=== PATIENT | female | born 1945 | race Caucasian/White ===

== ENCOUNTER 2022-03-12 15:56 | Observation (INO) | payer MEDICARE, SELFPAY ==
[2022-03-12] VITALS (7 sets, daily range): BP systolic 128–142; BP diastolic 68–86; PULSE 73–92; RESP 14–16; TEMP 36.7–37.8; O2SAT 92–95; BMI 35.0; BMI 35.7
--- NOTE | 2022-03-12 16:47 | ED.GENADULT ---
HPI - General Adult General Time Seen by Provider: 16:47 Date Seen: 03/12/22 Chief complaint: Weakness Stated complaint: Weakness, Headache, Sore Throat Time Seen by Provider: 03/12/22 16:02 Source: patient, family ( daughter present), RN notes reviewed and old records reviewed Mode of arrival: ambulatory Limitations: language barrier ( hourly sign language interpreter used, daughter does do some interpretation as well) History of Present Illness HPI narrative: This 77-year-old female who is accompanied by her daughter into the ER for weakness. She really started not feeling well last night. When she attempted to get up today she states her whole body felt achy and she just felt weak with walking. She denies any focal motor deficit but just felt globally weak. She has had a mild headache, mild sore throat, some coughing, increased burping but no abdominal pain. She is reported to have some IBS baseline and did eat CABG and sausage couple of days ago and thus did take an Imodium yesterday. She denies any abdominal pain. No nausea or vomiting. No current diarrhea but again endorses IBS symptoms baseline. No urinary symptoms. She was [facility] of this past week with today being Monday. She is subsequently learned that some of the people have calmed down with illness that were at the [facility]. She resides independently and is from [place]. She has had the initial COVID vaccines. Appetite has been diminished with this. She is on Coumadin for underlying atrial fibrillation. complaint: Weakness Onset (ago): day(s) Related Data Home Medications Medication Instructions Recorded Confirmed amlodipine 5 mg tablet mg 03/12/22 atorvastatin 40 mg tablet mg 03/12/22 fluoxetine 20 mg capsule mg 03/12/22 furosemide 20 mg tablet mg 03/12/22 gabapentin 100 mg capsule mg 03/12/22 gabapentin 300 mg capsule mg 03/12/22 levothyroxine 100 mcg tablet mcg 03/12/22 losartan 100 mg tablet mg 03/12/22 metoprolol succinate 25 mg mg PO 03/12/22 tablet,extended release 24 hr Allergies Allergy/AdvReac Type Severity Reaction Status Date / Time No Known Drug Allergies Allergy Verified 03/12/22 16:34 Review of Systems Status of ROS: Reports: 10 or more systems reviewed and unremarkable except as noted in History and below [facility] Medical History (Updated 03/12/22 @ 19:03 by Dori Pierre MD) Atrial fibrillation, chronic Chronic kidney disease Hearing loss Hypertension Social History Smoking Status: Never smoker How often do you have a drink containing alcohol: monthly or less AUDIT-C Alcohol total score: 1 Non-prescribed substance use: denies use Exam Const: Vital Signs, click to edit/add: Vital Signs - 24 hr 03/12/22 16:13 03/12/22 17:30 Temperature 100 F H Pulse Rate [Pulse Oximeter] 92 84 Respiratory Rate 14 14 Blood Pressure [Ri ght Upper Arm] 141/68 H 128/86 Pulse Oximetry 94 94 Documenting provider has reviewed patient's vital signs: yes Common normals: no apparent distress, oriented x3, healthy appearing, alert and well nourished General appearance: cooperative, comfortable and well kempt Nutritional appearance: overweight Orientation/consciousness: Yes awake, Yes oriented to person, Yes oriented to place and Yes oriented to time HENMT: Common normals: normocephalic, head/scalp atraumatic, external ears normal, EAC's normal and external nose normal Head and scalp: normal to inspection, normocephalic and atraumatic Face and sinus: normal facial exam and face symmetric Nose: external nose normal and nares normal General ear: hearing grossly impaired (uses ASL) External ear: external ears normal External auditory canal: EAC's normal Mouth: oral and palatal mucosa normal, lip normal and tongue normal Eye: Common normals: PERRL, EOMs intact bilaterally, conjunctivae normal and no scleral icterus Conjunctiva: conjunctiva(e) normal Pupil: PERRL Neck & C-Spine: Common normals: full ROM, no lymphadenopathy, supple, no meningeal signs, no JVD and thyroid normal Thyroid: thyroid normal Chest: Other: some residual scarring left lower thoracic area on back from Shingles, no active lesions/rash Resp: Common normals: normal respiratory effort, no retractions, no use of accessory muscles and clear to auscultation bilaterally Auscultation: clear to auscultation bilaterally Other: did cough occasionally while in room Cardio: Common normals: no JVD and no murmurs Rhythm: other (Irregularly irregular) GI: Common normals: Normal to inspection, nondistended, normoactive bowel sounds present, soft to palpation, non-tender, no hepatosplenomegaly and no masses Palpation: soft and no hepatosplenomegaly Extremity: Common normals: normal to inspection, full ROM and no calf tenderness Neuro: Common normals: oriented x3, CN's II-XII intact bilaterally, moves all extremities, no focal motor deficits and no sensory deficits noted Sensorium/orientation: awake, alert, oriented to person, oriented to place and oriented to time Meningeal signs: no meningeal signs Psych: Appearance: well kempt Course Course Hospital Course: Nursing staff is already appropriately collected COVID swab. We will place an IV, obtain blood work and a portable chest x-ray. This obviously is something infectious. We need to decipher whether this is bacterial versus viral. With her cough seen, headache, sore throat, would point towards a respiratory focus. Again figuring out whether viral or bacterial is our plan here. Will have her monitored on pulse oximetry while here. Reevaluation(s) Reevaluation #1: Patient and her daughter were notified that she is COVID positive. It did take extra time for the COVID result to come back. The initial cartridge errored and they had to redo the test. She is too weak to be at home by herself. Her daughter had called the patient's pharmacy in they do not have any Paxlovid. I did discuss that we could use IV remdesivir for early treatment with the 3 doses IV. They would like to do this. She is having some body aches and does have a low-grade temperature and we discussed some Tylenol, I will order a dose for her. Have subsequently talked to the hospitalist and she will be coming down to receive report from me. Time: 19:00 Vital Signs Vital signs: Initial Vital Signs Temperature 100 F H 03/12/22 16:13 Temperature Source Temporal Artery Scan 03/12/22 16:13 Pulse Rate 92 03/12/22 16:13 Respiratory Rate 14 03/12/22 16:13 Blood Pressure 141/68 H 03/12/22 16:13 Blood Pressure Mean 92 03/12/22 16:13 Blood Pressure Position Supine 03/12/22 16:13 Pulse Oximetry 94 03/12/22 16:13 Oxygen Delivery Method 03/12/22 16:13 Vital Signs Temperature 100 F H 03/12/22 16:13 Pulse Rate 92 03/12/22 16:13 Respiratory Rate 14 03/12/22 16:13 Blood Pressure 141/68 H 03/12/22 16:13 Pulse Oximetry 94 03/12/22 16:13 Temperature 100 F H 03/12/22 16:13 Pulse Rate 84 03/12/22 17:30 Respiratory Rate 14 03/12/22 17:30 Blood Pressure 128/86 03/12/22 17:30 Pulse Oximetry 94 03/12/22 17:30 Medical Decision Making Lab Data Lab results reviewed: Yes I reviewed the patient's lab results Lab results narrative: Note Cr is 1.8 and 2.2 in old labs from 2017, thus, stable. Labs: Lab Results 03/12/22 03/12/22 03/12/22 Range/Units 16:43 17:30 17:30 WBC 6.12 (4.50-11.00) K/uL RBC 3.54 L (4.00-5.20) m/uL Hgb 11.0 L (12.0-16.0) gm/dL Hct 33.7 (33.0-51.0) % MCV 95 (80-100) fL MCH 31 (26-34) pg MCHC 33 (32-36) gm/dL RDW Coeff of Halle 17.0 H (11.5-15.5) % Plt Count 250 (140-440) K/uL Neut % (Auto) 76.0 H (42.0-72.0) % Lymph % (Auto) 10.5 L (20-44) % Franklin % (Auto) 11.8 H (0.0-11.0) % Eos % (Auto) 0.7 (0.0-7.0) % Baso % (Auto) 0.5 (0.0-3.0) % Neut # (Auto) 4.70 (1.7-7.0) K/uL Lymph # (Auto) 0.60 L (0.90-2.90) K/uL Franklin # (Auto) 0.70 (0.00-0.90) K/UL Eos # (Auto) 0.04 (0.00-0.50) K/uL Baso # (Auto) 0.03 (0.00-0.30) K/uL Abs Immat Gran (auto) 0.03 (0.00-0.30) K/uL Diff Slide Review Acceptable Review (Acceptable) INR (0.91-1.10) Sodium 137 (135-149) mmol/L Potassium 4.4 (3.6-5.1) mmol/L Chloride 107 (96-114) mmol/L Carbon Dioxide 21 (20-32) mmol/L BUN 51 H (7-30) mg/dL Creatinine 2.0 H (0.5-1.5) mg/dL Estimated Creat Clear 18.06 Estimated GFR 25 ml/min Glucose 103 (60-115) mg/dL Calcium 8.8 (8.4-10.6) mg/dL Total Bilirubin 0.6 (0.1-1.5) mg/dL AST 34 (12-35) U/L ALT 26 (4-35) U/L Alkaline Phosphatase 54 (40-150) U/L C-Reactive Protein 2.7 H (0.5-1.0) mg/dL Total Protein 6.8 (6.0-8.3) g/dL Albumin 4.0 (3.3-5.0) g/dL Urine Color (Yellow) Urine Appearance (Clear) Urine pH (5.0-8.5) Ur Specific [place] (1.000-1.030) Urine Protein (Negative) Urine Glucose (UA) (Negative) Urine Ketones (Negative) Urine Blood (Negative) Urine Nitrite (Negative) Urine Bilirubin (Negative) Urine Urobilinogen (0.2-1.0) Ur Leukocyte Esterase (Negative) Urine RBC (0-2) Urine WBC (0-5) Ur Squamous Epith Cells (None-Few) Amorphous Sediment (None) Urine Bacteria (None) Urine Mucus (None) SARS-CoV-2 (PCR) POSITIVE SARS-CoV-2 A (Negative) Influenza Type A (PCR) Negative PCR FLU A (Negative) Influenza Type B (PCR) Negative PCR FLU B (Negative) 03/12/22 03/12/22 Range/Units 18:30 19:05 WBC (4.50-11.00) K/uL RBC (4.00-5.20) m/uL Hgb (12.0-16.0) gm/dL Hct (33.0-51.0) % MCV (80-100) fL MCH (26-34) pg MCHC (32-36) gm/dL RDW Coeff of Halle (11.5-15.5) % Plt Count (140-440) K/uL Neut % (Auto) (42.0-72.0) % Lymph % (Auto) (20-44) % Franklin % (Auto) (0.0-11.0) % Eos % (Auto) (0.0-7.0) % Baso % (Auto) (0.0-3.0) % Neut # (Auto) (1.7-7.0) K/uL Lymph # (Auto) (0.90-2.90) K/uL Franklin # (Auto) (0.00-0.90) K/UL Eos # (Auto) (0.00-0.50) K/uL Baso # (Auto) (0.00-0.30) K/uL Abs Immat Gran (auto) (0.00-0.30) K/uL Diff Slide Review (Acceptable) INR 1.81 H (0.91-1.10) Sodium (135-149) mmol/L Potassium (3.6-5.1) mmol/L Chloride (96-114) mmol/L Carbon Dioxide (20-32) mmol/L BUN (7-30) mg/dL Creatinine (0.5-1.5) mg/dL Estimated Creat Clear Estimated GFR ml/min Glucose (60-115) mg/dL Calcium (8.4-10.6) mg/dL Total Bilirubin (0.1-1.5) mg/dL AST (12-35) U/L ALT (4-35) U/L Alkaline Phosphatase (40-150) U/L C-Reactive Protein (0.5-1.0) mg/dL Total Protein (6.0-8.3) g/dL Albumin (3.3-5.0) g/dL Urine Color Yellow (Yellow) Urine Appearance Clear (Clear) Urine pH 5.0 (5.0-8.5) Ur Specific [place] 1.015 (1.000-1.030) Urine Protein Negative (Negative) Urine Glucose (UA) Negative (Negative) Urine Ketones Negative (Negative) Urine Blood Trace-lysed A (Negative) Urine Nitrite Negative (Negative) Urine Bilirubin Negative (Negative) Urine Urobilinogen 0.2 (0.2-1.0) Ur Leukocyte Esterase Trace A (Negative) Urine RBC 0-2 (0-2) Urine WBC 0-2 (0-5) Ur Squamous Epith Cells Few (None-Few) Amorphous Sediment (None) Urine Bacteria Few A (None) Urine Mucus (None) SARS-CoV-2 (PCR) (Negative) Influenza Type A (PCR) (Negative) Influenza Type B (PCR) (Negative) Imaging Data Chest x-ray: Attestation: I have reviewed the pertinent imaging results. My impression: My preliminary read of her portable chest x-ray shows cardiomegaly but I do not appreciate infiltrate. Will await radiologist's over-read. Radiologist's impression: Patient: ANTOINE TIPTON Facility:?[facility] Patient ID:?[id number] Site Patient ID:?[id number]. Site :?[id number] Study:?XRay Chest PORTABLE-03/12/2022 5:19:57 PM Ordering Physician:?Gabby Meadows Final Report: Indication: Cough Technique: Portable chest Comparison: Chest x-ray 05/18/2017 Findings: Enlarged cardiac silhouette. Low lung volumes. No acute airspace or interstitial process right hemidiaphragm elevated. No effusion or pneumothorax. Dictated by Kourtney Griffin MD @ 03/12/2022 5:35:23 PM (Electronic Signature) Critical Care Time Critical Care Time Critical Care Time: No Discharge Plan Discharge Clinical Impression: COVID-19, Weakness Patient Disposition: Admitted As Inpatient Condition: Unchanged
--- NOTE | 2022-03-12 17:03 | CRLHL7_ITS ---
For Patients: As a result of the Century Cures Act, medical imaging exams and procedure reports are released immediately into your electronic medical record. You may view this report before your referring provider. If you have questions, please contact your health care provider. Indication: Cough Technique: Portable chest Comparison: Chest x-ray 05/18/2017 Findings: Enlarged cardiac silhouette. Low lung volumes. No acute airspace or interstitial process right hemidiaphragm elevated. No effusion or pneumothorax. Dictated by Kourtney Griffin MD @ 03/12/2022 5:35:23 PM (Electronically Signed)
[2022-03-12 17:54] LABS: Chloride* 107 mmol/L (96-114)
[2022-03-12 17:55] LABS: Potassium* 4.4 mmol/L (3.6-5.1); Sodium* 137 mmol/L (135-149)
[2022-03-12 17:57] LABS: Bilirubin Total* 0.6 mg/dL (0.1-1.5); Est. Creatinine Clearance* 18.06; Estimated Glomerular Filt Rate 25 ml/min
[2022-03-12 17:58] LABS: Alanine Aminotransferase* 26 U/L (4-35); Alkaline Phosphatase* 54 U/L (40-150); Aspartate Amino Transferase* 34 U/L (12-35); Blood Urea Nitrogen* 51 mg/dL (7-30); Calcium* 8.8 mg/dL (8.4-10.6); Carbon Dioxide* 21 mmol/L (20-32); Glucose* 103 mg/dL (60-115); Total Protein* 6.8 g/dL (6.0-8.3)
[2022-03-12 18:00] LABS: Basophils Absolute Auto 0.03 K/uL (0.00-0.30); Basophils Percent Auto 0.5 % (0.0-3.0); Eosinophils Absolute Auto 0.04 K/uL (0.00-0.50); Eosinophils Percent Auto 0.7 % (0.0-7.0); Hematocrit 33.7 % (33.0-51.0); Immature Granulocytes Abs Auto 0.03 K/uL (0.00-0.30); Lymphocytes Percent Auto 10.5 % (20-44); Mean Corpuscular HGB Conc 33 gm/dL (32-36); Mean Corpuscular Hemoglobin 31 pg (26-34); Mean Corpuscular Volume 95 fL (80-100); Monocytes Percent Auto 11.8 % (0.0-11.0); Red Blood Count 3.54 m/uL (4.00-5.20); White Blood Count* 6.12 K/uL (4.50-11.00)
[2022-03-12 18:01] LABS: C Reactive Protein* 2.7 mg/dL (0.5-1.0)
[2022-03-12 18:06] LABS: Slide Review Reflex Yes
[2022-03-12 18:42] LABS: Platelet Count* 250 K/uL (140-440); Slide Review Acceptable Review (Acceptable)
[2022-03-12 18:49] LABS: PCR FLU A Negative PCR FLU A (Negative); PCR FLU B Negative PCR FLU B (Negative)
[2022-03-12 18:54] LABS: INR 1.81 (0.91-1.10); Prothrombin Time 21.4 Seconds
[2022-03-12 19:15] LABS: SARS PCR* POSITIVE SARS-CoV-2 (Negative)
[2022-03-12 19:18] LABS: Appearance Urine Clear (Clear); Bilirubin Urine Negative (Negative); Blood Urine Trace-lysed (Negative); Color Urine Yellow (Yellow); Glucose Urine Negative (Negative); Ketones Urine Negative (Negative); Leukocyte Esterase Urine Trace (Negative); Nitrite Urine Negative (Negative); Protein Urine Negative (Negative); Specific Gravity Urine 1.015 (1.000-1.030); Urobilinogen Urine 0.2 (0.2-1.0)
--- NOTE | 2022-03-12 19:19 | P.IMHP_ITS ---
Hospitalist- H&P: HPI History of Present Illness Time Seen by Provider: 19:29 Date Seen: 03/12/22 Chief complaint: Weakness, Headache, Sore Throat Narrative: Sylvia Doan is a 77 year old female who presents emergency room with her daughter for weakness and body aches. aerial photograph interpreter present throughout interview. Sylvia notes that she started having fatigue and achiness last night. Also has mild cough, but no dyspnea or chest pain. ER course and findings: - Positive COVID, remdesivir loading dose was ordered - creatinine of 2.0 (baseline) - mild normocytic anemia with a hemoglobin of 11.0 (was 12.5 in December) Sylvia has been vaccinated for COVID x2 (has not had any boosters), is thinks she was exposed to COVID earlier this week at a [employer] event. She had a fairly severe case of shingles involving her left chest wall and back in December, still on gabapentin for post herpetic neuralgia. History of atrial fibrillation, rate controlled on Metoprolol, anticoagulated on Coumadin. Per last cardiology note, patient has a history of mild diastolic heart failure. Also has CKD, baseline creatinine around 2. Other medical history includes hyperlipidemia, essential hypertension, carotid stenosis, mild depression, and hypothyroidism. PCP is Dr. Tala Thomason at [facility] in [place]. Has had a tubal ligation and eye surgery. Retired, , lives in [place] (basement apartment of her daughter's home). Rare ETOH, nonsmoker. Daughter Maya would be medical decision maker if needed. Review of Systems Status of ROS: Reports: 10 or more systems reviewed and unremarkable except as noted in History and below PFSH PFS Medical History (Updated 03/12/22 @ 20:35 by Kat Gonsales MD) Atrial fibrillation, chronic Chronic kidney disease Hearing loss Hypertension Surgical History (Updated 03/12/22 @ 20:35 by Kat Gonsales MD) History of tubal ligation Social History Smoking Status: Never smoker How often do you have a drink containing alcohol: monthly or less AUDIT-C Alcohol total score: 1 Non-prescribed substance use: denies use Meds Home Medications and Allergies Home Medications Medication Instructions Recorded Confirmed Type amlodipine 5 mg tablet 5 mg PO DAILY 03/12/22 03/12/22 History atorvastatin 40 mg tablet 40 mg PO DAILY 03/12/22 03/12/22 History fluoxetine 20 mg capsule 20 mg PO DAILY 03/12/22 03/12/22 History furosemide 20 mg tablet 20 mg PO DAILY 03/12/22 03/12/22 History gabapentin 100 mg capsule 100 mg PO Q8H PRN 03/12/22 03/12/22 History levothyroxine 100 mcg tablet 100 mcg PO DAILY 03/12/22 03/12/22 History losartan 100 mg tablet 100 mg PO DAILY 03/12/22 03/12/22 History metoprolol succinate 25 mg 25 mg PO DAILY 03/12/22 03/12/22 History tablet,extended release 24 hr warfarin 1 mg tablet 1 mg PO DAILY 03/12/22 03/12/22 History Home Medication Comments: Unsure of current warfarin dose Allergies Allergy/AdvReac Type Severity Reaction Status Date / Time No Known Drug Allergies Allergy Verified 03/12/22 16:34 Exam Const: Vital Signs, click to edit/add: Vital Signs - 24 hr 03/12/22 16:13 03/12/22 17:30 Temperature 100 F H Pulse Rate [Pulse Oximeter] 92 84 Respiratory Rate 14 14 Blood Pressure [Ri ght Upper Arm] 141/68 H 128/86 Pulse Oximetry 94 94 Hospitalist - H&P: Result Labs Labs: Short CBC 03/12/22 Range/Units 17:30 WBC 6.12 (4.50-11.00) K/uL Hgb 11.0 L (12.0-16.0) gm/dL Hct 33.7 (33.0-51.0) % Plt Count 250 (140-440) K/uL BMP 03/12/22 17:30 Sodium 137 Potassium 4.4 Chloride 107 Carbon Dioxide 21 BUN 51 H Creatinine 2.0 H Glucose 103 Calcium 8.8 Liver Function 03/12/22 Range/Units 17:30 Total Bilirubin 0.6 (0.1-1.5) mg/dL AST 34 (12-35) U/L ALT 26 (4-35) U/L Alkaline Phosphatase 54 (40-150) U/L Albumin 4.0 (3.3-5.0) g/dL Assessment and Plan Assessment and plan (1) COVID-19: Status: Acute (2) Weakness: Status: Acute (3) Hypertension: Status: Acute (4) Hearing loss: Status: Acute (5) Atrial fibrillation, chronic: Status: Acute (6) Chronic kidney disease: Status: Acute Plan 77-year-old female with weakness in the setting of known COVID-19 infection. 1. COVID: Remdesivir loading dose given in the ER, will follow renal function while we continue this course. Currently not hypoxic, will ask PT and OT to see her given weakness. 2. AFib: Continue home dose of metoprolol, will have pharmacy dose warfarin given mildly subtherapeutic INR. 3. Other comorbidities as noted above: Continue home medications. 4. Prophylaxis with warfarin. 5. Patient requests full code status, although states she would not want to be on a ventilator for a lengthy period of time.
[2022-03-12 19:24] LABS: Bacteria Urine Few; RBC Urine 0-2 (0-2); Squamous Epithelial Cell Urine Few (None-Few); WBC Urine 0-2 (0-5)
[2022-03-12] MEDS: ACETAMINOPHEN 325 MG TABLET 650 MG PO (20:02)
--- NOTE | 2022-03-12 20:07 | ED.NURSE ---
Report given to Tomer Gonzalez/Mare AGUILAR. Pt will go to Rm [id number].
--- NOTE | 2022-03-12 23:36 | PC.NURSE ---
Shift [id number]- Patient arrives to floor with daughter at approximately 2030. IPAD translator/interpreter used in addition to daughter for ASL. She denies shortness of breath or chest pain. She is up with walker and assist of 1 and is steady, but appears weak. She is eating and drinking and voiding. Remains on room air with saturations >90%.
[2022-03-13 03:00] VITALS: BP 150/68; PULSE 75; RESP 20; TEMP 39.2; O2SAT 92
[2022-03-13 04:58] VITALS: TEMP 39.2
[2022-03-13] MEDS: ACETAMINOPHEN 325 MG TABLET 975 MG PO ×2 (04:58→16:01)
[2022-03-13 06:18] VITALS: TEMP 37.9
[2022-03-13] MEDS: LEVOTHYROXINE 100 MCG TABLET PO (06:19)
[2022-03-13 07:06] LABS: Basophils Percent Auto 0.5 % (0.0-3.0); Eosinophils Percent Auto 0.2 % (0.0-7.0); Hematocrit 32.9 % (33.0-51.0); Hemoglobin* 10.6 gm/dL (12.0-16.0); Lymphocytes Percent Auto 20.3 % (20-44); Mean Corpuscular HGB Conc 32 gm/dL (32-36); Mean Corpuscular Hemoglobin 31 pg (26-34); Mean Corpuscular Volume 97 fL (80-100); Monocytes Percent Auto 21.4 % (0.0-11.0); Neutrophils Percent Auto 57.6 % (42.0-72.0); Platelet Count* 226 K/uL (140-440); Red Blood Count 3.41 m/uL (4.00-5.20); White Blood Count* 4.29 K/uL (4.50-11.00)
--- NOTE | 2022-03-13 07:12 | PC.NURSE ---
[id number]: Patient pleasant and cooperative. Patient has extensive hearing loss using electrical assembler and white board for communication. Also uses nonverbal communication effectively. Denies pain/N/V/discomfort. Fever of 102.5 during noc. PRN Tylenol administered. Temp decreased to 100.2. O2 sats dip to mid-80's during noc momentarily but pop back up to low 90's quickly. On RA.
[2022-03-13 07:19] LABS: INR 1.66 (0.91-1.10)
[2022-03-13 07:26] LABS: Slide Review Reflex No
[2022-03-13 07:27] LABS: Chloride* 108 mmol/L (96-114); Sodium* 136 mmol/L (135-149)
[2022-03-13 07:28] LABS: Potassium* 4.1 mmol/L (3.6-5.1)
[2022-03-13 07:30] LABS: Creatinine* 2.1 mg/dL (0.5-1.5); Estimated Glomerular Filt Rate 24 ml/min
[2022-03-13 07:31] LABS: Blood Urea Nitrogen* 48 mg/dL (7-30); Calcium* 8.4 mg/dL (8.4-10.6); Carbon Dioxide* 19 mmol/L (20-32); Glucose* 96 mg/dL (60-115)
[2022-03-13 09:00] VITALS: BP 120/66; PULSE 66; PULSE 75; RESP 20; TEMP 36.8; O2SAT 95
[2022-03-13] MEDS: AMLODIPINE 5 MG TABLET PO (09:45)
[2022-03-13] MEDS: METOPROLOL SUCCINATE (XL) 25 MG TAB PO (09:45)
[2022-03-13] MEDS: FLUOXETINE HCL 20 MG CAPSULE PO (09:45)
[2022-03-13] MEDS: LOSARTAN POTASSIUM 50 MG TABLET 100 MG PO (09:45)
[2022-03-13] MEDS: FUROSEMIDE 20 MG TABLET PO (09:45)
[2022-03-13] MEDS: ATORVASTATIN CALCIUM 40 MG TABLET PO (09:45)
--- NOTE | 2022-03-13 12:57 | P.DS_ITS ---
DS: Providers Provider Time Seen by Provider: 12:00 Date Seen: 03/13/22 Date of admission: 03/12/22 19:51 Primary care physician: Not a Local Provider Admitting Clinician: Kat Gonsales MD Consults: 03/12/22 20:44 Consult to Physical Therapy [CONS] Routine Comment: Reason(s) for PT Consult:: Evaluate and Treat Any Restrictions?:: Wt Bearing as Tolerated Consult to Respiratory Therapy [CONS] Routine Comment: Reason(s) for RT Consult:: Consult 03/12/22 20:47 Consult to Occupational Therapy [CONS] Routine Comment: Reason(s) for OT Consult:: Evaluate and Treat ADLs Prior to Discharge Any Restrictions?:: Wt Bearing as Tolerated Attending Physician on discharge: Kat Gonsales MD Date of Discharge: 03/13/22 DS: Diagnosis Discharge Diagnosis (1) COVID-19: Status: Acute Problem details: Date of symptom onset: 03/11/22 Date of positive covid test: 03/12/22 (2) Weakness: Status: Acute Problem details: due to covid (3) Hypertension: Status: Chronic (4) Chronic kidney disease: Status: Chronic (5) Atrial fibrillation, chronic: Status: Chronic Problem details: anticoagulation with warfarin (6) Deaf: Status: Chronic Problem details: deaf, able to speak (7) Subtherapeutic anticoagulation: Status: Acute DS: Summary Hospital Course Hospital Course: This is a 77-year-old female had recently been on a pot luck event and started having weakness and body aches. She also had a mild cough but no dyspnea or chest pain. She was weak enough that it was difficult for her to care for herself at home where she lives independently in the basement of her daughter's house. Her daughter is debilitated from chronic illness and is unable to take care of Sylvia. Sylvia was admitted overnight and started on Remdesivir. This morning she is feeling much better and able to take care of herself at home. Her 1 concern is getting down the 1 flight of stairs to get to her basement, about 10 steps. Her other daughter who is here with her today notes that she has a who can help Sylvia get down the steps. Once Sylvia is there, she has everything she needs and does not need to go back up and down until she is well enough to do so. Status at Discharge Functional status at discharge: independent ambulation Overall status at discharge: patient is progressing back to baseline Time Spent with Patient Time attestation: Total time spent providing and/or coordinating discharge services: Time spent: Greater than 30 minutes Specific discharge activities: Discussion with patient and daughter. Discussion with PT about stairs. Exam Narrative: Exam Narrative: General: No acute distress. Awake, alert, oriented. No pallor. No jaundice. Oropharynx: Clear. Mucous membranes moist. Cardiovascular: Regular rate and rhythm. No murmurs, gallops, or rubs. Respiratory: Clear to auscultation bilaterally. No wheezes or crackles. Abdomen: Bowel sounds present. Soft, nondistended, nontender. Extremities: No pedal edema. Const: Vital Signs, click to edit/add: Vital Signs - 24 hr 03/12/22 16:13 03/12/22 17:30 03/12/22 20:00 Temperature 100 F H Pulse Rate [Pulse Oximeter] 92 84 78 Respiratory Rate 14 14 14 Blood Pressure [Le ft Arm] Blood Pressure [Ri ght Upper Arm] 141/68 H 128/86 128/86 Pulse Oximetry 94 94 95 03/12/22 20:02 03/12/22 20:44 03/12/22 20:45 Temperature 100.0 F H 98.1 F Pulse Rate [Pulse Oximeter] 86 Respiratory Rate 16 16 Blood Pressure [Le ft Arm] 132/79 Blood Pressure [Ri ght Upper Arm] Pulse Oximetry 94 94 03/12/22 23:00 03/13/22 03:00 03/13/22 04:58 Temperature 99.2 F 102.5 F H 102.5 F H Pulse Rate [Pulse Oximeter] 73 75 Respiratory Rate 16 20 Blood Pressure [Le ft Arm] 142/73 H 150/68 H Blood Pressure [Ri ght Upper Arm] Pulse Oximetry 92 92 03/13/22 06:18 03/13/22 09:00 Temperature 100.2 F H 98.2 F Pulse Rate [Pulse Oximeter] 66 Respiratory Rate 20 Blood Pressure [Le ft Arm] 120/66 Blood Pressure [Ri ght Upper Arm] Pulse Oximetry 95 DS: Data Data Completed and Pending Labs on day of discharge: Labs from last 24 hours 03/13/22 03/13/22 03/13/22 06:43 06:43 06:43 WBC 4.29 L RBC 3.41 L Hgb 10.6 L Hct 32.9 L MCV 97 MCH 31 MCHC 32 RDW Coeff of [place] 17.0 H Plt Count 226 Neut % (Auto) 57.6 Lymph % (Auto) 20.3 [place] % (Auto) 21.4 H Eos % (Auto) 0.2 Baso % (Auto) 0.5 Neut # (Auto) 2.50 Lymph # (Auto) 0.90 [place] # (Auto) 0.90 Eos # (Auto) 0.00 Baso # (Auto) 0.00 Abs Immat Gran (auto) 0.00 Diff Slide Review INR 1.66 H Sodium 136 Potassium 4.1 Chloride 108 Carbon Dioxide 19 L BUN 48 H Creatinine 2.1 H Estimated Creat Clear 17.20 Estimated GFR 24 Glucose 96 Calcium 8.4 Total Bilirubin AST ALT Alkaline Phosphatase C-Reactive Protein Total Protein Albumin Urine Color Urine Appearance Urine pH Ur Specific Joseph Urine Protein Urine Glucose (UA) Urine Ketones Urine Blood Urine Nitrite Urine Bilirubin Urine Urobilinogen Ur Leukocyte Esterase Urine RBC Urine WBC Ur Squamous Epith Cells Amorphous Sediment Urine Bacteria Urine Mucus SARS-CoV-2 (PCR) Influenza Type A (PCR) Influenza Type B (PCR) 03/12/22 03/12/22 03/12/22 19:05 18:30 17:30 WBC RBC Hgb Hct MCV MCH MCHC RDW Coeff of [place] Plt Count Neut % (Auto) Lymph % (Auto) [place] % (Auto) Eos % (Auto) Baso % (Auto) Neut # (Auto) Lymph # (Auto) [place] # (Auto) Eos # (Auto) Baso # (Auto) Abs Immat Gran (auto) Diff Slide Review INR 1.81 H Sodium 137 Potassium 4.4 Chloride 107 Carbon Dioxide 21 BUN 51 H Creatinine 2.0 H Estimated Creat Clear 18.06 Estimated GFR 25 Glucose 103 Calcium 8.8 Total Bilirubin 0.6 AST 34 ALT 26 Alkaline Phosphatase 54 C-Reactive Protein 2.7 H Total Protein 6.8 Albumin 4.0 Urine Color Yellow Urine Appearance Clear Urine pH 5.0 Ur Specific Joseph 1.015 Urine Protein Negative Urine Glucose (UA) Negative Urine Ketones Negative Urine Blood Trace-lysed A Urine Nitrite Negative Urine Bilirubin Negative Urine Urobilinogen 0.2 Ur Leukocyte Esterase Trace A Urine RBC 0-2 Urine WBC 0-2 Ur Squamous Epith Cells Few Amorphous Sediment Urine Bacteria Few A Urine Mucus SARS-CoV-2 (PCR) Influenza Type A (PCR) Influenza Type B (PCR) 03/12/22 03/12/22 17:30 16:43 WBC 6.12 RBC 3.54 L Hgb 11.0 L Hct 33.7 MCV 95 MCH 31 MCHC 33 RDW Coeff of [place] 17.0 H Plt Count 250 Neut % (Auto) 76.0 H Lymph % (Auto) 10.5 L [place] % (Auto) 11.8 H Eos % (Auto) 0.7 Baso % (Auto) 0.5 Neut # (Auto) 4.70 Lymph # (Auto) 0.60 L [place] # (Auto) 0.70 Eos # (Auto) 0.04 Baso # (Auto) 0.03 Abs Immat Gran (auto) 0.03 Diff Slide Review Acceptable Review INR Sodium Potassium Chloride Carbon Dioxide BUN Creatinine Estimated Creat Clear Estimated GFR Glucose Calcium Total Bilirubin AST ALT Alkaline Phosphatase C-Reactive Protein Total Protein Albumin Urine Color Urine Appearance Urine pH Ur Specific Joseph Urine Protein Urine Glucose (UA) Urine Ketones Urine Blood Urine Nitrite Urine Bilirubin Urine Urobilinogen Ur Leukocyte Esterase Urine RBC Urine WBC Ur Squamous Epith Cells Amorphous Sediment Urine Bacteria Urine Mucus SARS-CoV-2 (PCR) POSITIVE SARS-CoV-2 A Influenza Type A (PCR) Negative PCR FLU A Influenza Type B (PCR) Negative PCR FLU B Imaging Chest x-ray: Attestation: I have reviewed the pertinent imaging results. Radiologist's impression: Ordering Physician: Dori Pierre M.D. Date of Service: 03/12/22 Procedure(s): XR chest 1V portable Accession Number(s): [id number] cc: Provider,Not a Local ; Dori Pierre M.D.~ For Patients: As a result of the Century Cures Act, medical imaging exams and procedure reports are released immediately into your electronic medical record. You may view this report before your referring provider. If you have questions, please contact your health care provider. Indication: Cough Technique: Portable chest Comparison: Chest x-ray 05/18/2017 Findings: Enlarged cardiac silhouette. Low lung volumes. No acute airspace or interstitial process right hemidiaphragm elevated. No effusion or pneumothorax. Dictated by Kourtney Griffin MD @ 03/12/2022 5:35:23 PM (Electronically Signed) Discharge Plan Discharge Disposition: Home, Self-Care Date of Admission: 03/12/22 19:51 Attending Provider on Discharge: Bessie Tenorio Primary Care Provider: Provider,Not a Local Condition: Improved Anticipated Discharge Date/Time: 03/13/22 15:00 Discharge Medications: Continued atorvastatin 40 mg tablet 40 mg PO DAILY 0RF amlodipine 5 mg tablet 5 mg PO DAILY 0RF levothyroxine 100 mcg tablet 100 mcg PO DAILY 0RF Label Comments: TAKE 1 TABLET BY MOUTH 6 TIMES A WEEK AND NO MED ONCE WEEKLY furosemide 20 mg tablet 20 mg PO DAILY 0RF Label Comments: TAKE 1 TABLET BY MOUTH DAILY gabapentin 100 mg capsule 100 mg PO Q8H PRN (Reason: pain) 0RF Label Comments: TAKE 1 TO 2 CAPSULES BY MOUTH THREE TIMES DAILY NEEDED metoprolol succinate 25 mg tablet extended release 24 hr 25 mg PO DAILY 0RF losartan 100 mg tablet 100 mg PO DAILY 0RF Label Comments: TAKE 1 TABLET BY MOUTH DAILY fluoxetine 20 mg capsule 20 mg PO DAILY 0RF Label Comments: TAKE 1 CAPSULE BY MOUTH DAILY warfarin 1 mg tablet 0.5 - 1 mg PO DAILY 0RF Rx Instructions: 1 MG MONDAY AND MONDAY, 0.5 MG ALL OTHER DAYS Discharge Orders: Discharge Order (Routine); Ordered 03/13/22 Ordered By: Bessie Tenorio Activity Level: Use Walker Activity Detail: Front wheeled walker Discharge Diet: Regular Follow Up Appointments: Provider,Not a Local [Primary Care Provider] - Forms: MyHealth Info Instructions Discharge Comment: INR on 03/16/22 at [facility]
[2022-03-13 13:00] VITALS: BP 115/67; PULSE 71; RESP 18; TEMP 36.6; O2SAT 97
[2022-03-13 15:15] VITALS: BP 118/72; PULSE 76; RESP 18; TEMP 37.6; O2SAT 95
--- NOTE | 2022-03-13 16:56 | PC.NURSE ---
Discharge 1620- Patient denies pain. Temperature elevated- tylenol administered- see charting. IV removed with catheter intact. 2 daughters are also present for discharge teaching, declines IPAD store leader for instructions. All questions answered. She leaves with all belongings and walker via wheelchair with daughters at approximately 1620.
== END 2022-03-13 16:20 | disposition home or self-care (01) ==
LOC: ED 19:03 → MEDSURG 19:52
PROVIDERS: Admitting Provider Family Medicine; Emergency Provider Family Medicine; Visit Provider Family Medicine
DX: U07.1 COVID-19 (principal); I12.9 Hypertensive chronic kidney disease with stage 1 through stage 4 chronic kidney disease, or unspecified chronic kidney disease; I48.20 Chronic atrial fibrillation, unspecified; Z79.01 Long term (current) use of anticoagulants; D64.9 Anemia, unspecified; H91.90 Unspecified hearing loss, unspecified ear; Z51.81 Encounter for therapeutic drug level monitoring; Z86.79 Personal history of other diseases of the circulatory system
CPT/HCPCS: 36415; 71045; 80048; 80053; 81001; 85025; 85610; 86140; 87040; 87086; 87186; 87502; 87635; 96374; 97110; 97116; 97161; 97165; 99284; 99285; A9270; G0378; G0379; J7050

== ENCOUNTER 2024-02-24 12:50 | Emergency (ER) | payer MEDICARE, SELFPAY ==
[2024-02-24 12:55] VITALS: BP 168/79; PULSE 60; RESP 20; TEMP 36.5; O2SAT 99; BMI 35.0
--- OUTSIDE RECORDS SUMMARY | 2024-02-24 13:27 | XMS_ITS | Clinical Summary ---
[facility] Address [address] [place] [address] Care Team Providers Care Pan Greaser Name Role Phone Tala Thomason MD Primary Care Provider [phone] Source Comments You are receiving this document as you are listed as the primary care provider,follow-up provider, or the patient has been referred to you for consultation.This is in compliance with the Medicare andMedicaid EHR Incentive Program,which states Providers who transition their patient to another setting of careor provider of care or refers their patient to another provider of care shouldprovide summary care record for each transition of care or referral. [facility] Allergies Active Allergy Reactions Criticality Noted Date Comments Codeine Nausea And Vomiting 09/21/2004 PN: felt sick Lisinopril Cough 06/02/2009 Morphine And Codeine Unknown 03/28/2003 Tyl #3 Naproxen Rash 03/28/2003 Medications Medication Sig Dispensed Refills Start Date End Date Status atorvastatin (LIPITOR) 40 MG tablet Take 1 Tablet (40 mg) by mouth daily. Active ketoconazole (NIZORAL) 2 % creamIndications:C utaneous Candidiasis,belly button, groin Apply topically daily. Apply 1-2 times daily until clear plus one week Indications: Skin Infection due to Naheed Yeast, belly button, groin 30 g 2 12/10/19 23 Active calcium carbonate 600 MG tablet Take 1 Tablet (600 mg) by mouth two times a day. Active sodium bicarbonate 650 MG tablet Take 1 Tablet (650 mg) by mouth two times a day. 180 Tablet 3 02/02/20 23 Active Vitamin D, Ergocalciferol, 1.25 MG (05127 UT) CAPS TAKE 1 CAPSULE BY MOUTH 1 TIME EVERY WEEK 13 Capsule 3 04/13/20 23 Active allopurinol (ZYLOPRIM) 100 MG tabletIndications: Gout, unspecified cause, unspecified chronicity, unspecified site,CKD (chronic kidney disease) stage 4, GFR 15-29 ml/min (HRC) Take 2 Tablets (200 mg) by mouth daily. 180 Tablet 3 07/18/20 23 Active alendronate (FOSAMAX) 70 MG tabletIndications: Osteopenia, unspecified location Take 1 Tablet (70 mg) by mouth once every week. TAKE 30 MINUTES BEFORE FIRST VAJO-LLWEH-OSPMVMTV ON. AVOID LYING DOWN FOR 30 MINUTES 12 Tablet 1 08/22/19 24 Active warfarin 3 MG tabletIndications: Chronic atrial fibrillation (HRC),longterm (current) use of anticoagulants Take by mouth 3 mg every Sa; 1.5 mg all other days or as directed. Your dose may change. Call [facility] [phone] with questions. 12/19/19 24 Active losartan (COZAAR) 100 MG tabletIndications: Essential hypertension (HRC) TAKE 1 TABLET BY MOUTH DAILY 90 Tablet 12/25/19 24 025 Active mupirocin (BACTROBAN) 2 % ointment Apply to affected area three times a day for 7 days. 22 g 12/23/19 24 Active triamcinolone acetonide (KENALOG) 0.1 % cream Apply to affected area twice daily x7 days 15 g 12/23/19 24 Active amLODIPine (NORVASC) 5 MG tablet TAKE 1 TABLET(5 MG) BY MOUTH DAILY 90 Tablet 12/29/19 24 Active metoprolol succinate (TOPROL XL) 25 MG 24 hour release tablet TAKE 1 TABLET(25 MG) BY MOUTH DAILY 90 Tablet 12/29/19 24 Active furosemide (LASIX) 20 MG tabletIndications: Essential hypertension (HRC) TAKE 1 TABLET BY MOUTH DAILY 60 Tablet 01/05/20 24 Active FLUoxetine (PROZAC) 20 MG capsuleIndications :Moderate episode of recurrent major depressive disorder (HRC) take 1 capsule by mouth daily 60 Capsule 01/09/20 24 Active levothyroxine (SYNTHROID) 100 MCG tabletIndications: Hypothyroidism, unspecified type (HRC) TAKE 1 TABLET(100 MCG) BY MOUTH DAILY 90 Tablet 02/21/20 24 Active levothyroxine (SYNTHROID) 100 MCG tabletIndications: Hypothyroidism, unspecified type (HRC) TAKE 1 TABLET(100 MCG) BY MOUTH DAILY 90 Tablet 2 05/28/20 23 024 Discontinued Active Problems Problem Noted Date Diagnosed Date Monitoring for long-term anticoagulant use 12/18 Osteopenia 06/30/2022 Overview: With high risk of fracture, FRAX for hip 9% based on bone density test done 06/2022. Consider pharmacotherapy. Letter sent. Hyperlipidemia 06/29/2021 History of basal cell carcinoma 04/21/2020 Overview: BCC right upper back, s/p punch excision 04/01/2020 Screening for cervical cancer 08/25/2017 Overview: Normal pap in 2005 and 2009. Elevated LFTs 05/25/2017 Overview: Noted on 05/25/2017. Recheck in 3 months. Check addition LFTs and US RUQ if pain sooner. 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 Anxiety state 12/08/2010 Overview: Anxiety NOS CKD (chronic kidney disease) stage 4, GFR 15-29 ml/min 10/09/2009 Overview: Chronic Kidney Disease Stage 4 Gout 05/25/2009 Overview: Gout NOS Bilateral deafness 06/22/2006 Overview: LW Modifier: reads lips well ; Deafness Hypothyroidism 06/22/2006 Overview: Hypothyroidism Primary Essential hypertension 06/22/2006 Overview: Hypertension Resolved Problems Problem Noted Date Diagnosed Date Resolved Date longterm (current) use of anticoagulants 05/23/2017 12/19/2023 Overview: Update from Spring 2017 IMO load. Depressive disorder 12/08/2010 12/17/19 15 Overview: Depression NOS Malignant neoplasm of skin of upper limb 04/19/2010 12/16/2014 Overview: Basal Cell Ca Shoulder Routine general medical exam ination at a health care facility 01/25/2006 06/29/2021 Overview: LW Onset: ; Health Maintenance Encounters Date Type Department Care Team Description 02/19/2024 Refill [facility] [address] [place] [address] Tala Thomason MD Refill (levothyroxine (SYNTHROID) 100 MCG tablet [Pharmacy Med Name: LEVOTHYROXINE 0.100MG (100MCG) TAB]) 02/08/2024 11:50 AM CDT Lab Visit [facility] [address] [place] [id number] long term acute care registered nurse (current) use of anticoagulants; CKD (chronic kidney disease) stage 4, GFR 15-29 ml/min (HRC) 02/08/2024 Anticoagulation PN [facility], [address] [place] [address] Chronic atrial fibrillation (HRC) (Primary Dx); Monitoring for long-term anticoagulant use 01/26/2024 Refill [facility] [address] [place], [place] [id number] Shannon Gunter APRN, OPINION POLLS SURVEY WORKER Refill (sodium bicarbonate 650 MG tablet [Pharmacy Med Name: SODIUM BICARBONATE 10GR(650MG) TABS]) 01/06/2024 [facility]ill [facility] [address] [place], [place] [address] [address] Tala Thomason MD Refill (FLUoxetine (PROZAC) 20 MG capsule [Pharmacy Med Name: FLUOXETINE 20MG CAPSULES]) 01/02/2024 1:10 PM CDT Lab Visit [facility] [address] [place] [address], [place] [address] CKD (chronic kidney disease) stage 4, GFR 15-29 ml/min (HRC); long term acute care registered nurse (current) use of anticoagulants 01/02/2024 Anticoagulation [facility] [address] [place] [address], [address] [place] [address] Chronic atrial fibrillation (HRC) (Primary Dx); Monitoring for long-term anticoagulant use 01/02/2024 [address] [place] [address] Tala Thomason MD Refill (furosemide (LASIX) 20 MG tablet [Pharmacy Med Name: FUROSEMIDE 20MG TABLETS]) 12/29/2023 [address]ill [address] [place] [address] Tala Thomason MD Refill (metoprolol succinate (TOPROL XL) 25 MG 24 hour release tablet [Pharmacy Med Name: METOPROLOL ER SUCCINATE 25MG TABS]; amLODIPine (NORVASC) 5 MG tablet [Pharmacy Med Name: AMLODIPINE BESYLATE 5MG TABLETS]) 12/23/2023 11:00 AM CDT [facility] [address] [place] [phone] Arabella Saleh PA-C Impetigo; Dermatitis 12/22/2023 [address] [place] [address] Tala Thomason MD Refill (losartan (COZAAR) 100 MG tablet [Pharmacy Med Name: LOSARTAN 100MG TABLETS]) 12/19/2023 [address] [place] [address] Tala Thomason MD Medicare Annual Wellness 12/18/2023 1:00 PM CDT Lab Visit [facility] [address] [place] [address] longterm (current) use of anticoagulants 12/18/2023 Anticoagulation PN [facility] [address] [place] [address] Chronic atrial fibrillation (HRC) (Primary Dx); longterm (current) use of anticoagulants; Monitoring for long-term anticoagulant use 12/04/2023 3:10 PM CDT Lab Visit [facility] [address] [place] [address] long term acute care registered nurse (current) use of anticoagulants 12/04/2023 Anticoagulation PN [facility] [address] [place] [address] Chronic atrial fibrillation (HRC) (Primary Dx); long term acute care registered nurse (current) use of anticoagulants 11/29/2023 Telephone [facility] [address] [place] [address] Tala Thomason MD Appt. Needed from Last 3 Months Immunizations Name Administration Dates Next Due Flu Vac (3+ yrs) 04/27/2012 Flu Vac Preserv Free (3+yrs) 04/27/2012, 05/12/2011,04/28/2010,2008 HepB Adult (Engerix-B, 20+ y rs, 3 dose series) 06/29/2021,05/13/2019 Influenza IIV3 (Trivalent) F luzone Highdose, 65+ Yrs (28075) 05/13/2019,07/10/2018,05/23/2017,2013 Influenza IIV4 (Quadrivalent ) 0.5mL (76631) 10/14/2013 Influenza IIV4 (Quadrivalent ) Fluad, 65+ Yrs 06/29/2021 Influenza, Unspecified Formulation 07/23/2003 Moderna Monovalent 12+ 04/30/2021,04/02/2021 PCV13 (Prevnar) 11/27/2017 PPSV23 (Pneumovax) 01/08/2019 TDAP (ADACEL) 04/28/2010 Tdap 06/29/2021 Family History Medical History Relation Name Comments Hypertension Father Kidney/Bladder Disease Sister 1 Kidney/Bladder Disease Sister 2 Cancer, Breast Negative Family History Relation Name Status Comments Father Mother Maternal Grandfather Maternal Grandmother Paternal Grandfather Paternal Grandmother Sister 1 Alive Sister 2 Social History Tobacco Use Types Packs/Day Years Used Date Smoking Tobacco: Never Smokeless Tobacco: Never Alcohol Use Standard Drinks/Week Comments Yes 0 (1 standard drink = 0.6 oz pur e alcohol) rare- beer PHQ-2 Answer Date Recorded PHQ-2 Score 0 11/10/2023 Sex and Gender Information Value Date Recorded Sex Assigned at Not on file Gender Identity Not on file Sexual Orientation Not on file Last Filed Vital Signs Vital Sign Reading Time Taken Comments Blood Pressure 150/74 12/23/2023 10:39 AM CDT Pulse 70 12/23/2023 10:35 AM CDT Temperature 36.5 ??C (97.7 ??F) 12/23/2023 1 0:35 AM CDT Respiratory Rate 18 12/23/2023 10:3 5 AM CDT Oxygen Saturation 100% 12/23/2023 10: 35 AM CDT Inhaled Oxygen Concentration - - Weight 84.8 kg (186 lb 14.4 oz) 02/01/2023 1:26 PM CDT Height 154.9 cm (5' 1) 05/13/2019 10:0 5 AM CDT Body Mass Index 35.31 05/13/2019 10:05 AM CDT Plan of Treatment Upcoming Encounters Date Type Department Care Team (Late st Contact Info) Description 03/05/2024 2:00 PM CDT Appointment [facility] [address] [place] [address] Tala Thomason MD [facility] [place] [address] Health Maintenance Due Date Last Done Comments Zoster/Shingles (1 of 2) 1996 HepB (3) 08/24/2021 06/29/2021, 05/13/2019 Medicare Annual Wellness Visit 03/24/2023 03/24/2022, 02/18/2021, 07/11/2019 COVID-19 Vaccine (3 - season) 2023 04/30/2021, 04/02/2021 Influenza (#1) 2024 06/29/2021, 04/22, 07/10/2018, Additional history exists Dexa 06/17/2024 06/17/2022, 05/22, 01/28/2015, Additional history exists DTaP/Tdap/Td (3 - Tdap) 06/29/2031 06/29/2021, 04/28 Pneumococcal 65+ Yrs Completed 01/08/2019, 11/28/19 18 Hep C Screening (Preventive Services) Completed 09/05/2019 FIT Colon Cancer Screening Discontinued 03/01, 02/19/2021, 05/24/2017 Cholesterol Discontinued 03/14/2023, 05/0 04/2022, 09/05/2019, Additional history exists HepA Aged Out No longer eligi ble based on patient's age to complete this topic Hib Aged Out No longer eligi ble based on patient's age to complete this topic IPV (Polio) Aged Out No longer eligi ble based on patient's age to complete this topic MCV4 Aged Out No longer eligi ble based on patient's age to complete this topic Procedures Procedure Name Priority Date/Time Associated Diagnosis Comments TP/CREA RATIO, URINE Routine 02/09/2024 1:22 PM CDT CKD (chronic kidney disease) stage 4, GFR 15-29 ml/min (HRC) INR/PROTIME Routine 02/08/2024 11:37 AM CDT long term acute care registered nurse (current) use of anticoagulants INR/PROTIME Routine 01/02/2024 3:12 PM CDT long term acute care registered nurse (current) use of anticoagulants HEMOGLOBIN, BLOOD Routine 01/02/2024 3:1 2 PM CDT CKD (chronic kidney disease) stage 4, GFR 15-29 ml/min (HRC) VITAMIN D 25-HYDROXY, TOTAL Routine 01/02/2024 3:12 PM CDT CKD (chronic kidney disease) stage 4, GFR 15-29 ml/min (HRC) INTACT PTH Routine 01/02/2024 3:12 PM CDT CKD (chronic kidney disease) stage 4, GFR 15-29 ml/min (HRC) RENAL FUNCTION PANEL Routine 01/02/2024 3:12 PM CDT CKD (chronic kidney disease) stage 4, GFR 15-29 ml/min (HRC) INR/PROTIME Routine 12/18/2023 12:37 PM CDT long term acute care registered nurse (current) use of anticoagulants INR/PROTIME Routine 12/04/2023 2:48 PM CDT long term acute care registered nurse (current) use of anticoagulants LIPID PANEL & DIRECT LDL (IF NEEDED) Routine 03/14/2023 10:54 AM CDT Hyperlipidemia, unspecified hyperlipidemia type (HRC) DXA BONE DENSITY SPINE/HIP INC VERT FX ASSESS Routine 06/17/2022 9:58 AM CDT Post-menopausal FIT COLON RECTAL CANCER SCREENING Routine 03/01/2022 8:00 AM CDT Screening for colon cancer HEPATITIS C ANTIBODY, WITH REFLEX Routine 09/05/2019 10:01 AM ARTIST MANAGER Need for hepatitis C screening test from Last 3 Months or Most Recently Relevant to Health Maintenance Results * TP/Crea Ratio, Urine (02/09/2024 1:22 PM CDT) TP/Creat Ratio, Urine Random 0.06 0.00 - 0.20 02/09/2024 8:05 PM CDT [facility] Total Protein, Urine, Random 2 0 - 14 mg/dL 02/09/2024 8:05 PM CDT [facility] Creatinine, Urine, Random 32 >20 mg/dL mg/dL 02/09/2024 8:05 PM CDT [facility] Urine Non-blood Collection / Unknown 02/09/2024 1:22 PM CDT 02/09/2024 1:22 PM CDT [facility] - 02/09/2024 8:05 PM CDT Low urine creatinine values coupled with low urine protein values can artifactually increase the urine protein/creatinine results. Correlate results of ratio with creatinine results. Shannon Gunter APRN, CNP LAB_1 Performing Organization Address [facility]/ZIP Co de Phone Number [facility] [address] * (ABNORMAL) INR/Protime (02/08/2024 11:37 AM CDT) Only the most recent of4 resultswithin the time period is included. Protime 28.6(H) 11.8 - 14.6 Seconds 02/08/2024 2:17 PM CDT [facility] INR 2.6(H) 0.9 - 1.1 02/08/2024 2:17 PM CDT [facility] Blood Venipuncture / Unknown 02/08/2024 11:37 AM CDT 02/08/2024 11:37 AM CDT [facility] - 02/08/2024 2:17 PM CDT If you take an anticoagulant medicine called warfarin, your doctor or clinician may establish a normal range for you that is different from the baseline range shown. Tala Thomason MD LAB_1 Performing Organization Address [facility]/ZIP Co de Phone Number [facility] [address] [place] [address] * Vitamin D 25-Hydroxy, Total (Expected: 1 year) (01/02/2024 3:12 PM CDT) Vitamin D, 25-OH, Total 53 30 - 80 ng/mL 01/02/2024 8:43 PM CDT [facility] Blood Venipuncture / Unknown 01/02/2024 3:12 PM CDT 01/02/2024 3:12 PM CDT Shannon Gunter APRN, CNP LAB_1 [facility] [address] [place], [place] [address] * (ABNORMAL) Renal Function Panel (Expected: 1 year) (01/02/2024 3:12 PM CDT) Sodium 139 136 - 145 mmol/L 01/02/2024 7:10 PM [facility] Potassium 3.9 3.5 - 5.1 mmol/L 01/02/2024 7:10 PM [facility] Chloride 103 98 - 109 mmol/L 01/02/2024 7:10 PM [facility] CO2 24 20 - 29 mmol/L 01/02/2024 7:10 PM [facility] Anion Gap 12 6 - 16 mmol/L 01/02/2024 7:10 PM [facility] Calcium 9.9 8.4 - 10.4 mg/dL 01/02/2024 7:10 PM [facility] BUN 45(H) 7 - 26 mg/dL 01/02/2024 7:10 PM [facility] Creatinine 1.98(H) 0.55 - 1.02 mg/dL 01/02/2024 7:10 PM [facility] Albumin 3.4(L) 3.5 - 5.0 g/dL 01/02/2024 7:10 PM [facility] Phosphorus 4.1 2.3 - 4.7 mg/dL 01/02/2024 7:10 PM [facility] Glucose 123(H) 70 - 100 mg/dL 01/02/2024 7:10 PM [facility] Comment:The given reference range is for the fasting state. Non-fasting reference range for glucose is 70 - 180 mg/dL. GFR, Estimated 26(L) >60 mL/min/1.7 3m2 01/02/2024 7:10 PM [facility] Hours Fasting 0.1 8 - 12 Hours 01/02/2024 7:10 PM [facility] Blood Venipuncture / Unknown 01/02/2024 3:12 PM CDT 01/02/2024 3:12 PM T Shannon Gunter APRN, OPINION POLLS SURVEY WORKER LAB_1 [facility] [address] [place] [address], [facility] * Intact PTH (Expected: 1 year) (01/02/2024 3:12 PM CDT) Intact PTH 75 10 - 100 pg/mL 01/02/2024 8:03 PM CDT [facility] Blood Venipuncture / Unknown 01/02/2024 3:12 PM CDT 01/02/2024 3:12 PM CDT Shannon Gunter APRN, CNP LAB_1 Performing Organization Address [facility]/ZIP Co de Phone Number [facility] [address] [place], [place] [address] * (ABNORMAL) Hemoglobin, Blood (Expected: 1 year) (01/02/2024 3:12 PM CDT) Hemoglobin 11.7(L) 12.0 - 15.5 g/dL 01/02/2024 3:15 PM CDT [facility] (PN) Blood Venipuncture / Unknown 01/02/2024 3:12 PM CDT 01/02/2024 3:12 PM CDT Shannon Gunter APRN, CNP LAB_1 Performing Organization Address [facility]/ZIP Co de Phone Number [facility] (PN) [address] [place] [address], [facility] * (ABNORMAL) Lipid Panel and Direct LDL(If Needed) (03/14/2023 10:54 AM CDT) Cholesterol 136 0 - 199 mg/dL 03/14/2023 4:18 PM CDT [facility] Triglyceride 146 <=149 mg/dL 03/14/2023 4:18 PM CDT [facility] HDL Cholesterol 36(L) >=40 mg/dL 03/14/2023 4:18 PM CDT [facility] LDL, Calculated 71 <130 mg/dL 03/14/2023 4:18 PM CDT [facility] Non HDL Chol, Calculated 100 <=159 mg/dL 03/14/2023 4:18 PM CDT [facility] Cholesterol/HDL Ratio 3.8 03/14/2023 4:18 PM CDT [facility] Hours Fasting Unknown 03/14/2023 4:18 PM CDT [facility] (PN) Blood Venipuncture / Unknown 03/14/2023 10:54 AM CDT 03/14/2023 10:54 AM CDT Tala Thomason MD LAB_1 [facility] [address] [place] [address], [facility] [phone] [facility] (PN) [address] [place] [address], [facility] [phone] * DXA Bone Density Spine/Hip Inc Vert FX Assess (06/17/2022 9:58 AM CDT) Anatomical Region Laterality Modality Spine, Hip Radiographic Moriah ging Narrative 06/23/2022 9:09 AM CDT CLINIC DXA REPORT Patient Name: ??Sylvia Franki Densitometer:[employer] W (S/N [id number]) [place] BONE OSTEOPOROSIS RISK FACTORS FROM PATIENT QUESTIONNAIRE: ?? The patient is a 77 y.o.female: Calcium intake is not adequate. There is no self-reported history of hip, spine, pelvis, humerus, or wrist fracture; no family history of spine fracture; and a positive family history of hip fracture. ?? BONE MINERAL DENSITY: Lumbar Spine Vertebrae Included: L1;L2;L3;L4 Bone Mineral Density (gm/cm2): 0.999 T-Score: -0.4 Z-Score: 2 Total Hip Bone Mineral Density (gm/cm2): 0.764 (L) T-Score: -1.5 Z-Score: 0.4 Femoral Neck Bone Mineral Density (gm/cm2): 0.68 T-Score: -1.5 Z-Score: 0.6 FRAX 10 year probability major osteoporotic fracture: 18.7% 10 year probability hip fracture: 9.3% COMPARISON TO PRIOR STUDY: Date of prior study: 01/21/2015 Lumbar spine change: -4.9% Total hip change: -15.1% VERTEBRAL FRACTURE ASSESSMENT: No vertebral fractures from T4 through L4 ASSESSMENT: 1. Low bone mass, based on T-score(s) at all skeletal sites 2. Patient is at high risk of fracture, based on age, fracture history, bone mineral density at all skeletal sites, and presence or absence of other risk factors. RECOMMENDATIONS: ?? In the setting of high FRAX, as in this case, one can consider pharmacotherapy for low bone mass to reduce fracture risk. ??Clinical correlation needed. ??Consider repeat bone density in 2 years or as clinically indicated. TBS for this patient is 1.244 FRAX fracture risk estimates are adjusted for Trabecular Bone Score (TBS) Trabecular Bone Score (TBS) is a measure of the microarchitectural integrity of trabecular bone, and is derived from the [id number] changes of bone density embedded in the AP spine BMD image. TBS is only modestly correlated with BMD, and is modestly associated with incident major osteoporotic and hip fractures independent of BMD and other risk factors. TBS values of >1.350 indicate intact trabecular microarchitecture TBS values of 1.200 to 1.350 indicate partially degraded trabecular microarchitecture TBS values of <1.200 indicate degraded trabecular microarchitecture FRAX Explanation: The 10 year risks of hip and major osteoporotic fractures (clinical spine, forearm, hip or shoulder fracture) are calculated by the FRAX algorithm based on femoral neck bone density, age, gender, race/ethnicity, weight, height, previous fracture, parental hip fracture, smoking status, glucocorticoid intake, history of RA, secondary osteoporosis, and high alcohol consumption. FRAX Fracture Risk Categories in terms of major osteoporotic fractures: < 10% = low fracture risk ? 10% and <15% = mildly increased fracture risk ? 15% and <20% = moderately increased fracture risk ? 20% and <30% = high fracture risk ? 30% = very high fracture risk National Osteoporosis Foundation Treatment Guideline A clinician may consider FDA-approved medical therapies in postmenopausal women and men aged 50 years and older, if one or more of the following is present (clinical correlation required and therapy may not always be indicated): 1. The patient has a hip or vertebral fracture. 2. T-score ? -2.5 at the femoral neck, hip, or spine after appropriate evaluation to exclude secondary causes. 3. Low bone mass (T-score between -1.0 and -2.5 at the femoral neck, hip or spine) and a 10-year probability of a hip fracture ? 3% or a 10-year probability of a major osteoporosis-related fracture ? 20% based on the FRAX scores. Tala Thomason MD RAD DEXA * FIT Colon Rectal Cancer Screening (03/01/2022 8:00 AM CDT) Pathologist [facility] FIT Specimen 1 Negative Negative 03/03/2022 10:[address] [facility] Stool 03/01/2022 8:00 AM CDT 03/02/2022 6:29 PM CDT Tala Thomason MD LAB_[address] [facility] [address] [phone] * Hepatitis C Virus Liliana with Reflex (09/05/2019 10:01 AM ARTIST MANAGER) Pathologist [facility] Hepatitis C Antibody Negative (Non Reactive) Negative (Non Reactive) 09/05/2019 1:08 PM ARTIST MANAGER [facility] Comment:Antibodies to HCV no t detected. Does not exclude the possiblity of exposure to HCV. Blood Venipuncture Butterfly / Unknown 09/05/2019 10:01 AM ARTIST MANAGER 09/05/2019 10:01 AM ARTIST MANAGER Tala Thomason MD LAB_1 [facility] [address] [place], [place] [address] from Last 3 Months or Most Recently Relevant to Health Maintenance Advance Directives Documents on File Type Date Recorded Patient [employer] Expl anation HEALTHCARE DIRECTIVE 08/09/2023 Maya Crane GELLAR 1 10/10/2022 Healthcare Agents on File Name Relationship Healthcare Agent Relationshi p Communication Maya MACER Daughter Health Care Agent Care Teams Pan Greaser Relationship Specialty Start Date End Date Tala Thomason MD [address] [place] [address] PCP - General Family Practice 05/22/17
--- OUTSIDE RECORDS SUMMARY | 2024-02-24 13:27 | XMS_ITS | Encounter Summary ---
Author Organization [employer] Address [address] [place] [address] Care Team Providers Care Chemistry Account Manager Name Role Phone Tala Thomason MD Primary Care Provider [phone] Reason for Visit * Reason Comments Refill sodium bicarbonate 6 50 MG tablet [Pharmacy Med Name: SODIUM BICARBONATE 10GR(650MG) TABS] Encounter Details Date Type Department Care Team (Late st Contact Info) Description 01/26/2024 Refill [facility] [address] [place], [place] [id number] Mali Gunter, PEDRO, BOAT WASHER [address] [facility] [address] [place], [place] [id number] Refill (sodium bicarbonate 650 MG tablet [Pharmacy Med Name: SODIUM BICARBONATE 10GR(650MG) TABS]) Social History Tobacco Use Types Packs/Day Years [...] on file Sexual Orientation Not on file documented as of this encounter Nursing Notes * Lilliam Keith Xrwcomm - 01/26/2024 12:35 PM CDT sodium bicarbonate 650 MG tablet [Pharmacy Med Name: SODIUM BICARBONATE 10GR(650MG) TABS] Miscellaneous - 12 Month Visit 1 -> A qualifying visit was not found within the last 2 years. Last qualifying visit: None Next scheduled visit: None Last ordered by MALI GUNTER: 02/01/2023 (359 days ago) QTY: 180, Refills: 3, Sig: take 1 tablet (650 mg) by mouth two times a day. (changed but equivalent) [employer] Emb[employer] Refills, Reference: [id number], 01/26/2024 12:35:13 PM CDT, Pool: [facility]PH NURSING-PN ([id number]) documented in this encounter Plan of Treatment Upcoming Encounters Date Type Department Care Team (Late st Contact Info) Description 03/05/2024 2:00 PM CDT Appointment [facility] [address] [facility] [place] [id number] Tala Thomason MD [address] [place] [address] documented as of this encounter Visit Diagnoses Not on filedocumented in this encounter Care Teams Chemistry Account Manager Relationship Specialty Start Date End Date Tala Thomason MD [facility] [place] [address] [address] PCP - General Family Practice 05/22/17 documented as of this encounter
--- OUTSIDE RECORDS SUMMARY | 2024-02-24 13:27 | XMS_ITS | Encounter Summary ---
Author Organization [employer] Address [address] [place] [address] Care Team Providers Care Nursing Education Consultant Name Role Phone Tala Reyes MD Primary Care Provider [phone] Reason for Visit * Reason Comments Refill FLUoxetine (PROZAC) 20 MG capsule [Pharmacy Med Name: FLUOXETINE 20MG CAPSULES] Encounter Details Date Type Department Care Team (Late st Contact Info) Description 01/06/2024 Refill [facility] [address] [place] [id number] Tala Reyes MD [address] [place] [id number] Refill (FLUoxetine (PROZAC) 20 MG capsule [Pharmacy Med Name: FLUOXETINE 20MG CAPSULES]) Social History Tobacco Use Types Packs/Day Years [...] Nursing Notes * Lilliam Keith Xrwcomm - 01/06/2024 10:30 AM CDT FLUoxetine (PROZAC) 20 MG capsule [Pharmacy Med Name: FLUOXETINE 20MG CAPSULES] Medication started: 07/10/2018 Last ordered by TALA REYES: 04/07/2023 (274 days ago) QTY: 90, Refills: 2, Sig: take 1 capsule by mouth daily (unchanged) -> An office visit is overdue (performed over 13 months ago, required every 12 months). Last qualifying visit: 12/09/2022 (with TALA REYES) Next scheduled visit: 03/05/2024 (with TALA REYES) Age: 78 [employer] Emb[employer]ded Refills, Reference: [id number], 01/06/2024 10:30:24 AM CDT, Pool: JESSIE Refill [facility] - Primary Care [[id number]] ([id number]) documented in this encounter Plan of Treatment Upcoming Encounters Date Type Department Care Team (Late st Contact Info) Description 03/05/2024 2:00 PM CDT Appointment [facility] [address] [place] [address] Tala Reyes MD [facility] [address] [place] [address] documented as of this encounter Visit Diagnoses Diagnosis 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
--- OUTSIDE RECORDS SUMMARY | 2024-02-24 13:27 | XMS_ITS | Encounter Summary ---
Author Organization [facility] Address [address] [place] [address] Care Team Providers Care Head Setter Name Role Phone Tala Thomason MD Primary Care Provider [phone] Reason for Visit * Reason Comments Anticoagulation: Warfarin Encounter Details Date Type Department Care Team (Latest Contact Info) Description 02/08/2024 Anticoagulation [facility] [address] [facility] [place] [address] [place] [address] Chronic atrial fibrillation (HRC) (Primary Dx); Monitoring for long-term anticoagulant use Social History Tobacco Use Types Packs/Day Years [...] on file documented as of this encounter Plan of Treatment Upcoming Encounters Date Type Department Care Team (Late st Contact Info) Description 03/05/2024 2:00 PM CDT Appointment [facility] Counts include [address] beds at the [facility] [place] [address] Tala Thomason MD [address] [place] [address] Scheduled Orders Name Type Priority Associated Diagnoses Orde r Schedule AST Lab Routine Chronic atrial fibrillation (HRC) Monitoring for long-term anticoagulant use Expected: 02/09/2024 (Approximate), Expires: 05/11/2024 documented as of this encounter Visit Diagnoses Diagnosis Chronic atrial fibrillation (HRC)- Primary Atrial fibrillation Monitoring for long-term anticoagulant use Encounter for long-term (current) use of anticoagulants documented in this encounter Care Teams Head Setter Relationship Specialty Start Date End Date Tala Thomason MD [address] [place] [address] PCP - General Family Practice 05/22/17 documented as of this encounter
--- OUTSIDE RECORDS SUMMARY | 2024-02-24 13:27 | XMS_ITS | Referral Summary ---
Author Organization [place] Address [address] [facility] [place] [address] Care Team Providers Care Manager Physical Name Role Phone Paddy COLLINS MD, Tala Lang Primary Care Provider Santo Crump MD Unavailable [phone] Santo Crump MD Unavailable [phone] Allergies Active Allergy Reactions Criticality Noted Date Comments Acetaminophen 04/07/2003 Percocet Morphine And Codeine 03/28/2003 Tyl #3 Naproxen Rash 03/28/2003 Medications Medication Sig Dispensed Refills Start Date End Date Status FLUoxetine (PROZAC) 20 MG capsule Take 20 mg by mouth daily Active furosemide (LASIX) 20 MG tablet Take 20-40 mg by mouth daily Active levothyroxine (SYNTHROID/LEVOTHROID) 100 MCG tablet Take 100 mcg by mouth daily Active losartan (COZAAR) 100 MG tablet Take 100 mg by mouth daily Active allopurinol (ZYLOPRIM) 100 MG tablet Take 100 mg by mouth daily Active ergocalciferol (ERGOCALCIFEROL) 1.25 MG (83938 UT) capsule Take 50,000 Units by mouth Active cetirizine (ZYRTEC) 10 MG tablet Take 10 mg by mouth daily Active metoprolol succinate ER (TOPROL-XL) 25 MG 24 hr tabletIndications:Esse ntial hypertension, benign Take 1 tablet (25 mg) by mouth daily 90 tablet 3 09/27/2021 Active amLODIPine (NORVASC) 5 MG tabletIndications:Esse ntial hypertension, benign Take 1 tablet (5 mg) by mouth daily 90 tablet 3 09/27/2021 Active warfarin ANTICOAGULANT (COUMADIN) 3 MG tablet TAKE 1/2 TO 2 TABLETS BY MOUTH DAILY 09/24/2022 Active calcium carbonate (OS-JOVANY) 600 MG tablet Take 600 mg by mouth Active alendronate (FOSAMAX) 70 MG tablet TAKE 1 TABLET BY MOUTH ONCE WEEKLY. TAKE 30 MINUTES BEFORE FIRST [id number]-PUNMH-[id number] ATION. AVOID LYING DOWN FOR 30 MINUTES Active sodium bicarbonate 650 MG tablet Take 650 mg by mouth 02/01/2023 Active atorvastatin (LIPITOR) 40 MG tabletIndications:Alonzo tid artery calcification, left Take 1 tablet (40 mg) by mouth daily 90 tablet 3 07/10/2023 Active Active Problems Problem Noted Date Diagnosed Date Arrhythmia 03/14/2019 Chronic atrial fibrillation 03/14/2019 Chronic kidney disease 03/14/2019 Acute on chronic diastolic heart failure 019 Degeneration of lumbar or lumbosacral interverte bral disc 05/26/2003 Essential hypertension, benign 03/06/2003 Hypothyroidism 03/06/2003 Overview: Problem list name updated by automated process. Provider to review Gout 03/06/2003 Overview: Problem list name updated by automated process. Provider to review Immunizations Name Administration Dates Next Due Influenza (IIV3) PF 05/21/2002 Social History Tobacco Use Types Packs/Day Years Used Date Smoking Tobacco: Never Smokeless Tobacco: Never Alcohol Use Standard Drinks/Week Comments Not Currently 0 (1 standard drink = 0.6 oz pur e alcohol) beer occ PHQ-2 Answer Date Recorded PHQ-2 Score 1 05/01/2023 Adolescent Education Answer Date Record ed Getting School Help Needed Not on file 06/04 Sex and Gender Information Value Date Recorded Sex Assigned at Not on file Gender Identity Not on file Sexual Orientation Not on file Last Filed Vital Signs Vital Sign Reading Time Taken Comments Blood Pressure 136/64 05/01/2023 2:06 PM CDT Pulse 65 05/01/2023 2:06 PM CDT Temperature - - Respiratory Rate 22 05/26/2003 9:45 AM CDT Oxygen Saturation 98% 05/01/2023 2:06 PM CDT Inhaled Oxygen Concentration - - Weight 84.4 kg (186 lb) 05/01/2023 2:06 PM CDT Height 154.9 cm (5' 1) 05/01/2023 2:06 PM CDT Body Mass Index 35.14 05/01/2023 2:06 PM CDT Plan of Treatment Not on file Procedures Procedure Name Priority Date/Time Associated Diagnosis Comments DX VERTEBRAL FRACTURE ANALYSIS Routine 06/17/2022 9:58 AM CDT LIPID PROFILE Routine 04/27/2021 1:23 PM CDT Carotid artery calcification, left MA SCREENING BILATERAL Routine 02/19/2021 1:44 PM CDT BASIC METABOLIC PANEL Routine 03/18/2019 1:40 PM CDT Essential hypertension, benign Chronic atrial fibrillation (H) Acute on chronic diastolic heart failure (H) ROUTINE UA WITH MICROSCOPIC STAT 01/04/2009 4:40 PM CDT CBC WITH PLATELETS & DIFFERENTIAL STAT 01/04/2009 3:41 PM CDT from Last 3 Months or Most Recently Relevant to Health Maintenance Results * Lipid Profile (04/27/2021 1:23 PM CDT) Cholesterol 138 <200 mg/dL 04/27/2021 1:56 PM CDT [facility] Comment: Age 0-19 years Desirable: <170 mg/dL Borderline high: ??170-199 mg/dl High: ?>199 mg/dl Age 20 years and older Desirable: <200 mg/dL Triglycerides 88 <150 mg/dL 04/27/2021 1:56 PM CDT [facility] Comment: 0-9 years: Normal: ?Less than 75 mg/dL Borderline high: ??75-99 mg/dL High: ? Greater than or equal to 100 mg/dL 0-19 years: Normal: ?Less than 90 mg/dL Borderline high: ??90-129 mg/dL High: ? Greater than or equal to 130 mg/dL 20 years and older: Normal: ?Less than 150 mg/dL Borderline high: ??150-199 mg/dL High: ? 200-499 mg/dL Very high: ?? Greater than or equal to 500 mg/dL Direct Measure HDL 55 >=50 mg/dL 2020 1:56 PM CDT [facility] Comment: 0-19 years: ? Greater than or equal to 45 mg/dL Low: Less than 40 mg/dL Borderline low: 40-44 mg/dL 20 years and older: Female: Greater than or equal to 50 mg/dL Male: ?? Greater than or equal to 40 mg/dL LDL Cholesterol Calculated 65 <=100 mg/dL 04/27/2021 1:56 PM CDT [facility] Comment: Age 0-19 years: Desirable: 0-110 mg/dL Borderline high: 110-129 mg/dL High: >= 130 mg/dL Age 20 years and older: Desirable: <100mg/dL Above desirable: 100-129 mg/dL Borderline high: 130-159 mg/dL High: 160-189 mg/dL Very high: >= 190 mg/dL Non HDL Cholesterol 83 <130 mg/dL 04/27/2021 1:56 PM CDT [facility] Comment: 0-19 years: Desirable: ? Less than 120 mg/dL Borderline high: ?? 120-144 mg/dL High: ? Greater than or equal to 145 mg/dL 20 years and older: Desirable: ? 130 mg/dL Above Desirable: 130-159 mg/dL Borderline high: ?? 160-189 mg/dL High: ? 190-219 mg/dL Very high: ?? Greater than or equal to 220 mg/dL Blood STRUCTURE OF LEFT UPPER LIMB / Unknown Venipuncture / Unknown 04/27/2021 1:23 PM CDT 04/27/2021 1:23 PM CDT Santo Crump MD LAB - BLOOD ED [facility] Organization Address City/State/ZIP Co de Phone Number LABORATORY [facility] [address] [facility] (1st floor, no room number) [place] [address], [facility] [phone] * (ABNORMAL) Basic metabolic panel (03/18/2019 1:40 PM CDT) Sodium 138 133 - 144 mmol/L 03/18/2019 2:41 PM CDT [facility] Potassium 4.6 3.4 - 5.3 mmol/L 03/18/2019 2:41 PM T [facility] Chloride 108 94 - 109 mmol/L 03/18/2019 2:41 PM T [facility] Carbon Dioxide 27 20 - 32 mmol/L 03/18/2019 2:47 PM T [facility] Anion Gap 3 3 - 14 mmol/L 03/18/2019 2:47 PM T [facility] Glucose 94 70 - 99 mg/dL 03/18/2019 2:47 PM [facility] Urea Nitrogen 39(H) 7 - 30 mg/dL 03/18/2019 2:47 PM [facility] Creatinine 1.57(H) 0.52 - 1.04 mg/dL 03/18/2019 2:47 PM [facility] GFR Estimate 32(L) >60 mL/min/{1 .73_m2} 03/18/2019 2:47 PM [facility] Comment: Non GFR Calc Starting 08/07/2018, serum creatinine based estimated GFR (eGFR) will be calculated using the Chronic Kidney Disease Epidemiology Collaboration (CKD-EPI) equation. GFR Estimate If Black 38(L) >60 mL/min/{1 .73_m2} 03/18/2019 2:47 PM [facility] Comment: GFR Calc Starting 08/07/2018, serum creatinine based estimated GFR (eGFR) will be calculated using the Chronic Kidney Disease Epidemiology Collaboration (CKD-EPI) equation. Calcium 9.0 8.5 - 10.1 mg/dL 03/18/2019 2:47 PM [facility] Blood specimen (specimen) 03/18/2019 1:40 PM CDT 03/18/2019 1:43 PM CDT Megan Reynoso DO LAB - BLOOD ORDERABLES [facility] [address] [place] [address], [facility] [phone] [facility] [address] [place] [address], [facility] [phone] * (ABNORMAL) Routine UA with microscopic (01/04/2009 4:40 PM CDT) Source Midstream Urine [facility] Color Urine Light Yellow [facility] Appearance Urine Clear [facility] Glucose Urine Negative NEG mg/dL [facility] Bilirubin Urine Negative NEG [facility] Ketones Urine Negative NEG mg/dL [facility] Specific [place] Urine 1.009 1.003 - 1.035 [facility] Blood Urine Negative NEG [facility] pH Urine 5.0 5.0 - 7.0 pH [facility] Protein Albumin Urine Negative NEG mg/dL [facility] Urobilinogen mg/dL Normal 0.0 - 2.0 mg/dL [facility] Nitrite Urine Negative NEG [facility] Leukocyte Esterase Urine Negative NEG [facility] WBC Urine 1 0 - 2 /HPF [facility] RBC Urine <1 0 - 2 /HPF [facility] Hyaline Casts 1 0 - 2 /LPF [facility] Squamous Epithelial /HPF Urine <1 0 - 1 /HPF [facility] Bacteria Urine Few(A) NEG /HPF [facility] Mucous Urine Present(A) NEG /LPF [facility] 01/04/2009 4:40 PM CDT 01/04/2009 3:06 PM CDT Armando Christianson MD LAB - URINE ORDER [facility] * (ABNORMAL) CBC with platelets differential (01/04/2009 3:41 PM CDT) MCV 85 78 - 100 fl [facility] MCH 29.5 26.5 - 33.0 pg [facility] MCHC 34.7 31.5 - 36.5 g/dL [facility] RDW 13.0 10.0 - 15.0 % [facility] WBC 4.4 4.0 - 11.0 10e9/L [facility] RBC Count 4.51 3.8 - 5.2 10e12/L [facility] Hemoglobin 13.3 11.7 - 15.7 g/dL [facility] Hematocrit 38.3 35.0 - 47.0 % MIS[facility] % Neutrophils 40 40 - 75 % MIS[facility] % Lymphocytes 50(H) 20 - 48 % MIS[facility] % Monocytes 6 0 - 12 % MIS[facility] % Eosinophils 3 0 - 6 % MIS[facility] % Basophils 1 0 - 2 % [facility] Platelet Count 227 150 - 450 10e9/L [facility] Absolute Neutrophil 1.7 1.6 - 8.3 10e9/L [facility] Absolute Lymphocytes 2.2 0.8 - 5.3 10e9/L [facility] Absolute Monocytes 0.3 0.0 - 1.3 10e9/L [facility] Absolute Eosinophils 0.1 0.0 - 0.7 10e9/L [facility] Absolute Basophils 0.1 0.0 - 0.2 10e9/L [facility] Diff Method Automated Method [facility] 01/04/2009 3:41 PM CDT 01/04/2009 3:06 PM CDT Armando Christianson MD LAB - BLOOD ORDER [facility] from Last 3 Months or Most Recently Relevant to Health Maintenance Care Teams Manager Physical Relationship Specialty Start Date End Date Tala Thomason MD, MD [address] [place] [address] PCP - General Family Medicine 10/22/21 Santo Crump MD [address] [place] [address] Cardiovascular Disease 10/24/22 Santo Crump MD [address] [place] [address] Assigned Heart and Vascular Provider 05/06/23
--- OUTSIDE RECORDS SUMMARY | 2024-02-24 13:27 | XMS_ITS | Clinical Summary ---
Author Organization [employer] Address [place], [place] [address] Care Team Providers Care Crane Helper Name Role Phone Pcp, No Primary Care Provider Unavailabl e Allergies Active Allergy Reactions Criticality Noted Date Comments Codeine Nausea And Vomiting 05/20/2017 Lisinopril Cough 05/20/2017 Medications Medication Sig Dispensed Refills Start Date End Date Status FLUoxetine (PROZAC) 20 mg capsule Take 20 mg by mouth every morning. 0 05/04/2017 Active valsartan (DIOVAN) 320 mg tablet Take 320 mg by mouth once daily. 04/20/2017 Active levothyroxine (SYNTHROID) 112 mcg tablet Take 112 mcg by mouth before breakfast. Active nystatin powder (MYCOSTATIN) powderIndications:Randolph h Apply topically to affected area(s) of skin folds 2 times daily. 15 g 05/22/2017 Active cloNIDine HCl (CATAPRES) 0.1 mg tabletIndications:HTN (hypertension) Take 1 tablet by mouth 2 times daily. 60 tablet 05/22/2017 Active carvedilol (COREG) 25 mg tabletIndications:HTN (hypertension) Take 1 tablet by mouth 2 times daily with meals. 60 tablet 05/22/2017 Active amLODIPine (NORVASC) 10 mg tabletIndications:HTN (hypertension) Take 1 tablet by mouth once daily. 30 tablet 05/22/2017 Active probenecid (BENEMID) 500 mg tabletIndications:Gou t, unspecified cause, unspecified chronicity, unspecified site Take 1 tablet by mouth 2 times daily. 0 05/22/2017 Active warfarin (COUMADIN) 4 mg tabletIndications:Atr ial fibrillation with slow ventricular response (HC) Take 1 tablet by mouth once daily. 30 tablet 3 05/22/2017 Active Active Problems Problem Noted Date Diagnosed Date Atrial fibrillation with slow ventricular respon se 05/20/2017 HTN (hypertension) 05/20/2017 Hypothyroidism 05/20/2017 Bilateral deafness 05/20/2017 Stage 4 chronic kidney disease 05/20/2017 Chronic diastolic CHF (congestive heart failure) 05/20/2017 Encounters Date Type Department Care Team Description 01/08/2024 Orders Only [facility] Scanner 1 scan: (1-Ord) RCM from Last 3 Months Family History Medical History Relation Name Comments Hypertension Father Hypertension Mother Hypertension Sister 1 Hypertension Sister 2 Relation Name Status Comments Father Mother Sister 1 Sister 2 Social History Tobacco Use Types Packs/Day Years Used Date Smoking Tobacco: Never Smokeless Tobacco: Never Alcohol Use Standard Drinks/Week Comments Yes 1 (1 standard drink = 0.6 oz pur e alcohol) Infrequent use Sex and Gender Information Value Date Recorded Sex Assigned at Not on file Gender Identity Not on file Sexual Orientation Not on file Obstetrics History Last Filed Vital Signs Vital Sign Reading Time Taken Comments Blood Pressure 140/62 05/22/2017 8:53 AM CDT Pulse 81 05/22/2017 8:53 AM CDT Temperature 36.9 ??C (98.4 ??F) 05/22/2017 8:53 AM CD T Respiratory Rate 16 05/22/2017 8:53 AM CDT Oxygen Saturation 99% 05/22/2017 8:53 AM CDT Inhaled Oxygen Concentration - - Weight 85.1 kg (187 lb 9.8 oz) 05/22/2017 5:43 A M CDT Height 154.9 cm (5' 1) 05/20/2017 6:42 PM CDT Body Mass Index 35.45 05/20/2017 6:42 PM CDT Plan of Treatment Health Maintenance Due Date Last Done Comments Tdap 1957 Depression screening for age 12+ 1958 BMI (ht and wt on same day) for age 18+ 1964 Hepatitis C screening for age 18-79 1964 Tetanus booster 1966 Zoster (shingles) series for age 50+ (1 of 2) 1996 DEXA/DXA scan for age 65+ 2011 Pneumococcal series for age 65+ (1 of 1 - PCV) 2011 COVID-19 vaccine series (3 season) 2023 04/30/2021, 04/02/2021 Influenza for age 65+ 04/21/2024 Procedures Procedure Name Priority Date/Time Associated Diagnosis Comments SCAN-EYE EXAM 01/08/2024 12:00 AM CDT from Last 3 Months Results * SCAN-EYE EXAM (01/08/2024 12:00 AM CDT) Scanner OTHER from Last 3 Months Advance Directives * Full Code (Latest Code Status on File) Date Activated Date Inactivated Comments 05/20/2017 5:38 PM 05/22/2017 9:15 PM Care Teams Crane Helper Relationship Specialty Start Date End Date Pcp, No . PCP - General 05/20/17
--- OUTSIDE RECORDS SUMMARY | 2024-02-24 13:27 | XMS_ITS | Clinical Summary ---
Author Organization [place] Address [address] [facility] [place] [address] Care Team Providers Care Pharm Spec Name Role Phone Paddy COLLINS MD, Taal Lang Primary Care Provider Santo Crump MD Unavailable [phone] Santo Crump MD Unavailable [phone] [...] mouth daily Active ergocalciferol (ERGOCALCIFEROL) 1.25 MG (24899 UT) capsule Take 50,000 Units by mouth [...] ONCE WEEKLY. TAKE 30 MINUTES BEFORE FIRST OVQC-[id number]-UVOYU ATION. AVOID LYING DOWN FOR 30 MINUTES [...] Dates Next Due Influenza (IIV3) PF 05/21/2002 Family History Medical History Relation Comments Hearing Loss Father Hypertension Father Kidney Disease Father Hearing Loss Sister 1 Hypertension Sister 1 Kidney Disease Sister 1 Hearing Loss Sister 2 Hypertension Sister 2 Kidney Disease Sister 2 Relation Status Comments Father Sister 1 Sister 2 Social History Tobacco [...] 05/01/2023 2:06 PM CDT Plan of Treatment Health Maintenance Due Date Last Done Comments ADVANCE CARE PLANNING 1945 ALT 1945 ANNUAL REVIEW OF HM ORDERS 1946 HF ACTION PLAN 1945 MICROALBUMIN 1946 TSH W/FREE T4 REFLEX 1946 HEPATITIS C SCREENING 1964 ZOSTER IMMUNIZATION (1 of 2) 1996 RSV VACCINE ( & 60+) (1 - 1-dose 60+ series) 2006 CBC 01/04/2010 01/04/2009 FALL RISK ASSESSMENT 2011 BMP 09/18/2019 03/18/2019, 01/04/2009 MEDICARE ANNUAL WELLNESS VISIT 02/18/2022 02/18/2021, 07/11/2019 GLUCOSE 03/18/2022 03/18/2019, 12/19, 03/17/2003 LIPID 04/27/2022 04/27/2021 COVID-19 Vaccine (3 - 2022- season) 2023 04/30/2021, 04/02/2021 PHQ-2 (once per calendar year) 2023 05/01/2023 INFLUENZA VACCINE (#1) 2024 , 05/13/2019, 07/10/2018, Additional history exists DTAP/TDAP/TD IMMUNIZATION (3 - Td or Tdap) 06/29/2031 06/29/2021, 04/28/2010 DEXA 06/17/2037 06/17/2022 URINALYSIS Completed 01/04/2009 Pneumococcal Vaccine: 65+ Years Completed 01/08/2019, 11/27/2017 COLORECTAL CANCER SCREENING Discontinued FIT Discontinued 02/19/2021 MAMMO SCREENING Discontinued 02/19/2021, 07/0 09/2020, 01/21/2015, Additional history exists COLONOSCOPY Discontinued CT COLONOGRAPHY Discontinued FLEX SIG Discontinued HPV IMMUNIZATION Aged Out No longer e ligible based on patient's age to complete this topic IPV IMMUNIZATION Aged Out No longer e ligible based on patient's age to complete this topic MENINGITIS IMMUNIZATION Aged Out No l onger eligible based on patient's age to complete this topic RSV MONOCLONAL ANTIBODY Aged Out No l onger eligible based on patient's age to complete this topic sDNA (Cologuard) Discontinued Procedures Procedure Name Priority Date/Time Associated Diagnosis [...] Crump MD LAB - BLOOD ED GARCIA [facility] Acute Care Lab [address] (1st floor, no room number) [place] [address], [facility] [phone] * (ABNORMAL) Basic metabolic panel (03/18/2019 1:40 PM CDT) Sodium 138 133 - 144 mmol/L 03/18/2019 2:41 PM CDT [facility] Potassium 4.6 3.4 - 5.3 mmol/L 03/18/2019 2:41 PM T [facility] Chloride 108 94 - 109 mmol/L 03/18/2019 2:41 PM T [facility] Carbon Dioxide 27 20 - 32 mmol/L 03/18/2019 2:47 PM T [facility] Anion Gap 3 3 - 14 mmol/L 03/18/2019 2:47 PM [facility] Glucose 94 70 - 99 mg/dL 03/18/2019 2:47 PM [facility] Urea Nitrogen 39(H) 7 - 30 mg/dL 03/18/2019 2:47 PM [facility] Creatinine 1.57(H) 0.52 - 1.04 mg/dL 03/18/2019 2:47 PM [facility] GFR Estimate 32(L) >60 mL/min/{1 .73_m2} 03/18/2019 2:47 PM [facility] Comment: Non GFR Calc Starting 08/07/2018, serum creatinine based estimated GFR (eGFR) will be calculated using the Chronic Kidney Disease Epidemiology Collaboration (CKD-EPI) equation. GFR Estimate If Black 38(L) >60 mL/min/{1 .73_m2} 03/18/2019 2:47 PM [facility] Comment: GFR Calc Starting 08/07/2018, serum creatinine based estimated GFR (eGFR) will be calculated using the Chronic Kidney Disease Epidemiology Collaboration (CKD-EPI) equation. Calcium 9.0 8.5 - 10.1 mg/dL 03/18/2019 2:47 PM CDT [facility] Blood specimen (specimen) 03/18/2019 1:40 PM CDT 03/18/2019 1:43 PM CDT Megan Reynoso DO LAB - BLOOD ORDERABLES Performing Organization Address [facility]/ZIP Co de Phone Number [facility] [address] [place] [address], [facility] [phone] [facility] [address] [place] [address], [facility] [phone] * (ABNORMAL) Routine UA with microscopic (01/04/2009 4:40 PM CDT) Source Midstream Urine [facility] Color Urine Light Yellow [facility] Appearance Urine Clear [facility] Glucose Urine Negative NEG mg/dL [facility] Bilirubin Urine Negative NEG [facility] Ketones Urine Negative NEG mg/dL [facility] Specific [place] Urine 1.009 1.003 - 1.035 [facility] Blood [...] Christianson MD LAB - URINE ORDER FAITH Performing Organization Address City/[facility]/ZIP Co de Phone Number [facility] * (ABNORMAL) CBC with platelets differential [...] Recently Relevant to Health Maintenance Care Teams Pharm Spec Relationship Specialty Start Date End Date Tala Thomason MD, MD [address] [id number] PCP - General Family Medicine 10/22/21 Santo Crump MD [address] [place] [id number] Cardiovascular Disease 10/24/22 Santo Crump MD [address] [place] [address] Assigned Heart and Vascular Provider 05/06/23
--- OUTSIDE RECORDS SUMMARY | 2024-02-24 13:27 | XMS_ITS | Encounter Summary ---
Author Organization [place] Address [address] [facility] [place] [address] Care Team Providers Care Electro Mechanical Technician Name Role Phone Enedelia Wilkins MD Primary Care Provid er Linh Fontanez APRN RAYON TESTER Unavailable [phone] Paddy COLLINS MD, Tala Lang Primary Care Provider Santo Crump MD Unavailable [phone] Santo Crump MD Unavailable [phone] Reason for Visit * Reason Onset Date Comments Refill Request 10/14/2021 atorvastatin (LI PITOR) 40 MG tablet Encounter Details Date Type Department Care Team (Late st Contact Info) Description 10/14/2021 Telephone [facility] Heart [place] [id number] [facility] [address] [place] [address] Santo Crump MD [address] [facility] [address] [place], [place] [address] Refill Request ( atorvastatin (LIPITOR) 40 MG tablet ) Social History Tobacco Use Types Packs/Day Years Used Date Smoking Tobacco: Never Smokeless Tobacco: Never Alcohol Use Standard Drinks/Week Comments Yes 0 (1 standard drink = 0.6 oz pur e alcohol) beer occ Sex and Gender Information Value Date Recorded Sex Assigned at Not on file Gender Identity Not on file Sexual Orientation Not on file COVID-19 Exposure Response Date Recorded In the last month, have you been in contact with someone who was confirmed or suspected to have Coronavirus / COVID-19? No / Unsure 10/15/2021 9:10 AM DIRECTOR OF EMAIL MARKETING documented as of this encounter Miscellaneous Notes * Telephone Encounter - Leigh Duggan - 10/14/2021 11:33 AM CST [facility] Phone Message May a detailed message be left on voicemail: yes Reason for Call: Medication Refill Request Has the patient contacted the pharmacy for the refill? Yes Name of medication being requested: atorvastatin (LIPITOR) 40 MG tablet Provider who prescribed the medication: Dr. Santo Crump Pharmacy: [id number] [place] [address] [address] [facility] & Date medication is needed: BERTHA - pt took her last pill 10.13.21 Pt stated her pharmacy has been contacting the DrClarke With no response. Action Taken: Message routed to: [facility] ira Daugherty Screening: Not Applicable CTOR OF EMAIL MARKETING documented in this encounter Plan of Treatment Not on file documented as of this encounter Visit Diagnoses Not on filedocumented in this encounter Care Teams Electro Mechanical Technician Relationship Specialty Start Date End Date Enedelia Wilkins MD [address] [place] [address] PCP - General 10/23/02 10/21/21 Tala Thomason MD, MD [address] [place] [address] PCP - General Family Medicine 10/22/21 Linh Fontanez APRN RAYON TESTER [address] [place] [address] Assigned Heart and Vascular Provider 10/03/21 04/28/23 Santo Crump MD [address] [place] [address] Cardiovascular Disease 10/24/22 Santo Crump MD [address] [place] [address] Assigned Heart and Vascular Provider 05/06/23 documented as of this encounter
--- OUTSIDE RECORDS SUMMARY | 2024-02-24 13:27 | XMS_ITS | Encounter Summary ---
Author Organization [place] Address [address] [facility] [place] [address] Care Team Providers Care Senior Qualitative Researcher Name Role Phone Enedelia Wilkins MD Primary Care Provid er Santo Crump MD Unavailable [phone] Linh Fontanez APRN SAND MILL OPERATOR FACING SAND Unavailable [phone] Paddy COLLINS MD, Tala Lang Primary Care Provider Santo Crump MD Unavailable [phone] Santo Crump MD Unavailable [phone] Encounter Details Date Type Department Care Team (Late st Contact Info) Description 05/14/2021 [place] Medical Advice [facility] Heart [facility] [id number] [place] [address] [address] [place] [address] Santo Crump MD [address] [facility] [address] [place], [place] [address] Social History Tobacco Use Types Packs/Day Years [...] have Coronavirus / COVID-19? No / Unsure 05/12/2021 12:46 PM CDT documented as of this encounter Plan of Treatment Not on file documented as of this encounter Visit Diagnoses Not on filedocumented in this encounter Care Teams Senior Qualitative Researcher Relationship Specialty Start Date End Date Enedelia Wilkins MD [address] [address] PCP - General 10/23/02 10/21/21 Tala Thomason MD, [address] [place] [address] PCP - General Family Medicine 10/22/21 Santo Crump MD [address] [place] [address] Assigned Heart and Vascular Provider 06/12/20 10/02/21 Linh Fontanez, END FRAZER SAND MILL OPERATOR FACING SAND [address] [place] [address] Assigned Heart and Vascular Provider 10/03/21 04/28/23 Santo Crump MD [address] [address] [place] [address] Cardiovascular Disease 10/24/22 Santo Crump MD [address] [address] [place] [address] Assigned Heart and Vascular Provider 05/06/23 documented as of this encounter
--- OUTSIDE RECORDS SUMMARY | 2024-02-24 13:27 | XMS_ITS | Encounter Summary ---
Author Organization [place] Address [address] [place] [address] Care Team Providers Care Electronic News Gathering Editor Name Role Phone Tala Thomason MD Primary Care Provider [phone] Reason for Visit * Reason Comments Anticoagulation: Warfarin Encounter Details Date Type Department Care Team (Latest Contact Info) Description 01/02/2024 Anticoagulation PN Anticoagulation Centralized Services [address] [facility] [address] [place], [place] [address] Chronic atrial fibrillation (HRC) (Primary Dx); Monitoring [...] on file documented as of this encounter Progress Notes * Rosalia Do RN - 01/02/2024 5:38 PM CDT Tala Thomason MD ANTICOAGULATION MANAGEMENT - Routing anticoagulation dosing plan to managing clinician for review. Patient is out of scope for RN to manage: Patient is OVERDUE for a qualifying visit with the anticoagulation managing clinician, future appt more than 60 days away Lab Results Component Value Date INR 2.8 (H) 01/02/2024 INR Goal: 2.0-3.0 Plan/recommendation: Continue current dose of warfarin Suggested recheck date: 4 weeks Rationale: Per standing order Please review and select an option below: Agree with Anticoagulation Clinc RN recommendations above OTHER (specify) Please select option above, document and route to ANTICOAGULATION PN pool. Anticoagulation RN: Please call patient with plan after it is confirmed by the clinician. Rosalia Do RN [facility] 01/03/2024 7:46 AM * Tala Thomason MD - 01/02/2024 5:38 PM CDT Agree with anticoagulation RN. Polly. * Mae Perez RN - 01/02/2024 5:38 PM CDT Noted. Chart updated and encounter closed. Mae Perez RN [facility]....01/03/2024 1:11 PM documented in this encounter Plan of Treatment Upcoming Encounters Date Type Department Care Team (Late st Contact Info) Description 03/05/2024 2:00 PM CDT Appointment [facility] [address] [place], [place] [address] [address] Tala Thomason MD Counts include 234 beds at the [facility] [place] [address] documented as of this encounter Visit Diagnoses Diagnosis Chronic atrial fibrillation (HRC)- Primary Atrial fibrillation Monitoring for long-term anticoagulant use Encounter for long-term (current) use of anticoagulants documented in this encounter Care Teams Electronic News Gathering Editor Relationship Specialty Start Date End Date Tala Thomason MD [facility] [address] [address] PCP - General Family Practice 05/22/17 documented as of this encounter
--- OUTSIDE RECORDS SUMMARY | 2024-02-24 13:27 | XMS_ITS | Encounter Summary ---
Author Organization [place] Address [address] [facility] [place] [address] Care Team Providers Care Marble Mechanic Helper Name Role Phone Enedelia Wilkins MD Primary Care Provid er Santo Crump MD Unavailable [phone] Linh Fontanez APRN, CNP Unavailable [phone] Paddy COLLINS MD, Tala Lang Primary Care Provider Santo Crump MD Unavailable [phone] Santo Crump MD Unavailable [phone] Encounter Details Date Type Department Care Team (Late st Contact Info) Description 03/31/[address] [place] [address] Enedelia Wilkins MD [address] [place] [address] ER (Primary Dx) Social History Tobacco Use Types Packs/Day Years [...] as of this encounter Progress Notes * 03/31/2003 11:59 PM CDTAddended by: ARMOND DELEON on: 04/07/2003,4:13 PM Modules accepted: Progress Notes 00 :00 Emergency Department Encounter-JOSÉ MIGUEL CLEMENTS) [Entered: 00:00 Transcrip tion ([facility])] : 47 CHIEF COMPLAINT: Hip pain. HISTORY OF PRESENT ILLNESS: This is a 58-y ear-old female, who comes in with pain to the left hip that's been present for the last 1 month. She was seen by her doctor several days ago and was just given some pain medication, which she actually w as given some Celebrex for the pain. She says she's been taking that; however, that hasn't been help ful and that's what prompted her to come in. Pain is actually located to the left buttocks region. It's moderate to severe in intensity. It's made worse with certain types of movement. Alleviated wh en she sits there and doesn't move at all. She states that she has radiation to the posterior thigh of the leg with some paresthesias to those areas. REVIEW OF SYSTEMS: The patient denies any foot dr op; no weakness to the lower extremity; no extensor muscle atrophy or changes to her skin. Denies an y urinary or fecal incontinence, no abdominal pain, no trauma or falls. Also, no shortness of breath , no chest pain, no dyspnea on exertion, no swelling to the legs, no history for DVT, no dysuria, ollie quency, urgency. PAST MEDICAL HISTORY: Surgeries - none; illnesses - hypertension. ALLERGIES: Nap rosyn. She says codeine; however, the codeine only upsets her stomach. MEDICATIONS: Probenecid, At enolol, , Levoxyl, indomethacin, Loprox, Vioxx. SOCIAL HISTORY: The patient does not s moke cigarettes or drink alcohol. FAMILY HISTORY: Noncontributory. PHYSICAL EXAMINATION: Temperat ure 97.5, blood pressure 131/80, pulse 70, respirations 18. HEENT - head atraumatic, normocephalic. NECK supple, midline trachea. LUNGS - normal breath sounds without rales, rhonchi, wheezes. CARDIO VASCULAR - regular rate and rhythm without rubs, gallops, murmurs. ABDOMEN - bowel sounds positive, no tenderness, rebound or guarding. EXTREMITIES - +2/4 pedal pulses, no edema. BACK - no CVA tendern ess to percussion. Normal curvature of the spine, no lordosis, kyphosis, scoliosis. Buttocks has te nderness to the posterior left buttocks region near the area of the sciatic nerve with exquisite pain on palpation. The patient has good straight leg raise. MUSCULOSKELETAL strength is 5/5 in upper and lower extremities. General - the patient is in no acute distress, sitting comfortably. PSYCHIATRIC - the patient is alert and oriented times 3; speech congruent with affect. LYMPHATICS - the patient had no adenopathy to the inguinal or cervical chain at nodes. ED COURSE: The patient did drive here . I was going to give her a shot of some medication, but she was absolutely horrified of needles, plu s she said she drove here, so she didn't want anything which would cause her to be sedated. 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 ASSESSMENT: 1. Left hip pain, left sciatica and muscle spasms. PLAN: The patient will follow-up with Dr. Wilkins in 24-72 hours. Percocet 1-2 tabs q4-6h. Motrin over the counter as prescribed, Robaxin 1000 mg q8h for muscl e spasms. Return if severe pain, unable to walk or worsening symptoms. [id number] JOSÉ MIGUEL DICK MD [place]: Document: [id number] [place], [place] Name: ANTOINE TIPTON EMERGENCY ROOM ENCOUNTER Page 2 of 2 LCN: BASILIO DSC: 03/31/2003 [place], [place] Name: MR#: : Admit Date: DON TIPTON 2045-09-08-24 1945 03/31/2003 Doctor: JOSÉ MIGUEL DICK MD EMERGENCY ROOM ENCOUNTER Page 1 of 2 Electronically filed by Armond Deleon 04/07/2003 4:12 PM documented in this encounter Plan of Treatment Not on file documented as of this encounter Visit Diagnoses Diagnosis ER- Primary documented in this encounter Care Teams Marble Mechanic Helper Relationship Specialty Start Date End Date Enedelia Wilkins MD [address] [place], [place] [address] PCP - General 10/23/02 10/21/21 Tala Thomason MD, [address] [place], [place] [id number] PCP - General Family Medicine 10/22/21 Santo Crump MD [address] [place] [address] [place] [address] Assigned Heart and Vascular Provider 06/12/20 10/02/21 Linh Fontanez APRN SIGNALS COLLECTOR/ANALYST [address] [place] [address] Assigned Heart and Vascular Provider 10/03/21 04/28/23 Santo Crump MD [address] [address] [place] [address] Cardiovascular Disease 10/24/22 Santo Crump MD [address] [address] [place] [address] Assigned Heart and Vascular Provider 05/06/23 documented as of this encounter
--- OUTSIDE RECORDS SUMMARY | 2024-02-24 13:27 | XMS_ITS | Encounter Summary ---
Author Organization [place] Address [address] [place] [address] Care Team Providers Care Repair Manager Name Role Phone Enedelia Wilkins MD Primary Care Provid er Santo Crump MD Unavailable [phone] Linh Fontanez APRN, CNP Unavailable [phone] Paddy COLLINS MD, Tala Lang Primary Care Provider Santo Crump MD Unavailable [phone] Santo Crump MD Unavailable [phone] Encounter Details Date Type Department Care Team (Late st Contact Info) Description 06/22/2021 [place] Medical Advice [facility] Heart [facility] [id number] [place] [address] [address] [place] [address] Santo Crump MD [address] [facility] [address] [place], [place] [address] Social History Tobacco Use Types Packs/Day Years Used Date Smoking Tobacco: Never Smokeless Tobacco: Never Alcohol Use Standard Drinks/Week Comments Yes 0 (1 standard drink = 0.6 oz pur e alcohol) beer occ Sex and Gender Information Value Date Recorded Sex Assigned at Not on file Gender Identity Not on file Sexual Orientation Not on file documented as of this encounter Miscellaneous Notes * Telephone Encounter - Reji Salguero RN - 06/22/2021 10:46 AM CDT mychart message received. RN will send to Dr. Crump for further review. Dr Crump. ??I would like to know if I can change my medication from Spironolactone ?The side effect is dizziness and frequent diarrhea ?My daughter wants me to check with you. ??Thanks. Sylvia Doan 05/12/[address] Crump ?? 1. Dyspnea on exertion in a patient with significant carotid artery disease ?? Plan ischemic evaluation with stress echocardiogram. We will also assess for chronotropic blunting that could be contributing. Despite her having atrial fibrillation which may make wall motion a little more difficult to interpret, I would like her to have a treadmill stress echocardiogram ratherthan a nuclear stress test as I would like to assess for chronotropic blunting. ? 2. Hypertension ?? We will reduce her amlodipine from 10 mg down to 5 mg due to her lower extremity edema. ?? Add spironolactone 25 mg daily and watch for gynecomastia or breast tenderness. If urination becomes problematic, may need to decrease or discontinue this medication. ?? We will be holding her carvedilol due to potentially blunted heart rates in the interim. ?? Follow-up with [facility] 1 month to review stress echocardiogram, discussed whether ischemia or chronotropic blunting may be contributing to her symptoms, assess how she feels with discontinuation of carvedilol and if her edema has improved with reduced amlodipine and assess how her blood pressure is with the addition of spironolactone. ? 30 minutes was spent with the patient, precharting and reviewing tests as well as post visit charting all done today.. ?? This note was transcribed using electronic voice recognition software and there may be typographical errors present. documented in this encounter Plan of Treatment Not on file documented as of this encounter Visit Diagnoses Not on filedocumented in this encounter Care Teams Repair Manager Relationship Specialty Start Date End Date Enedelia Wilkins MD [address] [place] [address] PCP - General 10/23/02 10/21/21 Tala Thomason MD, [address] [place], [place] [id number] PCP - General Family Medicine 10/22/21 Santo Crump MD [address] [place] [address] [place] [address] Assigned Heart and Vascular Provider 06/12/20 10/02/21 Linh Fontanez APRN ACCOUNT MANAGER EMPLOYEE BENEFITS [address] [place] [id number] Assigned Heart and Vascular Provider 10/03/21 04/28/23 Santo Crump MD [address] [place] [address] [place] [id number] Cardiovascular Disease 10/24/22 Santo Crump MD [address] [place] [address] [place] [address] Assigned Heart and Vascular Provider 05/06/23 documented as of this encounter
--- OUTSIDE RECORDS SUMMARY | 2024-02-24 13:27 | XMS_ITS | Encounter Summary ---
Author Organization [employer] Address [address] [place] [address] Care Team Providers Care Family Resource Specialist Name Role Phone Tala Thomason MD Primary Care Provider [phone] Encounter Details Date Type Department Care Team (Late st Contact Info) Description 02/08/2024 11:50 AM CDT Lab Visit [facility] [place] [phone] terminal supervisor (current) use of anticoagulants; CKD (chronic kidney disease) stage 4, GFR 15-29 ml/min (HRC) Social History Tobacco Use Types Packs/Day Years [...] 2:00 PM CDT Appointment [facility] [address] [place] [id number] Tala Thomason MD [address] [place] [address] [place] [phone] documented as of this encounter Procedures Procedure Name Priority Date/Time Associated Diagnosis Comments TP/CREA RATIO, URINE Routine 02/09/2024 1:22 PM CDT CKD (chronic kidney disease) stage 4, GFR 15-29 ml/min (HRC) INR/PROTIME Routine 02/08/2024 11:37 AM CDT FDC (current) use of anticoagulants documented in this encounter Results * TP/Crea Ratio, Urine (02/09/2024 1:22 PM CDT) TP/Creat Ratio, Urine Random 0.06 0.00 - 0.20 02/09/2024 8:05 PM CDT [facility] Total Protein, Urine, Random 2 0 - 14 mg/dL 02/09/2024 8:05 PM CDT [facility] Creatinine, Urine, Random 32 >20 mg/dL mg/dL 02/09/2024 8:05 PM CDT [facility] Urine Non-blood Collection / Unknown 02/09/2024 1:22 PM CDT 02/09/2024 1:22 PM CDT Narrative [facility] - 02/09/2024 8:05 PM CDT Low urine creatinine values coupled with low urine protein values can artifactually increase the urine protein/creatinine results. Correlate results of ratio with creatinine results. Shannon Gunter APRN, CNP LAB_1 [facility] [address] * (ABNORMAL) INR/Protime (02/08/2024 11:37 AM CDT) Protime 28.6(H) 11.8 - 14.6 Seconds 02/08/2024 2:17 PM CDT [facility] INR 2.6(H) 0.9 - 1.1 02/08/2024 2:17 PM CDT [facility] Blood Venipuncture / Unknown 02/08/2024 11:37 AM CDT 02/08/2024 11:37 AM CDT Narrative [facility] - 02/08/2024 2:17 PM CDT If you take an anticoagulant medicine called warfarin, your doctor or clinician may establish a normal range for you that is different from the baseline range shown. Tala Thomason MD LAB_1 [facility] [address] [place] [address], [facility] documented in this encounter Visit Diagnoses Diagnosis FDC (current) use of anticoagulants Long-term (current) use of anticoagulants CKD (chronic kidney disease) stage 4, GFR 15-29 ml/min (HRC) Chronic kidney disease, Stage IV (severe) documented in this encounter Care Teams Family Resource Specialist Relationship Specialty Start Date End Date Tala Thomason MD [address] [place] [address] PCP - General Family Practice 05/22/17 documented as of this encounter
--- OUTSIDE RECORDS SUMMARY | 2024-02-24 13:27 | XMS_ITS | Encounter Summary ---
Author Organization [employer] Address [address] [place] [address] Care Team Providers Care Mandolin Repair Person Name Role Phone Tala Reyes MD Primary Care Provider [phone] Reason for Visit * Reason Comments Refill levothyroxine (SYNTH ROID) 100 MCG tablet [Pharmacy Med Name: LEVOTHYROXINE 0.100MG (100MCG) TAB] Encounter Details Date Type Department Care Team (Late st Contact Info) Description 02/19/2024 Refill [facility] [address] [id number] Tala Reyes MD [address] [place] [phone] Refill (levothyroxine (SYNTHROID) 100 MCG tablet [Pharmacy Med Name: LEVOTHYROXINE 0.100MG (100MCG) TAB]) Social History Tobacco Use Types Packs/Day Years [...] as of this encounter Nursing Notes * Mavis Freitas RN - 02/20/2024 6:02 PM CDT Further Assistance Needed on Refill from Clinician RN reviewed. Pt is >15 months due for qualifying visit and/or lab. Pt has appt scheduled. An office visit is overdue (performed 15 months ago, required every 12 months). Last qualifying visit: 12/09/2022 (with TALA REYES) Next scheduled visit: 03/05/2024 (with TALA REYES) Review pended order for accuracy and sign if appropriate and Close encounter Requested Prescriptions Pending Prescriptions Disp Refills levothyroxine (SYNTHROID) 100 MCG tablet [Pharmacy Med Name: LEVOTHYROXINE 0.100MG (100MCG) TAB] 90Tablet 0 Sig: TAKE 1 TABLET(100 MCG) BY MOUTH DAILY * Lilliam Keith Xrwcomm - 02/19/2024 8:45 AM CDT levothyroxine (SYNTHROID) 100 MCG tablet [Pharmacy Med Name: LEVOTHYROXINE 0.100MG (100MCG) TAB] Medication started: 03/15/2018 Last ordered by TALA REYES: 05/28/2023 (267 days ago) QTY: 90, Refills: 2, Sig: take 1 tablet(100 mcg) by mouth daily (unchanged) -> An office visit is overdue (performed 15 months ago, required every 12 months). Last qualifying visit: 12/09/2022 (with TALA REYES) Next scheduled visit: 03/05/2024 (with TALA REYES) TSH: 1.86 mIU/L on 03/14/2023 [facility] Embedded Refills, Reference: [id number], 02/19/2024 8:45:19 AM CDT, Pool: JESSIE Refill [facility] Services - Primary Care [[id number]] ([id number]) * Lilliam Keith - 02/19/2024 8:45 AM CDT The following lab order(s) may be associated with the following Patient Result Comment (Entered by Edie Hamilton MD at 03/15/2023 12:32 PM): TSH, SENSITIVE Dr. Reyes is out of town this week, I want to be sure somebody got back to about your results. Yourlabs are looking quite good. Kidney function essentially the same as a month ago and cholesterol the same as a year ago. Dr. Reyes wanted to see you back late summer, please schedule with her as soonas you are able as her schedule is quite busy. Mare Hamilton MD documented in this encounter Plan of Treatment Upcoming Encounters Date Type Department Care Team (Late Contact Info) Description 03/05/2024 2:00 PM CDT Appointment [facility] [address] [place] [address] Tala Reyes MD [address] [place] [address] documented as of this encounter Visit Diagnoses Diagnosis Hypothyroidism, unspecified type (HRC) documented in this encounter Care Teams Mandolin Repair Person Relationship Specialty Start Date End Date Tala Reyes MD [address] [place] [address] PCP - General Family Practice 05/22/17 documented as of this encounter
--- OUTSIDE RECORDS SUMMARY | 2024-02-24 13:28 | XMS_ITS | Encounter Summary ---
Author Organization [employer] Address [address] [place] [address] Care Team Providers Care Product Marketing Specialist Name Role Phone Tala Reyes MD Primary Care Provider [phone] Reason for Visit * Reason Comments Refill furosemide (LASIX) 2 0 MG tablet [Pharmacy Med Name: FUROSEMIDE 20MG TABLETS] Encounter Details Date Type Department Care Team (Late st Contact Info) Description 01/02/2024 Refill [facility] [address] [place] [phone] Tala Reyes MD [address] [facility] [place] [phone] Refill (furosemide (LASIX) 20 MG tablet [Pharmacy Med Name: FUROSEMIDE 20MG TABLETS]) Social History Tobacco Use Types Packs/Day Years [...] Nursing Notes * Lilliam Keith Xrwcomm - 01/02/2024 9:25 AM CDT furosemide (LASIX) 20 MG tablet [Pharmacy Med Name: FUROSEMIDE 20MG TABLETS] Medication started: 05/13/2019 Last ordered by TALA REYES: 04/11/2023 (266 days ago) QTY: 90, Refills: 2, Sig: take 1 tablet by mouth daily (unchanged) -> An office visit is overdue (performed 13 months ago, required every 12 months). -> Cr is abnormal (1.8 mg/dL lies outside 0.55 mg/dL - 1.02 mg/dL) -> Refill x 1 month (courtesy refill. overdue for an office visit) Last qualifying visit: 12/09/2022 (with TALA REYES) Next scheduled visit: 03/05/2024 (with TALA REYES) Cr: 1.8 mg/dL on 03/14/2023 Na: 142 mEq/L on 03/14/2023 K: 3.9 mEq/L on 03/14/2023 [facility] Embedded Refills, Reference: [id number], 01/02/2024 9:25:09 AM Sarah ANDRADE Reflinda Centralized Services - Primary Care [[id number]] ([id number]) * Sagar Lilliam Xrwcomm - 01/02/2024 9:25 AM CDT The following lab order(s) may be associated with the following Patient Result Comment (Entered by Edie Hamilton MD at 03/15/2023 12:32 PM): RENAL FUNCTION PANEL Dr. Reyes is out of town this [...] Info) Description 03/05/2024 2:00 PM CDT Appointment [facility] [address] [place] [address] [place] [address] Tala Reyes MD [facility] [place] [address] documented as of this encounter Visit Diagnoses Diagnosis Essential hypertension (HRC) Unspecified essential hypertension documented in this encounter Care Teams Product Marketing Specialist Relationship Specialty Start Date End Date Tala Reyes MD [facility] [place] [address] [place] [address] PCP - General Family Practice 05/22/17 documented as of this encounter
--- OUTSIDE RECORDS SUMMARY | 2024-02-24 13:28 | XMS_ITS | Encounter Summary ---
Author Organization [employer] Address [address] [place] [address] Care Team Providers Care Auto Club Travel Counselor Name Role Phone Tala Thomason MD Primary Care Provider [phone] Encounter Details Date Type Department Care Team (Late st Contact Info) Description 12/04/2023 3:10 PM CDT Lab Visit [facility] [address] [place] [phone] intermediate designer (current) use of anticoagulants Social History Tobacco Use Types Packs/Day Years [...] PM CDT Appointment [facility] [address] [phone] Tala Thomason MD [address] [id number] documented as of this encounter Procedures Procedure Name Priority Date/Time Associated Diagnosis Comments INR/PROTIME Routine 12/04/2023 2:48 PM CDT long-term (current) use of anticoagulants documented in this encounter Results * (ABNORMAL) INR/Protime (12/04/2023 2:48 PM CDT) Protime 34.4(H) 11.8 - 14.6 Seconds 12/04/2023 5:27 PM CDT [facility] INR 3.3(H) 0.9 - 1.1 12/04/2023 5:27 PM CDT [facility] Blood Venipuncture / Unknown 12/04/2023 2:48 PM CDT 12/04/2023 2:48 PM CDT Narrative [facility] - 12/04/2023 5:27 PM CDT Therapeutic range determined by protocol established by anticoagulation provider. Tala Thomason MD LAB_1 [facility] [address] [place] [address] documented in this encounter Visit Diagnoses Diagnosis intermediate designer (current) use of anticoagulants Long-term (current) use of anticoagulants documented in this encounter Care Teams Auto Club Travel Counselor Relationship Specialty Start Date End Date Tala Thomason MD [address] [place] [address] PCP - General Family Practice 05/22/17 documented as of this encounter
--- OUTSIDE RECORDS SUMMARY | 2024-02-24 13:28 | XMS_ITS | Encounter Summary ---
Author Organization [employer] Address [address] [place] [address] Care Team Providers Care Local Announcer Name Role Phone Tala Thomason MD Primary Care Provider [phone] Reason for Visit * Reason Comments Anticoagulation: Warfarin Encounter Details Date Type Department Care Team (Latest Contact Info) Description 12/18/2023 Anticoagulation [facility] [address] [facility], [address] [place] [address] Chronic atrial fibrillation (HRC) (Primary Dx); residential (current) use of anticoagulants; Monitoring for long-term anticoagulant use Social History [...] 2:00 PM CDT Appointment [facility] [address] [place] [phone] Tala Thomason MD [facility] [address] [place] [address] documented as of this encounter Visit Diagnoses Diagnosis Chronic atrial fibrillation (HRC)- Primary Atrial fibrillation adjunct faculty for medical terminology (current) use of anticoagulants Long-term (current) use of anticoagulants Monitoring for long-term anticoagulant use Encounter for long-term (current) use of anticoagulants documented in this encounter Care Teams Local Announcer Relationship Specialty Start Date End Date Tala Thomason MD [address] [place] [address] PCP - General Family Practice 05/22/17 documented as of this encounter
--- OUTSIDE RECORDS SUMMARY | 2024-02-24 13:28 | XMS_ITS | Encounter Summary ---
Author Organization [employer] Address [address] [place] [address] Care Team Providers Care Merchandising Specialist Name Role Phone Tala Thomason MD Primary Care Provider [phone] Reason for Visit * Reason Comments Anticoagulation: Warfarin Encounter Details Date Type Department Care Team (Latest Contact Info) Description 12/04/2023 Anticoagulation [facility] [address] [facility], [address] [place] [address] Chronic atrial fibrillation (HRC) (Primary Dx); residential (current) use of anticoagulants Social History Tobacco [...] 2:00 PM CDT Appointment [facility] [place] [address] Tala Thomason MD [address] [place] [address] documented as of this encounter Visit Diagnoses Diagnosis Chronic atrial fibrillation (HRC)- Primary Atrial fibrillation crankshaft balancer (current) use of anticoagulants Long-term (current) use of anticoagulants documented in this encounter Care Teams Merchandising Specialist Relationship Specialty Start Date End Date Tala Thomason MD [address] [place] [address] [address] PCP - General Family Practice 05/22/17 documented as of this encounter
--- OUTSIDE RECORDS SUMMARY | 2024-02-24 13:28 | XMS_ITS | Encounter Summary ---
Author Organization [employer] Address [address] [place] [address] Care Team Providers Care Fiber Optic Assembler Name Role Phone Tala Thomason MD Primary Care Provider [phone] Reason for Visit * Reason Comments Appt. Needed Encounter Details Date Type Department Care Team (Late st Contact Info) Description 11/29/2023 Telephone [facility] [address] [facility], [address] [place] [address] Tala Thomason MD [address] [place] [address] Appt. Needed Social History Tobacco Use Types Packs/Day Years [...] as of this encounter Nursing Notes * Vani Boyd - 11/29/2023 1:31 PM CDT Left phone message to schedule annual visit with Dr. Thomason. [employer] message also sent. * Mari Doyle RN - 11/29/2023 11:59 AM CDT Assistance needed from Frontline Staff: Office Visit Needed Patient is due for an annual Office Visit/Telemedicine Visit with Tala Thomason MD within 60 days. Reason for Visit: Annual Physical/Anticoagulation/Med Management. Please call patient to schedule. Attempt x2. If unable to reach patient after 2 attempts, please document and mail letter Et Anticoagulation Annual Visit Due to address on file. After documenting outcome of attempts to contact patient (patient is scheduled or letter was mailed), please close encounter. documented in this encounter Plan of Treatment Upcoming Encounters Date Type Department Care Team (Late st Contact Info) Description 03/05/2024 2:00 PM CDT Appointment [facility] [address] [place] [address] [place] [address] Tala Thomason MD [address] [place] [address] documented as of this encounter Visit Diagnoses Not on filedocumented in this encounter Care Teams Fiber Optic Assembler Relationship Specialty Start Date End Date Tala Thomason MD [address] [place] [address] PCP - General Family Practice 05/22/17 documented as of this encounter
--- OUTSIDE RECORDS SUMMARY | 2024-02-24 13:28 | XMS_ITS | Encounter Summary ---
Author Organization [employer] Address [address] [place] [address] Care Team Providers Care Corporate Secretary Name Role Phone Tala Thomason MD Primary Care Provider [phone] Encounter Details Date Type Department Care Team (Late st Contact Info) Description 01/02/2024 1:10 PM CDT Lab Visit [facility] [address] [place], [place] [address] [place], [place] [phone] CKD (chronic kidney disease) stage 4, GFR 15-29 ml/min (HRC); long-term (current) use of anticoagulants Social History Tobacco [...] 2:00 PM CDT Appointment [facility] [place] [phone] Tala Thomason MD [address] [place] [address] [place] [phone] documented as of this encounter Procedures Procedure Name Priority Date/Time Associated Diagnosis Comments VITAMIN D 25-HYDROXY, TOTAL Routine 01/02/2024 3:12 PM CDT CKD (chronic kidney disease) stage 4, GFR 15-29 ml/min (HRC) RENAL FUNCTION PANEL Routine 01/02/2024 3:12 PM CDT CKD (chronic kidney disease) stage 4, GFR 15-29 ml/min (HRC) INTACT PTH Routine 01/02/2024 3:12 PM CDT CKD (chronic kidney disease) stage 4, GFR 15-29 ml/min (HRC) HEMOGLOBIN, BLOOD Routine 01/02/2024 3:1 2 PM CDT CKD (chronic kidney disease) stage 4, GFR 15-29 ml/min (HRC) INR/PROTIME Routine 01/02/2024 3:12 PM CDT long-term (current) use of anticoagulants documented in this encounter Results * (ABNORMAL) INR/Protime (01/02/2024 3:12 PM CDT) Protime 30.5(H) 11.8 - 14.6 Seconds 01/02/2024 5:38 PM CDT [facility] INR 2.8(H) 0.9 - 1.1 01/02/2024 5:38 PM CDT [facility] Blood Venipuncture / Unknown 01/02/2024 3:12 PM CDT 01/02/2024 3:12 PM CDT Narrative [facility] - 01/02/2024 5:38 PM CDT If you take an anticoagulant medicine called warfarin, your doctor or clinician may establish a normal range for you that is different from the baseline range shown. Tala Thomason MD LAB_1 [facility] [address] [place] [address], [facility] * (ABNORMAL) Hemoglobin, Blood (Expected: 1 year) (01/02/2024 3:12 PM CDT) Hemoglobin 11.7(L) 12.0 - 15.5 g/dL 01/02/2024 3:15 PM CDT [facility] (PN) Blood Venipuncture / Unknown 01/02/2024 3:12 PM CDT 01/02/2024 3:12 PM CDT Shannon Gunter APRN, CNP LAB_1 [facility] (PN) [address] [place] [address] * Vitamin D 25-Hydroxy, Total (Expected: 1 year) (01/02/2024 3:12 PM CDT) Pathologist [facility] Vitamin D, 25-OH, Total 53 30 - 80 ng/mL 01/02/2024 8:43 PM CDT [facility] Blood Venipuncture / Unknown 01/02/2024 3:12 PM CDT 01/02/2024 3:12 PM CDT Shannon Gunter APRN, CNP LAB_1 Performing Organization Address [facility] Co de Phone Number [facility] [address] [place] [address] * Intact PTH (Expected: 1 year) (01/02/2024 3:12 PM CDT) Pathologist [facility] Intact PTH 75 10 - 100 pg/mL 01/02/2024 8:03 PM CDT [facility] Blood Venipuncture / Unknown 01/02/2024 3:12 PM CDT 01/02/2024 3:12 PM CDT Shannon Gunter APRN, CNP LAB_1 Performing Organization Address City/[facility] Co de Phone Number [facility] [address] * (ABNORMAL) Renal Function Panel (Expected: 1 year) (01/02/2024 3:12 PM CDT) Sodium 139 136 - 145 mmol/L 01/02/2024 7:10 PM [facility] Potassium 3.9 3.5 - 5.1 mmol/L 01/02/2024 7:10 PM [facility] Chloride 103 98 - 109 mmol/L 01/02/2024 7:10 PM [facility] CO2 24 20 - 29 mmol/L 01/02/2024 7:10 PM [facility] Anion Gap 12 6 - 16 mmol/L 01/02/2024 7:10 PM [facility] Calcium 9.9 8.4 - 10.4 mg/dL 01/02/2024 7:10 PM [facility] BUN 45(H) 7 - 26 mg/dL 01/02/2024 7:10 PM [facility] Creatinine 1.98(H) 0.55 - 1.02 mg/dL 01/02/2024 7:10 PM [facility] Albumin 3.4(L) 3.5 - 5.0 g/dL 01/02/2024 7:10 PM [facility] Phosphorus 4.1 2.3 - 4.7 mg/dL 01/02/2024 7:10 PM [facility] Glucose 123(H) 70 - 100 mg/dL 01/02/2024 7:10 PM [facility] Comment:The given reference range is for the fasting state. Non-fasting reference range for glucose is 70 - 180 mg/dL. GFR, Estimated 26(L) >60 mL/min/1.7 3m2 01/02/2024 7:10 PM [facility] Hours Fasting 0.1 8 - 12 Hours 01/02/2024 7:10 PM [facility] Blood Venipuncture / Unknown 01/02/2024 3:12 PM CDT 01/02/2024 3:12 PM [facility] Shannon Gunter APRN, CNP LAB[facility]1 [facility] [address] [place] [address], [facility] documented in this encounter Visit Diagnoses Diagnosis CKD (chronic kidney disease) stage 4, GFR 15-29 ml/min (HRC) Chronic kidney disease, Stage IV (severe) long-term (current) use of anticoagulants Long-term (current) use of anticoagulants documented in this encounter Care Teams Corporate Secretary Relationship Specialty Start Date End Date Tala Thomason MD [address] [place], [place] [address] PCP - General Family Practice 05/22/17 documented as of this encounter
--- OUTSIDE RECORDS SUMMARY | 2024-02-24 13:28 | XMS_ITS | Encounter Summary ---
Author Organization [employer] Address [address] [place] [address] Care Team Providers Care Milking Machine Operator Name Role Phone Tala Reyes MD Primary Care Provider [phone] Reason for Visit * Reason Comments Refill losartan (COZAAR) 10 0 MG tablet [Pharmacy Med Name: LOSARTAN 100MG TABLETS] Encounter Details Date Type Department Care Team (Late st Contact Info) Description 12/22/2023 Refill [facility] [address] [facility] [place] [id number] Tala Reyes MD [address] [facility] [place] [id number] Refill (losartan (COZAAR) 100 MG tablet [Pharmacy Med Name: LOSARTAN 100MG TABLETS]) Social History Tobacco Use Types Packs/Day [...] as of this encounter Nursing Notes * Santos Campo - 12/25/2023 8:50 AM CDT Medication Refill - Due for Visit Medication still pending, patient is due to be seen in the next 30 days. Called patient, was: Successful in reaching patient. We recently received a refill request for one of your medications. To continue managing your medication refills, your clinician would like to see you for a(n): Patient is due for a: Video/Office Visit Patient scheduled appointment on: 03/05/24 Do you have enough medication to last until you appointment? Unknown I will send a request to see if a temporary refill can be provided until your next appointment. Please check with your pharmacy on the status of your refill. We will notify you if it has not been approved. Frontline Action: Route to the appropriate pool or clinician, as specified in the nursing documentation below. Clinician Action: Patient scheduled, requests refill. Recommend using ???Rx Final??? quick action to address request. * Mavis Freitas RN - 12/22/2023 2:51 PM CDT Further Assistance Needed on Refill from Load Mixer Patient is due for Qualifying Visit Medication is still pending. Patient is due for an Office/Video Visit in the next 30 days. Call Patient and document using .JOSEMANUEL. After attempting to schedule patient: If appointment is scheduled within 60 days: Please route to: Refill pool If unable to schedule appointment or scheduled greater than 60 days: Please route to: Tala Reyes MD or covering provider. Requested Prescriptions Pending Prescriptions Disp Refills losartan (COZAAR) 100 MG tablet [Pharmacy Med Name: LOSARTAN 100MG TABLETS] 90 Tablet 0 Sig: TAKE 1 TABLET BY MOUTH DAILY * Lilliam Keith Xrwcomm - 12/22/2023 12:48 PM CDT losartan (COZAAR) 100 MG tablet [Pharmacy Med Name: LOSARTAN 100MG TABLETS] Medication started: 04/05/2018 Last ordered by TALA REYES R: 04/01/2023 (265 days ago) QTY: 90, Refills: 2, Sig: take 1 tablet by mouth daily (unchanged) -> An office visit is overdue (performed 13 months ago, required every 12 months). -> Cr is abnormal (1.8 mg/dL lies outside 0.55 mg/dL - 1.02 mg/dL) -> Refill x 1 month (courtesy refill. overdue for an office visit) Last qualifying visit: 12/09/2022 (with TALA REYES) Next scheduled visit: None Cr: 1.8 mg/dL on 03/14/2023 K: 3.9 mEq/L on 03/14/2023 [facility] Embedded Refills, Reference: [id number], 12/22/2023 12:48:49 PM CDT, Bryson: JESSIE Refill Centralized Services - Primary Care [[id number]] ([id number]) * Lilliam Keith Xrharley - 12/22/2023 12:48 PM CDT The following lab order(s) may be [...] PM CDT Appointment [facility] [address] [id number] Tala Reyes MD [address] [address] documented as of this encounter Visit Diagnoses Diagnosis Essential hypertension (HRC) Unspecified essential hypertension documented in this encounter Care Teams Milking Machine Operator Relationship Specialty Start Date End Date Tala Reyes MD [address] [place] [address] PCP - General Family Practice 05/22/17 documented as of this encounter
--- OUTSIDE RECORDS SUMMARY | 2024-02-24 13:28 | XMS_ITS | Encounter Summary ---
Author Organization [employer] Address [address] [place] [address] Care Team Providers Care Field Services Manager Name Role Phone Tala Thomason MD Primary Care Provider [phone] Reason for Visit * Reason Comments Rash Encounter Details Date Type Department Care Team (Late st Contact Info) Description 12/23/2023 11:00 AM CDT Office Visit [facility] [address] [place] [address] Arabella Saleh, PA-C [address] [place] [address] Impetigo; Dermatitis Social History Tobacco Use Types Packs/Day Years [...] on file documented as of this encounter Last Filed Vital Signs Vital Sign Reading Time Taken Comments Blood Pressure 150/74 12/23/2023 10:39 AM CDT Pulse 70 12/23/2023 10:35 AM CDT Temperature 36.5 ??C (97.7 ??F) 12/23/2023 10:35 AM C DT Respiratory Rate 18 12/23/2023 10:35 AM CDT Oxygen Saturation 100% 12/23/2023 10:35 AM CDT Inhaled Oxygen Concentration - - Weight - - Height - - Body Mass Index - - documented in this encounter Patient Instructions * Attachments The following attachments cannot be sent through Care Everywhere. * Impetigo (Albanian) documented in this encounter Progress Notes * Arabella Saleh PA-C - 12/23/2023 11:00 AM CDT [facility] Patient: Sylvia Doan Date of : 1945 (78 y.o.) Subjective Chief Complaint: Chief Complaint Patient presents with Rash Visit assisted with video mount loader. History of Present Illness: Sylvia Doan is a 78 y.o. female who presents for evaluation of a rash. Patient has had just over 2 weeks of a rash on the left index finger. It was intermittently itchyand painful. Has had some oozing. Has gradually increased in size. No new contacts or exposures. Has never had a similar presentation in the past. No other areas of rash. Denies fevers, numbness or tingling, any other symptoms or concerns. 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) Chronic atrial fibrillation (HRC) Chronic diastolic CHF (congestive heart failure) (HRC) Elevated LFTs Screening for cervical cancer History of basal cell carcinoma Hyperlipidemia (HRC) Osteopenia Monitoring for long-term anticoagulant use Allergies: Codeine, Lisinopril, Morphine and related, and Naproxen Medications: FLUoxetine, Vitamin D (Ergocalciferol), alendronate, allopurinol, amLODIPine, atorvastatin, calcium carbonate, furosemide, ketoconazole, levothyroxine, losartan, metoprolol succinate, mupirocin, sodium bicarbonate, triamcinolone acetonide, and warfarin Family History: Family History Problem Relation Age of Onset Hypertension Father Kidney/Bladder Disease Sister Kidney/Bladder Disease Sister Cancer, Breast Negative Family History Social History: Social History Tobacco Use Smoking status: Never Smokeless tobacco: Never Vaping Use Vaping status: Never Used Substance Use Topics Alcohol use: Yes Comment: rare- beer Drug use: No Review of Systems: All review of systems reviewed and negative other than as noted in the HPI. Objective Physical Exam: Vital Signs: BP (!) 150/74 (BP Location: Left Arm, BP Cuff Size: Regular - Long) Pulse 70 Temp 36.5 ??C (97.7 ??F) (Oral) Resp 18 SpO2 100% General: Resting comfortably Head: The scalp, head and face appear normal. Neck: Supple, no rigidity noted. Normal ROM. Resp: Non-labored breathing. No tachypnea. MS: Normal muscular tone. Neuro: Awake and alert. Speech is clear. Skin: Dorsum of the left index finger there is an approximate 1.5 cm in diameter area erythematous lesions with overlying honey colored crusts. No active vesicles at this time. No streaking or circumferential erythema, fluctuance, focal swelling, induration, tenderness. No purulent drainage. No petechia or purpura. Psych: Normal affect. Appropriate interactions. Assessment Sylvia Doan is a 78 y.o. female who presents with rash on her finger. This appears consistent with impetigo with a secondary dermatitis or could be a primary contact dermatitis. But no known new contacts or exposures. No signs of secondary infection. Not consistent with shingles. Will start topical steroids and antibiotics. PCP follow-up in 5-7 days for recheck. I discussed the results, plan and any additional questions with the patient. They verbalized understanding and agreement with the plan. Impression: 1. Impetigo 2. Dermatitis Patient Discharge Medications & Instructions: Medications Prescribed this Visit Disp Refills Start End mupirocin (BACTROBAN) 2 % ointment 22 g 0 12/23/2023 -- Apply to affected area three times a day for 7 days. triamcinolone acetonide (KENALOG) 0.1 % cream 15 g 0 12/23/2023 -- Apply to affected area twice daily x7 days Renewals Renewal requests to authorizing provider (Arabella Saleh PA-C) <b>prohibited</b> Discharge Instructions None Discharge References/Attachments Impetigo (Albanian) Arabella Saleh PA-C documented in this encounter Nursing Notes * Radha Walker RN - 12/23/2023 11:00 AM CDT Pt developed a rash 2 weeks ago on her L forefinger. It started out itchy, and progressed to painful and oozy. It continues to be painful. Her primary was not available for a significant period of time so they suggested she be seen in urgent care. Patient requests an excuse letter for work/school: No documented in this encounter Plan of Treatment Upcoming Encounters Date Type Department Care Team (Late st Contact Info) Description 03/05/2024 2:00 PM CDT Appointment [facility] [address] [id number] Tala Thomason MD [address] [place] [address] documented as of this encounter Visit Diagnoses Diagnosis Impetigo Dermatitis Contact dermatitis and other eczema, due to unspecified cause documented in this encounter Care Teams Field Services Manager Relationship Specialty Start Date End Date Tala Thomason MD [address] [place] [address] [address] PCP - General Family Practice 05/22/17 documented as of this encounter
--- OUTSIDE RECORDS SUMMARY | 2024-02-24 13:28 | XMS_ITS | Encounter Summary ---
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) use of anticoagulants Social History Tobacco [...] PM CDT Appointment [facility] [address] [id number] Tala Thomason MD [address] [id number] documented as of this encounter Procedures Procedure Name Priority Date/Time Associated Diagnosis Comments INR/PROTIME Routine 12/18/2023 12:37 PM CDT 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 Tala Thomason MD LAB_1 Performing Organization Address City/State/[facility] Co de Phone Number [place] [address] [place] [address] documented in this encounter Visit Diagnoses Diagnosis longterm (current) use of anticoagulants Long-term (current) use of anticoagulants documented in this encounter Care Teams Tombstone Carver Relationship Specialty Start Date End Date Tala Thomason MD [address] [place] [address] PCP - General Family Practice 05/22/17 documented as of this encounter
--- OUTSIDE RECORDS SUMMARY | 2024-02-24 13:28 | XMS_ITS | Encounter Summary ---
Author Organization [employer] Address [address] [place] [address] Care Team Providers Care Fence Installer Helper Name Role Phone Tala Reyes MD Primary Care Provider [phone] Reason for Visit * Reason Comments Refill metoprolol succinate (TOPROL XL) 25 MG 24 hour release tablet [Pharmacy Med Name: METOPROLOL ER SUCCINATE 25MG TABS]; amLODIPine (NORVASC) 5 MG tablet [Pharmacy Med Name: AMLODIPINE BESYLATE 5MG TABLETS] Encounter Details Date Type Department Care Team (Late st Contact Info) Description 12/29/2023 Refill [facility] [address] [phone] Tala Reyes MD [address] [place] [address] [place] [phone] Refill (metoprolol succinate (TOPROL XL) 25 MG 24 hour release tablet [Pharmacy Med Name: METOPROLOL ER SUCCINATE 25MG TABS]; amLODIPine (NORVASC) 5 MG tablet [Pharmacy Med Name: AMLODIPINE BESYLATE 5MG TABLETS]) Social History Tobacco Use Types Packs/Day [...] as of this encounter Nursing Notes * Chasidy Renner, RN - 12/29/2023 11:41 AM CDT Renewed medication per medication refill protocol. Requested Prescriptions Pending Prescriptions Disp Refills amLODIPine (NORVASC) 5 MG tablet [Pharmacy Med Name: AMLODIPINE BESYLATE 5MG TABLETS] 90 Tablet 0 Sig: TAKE 1 TABLET(5 MG) BY MOUTH DAILY metoprolol succinate (TOPROL XL) 25 MG 24 hour release tablet [Pharmacy Med Name: METOPROLOL ER SUCCINATE 25MG TABS] 90 Tablet 0 Sig: TAKE 1 TABLET(25 MG) BY MOUTH DAILY * Lilliam Keith Xrwcomm - 12/29/2023 9:24 AM CDT amLODIPine (NORVASC) 5 MG tablet [Pharmacy Med Name: AMLODIPINE BESYLATE 5MG TABLETS] Medication started: 07/03/2018 Last ordered by TALA REYES R: 03/28/2023 (276 days ago) QTY: 90, Refills: 2, Sig: take 1 tablet(5 mg) by mouth daily (unchanged) -> An office visit is overdue (performed 13 months ago, required every 12 months). -> Refill x 1 month (courtesy refill. overdue for an office visit) Last qualifying visit: 12/09/2022 (with TALA REYES) Next scheduled visit: 03/05/2024 (with TALA REYES) [facility] Embedded Refills, Reference: [id number], 12/29/2023 9:24:29 AM CDT, Pool: PN Refill Centralized Services - Primary Care [[id number]] ([id number]) metoprolol succinate (TOPROL XL) 25 MG 24 hour release tablet [Pharmacy Med Name: METOPROLOL ER SUCCINATE 25MG TABS] Medication started: 09/27/2021 Last ordered by TALA REYES R: 03/28/2023 (276 days ago) QTY: 90, Refills: 2, Sig: take 1 tablet(25 mg) by mouth daily (unchanged) -> An office visit is overdue (performed 13 months ago, required every 12 months). -> Refill x 1 month (courtesy refill. overdue for an office visit) Last qualifying visit: 12/09/2022 (with TALA REYES) Next scheduled visit: 03/05/2024 (with TALA REYES) [facility] Embedded Refills, Reference: [id number], 12/29/2023 9:24:29 AM Bryson ANDRADE: JESSIE Refill Centralized Services - Primary Care [[id number]] ([id number]) documented in this encounter Plan of Treatment Upcoming Encounters Date Type Department Care Team (Late st Contact Info) Description 03/05/2024 2:00 PM CDT App[facility]ment [facility] [phone] Tala Reyes MD [address] [phone] documented as of this encounter Visit Diagnoses Not on filedocumented in this encounter Care Teams Fence Installer Helper Relationship Specialty Start Date End Date Tala Reyes MD [address] [id number] PCP - General Family Practice 05/22/17 documented as of this encounter
--- OUTSIDE RECORDS SUMMARY | 2024-02-24 13:28 | XMS_ITS | Encounter Summary ---
Author Organization [employer] Address [address] [place] [address] Care Team Providers Care Customer Solutions Representative Name Role Phone Tala Thomason MD Primary Care Provider [phone] Reason for Visit * Reason Comments Refill Encounter Details Date Type Department Care Team (Late st Contact Info) Description 04/13/2016 Refill Nephrology at [facility] [place] [address] [address] [place], [place] [phone] Isabel Paulino MD [address] [facility] [address] [place], [place] [address] Refill Social History Tobacco Use Types Packs/Day Years Used Date Smoking Tobacco: Never Smokeless Tobacco: Never Alcohol Use Standard Drinks/Week Comments No 0 (1 standard drink = 0.6 oz pur e alcohol) Sex and Gender Information Value Date Recorded Sex Assigned at Not on file Gender Identity Not on file Sexual Orientation Not on file documented as of this encounter Nursing Notes * Mary Alice Gunter RN - 04/13/2016 3:42 PM CDT Medication refilled per refill protocol. Patient needs appt. before further refills. RBOARD BOX MAKER * Carissa Dupree - 04/13/2016 3:39 PM CDT Last visit: 03/06/15 Future visit: None Last fill: 01/14/16 RBOARD BOX MAKER documented in this encounter Plan of Treatment Upcoming Encounters Date Type Department Care Team (Late st Contact Info) Description 03/05/2024 2:00 PM CDT Appointment [facility] [address] [phone] Tala Thomason MD [address] [place] [address] [address] documented as of this encounter Visit Diagnoses Not on filedocumented in this encounter Care Teams Customer Solutions Representative Relationship Specialty Start Date End Date Tala Thomason MD [address] [phone] PCP - General Family Practice 05/22/17 documented as of this encounter
--- OUTSIDE RECORDS SUMMARY | 2024-02-24 13:28 | XMS_ITS | Encounter Summary ---
Author Organization [employer] Address [address] [place] [address] Care Team Providers Care Studio Engineer Name Role Phone Tala Thomason MD Primary Care Provider [phone] Reason for Visit * Reason Comments Medicare Annual Wellness Encounter Details Date Type Department Care Team (Late st Contact Info) Description 12/19/2023 Telephone [facility] [address] [address] [place] [phone] Tala Thomason MD [address] [place] [address] [address] [place] [phone] Medicare Annual Wellness Social History Tobacco Use Types Packs/Day Years [...] encounter Nursing Notes * Vani Boyd - 12/19/2023 1:05 PM CDT MyChart message sent reminding Sylvia that she is due for her MAW visit. documented in this encounter Plan of Treatment Upcoming Encounters Date Type Department Care Team (Late st Contact Info) Description 03/05/2024 2:00 PM CDT Appointment [facility] [address] [phone] Tala Thomason MD [address] [phone] documented as of this encounter Visit Diagnoses Not on filedocumented in this encounter Care Teams Studio Engineer Relationship Specialty Start Date End Date Tala Thomason MD [address] [phone] PCP - General Family Practice 05/22/17 documented as of this encounter
--- NOTE | 2024-02-24 13:31 | ED.GENADULT ---
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 She sneeze several times this morning and then developed blood on her right eye. Her vision is generally at baseline, she does have history of some problems and sees the retinal specialist. She has had a bloodshot eye before but nothing this dramatic. No other trauma. She has felt a little woozy since this happened. Related Data Home Medications ?Medication ?Instructions ?Recorded ?Confirmed amlodipine 5 mg tablet 5 mg PO DAILY 03/12/22 03/12/22 atorvastatin 40 mg tablet 40 mg PO DAILY 03/12/22 03/12/22 fluoxetine 20 mg capsule 20 mg PO DAILY 03/12/22 03/12/22 furosemide 20 mg tablet 20 mg PO DAILY 03/12/22 03/12/22 gabapentin 100 mg capsule 100 mg PO Q8H PRN pain 03/12/22 03/12/22 levothyroxine 100 mcg tablet 100 mcg PO DAILY 03/12/22 03/12/22 losartan 100 mg tablet 100 mg PO DAILY 03/12/22 03/12/22 metoprolol succinate 25 mg 25 mg PO DAILY 03/12/22 03/12/22 tablet,extended release 24 hr warfarin 1 mg tablet 0.5 - 1 mg PO DAILY 03/12/22 03/13/22 Allergies Allergy/AdvReac Type Severity Reaction Status Date / Time No Known Drug Allergies Allergy Verified 03/12/22 16:34 [facility] Medical History (Updated 02/24/24 @ 14:17 by Rosalia Garcia MD) Deaf ?H91.90 - Unspecified hearing loss, unspecified ear (ICD-10) COVID-19 ?U07.1 - COVID-19 (ICD-10) Hypertension ?I10 - Essential (primary) hypertension (ICD-10) Chronic kidney disease ?N18.9 - Chronic kidney disease, unspecified (ICD-10) Atrial fibrillation, chronic ?I48.20 - Chronic atrial fibrillation, unspecified (ICD-10) Surgical History (Updated 03/12/22 @ 20:35 by Kat Gonsales MD) History of tubal ligation ?Z98.51 - Tubal ligation status (ICD-10) Social History Smoking Status: Never smoker How often do you have a drink containing alcohol: monthly or less AUDIT-C Alcohol total score: 1 Non-prescribed substance use: denies use Exam Narrative: Exam Narrative: Vital signs reviewed. In general, alert, well-appearing woman. She is hearing impaired, her friend is helping to interpret. Eyes: She has significant subconjunctival hemorrhage over the entire conjunctiva on the right. Pupil is reactive. No photophobia. Const: Vital Signs, click to edit/add: Vital Signs - 24 hr 02/24/24 12:55 Temperature 97.7 F Pulse Rate [Pulse Oximeter] 60 Respiratory Rate 20 Blood Pressure [Le ft Upper Arm] 168/79 H Pulse Oximetry 99 Oxygen Delivery Me thod Room Air Documenting provider has reviewed patient's vital signs: yes Course Course ED Course: Reviewed with her that while somewhat dramatic looking, these typically are not dangerous and do not require specific treatment. Will check an INR today to make sure she is not significantly supratherapeutic. Visual acuity was 20 50 in both eyes, corrected. Her INR was 3.1, she isn't certain what her therapeutic ranges. I think there is probably room to have her her just hold 1 dose today, resume her regular schedule tomorrow. She actually has an appointment with her eye doctor on Monday. If at any point she develops significant pain or visual changes, photophobia or other worsening return to the ER. Otherwise I encouraged her to take it easy over the next couple of days, avoid strenuous activity. Vital Signs Vital signs: Initial Vital Signs Temperature 97.7 F 02/24/24 12:55 Temperature Source Temporal Artery Scan 02/24/24 12:55 Pulse Rate 60 02/24/24 12:55 Pulse Rhythm Regular 02/24/24 12:55 Respiratory Rate 20 02/24/24 12:55 Blood Pressure 168/79 H 02/24/24 12:55 Blood Pressure Mean 108 H 02/24/24 12:55 Blood Pressure Position Sitting 02/24/24 12:55 Pulse Oximetry 99 02/24/24 12:55 Oxygen Delivery Method Room Air 07/06/24 12:55 Vital Signs Temperature 97.7 F 02/24/24 12:55 Pulse Rate 60 02/24/24 12:55 Respiratory Rate 20 02/24/24 12:55 Blood Pressure 168/79 H 02/24/24 12:55 Pulse Oximetry 99 02/24/24 12:55 Oxygen Delivery Method Room Air 02/24/24 12:55 Temperature 97.7 F 02/24/24 12:55 Pulse Rate 60 02/24/24 12:55 Respiratory Rate 20 02/24/24 12:55 Blood Pressure 168/79 H 02/24/24 12:55 Pulse Oximetry 99 02/24/24 12:55 Oxygen Delivery Method Room Air 02/24/24 12:55 Medical Decision Making Lab Data Labs: Lab Results 02/24/24 Range/Units 13:18 INR 3.10 H (0.91-1.10) Discharge Plan Discharge Clinical Impression: Subconjunctival hemorrhage Patient Disposition: Home, Self-Care Condition: Stable Additional Instructions: Follow-up as planned on Monday with your eye doctor. No strenuous activity over the next few days to avoid further bleeding. Skip tonight's dose of Coumadin, resume your usual dosing schedule tomorrow. Return to the ER if you developed significant pain, light sensitivity, vision changes or other worsening. Prescriptions: No Action atorvastatin 40 mg tablet 40 mg PO DAILY amlodipine 5 mg tablet 5 mg PO DAILY levothyroxine 100 mcg tablet 100 mcg PO DAILY Patient Comments: TAKE 1 TABLET BY MOUTH 6 TIMES A WEEK AND NO MED ONCE WEEKLY furosemide 20 mg tablet 20 mg PO DAILY Patient Comments: TAKE 1 TABLET BY MOUTH DAILY gabapentin 100 mg capsule 100 mg PO Q8H PRN (Reason: pain) Patient Comments: TAKE 1 TO 2 CAPSULES BY MOUTH THREE TIMES DAILY NEEDED metoprolol succinate 25 mg tablet extended release 24 hr 25 mg PO DAILY losartan 100 mg tablet 100 mg PO DAILY Patient Comments: TAKE 1 TABLET BY MOUTH DAILY fluoxetine 20 mg capsule 20 mg PO DAILY Patient Comments: TAKE 1 CAPSULE BY MOUTH DAILY warfarin 1 mg tablet 0.5 - 1 mg PO DAILY Rx Instructions: 1 MG MONDAY AND MONDAY, 0.5 MG ALL OTHER DAYS Follow Up/Referrals: Provider,Not a Local [Primary Care Provider] - Stand Alone Forms: [employer] Info Instructions
[2024-02-24 13:49] LABS: Prothrombin Time 34.3 Seconds
[2024-02-24 14:55] VITALS: BP 168/79; PULSE 60; RESP 20; TEMP 36.5
== END 2024-02-24 14:57 | disposition home or self-care (01) ==
PROVIDERS: Emergency Provider Emergency Medicine
DX: H11.31 Conjunctival hemorrhage, right eye (principal)
CPT/HCPCS: 36415; 85610; 99283

== ENCOUNTER 2024-04-15 08:49 | Emergency (ER) | payer MEDICARE, SELFPAY ==
--- OUTSIDE RECORDS SUMMARY | 2024-04-15 08:53 | XMS_ITS | Clinical Summary ---
Author Organization [facility] Address [address] [place] [address] Care Team Providers Care On Air Personality Name Role Phone Tala Thomason MD Primary Care Provider [phone] Source Comments You are receiving this document as you are listed as the primary care provider,follow-up provider, or the patient has been referred to you for consultation.This is in compliance with the Medicare and[facility] EHR Incentive Program,which states Providers who transition their patient to another setting of careor provider of care or refers their patient to another provider of care shouldprovide summary care record for each transition of care or referral. [facility] Allergies Active Allergy Reactions Criticality Noted Date [...] groin 30 g 2 12/10/19 23 Active sodium bicarbonate 650 MG tablet Take 1 Tablet (650 mg) by mouth two times a day. 180 Tablet 3 02/02/20 23 Active Additional Information Patient not taking.Reported on 03/15/2024 Vitamin D, Ergocalciferol, 1.25 MG (41038 UT) CAPS TAKE 1 CAPSULE BY MOUTH 1 TIME EVERY WEEK 13 Capsule 3 04/13/20 23 Active alendronate (FOSAMAX) 70 MG tabletIndications: Osteopenia, unspecified location Take 1 Tablet (70 mg) by mouth once every week. TAKE 30 MINUTES BEFORE FIRST GNBE-FLPGZ-YELPCGVD ON. AVOID LYING DOWN FOR 30 MINUTES 12 Tablet 1 08/22/19 24 Active mupirocin (BACTROBAN) 2 % ointment Apply to affected area three times a day for 7 days. 22 g 12/23/19 24 Active triamcinolone acetonide (KENALOG) 0.1 % cream Apply to affected area twice daily x7 days 15 g 12/23/19 24 Active allopurinol (ZYLOPRIM) 100 MG tabletIndications: Gout, unspecified cause, unspecified chronicity, unspecified site,CKD (chronic kidney disease) stage 4, GFR 15-29 ml/min (HRC) Take 2 Tablets (200 mg) by mouth daily. 180 Tablet 3 03/15/20 24 Active amLODIPine (NORVASC) 5 MG tablet Take 1 Tablet (5 mg) by mouth daily. 90 Tablet 3 03/15/20 24 Active FLUoxetine (PROZAC) 20 MG capsuleIndications :Moderate episode of recurrent major depressive disorder (HRC) Take 1 Capsule (20 mg) by mouth daily. 90 Capsule 3 03/15/20 24 Active furosemide (LASIX) 20 MG tabletIndications: Essential hypertension (HRC) Take 1 Tablet (20 mg) by mouth daily. 90 Tablet 3 03/15/20 24 Active levothyroxine (SYNTHROID) 100 MCG tabletIndications: Hypothyroidism, unspecified type (HRC) Take 1 Tablet (100 mcg) by mouth daily. 90 Tablet 3 03/15/20 24 Active losartan (COZAAR) 100 MG tabletIndications: Essential hypertension (HRC) Take 1 Tablet (100 mg) by mouth daily. 90 Tablet 3 03/15/20 24 025 Active metoprolol succinate (TOPROL XL) 25 MG 24 hour release tabletIndications: Essential hypertension (HRC) Take 1 Tablet (25 mg) by mouth daily. 90 Tablet 3 03/15/20 24 Active warfarin 3 MG tabletIndications: Chronic atrial fibrillation (HRC),Monitoring for long-term anticoagulant use Take by mouth 3 mg (3 mg x 1) every Sa; 1.5 mg (3 mg x 0.5) all other days or as directed. Your dose may change. Call [facility] [place] [phone] with questions. 52 Tablet 04/03/20 24 Active warfarin 3 MG tabletIndications: Chronic atrial fibrillation (HRC),custodial (current) use of anticoagulants Take by mouth 3 mg every Sa; 1.5 mg all other days or as directed. Your dose may change. Call [facility] [phone] with questions. 12/19/19 24 024 Discontinued Active Problems Problem Noted Date Diagnosed Date Monitoring for long-term anticoagulant use 12/18 Osteopenia 06/30/2022 Overview (06/30/2022): With high risk of fracture, FRAX for hip 9% based on bone density test done 06/2022. Consider pharmacotherapy. Letter sent. Hyperlipidemia 06/29/2021 History of basal cell carcinoma 04/21/2020 Overview (04/21/2020): BCC right upper back, s/p punch excision 04/01/2020 Screening for cervical cancer 08/25/2017 Overview (08/25/2017): Normal pap in 2005 and 2009. Elevated LFTs 05/25/2017 Overview (05/25/2017): Noted on 05/25/2017. Recheck in 3 months. Check addition LFTs and US RUQ if pain sooner. 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/19/2010 12/16/2014 Overview (04/12/2017): Basal Cell Ca Shoulder Routine general medical exam ination at a health care facility 01/25/2006 06/29/2021 Overview (04/12/2017): LW Onset: [id number] ; Health Maintenance Encounters Date Type Department Care Team Description 04/09/2024 Notes/Orders [facility] [address] [facility] [place] [address] Tala Thomason MD Monitoring for long-term anticoagulant use 03/31/2024 Refill [facility] [address] [place] [id number] Tala Thomason MD Refill (Warfarin) 03/26/20[address] [place] [address] Tala Thomason MD Refill (metoprolol succinate (TOPROL XL) 25 MG 24 hour release tablet [Pharmacy Med Name: METOPROLOL ER SUCCINATE 25MG TABS]) 03/22/2024 Telephone [facility] [address] [place] [address] Tala Thomason MD APPOINTMENT REQUEST 03/21/2024 11:40 AM CDT Lab Visit [facility] [address] [place] [address] custodial (current) use of anticoagulants 03/21/2024 Anticoagulation [facility] [address] [place] [address] Chronic atrial fibrillation (HRC) (Primary Dx); Monitoring for long-term anticoagulant use 03/15/2024 3:20 PM CDT Lab Visit [facility] [address] [place] [address] Chronic atrial fibrillation (HRC); Monitoring for long-term anticoagulant use; Medicare annual wellness visit, subsequent 03/15/2024 2:30 PM CDT Office Visit [address] [place] [address] Kayleigh Ambrose PA-C Medicare annual wellness visit, subsequent (Primary Dx); Gout, unspecified cause, unspecified chronicity, unspecified site; CKD (chronic kidney disease) stage 4, GFR 15-29 ml/min (HRC); Moderate episode of recurrent major depressive disorder (HRC); Essential hypertension (HRC); Hypothyroidism, unspecified type (HRC); Hyperlipidemia, unspecified hyperlipidemia type (HRC); Chronic diastolic CHF (congestive heart failure) (HRC); Alport syndrome; Chronic atrial fibrillation (HRC); Anxiety state (HRC); Diabetes mellitus screening; Bowel and bladder incontinence 03/03/[address] [address] Tala Thomason MD Refill (furosemide (LASIX) 20 MG tablet [Pharmacy Med Name: FUROSEMIDE 20MG TABLETS]) 02/19/2024 Refill [facility] [address] [place] [address] Tala Thomason MD Refill (levothyroxine (SYNTHROID) 100 MCG tablet [Pharmacy Med Name: LEVOTHYROXINE 0.100MG (100MCG) TAB]) 02/08/2024 11:50 AM CDT Lab Visit [facility] [address] [place] [phone] intermediate frame tender (current) use of anticoagulants; CKD (chronic kidney disease) stage 4, GFR 15-29 ml/min (HRC) 02/08/2024 Anticoagulation [facility] [address] [place] [address], [address] [place], [place] [id number] Chronic atrial fibrillation (HRC) (Primary Dx); Monitoring for long-term anticoagulant use 01/26/2024 Refill [facility] [address] [place], [place] [address] Shannon Gunter APRN, MODULAR SET CREW MEMBER Refill (sodium bicarbonate 650 MG tablet [Pharmacy Med Name: SODIUM BICARBONATE 10GR(650MG) TABS]) from Last 3 Months Immunizations Name Administration Dates Next Due Flu Vac (3+ yrs) 04/27/2012 Flu Vac Preserv Free (3+yrs) 04/27/2012, 05/12/2011,04/28/2010,2008 HepB Adult (Engerix-B, 20+ y rs, 3 dose series) 06/29/2021,05/13/2019 Influenza IIV3 (Trivalent) F luzone Highdose, 65+ Yrs (69717) 05/13/2019,07/10/2018,05/23/2017,2013 Influenza IIV4 (Quadrivalent ) 0.5mL (80861) 10/14/2013 Influenza IIV4 (Quadrivalent ) Fluad, 65+ Yrs 06/29/2021 Influenza, Unspecified Formulation 07/23/2003 Moderna Monovalent 12+ 04/30/2021,04/02/2021 PCV13 (Prevnar) 11/27/2017 PPSV23 (Pneumovax) 01/08/2019 TDAP (ADACEL) 04/28/2010 Tdap 06/29/2021 Family History Medical History Relation Name Comments Diabetes Father Sisters Heart Disease Father Sisters Hypertension Father Sisters Depression Sister 1 Sisters Kidney/Bladder Disease Sister 1 Sisters Kidney/Bladder Disease Sister 2 Johnathon Stroke Sister 3 Sister Cancer, Breast Negative Family History Relation Name Status Comments Father Sisters Mother Maternal Grandfather Maternal Grandmother Paternal Grandfather Paternal Grandmother Sister 1 Sisters Alive Sister 2 Johnathon Sister 3 Sister Social History Tobacco Use Types Packs/Day Years Used Date Smoking Tobacco: Never Smokeless Tobacco: Never Tobacco Cessation:Counseling Given: Not Answered Alcohol Use Standard Drinks/Week Comments Not Currently 0 (1 standard drink = 0.6 oz pur e alcohol) rare- beer PHQ-2 Answer Date Recorded PHQ-2 Score 0 03/15/2024 Sex and Gender Information Value Date Recorded Sex Assigned at Not on file Gender Identity Not on file Sexual Orientation Not on file Last Filed Vital Signs Vital Sign Reading Time Taken Comments Blood Pressure 136/59 03/15/2024 2:18 PM CDT Pulse 51 03/15/2024 2:18 PM CDT Temperature 36.5 ??C (97.7 ??F) 12/23/2023 10:35 AM C DT Respiratory Rate 18 12/23/2023 10:35 AM CDT Oxygen Saturation 100% 12/23/2023 10:35 AM CDT Inhaled Oxygen Concentration - - Weight 76 kg (167 lb 9.6 oz) 03/15/2024 2:18 PM CDT Height 154.9 cm (5' 1) 05/13/2019 10:05 AM CDT Body Mass Index 31.67 05/13/2019 10:05 AM CDT Plan of Treatment Upcoming Encounters Date Type Department Care Team (Late st Contact Info) Description 05/03/2024 11:40 AM CDT Appointment [facility] [address] [facility] [place] [address] 06/11/2024 5:30 PM CDT Telemedicine [facility] [address] [facility] [place] [address] Tala Thomason MD [address] [place] [address] Health Maintenance Due Date Last Done Comments Zoster/Shingles (1 of 2) 1996 HepB (3) 08/24/2021 06/29/2021, 05/13/2019 COVID-19 Vaccine (3 - season) 2023 04/30/2021, 04/02/2021 Influenza (#1) 2024 06/29/2021, 04/22, 07/10/2018, Additional history exists Dexa 06/17/2024 06/17/2022, 05/22, 01/28/2015, Additional history exists Medicare Annual Wellness Visit 03/15/2025 03/15/2024, 03/24/2022, 02/18/2021, Additional history exists DTaP/Tdap/Td (3 - Tdap) 06/29/2031 06/29/2021, 04/28 Pneumococcal 65+ Yrs Completed 01/08/2019, 11/28/19 18 Hep C Screening (Preventive Services) Completed 09/05/2019 FIT Colon Cancer Screening Discontinued 03/01, 02/19/2021, 05/24/2017 Cholesterol Discontinued 03/14/2023, 05/04/2022, 09/05/2019, Additional history exists HepA Aged Out [...] Priority Date/Time Associated Diagnosis Comments INR/PROTIME Routine 03/21/2024 11:24 AM CDT custodial (current) use of anticoagulants HGB A1C Routine 03/15/2024 2:46 PM CDT Medicare annual wellness visit, subsequent URIC ACID Routine 03/15/2024 2:46 PM CDT Medicare annual wellness visit, subsequent TSH, SENSITIVE Routine 03/15/2024 2:46 PM CDT Medicare annual wellness visit, subsequent AST Routine 03/15/2024 2:46 PM CDT Chronic atrial fibrillation (HRC) Monitoring for long-term anticoagulant use TP/CREA RATIO, URINE Routine 02/09/2024 1:22 PM CDT CKD (chronic kidney disease) stage 4, GFR 15-29 ml/min ([facility]) INR/PROTIME Routine 02/08/2024 11:37 AM CDT custodial (current) use of anticoagulants LIPID PANEL & DIRECT LDL (IF NEEDED) Routine 03/14/2023 10:54 AM CDT Hyperlipidemia, unspecified hyperlipidemia type (HRC) DXA BONE DENSITY SPINE/HIP INC VERT FX ASSESS Routine 06/17/2022 9:58 AM CDT Post-menopausal FIT,OCCULT BLOOD, STOOL Routine 03/01/2022 8:00 AM CDT Screening for colon cancer HEPATITIS C ANTIBODY, WITH REFLEX Routine 09/05/2019 10:01 AM CATERING OPERATIONS MANAGER Need for hepatitis C screening test from Last 3 Months or Most Recently Relevant to Health Maintenance Results * (ABNORMAL) INR/Protime (03/21/2024 11:24 AM CDT) Only the most recent of2 resultswithin the time period is included. Protime 31.2(H) 11.8 - 14.6 Seconds 03/21/2024 3:41 PM T [facility] INR 2.9(H) 0.9 - 1.1 03/21/2024 3:41 PM T [facility] Blood Venipuncture / Unknown 03/21/2024 11:24 AM CDT 03/21/2024 11:24 AM CDT [facility] - 03/21/2024 3:41 PM CDT If you take an anticoagulant medicine called warfarin, your doctor or clinician may establish a normal range for you that is different from the baseline range shown. Tala Thomason MD LAB_1 [facility] [address] [place] [address] * TSH (03/15/2024 2:46 PM CDT) Pathologist [facility] TSH, Sensitive 0.37 0.30 - 4.50 uIU/mL 03/15/2024 8:22 PM CDT [facility] Blood Venipuncture / Unknown 03/15/2024 2:46 PM CDT 03/15/2024 2:53 PM CDT Kayleigh Ambrose PA-C LAB_1 Performing Organization Address [facility] Co de Phone Number [facility] [address] * Hgb A1C (03/15/2024 2:46 PM CDT) Pathologist [facility] Hemoglobin A1C 5.5 <=5.6 % 03/16/2024 4:55 PM CDT [facility] Estimated Average Glucose (Calc) 111 < 117 mg/dL 03/16/2024 4:55 PM CDT [facility] Comment:Estimated average gl ucose (eAG) converts A1c into glucose units (mg/dL) and estimates average glucose over the past approximately 3 months. The eAG reference interval (<117 mg/dL) corresponds to an A1c of <5.7%. Blood Venipuncture / Unknown 03/15/2024 2:46 PM CDT 03/15/2024 2:53 PM CDT Kayleigh Ambrose PA-C LAB_1 Performing Organization Address City/[facility]/ZIP Co de Phone Number [facility] [address] [address] * Uric Acid (03/15/2024 2:46 PM CDT) Pathologist [facility] Uric Acid 5.2 2.6 - 6.0 mg/dL 03/15/2024 7:39 PM CDT [facility] Blood Venipuncture / Unknown 03/15/2024 2:46 PM CDT 03/15/2024 2:53 PM CDT Kayleigh Ambrose PA-C LAB_1 Performing Organization Address [facility] Co de Phone Number [facility] [address] [place] [address] * AST (03/15/2024 2:46 PM CDT) [facility] AST (SGOT) 24 10 - 40 U/L 03/15/2024 7:39 PM CDT [facility] Blood Venipuncture / Unknown 03/15/2024 2:46 PM CDT 03/15/2024 2:53 PM CDT Tala Thomason MD LAB_1 Performing Organization Address [facility] de Phone Number [address] * TP/Crea Ratio, Urine (02/09/2024 1:22 PM CDT) [facility] TP/Creat Ratio, Urine Random 0.06 0.00 - 0.20 02/09/2024 8:05 PM CDT [facility] Total Protein, Urine, Random 2 0 - 14 mg/dL 02/09/2024 8:05 PM CDT [facility] Creatinine, Urine, Random 32 >20 mg/dL mg/dL 02/09/2024 8:05 PM CDT [facility] Urine Non-blood Collection / Unknown 02/09/2024 1:22 PM CDT 02/09/2024 1:22 PM CDT Narrative [facility] - 02/09/2024 8:05 PM CDT Low urine creatinine values coupled with low urine protein values can artifactually increase the urine protein/creatinine results. Correlate results of ratio with creatinine results. Shannon Gunter APRN, CNP LAB_1 Performing Organization Address City/[facility]/ZIP Co de Phone Number [facility] [address] [place], [place] [address] * (ABNORMAL) Lipid Panel and Direct LDL(If Needed) (03/14/2023 10:54 AM CDT) [facility] Signature Cholesterol 136 0 - 199 mg/dL 03/14/2023 4:18 PM CDT [facility] Triglyceride 146 <=149 mg/dL 03/14/2023 4:18 PM T [facility] HDL Cholesterol 36(L) >=40 mg/dL 03/14/2023 4:18 PM T [facility] LDL, Calculated 71 <130 mg/dL 03/14/2023 4:18 PM T [facility] Non HDL Chol, Calculated 100 <=159 mg/dL 03/14/2023 4:18 PM T [facility] Cholesterol/HDL Ratio 3.8 03/14/2023 4:18 PM T [facility] Hours Fasting Unknown 03/14/2023 4:18 PM CDT [facility] (PN) Blood Venipuncture / Unknown 03/14/2023 10:54 AM CDT 03/14/2023 10:54 AM CDT Tala Thomason MD LAB_1 Performing Organization Address [facility] Co de Phone Number [facility] [address] [place] [address], [facility] [phone] [facility] (PN) [address] [place] [address] [phone] * DXA Bone Density Spine/Hip Inc Vert FX Assess (06/17/2022 9:58 AM CDT) Anatomical Region Laterality Modality Spine, Hip Radiographic Moriah ging Narrative 06/23/2022 9:09 AM CDT CLINIC DXA REPORT Patient Name: ??Sylvia Doan Densitometer:[employer] W (S/N [id number]) ROBLEDO BONE OSTEOPOROSIS RISK FACTORS FROM PATIENT [...] trabecular bone, and is derived from the bacxr-to-dojxk changes of bone density embedded in the [...] Rectal Cancer Screening (03/01/2022 8:00 AM CDT) [facility] FIT Specimen 1 Negative Negative 03/03/2022 10:14 AM CDT [facility] Stool 03/01/2022 8:00 AM CDT 03/02/2022 6:29 PM CDT Tala Thomason MD LAB_1 Performing Organization Address City/State/[facility] Co de Phone Number [facility] [address] [phone] * Hepatitis C Virus Liliana with Reflex (09/05/2019 10:01 AM CATERING OPERATIONS MANAGER) [facility] Hepatitis C Antibody Negative (Non Reactive) Negative (Non Reactive) 09/05/2019 1:08 PM CATERING OPERATIONS MANAGER [facility] Comment:Antibodies to HCV no t detected. Does not exclude the possiblity of exposure to HCV. Blood Venipuncture Butterfly / Unknown 09/05/2019 10:01 AM CATERING OPERATIONS MANAGER 09/05/2019 10:01 AM CATERING OPERATIONS MANAGER Tala Thomason MD LAB_1 [facility] [address] [place] [address], [facility] from Last 3 Months or Most Recently Relevant to Health Maintenance Advance Directives Documents on File Type Date Recorded Patient Camera Maker Expl anation HEALTHCARE DIRECTIVE 08/09/2023 Maya ADAMSLAR 1 10/10/2022 Healthcare Agents on File Name Relationship Healthcare Agent Relationshi p Communication Maya ADAMSLAR Daughter Health Care Agent Care Teams On Air Personality Relationship Specialty Start Date End Date Tala Thomason MD [address] [place] [address] PCP - General Family Practice 05/22/17
--- OUTSIDE RECORDS SUMMARY | 2024-04-15 08:53 | XMS_ITS | Encounter Summary ---
Author Organization [employer] Address [address] [place] [address] Care Team Providers Care Svp Of Digital Name Role Phone Tala Thomason MD Primary Care Provider [phone] Reason for Referral * Consult/Transfer Care (Routine) - Incomplete Specialty Diagnoses / Procedures Referred By Contbennie t Referred To Contact Diagnoses Monitoring for long-term anticoagulant use Tala Thomason MD [address] [place] [address] [address] Referral ID Status Reason Start Date Expiration Date V isits Requested Visits Authorized [id number] Incomplete 04/09/2024 07/09/2025 1 1 Scheduling Instructions If scheduling assistance is needed, please inquire with the medical office staff upon exiting your appointment or contact the ordering clinic for recommended locations. This recommended service/s may not be covered by your insurance coverage. To find out your specific benefit coverage, please call the number on your insurance card. Encounter Details Date Type Department Care Team (Late st Contact Info) Description 04/09/2024 Notes/Orders [facility] [address] [facility] [place] [address] Tala Thomason MD [address] [place] [address] [address] Monitoring for long-term anticoagulant use Social History [...] 11:40 AM CDT Appointment [facility] [address] [place] [address] 06/11/2024 5:30 PM CDT Telemedicine [facility] [place] [address] Tala Thomason MD [address] [place] [address] [address] Scheduled Orders Name Type Priority Associated Diagnoses Orde r Schedule INR/Protime Lab Routine Monitoring for long-term anticoagulant use PRN for 99 Occurrences starting 04/09/2024 until 04/09/2025 documented as of this encounter Visit Diagnoses Diagnosis Monitoring for long-term anticoagulant use Encounter for long-term (current) use of anticoagulants documented in this encounter Care Teams Svp Of Digital Relationship Specialty Start Date End Date Tala Thomason MD [address] [place] [address] PCP - General Family Practice 05/22/17 documented as of this encounter
--- OUTSIDE RECORDS SUMMARY | 2024-04-15 08:53 | XMS_ITS | Clinical Summary ---
Author Organization [employer] [facility] Address [place], [place] [address] Care Team Providers Care Artificial Snow Making Machine Operator Name Role Phone Pcp, No Primary Care [...] Chronic diastolic CHF (congestive heart failure) 05/20/2017 Family History Medical History Relation Name Comments [...] 1 - PCV) 2011 COVID-19 vaccine series (2022-24 season) 2023 04/30/2021, 04/02/2021 Influenza for age 65+ 04/21/2024 Advance Directives * Full Code (Latest Code Status on File) Date Activated Date Inactivated Comments 05/20/2017 5:38 PM 05/22/2017 9:15 PM Care Teams Artificial Snow Making Machine Operator Relationship Specialty Start Date End Date Pcp, No . PCP - General 05/20/17
--- OUTSIDE RECORDS SUMMARY | 2024-04-15 08:53 | XMS_ITS | Encounter Summary ---
Author Organization [place] Address [address] [facility] [place] [address] Care Team Providers Care Tea Bag Packer Name Role Phone Enedelia Wilikns MD Primary Care Provid er Linh Fontanez APRN REFRIGERATOR MOVER Unavailable [phone] Paddy COLLINS MD, Tala Lang Primary Care Provider Santo Crump MD Unavailable [phone] Santo Crump MD Unavailable [phone] Reason for Visit * Reason Onset Date Comments Refill Request 10/14/2021 atorvastatin (LI PITOR) 40 MG tablet Encounter Details Date Type Department Care Team (Late st Contact Info) Description 10/14/2021 Telephone [facility] [place] [address] [facility] [address] [place] [address] Santo Crump MD [address] [facility] [address] [place], [place] [address] Refill Request ( atorvastatin (LIPITOR) 40 MG [...] COVID-19? No / Unsure 10/15/2021 9:10 AM MID LEVEL NET DEVELOPER documented as of this encounter Miscellaneous Notes [...] prescribed the medication: Dr. Santo Crump Pharmacy: [id number] [place] [address] [facility] OF & Date medication is needed: BERTHA - pt took her last pill 10.13.21 Pt stated her pharmacy has been contacting the DrClarke With no response. Action Taken: Message routed to: [facility] ira Daugherty Screening: Not Applicable LEVEL NET DEVELOPER documented in this encounter Plan of Treatment Not on file documented as of this encounter Visit Diagnoses Not on filedocumented in this encounter Care Teams Tea Bag Packer Relationship Specialty Start Date End Date Enedelia Wilkins MD [address] [place] [address] PCP - General 10/23/02 10/21/21 Tala Thomason MD, MD [address] [place] [id number] PCP - General Family Medicine 10/22/21 Linh Fontanez APRN REFRIGERATOR MOVER [address] [place] [address] Assigned Heart and Vascular Provider 10/03/21 04/28/23 Santo Crump MD [address] [place] [address] [place] [address] Cardiovascular Disease 10/24/22 Santo Crump MD [address] [place] [address] Assigned Heart and Vascular Provider 05/06/23 documented as of this encounter
--- OUTSIDE RECORDS SUMMARY | 2024-04-15 08:53 | XMS_ITS | Clinical Summary ---
Author Organization [place] Address [address] [facility] [place] [address] Care Team Providers Care Educational Speech Language Clinician Name Role Phone Paddy COLLINS MD, Tala Lang Primary Care Provider Santo Crump MD Unavailable [phone] Santo Crump MD Unavailable [phone] Allergies Active Allergy Reactions Criticality Noted [...] mouth daily Active ergocalciferol (ERGOCALCIFEROL) 1.25 MG (20370 UT) capsule Take 50,000 Units by mouth [...] ONCE WEEKLY. TAKE 30 MINUTES BEFORE FIRST [id number] ATION. AVOID LYING DOWN FOR 30 MINUTES [...] Procedure Name Priority Date/Time Associated Diagnosis Comments LIPID PROFILE Routine 04/27/2021 1:23 PM CDT Carotid artery calcification, left BASIC METABOLIC PANEL Routine 03/18/2019 1:40 PM CDT Essential hypertension, benign Chronic atrial fibrillation (H) Acute on chronic diastolic heart failure (H) ROUTINE UA WITH MICROSCOPIC STAT 01/04/2009 4:40 PM CDT CBC WITH PLATELETS & DIFFERENTIAL STAT 01/04/2009 3:41 PM CDT ABSTRACT MAMMO-NO CHARGE Routine 03/03/1993 from Last 3 Months or Most Recently [...] CDT Santo Crump MD LAB - BLOOD DE [facility] Organization Address City/State/ZIP Co de Phone Number LABORATORY [facility] [address] [facility] (1st floor, no room number) [place] [address], [facility] [phone] * (ABNORMAL) Basic metabolic panel (03/18/2019 1:40 PM CDT) Sodium 138 133 - 144 mmol/L 03/18/2019 2:41 PM CDT [facility] Potassium 4.6 3.4 - 5.3 mmol/L 03/18/2019 2:41 PM T [facility] Chloride 108 94 - 109 mmol/L 03/18/2019 2:41 PM T [facility] Carbon Dioxide 27 20 - 32 mmol/L 03/18/2019 2:47 PM T [facility] Anion Gap 3 3 - 14 mmol/L 03/18/2019 2:47 PM [facility] Glucose 94 70 - 99 mg/dL 03/18/2019 2:47 PM [facility] Urea Nitrogen 39(H) 7 - 30 mg/dL 03/18/2019 2:47 PM [facility] Creatinine 1.57(H) 0.52 - 1.04 mg/dL 03/18/2019 2:47 PM [facility] GFR Estimate 32(L) >60 mL/min/{1 .73_m2} 03/18/2019 2:47 PM [facility] Comment: Non GFR Calc Starting 08/07/2018, serum creatinine based estimated GFR (eGFR) will be calculated using the Chronic Kidney Disease Epidemiology Collaboration (CKD-EPI) equation. GFR Estimate If Black 38(L) >60 mL/min/{1 .73_m2} 03/18/2019 2:47 PM [facility] Comment: GFR Calc Starting 08/07/2018, serum creatinine based estimated GFR (eGFR) will be calculated using the Chronic Kidney Disease Epidemiology Collaboration (CKD-EPI) equation. Calcium 9.0 8.5 - 10.1 mg/dL 03/18/2019 2:47 PM [facility] Blood specimen (specimen) 03/18/2019 1:40 PM CDT 03/18/2019 1:43 PM CDT Megan Reynoso DO LAB - BLOOD ORDERABLES [facility] [address] [place] [address], [facility] [phone] [facility] [address] [place] [address], [facility] [phone] * (ABNORMAL) Routine UA with microscopic (01/04/2009 4:40 PM CDT) Source Midstream Urine MISYS Color Urine Light Yellow MISYS Appearance Urine Clear MISYS Glucose Urine Negative NEG mg/dL MISYS Bilirubin Urine Negative NEG MISYS Ketones Urine Negative NEG mg/dL MISYS Specific [place] Urine 1.009 1.003 - 1.035 MISYS Blood [...] MD LAB - BLOOD ORDER FAITH MISYS * ABSTRACT MAMMO-NO CHARGE (03/03/1993) Anatomical Region Laterality Modality Other Lisy Trujillo [facility] from Last 3 Months or Most Recently Relevant to Health Maintenance Care Teams Educational Speech Language Clinician Relationship Specialty Start Date End Date Tala Thomason MD, MD [address] [id number] PCP - General Family Medicine 3/4/22 Santo Crump MD [address] [place] [address] [place] [address] Cardiovascular Disease 10/24/22 Santo Crump MD [address] [place] [address] Assigned Heart and Vascular Provider 05/06/23
--- OUTSIDE RECORDS SUMMARY | 2024-04-15 08:53 | XMS_ITS | Referral Summary ---
Author Organization [place] Address [address] [facility] [place] [address] Care Team Providers Care Rn Embedded Name Role Phone Paddy COLLINS MD, Tala Lang Primary Care Provider Santo Crump MD Unavailable [phone] Santo Crump MD Unavailable [phone] Allergies Active Allergy Reactions Criticality Noted [...] mouth daily Active ergocalciferol (ERGOCALCIFEROL) 1.25 MG (62638 UT) capsule Take 50,000 Units by mouth [...] ONCE WEEKLY. TAKE 30 MINUTES BEFORE FIRST [id number]-[id number]-VBIUT ATION. AVOID LYING DOWN FOR 30 MINUTES [...] CDT Santo Crump MD LAB - BLOOD MAXA BLES LABORATORY [facility] Acute Care Lab [address] [facility] Lab (1st floor, no room number) [place] [address], [facility] [phone] * (ABNORMAL) Basic metabolic panel (03/18/2019 1:40 PM CDT) Sodium 138 133 - 144 mmol/L 03/18/2019 2:41 PM CDT [facility] Potassium 4.6 3.4 - 5.3 mmol/L 03/18/2019 2:41 PM CDT [facility] Chloride 108 94 - 109 mmol/L 03/18/2019 2:41 PM CDT [facility] Carbon Dioxide 27 20 - 32 mmol/L 03/18/2019 2:47 PM CDT [facility] Anion Gap 3 3 - 14 mmol/L 03/18/2019 2:47 PM CDT [facility] Glucose 94 70 - 99 mg/dL 03/18/2019 2:47 PM CDT [facility] Urea Nitrogen 39(H) 7 - 30 mg/dL 03/18/2019 2:47 PM CDT [facility] Creatinine 1.57(H) 0.52 - 1.04 mg/dL 03/18/2019 2:47 PM T [facility] GFR Estimate 32(L) >60 mL/min/{1 .73_m2} 03/18/2019 2:47 PM T [facility] Comment: Non GFR Calc Starting 08/07/2018, serum creatinine based estimated GFR (eGFR) will be calculated using the Chronic Kidney Disease Epidemiology Collaboration (CKD-EPI) equation. GFR Estimate If Black 38(L) >60 mL/min/{1 .73_m2} 03/18/2019 2:47 PM T [facility] Comment: GFR Calc Starting 08/07/2018, serum creatinine based estimated GFR (eGFR) will be calculated using the Chronic Kidney Disease Epidemiology Collaboration (CKD-EPI) equation. Calcium 9.0 8.5 - 10.1 mg/dL 03/18/2019 2:47 PM CDT [facility] Blood specimen (specimen) 03/18/2019 1:40 PM CDT 03/18/2019 1:43 PM CDT Megan Reynoso DO LAB - BLOOD ORDERABLES [facility] [address] [place] [address], [facility] [phone] [facility] [address] [place] [address], [facility] [phone] * (ABNORMAL) Routine UA with microscopic (01/04/2009 4:40 PM CDT) Source Midstream Urine MISYS Color Urine Light Yellow MISYS Appearance Urine Clear MISYS Glucose Urine Negative NEG mg/dL MISYS Bilirubin Urine Negative NEG MISYS Ketones Urine Negative NEG mg/dL MISYS Specific [place] Urine 1.009 1.003 - 1.035 MISYS Blood [...] Recently Relevant to Health Maintenance Care Teams Rn Embedded Relationship Specialty Start Date End Date Tala Thomason MD, [address] [id number] PCP - General Family Medicine 10/22/21 Santo Crump MD [address] [facility] [address] [place] [address] Cardiovascular Disease 10/24/22 Santo Crump MD [address] [facility] [address] [place] [address] Assigned Heart and Vascular Provider 05/06/23
--- OUTSIDE RECORDS SUMMARY | 2024-04-15 08:53 | XMS_ITS | Encounter Summary ---
Author Organization [place] Address [address] [facility] [place] [address] Care Team Providers Care Frozen Yogurt Maker Name Role Phone Enedelia Wilkins MD Primary Care Provid er Santo Crump MD Unavailable [phone] Linh Fontanez APRN EXECUTIVE WELLNESS PROGRAMS DIRECTOR Unavailable [phone] Paddy COLLINS MD, Tala Lang Primary Care Provider Santo Crump MD Unavailable [phone] Santo Crump MD Unavailable [phone] Encounter Details Date Type Department Care Team (Late st Contact Info) Description 05/14/2021 [place] Medical Advice [facility] Heart [facility] [id number] [place] [address] [address] [place] [address] Santo Crump MD [address] [facility] [address] [place], [place] [address] Social History Tobacco Use Types Packs/Day Years [...] on filedocumented in this encounter Care Teams Frozen Yogurt Maker Relationship Specialty Start Date End Date Enedelia Wilkins MD [address] [address] PCP - General 10/23/02 10/21/21 Tala Thomason MD, [address] [place] [address] PCP - General Family Medicine 10/22/21 Santo Crump MD [address] [place] [address] [place] [address] Assigned Heart and Vascular Provider 06/12/20 10/02/21 Linh Fontanez, ACCOUNTANT PROPERTY EXECUTIVE WELLNESS PROGRAMS DIRECTOR [address] [place] [address] Assigned Heart and Vascular Provider 10/03/21 04/28/23 Santo Crump MD [address] [place] [address] [place] [address] Cardiovascular Disease 10/24/22 Santo Crump MD [address] [place] [address] [place] [address] Assigned Heart and Vascular Provider 05/06/23 documented as of this encounter
--- OUTSIDE RECORDS SUMMARY | 2024-04-15 08:53 | XMS_ITS | Encounter Summary ---
Author Organization [place] Address [address] [facility] [place] [address] Care Team Providers Care Inspector Salvage Name Role Phone Enedelia Wilkins MD Primary Care Provid er Santo Crump MD Unavailable [phone] Linh Fontanez APRN, CNP Unavailable [phone] Paddy COLLINS MD, Tala Lang Primary Care Provider Santo Crump MD Unavailable [phone] Santo Crump MD Unavailable [phone] Encounter Details Date Type Department Care Team (Late st Contact Info) Description 06/22/2021 [place] Medical Advice [facility] Heart [facility] [address] [place] [address] [address] [place] [address] Santo Crump MD [address] [facility] [address] [place], [place] [address] Social History Tobacco Use Types Packs/Day Years [...] on filedocumented in this encounter Care Teams Inspector Salvage Relationship Specialty Start Date End Date Enedelia Wilkins MD [address] [place] [address] PCP - General 10/23/02 10/21/21 Tala Thomason MD, [address] [place], [place] [phone] PCP - General Family Medicine 10/22/21 Santo Crump MD [address] [place] [address] [place] [address] Assigned Heart and Vascular Provider 06/12/20 10/02/21 Linh Fontanez APRN CIRCUIT BOARD ASSEMBLER [address] [place] [address] Assigned Heart and Vascular Provider 10/03/21 04/28/23 Santo Crump MD [address] [place] [address] [place] [address] Cardiovascular Disease 10/24/22 Santo Crump MD [address] [place] [address] [place] [address] Assigned Heart and Vascular Provider 05/06/23 documented as of this encounter
--- OUTSIDE RECORDS SUMMARY | 2024-04-15 08:53 | XMS_ITS | Encounter Summary ---
Author Organization [place] Address [address] [facility] [address] Care Team Providers Care Medical Recruiter Name Role Phone Enedelia Wilkins MD Primary Care Provid er Santo Crump MD Unavailable [phone] Linh Fontanez APRN, CNP Unavailable [phone] Paddy COLLINS MD, Tala Lang Primary Care Provider Santo Crump MD Unavailable [phone] Santo Crump MD Unavailable [phone] Encounter Details Date Type Department Care Team (Late st Contact Info) Description 03/31/[address] [place] [address] Enedelia Wilkins MD [address] [place] [address] ER (Primary Dx) Social History [...] Encounter-JOSÉ MIGUEL CLEMENTS) [Entered: 00:00 Transcrip tion ([facility])] : 47 CHIEF COMPLAINT: Hip pain. 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 ASSESSMENT: 1. Left hip pain, left sciatica and muscle spasms. PLAN: The patient will follow-up with Dr. Wilkins in 24-72 hours. Percocet 1-2 tabs q4-6h. Motrin over the counter as prescribed, Robaxin 1000 mg q8h for muscl e spasms. Return if severe pain, unable to walk or worsening symptoms. [id number] JOSÉ MIGUEL DICK MD [place]: Document: [id number] [place], [place] Name: ANTOINE TIPTON EMERGENCY ROOM ENCOUNTER Page 2 of 2 LCN: BASILIO DSC: 03/31/2003 [place], [place] Name: MR#: : Admit Date: DON TIPTON 2044-09-08-24 1945 03/31/2003 Doctor: JOSÉ MIGUEL DICK MD EMERGENCY ROOM ENCOUNTER Page 1 of 2 Electronically filed by Armond Deleon 04/07/2003 4:12 PM documented in this encounter Plan of Treatment Not on file documented as of this encounter Visit Diagnoses Diagnosis ER- Primary documented in this encounter Care Teams Medical Recruiter Relationship Specialty Start Date End Date Enedelia Wilkins MD [address] [place] [address] PCP - General 10/23/02 10/21/21 Tala Thomason MD, [address] [place], [place] [id number] PCP - General Family Medicine 10/22/21 Santo Crump MD [address] [place] [address] [place] [address] Assigned Heart and Vascular Provider 06/12/20 10/02/21 Linh Fontanez APRN CUSTOMS COMPLIANCE ANALYST [address] [place] [address] Assigned Heart and Vascular Provider 10/03/21 04/28/23 Santo Crump MD [address] [place] [address] [place] [address] Cardiovascular Disease 10/24/22 Santo Crump MD [address] [place] [address] [place] [address] Assigned Heart and Vascular Provider 05/06/23 documented as of this encounter
--- OUTSIDE RECORDS SUMMARY | 2024-04-15 08:53 | XMS_ITS | Encounter Summary ---
Author Organization [employer] Address [address] [place] [address] Care Team Providers Care Retail Planner Name Role Phone Tala Reyes MD Primary Care Provider [phone] Reason for Visit * Reason Comments Refill Warfarin Encounter Details Date Type Department Care Team (Late st Contact Info) Description 03/31/2024 Refill [facility] [address] [place] [id number] Tala Reyes MD [address] [place] [id number] Refill (Warfarin) Social History Tobacco Use Types Packs/Day Years [...] as of this encounter Nursing Notes * Jayne Winn RN - 04/02/2024 8:36 AM CDT PCP: Patient is overdue for visit with PCP and [facility] is unable to provide further refills until patient sees PCP. Patient is scheduled with PCP in May. Please review pended rx and send to pharmacy if appropriate. Thank you. Future Appointments Date Time Provider Department Center 06/11/2024 5:30 PM Tala Reyes MD [facility] [place] * Jayne Winn RN - 04/02/2024 8:36 AM CDT Requirements to be in-scope for management by Anticoagulation Clinic: Ensure patient is compliant with anticoagulation plan of care Not overdue for INR monitoring Qualifying visit with managing provider within the last 12 months or scheduled within the next 60 days Last visit with PCP: 12/09/2022 Future Appointments Date Time Provider Department Center 06/11/2024 5:30 PM Tala Reyes MD [facility] Lab/Notes: INR as noted in chart (maximum suggested testing interval is 12 weeks) INR Date Value Ref Range Status 03/21/2024 2.9 (H) 0.9 - 1.1 Final Anticoagulation Summary As of 03/21/2024 INR goal: 2.0-3.0 TTR: 67.0% (1 y) INR used for dosin.9 (03/21/2024) Warfarin maintenance plan: 3 mg (3 mg x 1) every Sa; 1.5 mg (3 mg x 0.5) all other days Full warfarin instructions: 3 mg every Sa; 1.5 mg all other days Weekly warfarin total: 12 mg Plan last modified: Belen Reed RN (12/19/2023) Next INR check: 05/03/2024 Target end date: Indefinite Indications Chronic atrial fibrillation (HRC) (Primary) [I48.20] Monitoring for long-term anticoagulant use [Z51.81 Z79.01] Warfarin is a high risk medication - double check current dose in eRx matches the last dose listed in the Anticoagulation Summary. If lab is overdue: Review Adherence Report If patient has estimated >30 days of warfarin left, refill will be deferred If patient has estimated <30 days of warfarin left, may supply courtesy refill up to 14-day supply If no lab-appointment is already scheduled, route to Frontline to contact patient to schedule lab-only visit for INR recheck Follow the outlined guidelines for refills based on the following table since last qualifying visit: 12 Month Follow-Up Requirement Intervals (QV) Follow-Up Interval Action Less than 9 months Provide 90-day supply with 0 refills Between 9 to 13 months and 0 days Provide 90-day supply and 0 refills Initiate outreach to patient to schedule Between 13 months and 1 day to 15 months May provide up to 60-day supply and 0 refills Initiate outreach to patient to schedule Greater than 15 months Initiate outreach to patient to schedule Route request to managing clinician The RN can convert any refill supply option to 90-day or 100-day according to patient???s maximum insurance coverage option. * Lilliam Keith [facility] - 03/31/2024 12:26 PM CDT warfarin 3 MG tablet [Pharmacy Med Name: WARFARIN SOD 3MG TABLETS ([place])] Medication started: 04/21/2018 Last ordered by TALA REYES R: 12/19/2023 (103 days ago as No Print/No Fill on 12/19/2023 by BELEN REED), Sig: take by mouth 3 mg every sa; 1.5 mg all other days or as directed. your dose may change. call [facility] anticoagulation center [phone] with questions. (changed) -> The requested medication was previously set to No Print/No Fill. -> Ensure patient is compliant with anticoagulation plan of care -> Unable to determine if sig has changed, review required. -> An office visit is overdue (performed 16 months ago, required every 12 months). Last qualifying visit: 12/09/2022 (with TALA REYES) (A more recent visit (in Family Practice with PATRICIA MORSE) was found) Next scheduled visit: None [employer] Embedded Refills, Reference: [id number], 03/31/2024 12:26:11 PM CDT, Sarah Leavitt [facility] - Primary Care [[id number]] ([id number]) documented in this encounter Plan of Treatment Upcoming Encounters Date Type Department Care Team (Late st Contact Info) Description 05/03/2024 11:40 AM CDT Appointment [facility] [address] [place], [place] [address]za [facility] [place] [phone] 06/11/2024 5:30 PM CDT Telemedicine [address] [place] [phone] Tala Reyes MD [address] [id number] documented as of this encounter Visit Diagnoses Diagnosis Chronic atrial fibrillation (HRC)- Primary Atrial fibrillation terminal supervisor (current) use of anticoagulants Long-term (current) use of anticoagulants Monitoring for long-term anticoagulant use Encounter for long-term (current) use of anticoagulants documented in this encounter Care Teams Retail Planner Relationship Specialty Start Date End Date Tala Reyes MD [address] [id number] PCP - General Family Practice 05/22/17 documented as of this encounter
--- OUTSIDE RECORDS SUMMARY | 2024-04-15 08:53 | XMS_ITS | Encounter Summary ---
Author Organization [place] Address [address] [place] [address] Care Team Providers Care Quality Assurance Lead Name Role Phone Tala Thomason MD Primary Care Provider [phone] Reason for Visit * Reason Comments Refill metoprolol succinate (TOPROL XL) 25 MG 24 hour release tablet [Pharmacy Med Name: METOPROLOL ER SUCCINATE 25MG TABS] Encounter Details Date Type Department Care Team (Late st Contact Info) Description 03/26/2024 Refill [facility] [place] [phone] Tala Thomason MD [address] [place] [address] [place] [id number] Refill (metoprolol succinate (TOPROL XL) 25 MG 24 hour release tablet [Pharmacy Med Name: METOPROLOL ER SUCCINATE 25MG TABS]) Social History Tobacco Use Types Packs/Day [...] as of this encounter Nursing Notes * Webservice, [facility] - 03/26/2024 3:45 AM CDT metoprolol succinate (TOPROL XL) 25 MG 24 hour release tablet [Pharmacy Med Name: METOPROLOL ER SUCCINATE 25MG TABS] Medication started: 09/27/2021 Last ordered by PATRICIA MORSE N: 03/15/2024 (11 days ago) QTY: 90, Refills: 3, Sig: take 1 tablet (25 mg) by mouth daily. (changed but equivalent) -> The patient is requesting refills too soon, the current prescription is due to run out on 03/10/2025. -> Refill x 12 months, qty: 90, refills: 3 (until due for an office visit) Last qualifying visit: 03/15/2024 (with PATRICIA MORSE) Next scheduled visit: None [employer] Embedded Refills, Reference: [id number], 03/26/2024 3:45:17 AM CDT, Sarah Leavitt [facility] - Primary Care [[id number]] ([id number]) documented in this encounter Plan of Treatment Upcoming Encounters Date Type Department Care Team (Late st Contact Info) Description 05/03/2024 11:40 AM CDT Appointment [facility] [address] [place] [address] 06/11/2024 5:30 PM CDT Telemedicine [facility] [address] [place] [address] Tala Thomason MD [address] [phone] documented as of this encounter Visit Diagnoses Diagnosis Essential hypertension (HRC) Unspecified essential hypertension documented in this encounter Care Teams Quality Assurance Lead Relationship Specialty Start Date End Date Tala Thomason MD [address] [place] [address] [place] [address] PCP - General Family Practice 05/22/17 documented as of this encounter
--- OUTSIDE RECORDS SUMMARY | 2024-04-15 08:54 | XMS_ITS | Encounter Summary ---
Author Organization [employer] Address [address] [place] [address] Care Team Providers Care Shrub Grower Name Role Phone Tala Thomason MD Primary Care Provider [phone] Reason for Visit * Reason Comments Refill Encounter Details Date Type Department Care Team (Late st Contact Info) Description 04/13/2016 Refill Nephrology at [facility] [place] [address] [place] [id number] [place] [address] [place], [place] [address] [place], [place] [address] Refill Social History Tobacco Use Types Packs/Day [...] protocol. Patient needs appt. before further refills. M GIGGER * Carissa Dupree - 04/13/2016 3:39 PM CDT Last visit: 03/06/15 Future visit: None Last fill: 01/14/16 M GIGGER documented in this encounter Plan of Treatment Upcoming Encounters Date Type Department Care Team (Late st Contact Info) Description 05/03/2024 11:40 AM CDT Appointment [facility] [address] [facility] [place] [address] 06/11/2024 5:30 PM CDT [facility] [address] [id number] Tala Thomason MD [address] [place] [address] documented as of this encounter Visit Diagnoses Not on filedocumented in this encounter Care Teams Shrub Grower Relationship Specialty Start Date End Date Tala Thomason MD [address] [id number] PCP - General Family Practice 05/22/17 documented as of this encounter
--- OUTSIDE RECORDS SUMMARY | 2024-04-15 08:54 | XMS_ITS | Encounter Summary ---
Author Organization [employer] Address [address] [place] [address] Care Team Providers Care Er Manager Name Role Phone Tala Thomason MD Primary Care Provider [phone] Reason for Referral * Consult/Transfer Care (Routine) - New Request Specialty Diagnoses / Procedures Referred By Macie israel Referred To Contact Diagnoses Bowel and bladder incontinence Kayleigh Ambrose PA-C [address] [place] [address] Referral ID Status Reason Start Date Expiration Date V isits Requested Visits Authorized [id number] New Request 03/15/2024 06/14/2025 1 1 Scheduling Instructions Your clinician has recommended an appointment with [facility]. You can quickly make your appointment online at [employer]/schedule. You can also call [phone] for help scheduling your appointment. We suggest you call your health insurance company about your coverage and benefits for this appointment. Question Answer Appointment Urgency? Non-Urgent Reason for visit? ongotimothy baltazar incontinance Reason for Visit * Reason Comments Medicare Annual Wellness MEDICATION CHECK Encounter Details Date Type Department Care Team (Latest Contact Info) Description 03/15/2024 2:30 PM CDT Office Visit [facility] [address] [place] [address] Kayleigh Ambrose PA-C [address] [place] [address] [place] [address] Medicare annual wellness visit, subsequent (Primary Dx); [...] Diabetes mellitus screening; Bowel and bladder incontinence Social History Tobacco Use Types Packs/Day Years [...] Pulse 51 03/15/2024 2:18 PM CDT Temperature - - Respiratory Rate - - Oxygen Saturation - - Inhaled Oxygen Concentration - - Weight 76 kg (167 lb 9.6 oz) 03/15/2024 2:18 PM CDT Height - - Body Mass Index 31.67 05/13/2019 10:05 AM CDT documented in this encounter Progress Notes * Kayleigh Ambrose PA-C - 03/15/2024 2:30 PM CDT Medicare Annual Wellness Visit Subjective/Historical: Sylvia Doan is a 79 y.o. old female Chief Complaint Patient presents with Medicare Annual Wellness MEDICATION CHECK Mini-Cog Assessment Word Recall: 3 Clock Draw: 2 Total: 5 Current Concerns: Patient's only concern is some increased tiredness and fatigue. She states that this has been increasing over the last month. It was unable to voice any significant aggravating or alleviating factors. States that fatigue/tiredness it was both a physical and mental fatigue. She feels as though she was getting adequate amount of sleep. She denies any significant chest pain or shortness a breath. She does some decreased exercise tolerance as she admittedly does not get regular cardiovascular activity Above history was obtained in Sign Language by professional project manager interior design. Review of Systems: Of note, patient has ecchymosis over right lid. She states that this was from sneezing. Additionally on review of systems patient endorses bowel and bladder incontinence. She states that this has been stable and occurring for years now. Beyond this, pertinent ROS as listed in HPI. Advance Directives: On File Observed Vitals: BP 136/59 (BP Location: Right Arm, BP Cuff Size: Regular - Long) Pulse (!) 51 Wt 167 lb9.6 oz (76 kg) BMI 31.67 kg/m?? Physical Exam: General Appearance: alert, well appearing, and in no apparent distress HEENT: Healing Ecchymosis present over right lower lid-otherwise normal, sclera clear, and conjunctiva normal and oropharynx clear, ear canals clear, and TMs normal Neck: no lymphadenopathy and no thyromegaly or nodules Heart: regular rate and rhythm and no murmurs, gallops or rubs Lungs: clear to auscultation and no wheezes, rales or rhonchi Abdomen: soft, nondistended, nontender, no palpable masses, and no organomegaly Skin: no rashes or worrisome lesions Neurologic: normal speech, no facial droop, and normal gait Psychiatric: affect/mood normal, cooperative, normal judgement/insight, and memory intact ADELAIDE-7 1. Feeling nervous, anxious or on edge 0 - Not at all 2. Not being able to stop or control worrying 0 - Not at all 3. Worrying too much about different things 0 - Not at all 4. Trouble relaxing 0 - Not at all 5. Being so restless that it is hard to sit still 0 - Not at all 6. Becoming easily annoyed or irritable 0 - Not at all 7. Feeling afraid as if something awful might happen 0 - Not at all 8. If you checked off any problems, how difficult have these made it for you to do your work, take care of things at home, or get along with other people? Not difficult Total 0 PHQ-9 1. Little interest or pleasure in doing things 2 2. Feeling down, depressed, or hopeless 2 3. Trouble falling or staying asleep, or sleeping too much 2 4. Feeling tired or having little energy 3 5. Poor appetite or overeating 1 6. Feeling bad about yourself -- or that you are a failure or have let yourself or your family down0 7. Trouble concentrating on things, such as reading the newspaper or watching television 0 8. Moving or speaking so slowly that other people could have noticed? Or the opposite -- being so fidgety or restless that you have been moving around a lot more than usual 0 9. Thoughts that you would be better off or of hurting yourself in some way 0 10. If you have checked off any problems, how difficult have these problems made it for you to do your work, take care of things at home, or get along with other people? Not difficult at all Total 5 Assessment/Plan Medicare annual wellness visit, subsequent Gout, unspecified cause, unspecified chronicity, unspecified site Medication refilled as below; - allopurinol (ZYLOPRIM) 100 MG tablet; Take 2 Tablets (200 mg) by mouth daily. Dispense: 180 Tablet; Refill: 3 Medication monitoring will be performed as below; - Uric Acid; Future Alport syndrome CKD (chronic kidney disease) stage 4, GFR 15-29 ml/min (HRC) Labs and medications for these above diagnoses are managed by Shannon Gunter of nephrology. Anxiety state (HRC) Moderate episode of recurrent major depressive disorder (HRC) Medication refilled as below; - FLUoxetine (PROZAC) 20 MG capsule; Take 1 Capsule (20 mg) by mouth daily. Dispense: 90 Capsule; Refill: 3 Patient's mental health symptoms remained stable. Please see questionnaires as above Hyperlipidemia, unspecified hyperlipidemia type (HRC) Chronic diastolic CHF (congestive heart failure) (HRC) Chronic atrial fibrillation (HRC) Essential hypertension (HRC) Medication refilled as below; - furosemide (LASIX) 20 MG tablet; Take 1 Tablet (20 mg) by mouth daily. Dispense: 90 Tablet; Refill: 3 - losartan (COZAAR) 100 MG tablet; Take 1 Tablet (100 mg) by mouth daily. Dispense: 90 Tablet; Refill: 3 - metoprolol succinate (TOPROL XL) 25 MG 24 hour release tablet; Take 1 Tablet (25 mg) by mouth daily. Dispense: 90 Tablet; Refill: 3 Patient managed by [facility] team. Additionally, her warfarin medication is managed by anticoagulation team. Hypothyroidism, unspecified type (HRC) Medication refilled as below; - levothyroxine (SYNTHROID) 100 MCG tablet; Take 1 Tablet (100 mcg) by mouth daily. Dispense: 90 Tablet; Refill: 3 Medication monitoring will be performed as below; - TSH; Future Diabetes mellitus screening - Hgb A1C; Future Bowel and bladder incontinence - Gastroenterology Consult-Adults Patient with ongoing bowel incontinence/bladder incontinence on review of systems. Has been recommended that she establish care with Gastroenterology. Of note, patient has never had a colonoscopy performed. She explains that she can not tolerate drinking thick liquids thus it was not able to perform the prep. Fatigue Patient with h fatigue symptoms over the last month. Will ensure that this has not the result of hypothyroidism with above lab check. Additionally, I have a high suspicion this could be a result of over treating blood pressure as patient does have a significantly low pulse and diastolic rate today.Pending her lab results I think it could be beneficial to reach out to Cardiology to discuss possibly lowering dose of antihypertensive/beta-leonard. Kayleigh Ambrose PA-C 03/15/2024, 3:23 PM documented in this encounter Plan of Treatment Upcoming Encounters Date Type Department Care Team (Late st Contact Info) Description 05/03/2024 11:40 AM CDT Appointment [facility] [address] [place] [address] 06/11/2024 5:30 PM CDT Telemedicine [facility] [address] [address] Tala Thomason MD [address] [place] [address] Scheduled Referrals Name Type Priority Associated Diagnoses Orde r Schedule Gastroenterology Consult-Adults Referral Routine Bowel and bladder incontinence Ordered: 03/15/2024 documented as of this encounter Results * Hgb A1C (03/15/2024 2:46 PM CDT) [facility] Hemoglobin A1C 5.5 <=5.6 % 03/16/2024 4:55 PM CDT [facility] Estimated Average Glucose (Calc) 111 < 117 mg/dL 03/16/2024 4:55 PM CDT [facility] Comment:Estimated average gl ucose (eAG) converts A1c into glucose units (mg/dL) and estimates average glucose over the past approximately 3 months. The eAG reference interval (<117 mg/dL) corresponds to an A1c of <5.7%. Blood Venipuncture / Unknown 03/15/2024 2:46 PM CDT 03/15/2024 2:53 PM CDT Kayleigh Ambrose PA-C LAB_1 Performing Organization Address City/[facility]/ZIP Co de Phone Number [facility] [address] * Uric Acid (03/15/2024 2:46 PM CDT) [facility] Uric Acid 5.2 2.6 - 6.0 mg/dL 03/15/2024 7:39 PM CDT [facility] Blood Venipuncture / Unknown 03/15/2024 2:46 PM CDT 03/15/2024 2:53 PM CDT Kayleigh Ambrose PA-C LAB_1 [facility] [address] [place] [address] * TSH (03/15/2024 2:46 PM CDT) [facility] TSH, Sensitive 0.37 0.30 - 4.50 uIU/mL 03/15/2024 8:22 PM CDT [facility] Blood Venipuncture / Unknown 03/15/2024 2:46 PM CDT 03/15/2024 2:53 PM CDT Kayleigh Ambrose PA-C LAB_1 [facility] [address] [place] [address], 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) Essential hypertension (HRC) Unspecified essential hypertension Hypothyroidism, unspecified type (HRC) Hyperlipidemia, unspecified hyperlipidemia type (HRC) Chronic diastolic CHF (congestive heart failure) (HRC) Alport syndrome Other specified congenital anomalies Chronic atrial fibrillation (HRC) Atrial fibrillation Anxiety state (HRC) Anxiety state, unspecified Diabetes mellitus screening Screening for diabetes mellitus Bowel and bladder incontinence documented in this encounter Care Teams Er Manager Relationship Specialty Start Date End Date Tala Thomason MD [address] [place] [address] PCP - General Family Practice 05/22/17 documented as of this encounter
--- OUTSIDE RECORDS SUMMARY | 2024-04-15 08:54 | XMS_ITS | Encounter Summary ---
Author Organization [facility] Address [address] [place] [address] Care Team Providers Care Assistant Auto Center Manager Name Role Phone Tala Thomason MD Primary Care Provider [phone] Reason for Visit * Reason Comments Anticoagulation: Warfarin Encounter Details Date Type Department Care Team (Latest Contact Info) Description 02/08/2024 Anticoagulation PN Antico[facility] Centralized Services [address] [place] [address], [address] [place], [place] [address] Chronic atrial fibrillation (HRC) (Primary Dx); Monitoring [...] Info) Description 05/03/2024 11:40 AM CDT Appointment [facility] [address] [place] [id number] 06/11/2024 5:30 PM CDT [facility] [address] [place] [address] Tala Thomason MD [address] [place] [address] documented as of this encounter Results * AST (03/15/2024 2:46 PM CDT) AST (SGOT) 24 10 - 40 U/L 03/15/2024 7:39 PM CDT [facility] Blood Venipuncture / Unknown 03/15/2024 2:46 PM CDT 03/15/2024 2:53 PM CDT Tala Thomason MD LAB_1 [facility] [address] [place] [address] documented in this encounter Visit Diagnoses Diagnosis Chronic atrial fibrillation (HRC)- Primary Atrial fibrillation Monitoring for long-term anticoagulant use Encounter for long-term (current) use of anticoagulants documented in this encounter Care Teams Assistant Auto Center Manager Relationship Specialty Start Date End Date Tala Thomason MD [address] [place] [address] [address] PCP - General Family Practice 05/22/17 documented as of this encounter
--- OUTSIDE RECORDS SUMMARY | 2024-04-15 08:54 | XMS_ITS | Encounter Summary ---
Author Organization [employer] Address [address] [place] [address] Care Team Providers Care Ginning Operator Name Role Phone Tala Reyes MD Primary Care Provider [phone] Reason for Visit * Reason Comments Refill FLUoxetine (PROZAC) 20 MG capsule [Pharmacy Med Name: FLUOXETINE 20MG CAPSULES] Encounter Details Date Type Department Care Team (Late st Contact Info) Description 01/06/2024 Refill [facility] [address] [place] [address] Tala Reyes MD [address] [facility] [place] [address] Refill (FLUoxetine (PROZAC) 20 MG capsule [Pharmacy [...] of this encounter Nursing Notes * Lilliam Keithwcomm - 01/06/2024 10:30 AM CDT FLUoxetine (PROZAC) [...] Age: 78 [employer] Embedded Refills, Reference: [id number], 01/06/2024 10:30:24 AM CDT, Sarah ROMAN Refill Centralized Services - Primary Care [[id number]] ([id number]) documented in this encounter Plan of Treatment Upcoming Encounters Date Type Department Care Team (Late st Contact Info) Description 05/03/2024 11:40 AM CDT Appointment [facility] [address] [place], [place] [address] [place] [place] [id number] 06/11/2024 5:30 PM CDT [facility] [address] [place] [address] Tala Reyes MD [address] [address] documented as of this encounter Visit Diagnoses Diagnosis Moderate episode of recurrent major depressive disorder (HRC) documented in this encounter Care Teams Ginning Operator Relationship Specialty Start Date End Date Tala Reyes MD [address] [place] [address] [address] PCP - General Family Practice 05/22/17 documented as of this encounter
--- OUTSIDE RECORDS SUMMARY | 2024-04-15 08:54 | XMS_ITS | Encounter Summary ---
Author Organization [employer] Address [address] [place] [address] Care Team Providers Care Carpenter Supervisor Name Role Phone Tala Reyes MD Primary Care Provider [phone] Reason for Visit * Reason Comments Refill furosemide (LASIX) 2 0 MG tablet [Pharmacy Med Name: FUROSEMIDE 20MG TABLETS] Encounter Details Date Type Department Care Team (Late st Contact Info) Description 03/03/2024 Refill [facility] [address] [place] [address] Tala Reyes MD [address] [place] [address] Refill (furosemide (LASIX) 20 MG tablet [Pharmacy Med Name: FUROSEMIDE 20MG TABLETS]) Social History Tobacco Use Types Packs/Day Years Used Date Smoking Tobacco: Never Smokeless Tobacco: Never Alcohol Use Standard Drinks/Week Comments Yes 0 (1 standard drink = 0.6 oz pur e alcohol) rare- beer PHQ-2 Answer Date Recorded PHQ-2 Score 0 03/05/2024 Sex and Gender Information Value Date Recorded Sex Assigned at Not on file Gender Identity Not on file Sexual Orientation Not on file documented as of this encounter Nursing Notes * Dori Cunningham RN - 03/07/2024 3:23 PM CDT Further Assistance Needed on Refill from Clinician RN reviewed. Refill team cannot approve due to last qualifying visit >15 months ago. Pt canceledPCP appt for 03/05/24 and rescheduled with Brain Ambrose 03/15/24 Last qualifying visit: 12/09/2022 (with TALA REYES) Review pended order for accuracy and sign if appropriate Requested Prescriptions Pending Prescriptions Disp Refills furosemide (LASIX) 20 MG tablet [Pharmacy Med Name: FUROSEMIDE 20MG TABLETS] 90 Tablet 0 Sig: take 1 tablet by mouth daily * Lilliam Keith Xrwcomm - 03/03/2024 3:44 AM CDT furosemide (LASIX) 20 MG tablet [Pharmacy Med Name: FUROSEMIDE 20MG TABLETS] Medication started: 05/13/2019 Last ordered by TALA REYES R: 01/05/2024 (58 days ago) QTY: 60, Refills: 0, Sig: take 1 tablet by mouth daily (unchanged) -> Patient has a visit scheduled within the next 3 days. -> An office visit is overdue (performed 15 months ago, required every 12 months). -> Cr is abnormal (1.98 mg/dL lies outside 0.55 mg/dL - 1.02 mg/dL) Last qualifying visit: 12/09/2022 (with TALA REYES) Next scheduled visit: 03/05/2024 (with TALA REYES) Cr: 1.98 mg/dL on 01/02/2024 Na: 139 mEq/L on 01/02/2024 K: 3.9 mEq/L on 01/02/2024 [facility] Embedded Refills, Reference: [id number], 03/03/2024 3:44:47 AM CDT, Pool: PN Refill Centralized Services - Primary Care [[id number]] ([id number]) * Lilliam Keith - 03/03/2024 3:44 AM CDT The following lab order(s) may be associated with the following Patient Result Comment (Entered by Shannon Gunter APRN, CNP at 01/09/2024 2:58 PM): RENAL FUNCTION PANEL [place] Ward, your labs are all looking stable from last year. You are due for annual follow up. Please schedule when you are able. documented in this encounter Plan of Treatment Upcoming Encounters Date Type Department Care Team (Late st Contact Info) Description 05/03/2024 11:40 AM CDT Appointment [facility] [address] [place] [id number] 06/11/2024 5:30 PM CDT [facility] [address] [place] [phone] Tala Reyes MD [address] [place] [phone] documented as of this encounter Visit Diagnoses Diagnosis Essential hypertension (HRC) Unspecified essential hypertension documented in this encounter Care Teams Carpenter Supervisor Relationship Specialty Start Date End Date Tala Reyes MD [address] [place] [address] PCP - General Family Practice 05/22/17 documented as of this encounter
--- OUTSIDE RECORDS SUMMARY | 2024-04-15 08:54 | XMS_ITS | Encounter Summary ---
Author Organization [facility] Address [address] [place] [address] Care Team Providers Care Flower Pot Press Operator Name Role Phone Tala Thomason MD Primary Care Provider [phone] Reason for Visit * Reason Comments APPOINTMENT REQUEST Encounter Details Date Type Department Care Team (Late st Contact Info) Description 03/22/2024 Telephone PN Anticoagulation Centralized Services [address] [facility], [address] [place] [address] Tala Thomason MD [address] [place] [address] APPOINTMENT REQUEST Social History Tobacco Use Types Packs/Day Years [...] encounter Nursing Notes * Santos Campo - 04/01/2024 8:49 AM CDT 2nd attempt - sent online message 04/01 sg * Emmie Mixon - 03/22/2024 8:23 AM CDT Assistance needed from Frontline Staff: Patient is due for an annual Office [...] or letter was mailed), please close encounter. Emmie Mixon [facility] 03/22/2024 8:25 AM documented in this encounter Plan of Treatment Upcoming Encounters Date Type Department Care Team (Late st Contact Info) Description 05/03/2024 11:40 AM CDT Appointment [facility] [address] [place] [address] 06/11/2024 5:30 PM CDT [facility] [address] [place], [place] [address] [address] Tala Thomason MD [address] [id number] documented as of this encounter Visit Diagnoses Not on filedocumented in this encounter Care Teams Flower Pot Press Operator Relationship Specialty Start Date End Date Tala Thomason MD [facility] [place] [address] [address] PCP - General Family Practice 05/22/17 documented as of this encounter
--- OUTSIDE RECORDS SUMMARY | 2024-04-15 08:54 | XMS_ITS | Encounter Summary ---
Author Organization [facility] Address [address] [place] [address] Care Team Providers Care Distribution Lead Name Role Phone Tala Reyes MD Primary Care Provider [phone] Reason for Visit * Reason Comments Refill levothyroxine (SYNTH ROID) 100 MCG tablet [Pharmacy Med Name: LEVOTHYROXINE 0.100MG (100MCG) TAB] Encounter Details Date Type Department Care Team (Late st Contact Info) Description 02/19/2024 Refill [facility] [place] [address] Tala Reyes MD [address] [place] [address] [place] [id number] Refill (levothyroxine (SYNTHROID) 100 MCG tablet [Pharmacy [...] TALA REYES) TSH: 1.86 mIU/L on 03/14/2023 [facility] Embedded Refills, Reference: [id number], 02/19/2024 8:45:19 AM CDT, Sarah ROMAN Refill [facility] Services - Primary Care [[id number]] ([id number]) * Lilliam Keith - 02/19/2024 8:45 AM [...] 11:40 AM CDT Appointment [facility] [address] [place] [address] 06/11/2024 5:30 PM CDT Telemedicine [facility] [address] [place] [address] Tala Reyes MD [address] [id number] documented as of this encounter Visit Diagnoses Diagnosis Hypothyroidism, unspecified type (HRC) documented in this encounter Care Teams Distribution Lead Relationship Specialty Start Date End Date Tala Reyes MD [address] [id number] PCP - General Family Practice 05/22/17 documented as of this encounter
--- OUTSIDE RECORDS SUMMARY | 2024-04-15 08:54 | XMS_ITS | Encounter Summary ---
Author Organization [employer] Address [address] [place] [address] Care Team Providers Care Residence Manager Name Role Phone Tala Thomason MD Primary Care Provider [phone] Encounter Details Date Type Department Care Team (Late st Contact Info) Description 03/15/2024 3:20 PM CDT Lab Visit [facility] [address] [place] [address] [place] [address] Chronic atrial fibrillation (HRC); Monitoring for long-term anticoagulant use; Medicare annual wellness visit, subsequent Social History Tobacco Use Types Packs/Day Years [...] 05/03/2024 11:40 AM CDT Appointment [facility] [address] [place] [address] [place] [phone] 06/11/2024 5:30 PM CDT Telemedicine [facility] [address] [place] [address] [place] [address] Tala Thomason MD [address] [place] [address] documented as of this encounter Procedures Procedure Name Priority Date/Time Associated Diagnosis Comments TSH, SENSITIVE Routine 03/15/2024 2:46 PM CDT Medicare annual wellness visit, subsequent HGB A1C Routine 03/15/2024 2:46 PM CDT Medicare annual wellness visit, subsequent URIC ACID Routine 03/15/2024 2:46 PM CDT Medicare annual wellness visit, subsequent AST Routine 03/15/2024 2:46 PM CDT Chronic atrial fibrillation (HRC) Monitoring for long-term anticoagulant use documented in this encounter Results * Hgb A1C (03/15/2024 2:46 PM CDT) Hemoglobin A1C 5.5 <=5.6 % 03/16/2024 4:[address] [facility] Estimated Average Glucose (Calc) 111 < 117 mg/dL 03/16/2024 4:[address] [facility] Comment:Estimated average gl ucose (eAG) converts A1c into glucose units (mg/dL) and estimates average glucose over the past approximately 3 months. The eAG reference interval (<117 mg/dL) corresponds to an A1c of <5.7%. Blood Venipuncture / Unknown 03/15/2024 2:46 PM CDT 03/15/2024 2:53 PM CDT Kayleigh Ambrose PA-C LAB_1 [facility] [address] [address], [place] * Uric Acid (03/15/2024 2:46 PM CDT) Uric Acid 5.2 2.6 - 6.0 mg/dL 03/15/2024 7:39 PM CDT [facility] Blood Venipuncture / Unknown 03/15/2024 2:46 PM CDT 03/15/2024 2:53 PM CDT Kayleigh Ambrose PA-C LAB_1 Performing Organization Address [facility] de Phone Number [facility] [address] [place] [address] * TSH (03/15/2024 2:46 PM CDT) TSH, Sensitive 0.37 0.30 - 4.50 uIU/mL 03/15/2024 8:22 PM CDT [facility] Blood Venipuncture / Unknown 03/15/2024 2:46 PM CDT 03/15/2024 2:53 PM CDT Kayleigh Ambrose PA-C LAB_1 Performing Organization Address [facility] Phone Number [facility] [address] * AST (03/15/2024 2:46 PM CDT) AST (SGOT) 24 10 - 40 U/L 03/15/2024 7:39 PM CDT [facility] Blood Venipuncture / Unknown 03/15/2024 2:46 PM CDT 03/15/2024 2:53 PM CDT Tala Thomason MD LAB_1 Performing Organization Address [facility] de Phone Number [facility] [address] [place] [address] documented in this encounter Visit Diagnoses Diagnosis Chronic atrial fibrillation (HRC) Atrial fibrillation Monitoring for long-term anticoagulant use Encounter for long-term (current) use of anticoagulants Medicare annual wellness visit, subsequent Routine general medical examination at a health care facility documented in this encounter Care Teams Residence Manager Relationship Specialty Start Date End Date Tala Thomason MD [address] [place] [address] PCP - General Family Practice 05/22/17 documented as of this encounter
--- OUTSIDE RECORDS SUMMARY | 2024-04-15 08:54 | XMS_ITS | Encounter Summary ---
Author Organization [employer] Address [address] [place] [address] Care Team Providers Care Job Hand Name Role Phone Tala Reyes MD Primary Care Provider [phone] Reason for Visit * Reason Comments Refill furosemide (LASIX) 2 0 MG tablet [Pharmacy Med Name: FUROSEMIDE 20MG TABLETS] Encounter Details Date Type Department Care Team (Late st Contact Info) Description 01/02/2024 Refill [facility] [address] [facility] [place] [address] Tala Reyes MD [address] [place] [address] Refill (furosemide (LASIX) 20 MG tablet [...] on 03/14/2023 K: 3.9 mEq/L on 03/14/2023 [facility] Embedded Refills, Reference: [id number], 01/02/2024 9:25:09 AM PAKOTBryson: JESSIE Refill [facility]ized Services - Primary Care [[id number]] ([id number]) * Lilliam Keith - 01/02/2024 9:25 AM CDT The following [...] Info) Description 05/03/2024 11:40 AM CDT Appointment [facility] [address] [place] [address] 06/11/2024 5:30 PM CDT Telemedicine [facility] [address] [place] [address] Tala Reyes MD [address] [place] [place] [address] documented as of this encounter Visit Diagnoses Diagnosis Essential hypertension (HRC) Unspecified essential hypertension documented in this encounter Care Teams Job Hand Relationship Specialty Start Date End Date Tala Reyes MD [address] [place] [address] PCP - General Family Practice 05/22/17 documented as of this encounter
--- OUTSIDE RECORDS SUMMARY | 2024-04-15 08:54 | XMS_ITS | Encounter Summary ---
Author Organization [facility] Address [address] [place] [address] Care Team Providers Care Manufacturing Helper Name Role Phone Tala Thomason MD Primary Care Provider [phone] Reason for Visit * Reason Comments Refill sodium bicarbonate 6 50 MG tablet [Pharmacy Med Name: SODIUM BICARBONATE 10GR(650MG) TABS] Encounter Details Date Type Department Care Team (Late st Contact Info) Description 01/26/2024 Refill [facility] [address] [place], [place] [address] Mali Gunter, SEED ANALYSIS LABORATORY ASSISTANT, PERFORMANCE ANALYST [address] [facility] [address] [place], [place] [id number] Refill (sodium bicarbonate 650 MG tablet [Pharmacy [...] as of this encounter Nursing Notes * [employer], Ron[employer] - 01/26/2024 12:35 PM CDT sodium [...] but equivalent) [employer] Embedded Refills, Reference: [id number], 01/26/2024 12:35:13 PM CDT, Pool: NEPH NURSING-PN ([id number]) documented in this encounter Plan of Treatment Upcoming Encounters Date Type Department Care Team (Late st Contact Info) Description 05/03/2024 11:40 AM CDT Appointment [facility] [address] [facility] [place] [id number] 06/11/2024 5:30 PM CDT Telemedicine [facility] [address] [place] [address] Tala Thomason MD [facility] [place] [id number] documented as of this encounter Visit Diagnoses Not on filedocumented in this encounter Care Teams Manufacturing Helper Relationship Specialty Start Date End Date Tala Thomason MD [address] [place], [place] [address] PCP - General Family Practice 05/22/17 documented as of this encounter
--- OUTSIDE RECORDS SUMMARY | 2024-04-15 08:54 | XMS_ITS | Encounter Summary ---
Author Organization [employer] Address [address] [place] [address] Care Team Providers Care Movement Assembler Name Role Phone Tala Thomason MD Primary Care Provider [phone] Encounter Details Date Type Department Care Team (Late st Contact Info) Description 02/08/2024 11:50 AM CDT Lab Visit [facility] [address] [place] [address] [place] [id number] terminal carman (current) use of anticoagulants; CKD (chronic kidney [...] Info) Description 05/03/2024 11:40 AM CDT Appointment [facility] [address] [place] [address] [place] [id number] 06/11/2024 5:30 PM CDT Telemedicine [facility] [address] [place] [address] [place] [address] Tala Thomason MD [address] [place] [address] documented as of this encounter Procedures Procedure Name Priority Date/Time Associated Diagnosis Comments TP/CREA RATIO, URINE Routine 02/09/2024 1:22 PM CDT CKD (chronic kidney disease) stage 4, GFR 15-29 ml/min (HRC) INR/PROTIME Routine 02/08/2024 11:37 AM CDT terminal carman (current) use of anticoagulants documented in this encounter Results * TP/Crea Ratio, Urine (02/09/2024 1:22 PM CDT) TP/Creat Ratio, Urine Random 0.06 0.00 - 0.20 02/09/2024 8:05 PM CDT [facility] Total Protein, Urine, Random 2 0 - 14 mg/dL 02/09/2024 8:05 PM CDT [facility] Creatinine, Urine, Random 32 >20 mg/dL mg/dL 02/09/2024 8:05 PM CDT [facility] Urine Non-blood Collection / Unknown 02/09/2024 1:22 PM CDT 02/09/2024 1:22 PM CDT Narrative [facility] - 02/09/2024 8:05 PM CDT Low urine creatinine values coupled with low urine protein values can artifactually increase the urine protein/creatinine results. Correlate results of ratio with creatinine results. Shannon Gunter APRN, CNP LAB_1 [facility] [address] [place] [address], [facility] * (ABNORMAL) INR/Protime (02/08/2024 11:37 AM CDT) Protime 28.6(H) 11.8 - 14.6 Seconds 02/08/2024 2:17 PM CDT [facility] INR 2.6(H) 0.9 - 1.1 02/08/2024 2:17 PM CDT [facility] Blood Venipuncture / Unknown 02/08/2024 11:37 AM CDT 02/08/2024 11:37 AM CDT Narrative [facility] - 02/08/2024 2:17 PM CDT If you take an anticoagulant medicine called warfarin, your doctor or clinician may establish a normal range for you that is different from the baseline range shown. Tala Thomason MD LAB_1 [facility] [address] [place] [address], [facility] documented in this encounter Visit Diagnoses Diagnosis terminal carman (current) use of anticoagulants Long-term (current) use of anticoagulants CKD (chronic kidney disease) stage 4, GFR 15-29 ml/min (HRC) Chronic kidney disease, Stage IV (severe) documented in this encounter Care Teams Movement Assembler Relationship Specialty Start Date End Date Tala Thomason MD [address] [place] [address] PCP - General Family Practice 05/22/17 documented as of this encounter
--- OUTSIDE RECORDS SUMMARY | 2024-04-15 08:54 | XMS_ITS | Encounter Summary ---
Author Organization [employer] Address [address] [place] [address] Care Team Providers Care Wound/Ostomy Nurse Name Role Phone Tala Thomason MD Primary Care Provider [phone] Encounter Details Date Type Department Care Team (Late st Contact Info) Description 03/21/2024 11:40 AM CDT Lab Visit [facility] [address] [place], [place] [address] [phone] technician terminal and repeater (current) use of anticoagulants Social History Tobacco [...] 05/03/2024 11:40 AM CDT Appointment [facility] [address] [place], [place] [address] [phone] 06/11/2024 5:30 PM CDT Telemedicine [facility] [address] [place], [place] [address] [address] Tala Thomason MD [facility] [place] [address] [address] documented as of this encounter Procedures Procedure Name Priority Date/Time Associated Diagnosis Comments INR/PROTIME Routine 03/21/2024 11:24 AM CDT custodial (current) use of anticoagulants documented in this encounter Results * (ABNORMAL) INR/Protime (03/21/2024 11:24 AM CDT) [facility] Protime 31.2(H) 11.8 - 14.6 Seconds 03/21/2024 3:41 PM CDT [facility] INR 2.9(H) 0.9 - 1.1 03/21/2024 3:41 PM CDT [facility] Blood Venipuncture / Unknown 03/21/2024 11:24 AM CDT 03/21/2024 11:24 AM CDT Narrative [facility] - 03/21/2024 3:41 PM CDT If you take an anticoagulant medicine called warfarin, your doctor or clinician may establish a normal range for you that is different from the baseline range shown. Tala Thomason MD LAB_1 [facility] [address] [place] [address] documented in this encounter Visit Diagnoses Diagnosis technician terminal and repeater (current) use of anticoagulants Long-term (current) use of anticoagulants documented in this encounter Care Teams Wound/Ostomy Nurse Relationship Specialty Start Date End Date Tala Thomason MD [address] [place] [address] [address] PCP - General Family Practice 05/22/17 documented as of this encounter
--- OUTSIDE RECORDS SUMMARY | 2024-04-15 08:54 | XMS_ITS | Encounter Summary ---
Author Organization [employer] Address [address] [place] [address] Care Team Providers Care Record Press Tender Name Role Phone Tala Thomason MD Primary Care Provider [phone] Reason for Visit * Reason Comments Anticoagulation: Warfarin Encounter Details Date Type Department Care Team (Latest Contact Info) Description 03/21/2024 Anticoagulation PN An[facility] [address] [place] [address], [address] [place] [address] Chronic atrial fibrillation (HRC) (Primary [...] as of this encounter Progress Notes * Emmie Mixon F - 03/21/2024 3:41 PM CDT Tala Thomason MD Patient is out of scope for RN to manage: Patient is OVERDUE for a qualifying visit with the anticoagulation managing clinician ANTICOAGULATION MANAGEMENT - Routing anticoagulation dosing plan to managing clinician for review Lab Results Component Value Date INR 2.9 (H) 03/21/2024 INR Goal: 2.0-3.0 Plan/recommendation: Continue maintenance dose Suggested recheck date: 6 weeks Rationale: per Standing Order Please review and select an option below: Agree with Anticoagulation Clinc RN recommendations above OTHER (specify) Please select option above, document and route to ANTICOAGULATION PN pool. Anticoagulation RN: Please call patient only if changes are made by the clinician to the plan. Emmie Lombardi [facility] 03/22/2024 8:20 AM documented in this encounter Plan of Treatment Upcoming Encounters Date Type Department Care Team (Late st Contact Info) Description 05/03/2024 11:40 AM CDT Appointment [facility] [address] [place] [address] [place] [address] 06/11/2024 5:30 PM CDT Telemedicine [facility] [address] [place] [address] [place] [address] Tala Thomason MD [address] [place] [address] [place] [address] documented as of this encounter Visit Diagnoses Diagnosis Chronic atrial fibrillation (HRC)- Primary Atrial fibrillation Monitoring for long-term anticoagulant use Encounter for long-term (current) use of anticoagulants documented in this encounter Care Teams Record Press Tender Relationship Specialty Start Date End Date Tala Thomason MD [facility] [address] [id number] PCP - General Family Practice 05/22/17 documented as of this encounter
[2024-04-15 09:10] VITALS: BP 141/62; PULSE 70; RESP 20; TEMP 36.2; O2SAT 99; BMI 33.8
--- NOTE | 2024-04-15 10:38 | ED.NAVMDI ---
HPI - Nausea/Vomiting/Diarrhea General Time Seen by Provider: 10:38 Date Seen: 04/15/24 Chief complaint: Nausea/Vomiting Stated complaint: vomiting, stomach pain Time Seen by Provider: 04/15/24 10:38 Source: patient, RN notes reviewed and marketing outreach coordinator Mode of arrival: ambulatory Limitations: no limitations History of Present Illness HPI Narrative: Sylvia is a very pleasant 79-year-old female with history of anticoagulation secondary to atrial fibrillation, hearing impairment who comes to the emergency room for evaluation of vomiting and nausea as well as abdominal pain and diarrhea. Patient noted that last night she seemed to have a ?acid stomach? but did not really have any other symptoms until this morning. When she awoke she had abdominal pain and she shows this to be the epigastrium in the left upper quadrant associated with vomiting. She then notes that she had loose stools nonbloody and now she has had resolution of her abdominal pain. She has some mild nausea that is persisting. She denies a fever but does report some chills. She has not had a cough cold congestion. She denies any recent antibiotics, recent travel, any seafood intake. She does not know any others who are ill at this time. Patient did take a dose of Imodium at home. She states that she does get loose stools frequently and this works for her when she has to leave the house. Associated nausea: Yes Related Data Home Medications ?Medication ?Instructions ?Recorded ?Confirmed amlodipine 5 mg tablet 5 mg PO DAILY 03/12/22 04/15/24 atorvastatin 40 mg tablet 40 mg PO DAILY 03/12/22 04/15/24 fluoxetine 20 mg capsule 20 mg PO DAILY 03/12/22 04/15/24 furosemide 20 mg tablet 20 mg PO DAILY 03/12/22 04/15/24 gabapentin 100 mg capsule 100 mg PO Q8H PRN pain 03/12/22 04/15/24 levothyroxine 100 mcg tablet 100 mcg PO DAILY 03/12/22 04/15/24 losartan 100 mg tablet 100 mg PO DAILY 03/12/22 04/15/24 metoprolol succinate 25 mg 25 mg PO DAILY 03/12/22 04/15/24 tablet,extended release 24 hr warfarin 1 mg tablet 0.5 - 1 mg PO DAILY 03/12/22 04/15/24 Allergies Allergy/AdvReac Type Severity Reaction Status Date / Time No Known Drug Allergies Allergy Verified 03/12/22 16:34 Review of Systems Status of ROS: Reports: 10 or more systems reviewed and unremarkable except as noted in History and below Const: Reports: chills; Denies: fever ENMT: Denies: throat pain, neck pain, throat swelling or nasal congestion Cardio: Denies: chest pain or shortness of breath with exertion Resp: Denies: shortness of breath or cough GI: Reports: abdominal pain, nausea, vomiting and diarrhea; Denies: blood in stool : Denies: painful urination or urinary frequency Musculo: Denies: neck pain Integ/Breast: Denies: rash Neuro: Denies: headache Allergy/Immuno: Denies: throat swelling PFSH PFSH Medical History Deaf ?H91.90 - Unspecified hearing loss, unspecified ear (ICD-10) COVID-19 ?U07.1 - COVID-19 (ICD-10) Hypertension ?I10 - Essential (primary) hypertension (ICD-10) Chronic kidney disease ?N18.9 - Chronic kidney disease, unspecified (ICD-10) Atrial fibrillation, chronic ?I48.20 - Chronic atrial fibrillation, unspecified (ICD-10) Surgical History History of tubal ligation ?Z98.51 - Tubal ligation status (ICD-10) Social History Smoking Status: Never smoker How often do you have a drink containing alcohol: monthly or less AUDIT-C Alcohol total score: 1 Non-prescribed substance use: denies use Exam Narrative: Exam Narrative: Alert and oriented. Initially we begin the evaluation with the sign marketing outreach coordinator. However patient is extremely adept at reading lips. 3/[address] through our interview the screen freezes and Sylvia states that we should just keep going and she is happy to read lips. She tells me that I talk well and that the marketing outreach coordinator was not very good. She assures me that this is fine continuing without an marketing outreach coordinator. EOM is full oral cavity with moist mucous membranes. Neck is supple without lymphadenopathy. Heart with an irregularly irregular rhythm but normal rate. Lungs are clear bilaterally. Abdomen is soft nontender. Bowel sounds are present. Lower extremities without edema. Nontoxic in appearance peer Const: Vital Signs, click to edit/add: Vital Signs - 24 hr 04/15/24 09:10 Temperature 97.2 F L Pulse Rate [Right Pulse Oximeter] 70 Respiratory Rate 20 Blood Pressure [Ri ght Upper Arm] 141/62 H Pulse Oximetry 99 Oxygen Delivery Me thod Room Air Documenting provider has reviewed patient's vital signs: yes Course Course ED Course: At this time differential diagnosis includes but is not limited to gastritis, colitis, cholecystitis/biliary colic, food-borne illness, viral gastroenteritis. Patient is looking quite well and has had resolution of her abdominal pain after experiencing some diarrhea. Her vital signs are reassuring and she is nontoxic in appearance. At this time I would like to try 1 Zofran tablet and check her for COVID. Given how well she looks, that her symptoms have resolved almost entirely I would advise against drawing blood, IV placement, fluids unless she has reoccurrence of her symptoms. She is in agreement with this. In regards to the COVID swab, I would want to ensure she does not have COVID initial symptoms. It does appear that she had COVID in February. Patient is in agreement with our plan. Reevaluation(s) Reevaluation #1: Post Zofran administration patient is able to eat and drink without difficulty. Re-examination of her abdomen shows no acute findings. Vital Signs Vital signs: Initial Vital Signs Temperature 97.2 F L 04/15/24 09:10 Temperature Source Temporal Artery Scan 04/15/24 09:10 Pulse Rate 70 04/15/24 09:10 Pulse Rhythm Regular 04/15/24 09:10 Respiratory Rate 20 04/15/24 09:10 Blood Pressure 141/62 H 04/15/24 09:10 Blood Pressure Mean 88 04/15/24 09:10 Blood Pressure Position Sitting 04/15/24 09:10 Pulse Oximetry 99 04/15/24 09:10 Oxygen Delivery Method Room Air 04/15/24 09:10 Vital Signs Temperature 97.2 F L 04/15/24 09:10 Pulse Rate 70 04/15/24 09:10 Respiratory Rate 20 04/15/24 09:10 Blood Pressure 141/62 H 04/15/24 09:10 Pulse Oximetry 99 04/15/24 09:10 Oxygen Delivery Method Room Air 04/15/24 09:10 Temperature 97.2 F L 04/15/24 09:10 Pulse Rate 70 04/15/24 09:10 Respiratory Rate 20 04/15/24 09:10 Blood Pressure 141/62 H 04/15/24 09:10 Pulse Oximetry 99 04/15/24 09:10 Oxygen Delivery Method Room Air 04/15/24 09:10 Medications Administered Medications: Discontinued Medications Generic Name Dose Route Start Last Admin Trade Name Louie PRN Reason Stop Dose Admin Ondansetron HCl 4 mg 04/15/24 10:54 04/15/24 11:07 Ondansetron Odt 4 Mg Tab PO 04/15/24 10:55 4 mg ONCE ONE Administration MDM - Nausea/Vomiting/Diarrhea MDM Narrative Medical decision making narrative: 1. Nausea vomiting and diarrhea-patient had no episodes of vomiting or diarrhea here in the emergency room. I suspect that she is experiencing a viral gastroenteritis or possibly food-borne illness although symptoms do not appear to be that severe. I have asked her to discontinue the use of Imodium which she did use at home . Zofran 4 mg ODT Q 8 hours p.r.n. 10. Via [employer] machine. Push fluids and eat mild foods. Return to the emergency room for fever, abdominal pain, blood in stool, dehydration and as needed. 2. Disposition-home at this time. Return as needed. Patient did test negative for COVID at this time. Medical Records Attestation: I reviewed the patient's medical records. Lab Data Labs: Lab Results 04/15/24 Range/Units 11:03 SARS-CoV-2 (PCR) Negative SARS-CoV-2 (Negative) Discharge Plan Discharge Clinical Impression: Abdominal pain, vomiting, and diarrhea Patient Disposition: Home, Self-Care Condition: Improved Additional Instructions: I a.m. glad that you are feeling better. I think that you may have a virus causing a a stomach flu. However, if you start developing a high fever, worsening abdominal pain, blood in your stool or become dehydrated from vomiting then I think we should do further workup and look for other causes. You tested negative for COVID today. Zofran is an anti nausea medication that I have prescribed for you today. We have a vending machine out front that you can get your medicine. If you would rather I sent to the pharmacy I can do that as well. Stop Imodium at this time. Try to get as many fluids in as possible. Return to the emergency room if your symptoms worsen. Prescriptions: No Action atorvastatin 40 mg tablet 40 mg PO DAILY amlodipine 5 mg tablet 5 mg PO DAILY levothyroxine 100 mcg tablet 100 mcg PO DAILY Patient Comments: TAKE 1 TABLET BY MOUTH 6 TIMES A WEEK AND NO MED ONCE WEEKLY furosemide 20 mg tablet 20 mg PO DAILY Patient Comments: TAKE 1 TABLET BY MOUTH DAILY gabapentin 100 mg capsule 100 mg PO Q8H PRN (Reason: pain) Patient Comments: TAKE 1 TO 2 CAPSULES BY MOUTH THREE TIMES DAILY NEEDED metoprolol succinate 25 mg tablet extended release 24 hr 25 mg PO DAILY losartan 100 mg tablet 100 mg PO DAILY Patient Comments: TAKE 1 TABLET BY MOUTH DAILY fluoxetine 20 mg capsule 20 mg PO DAILY Patient Comments: TAKE 1 CAPSULE BY MOUTH DAILY warfarin 1 mg tablet 0.5 - 1 mg PO DAILY Rx Instructions: 1 MG MONDAY AND MONDAY, 0.5 MG ALL OTHER DAYS Follow Up/Referrals: Provider,Not a Local [Primary Care Provider] - Stand Alone Forms: [employer] Info Instructions
[2024-04-15] MEDS: ONDANSETRON ODT 4 MG TAB PO (11:07)
--- OUTSIDE RECORDS SUMMARY | 2024-04-15 11:19 | XMS_ITS | Encounter Summary ---
Author Organization [place] Address [address] [facility] [place] [address] Care Team Providers Care Landscape Laborer Name Role Phone Enedelia Wilkins MD Primary Care Provid er Linh Fontanez APRN LEAD SCIENTIST Unavailable [phone] Paddy COLLINS MD, Tala Lang Primary Care Provider Santo Crump MD Unavailable [phone] Santo Crump MD Unavailable [phone] Reason for Visit * Reason Onset Date Comments Refill Request 10/14/2021 atorvastatin (LI PITOR) 40 MG tablet Encounter Details Date Type Department Care Team (Late st Contact Info) Description 10/14/2021 Telephone [facility] Heart [place] [id number] [facility] [address] [place] [address] Santo Crump MD [address] [facility] [address] [place], [place] [address] Refill Request ( atorvastatin (LIPITOR) 40 MG [...] COVID-19? No / Unsure 10/15/2021 9:10 AM INVOICE CHECKER documented as of this encounter Miscellaneous Notes [...] prescribed the medication: Dr. Santo Crump Pharmacy: [id number] [place] [address] [address] [facility] [place] & Date medication is needed: BERTHA - pt took her last pill 10.13.21 Pt stated her pharmacy has been contacting the DrClarke With no response. Action Taken: Message routed to: [facility] ira Daugherty Screening: Not Applicable ICE CHECKER documented in this encounter Plan of Treatment Not on file documented as of this encounter Visit Diagnoses Not on filedocumented in this encounter Care Teams Landscape Laborer Relationship Specialty Start Date End Date Enedelia Wilkins MD [address] [place] [address] PCP - General 10/23/02 10/21/21 Tala Thomason MD, MD [address] [place] [address] PCP - General Family Medicine 10/22/21 Linh Fontanez APRN LEAD SCIENTIST [address] [place] [address] Assigned Heart and Vascular Provider 10/03/21 04/28/23 Santo Crump MD [address] [place] [address] [place] [address] Cardiovascular Disease 10/24/22 Santo Crump MD [address] [place] [address] Assigned Heart and Vascular Provider 05/06/23 documented as of this encounter
--- OUTSIDE RECORDS SUMMARY | 2024-04-15 11:19 | XMS_ITS | Encounter Summary ---
Author Organization [place] Address [address] [facility] [place] [address] Care Team Providers Care Facility Maintenance Manager Name Role Phone Enedelia Wilkins MD Primary Care Provid er Santo Crump MD Unavailable [phone] Linh Fontanez APRN, CNP Unavailable [phone] Paddy COLLINS MD, Tala Lang Primary Care Provider Santo Crump MD Unavailable [phone] Santo Crump MD Unavailable [phone] Encounter Details Date Type Department Care Team (Late st Contact Info) Description 03/31/[address] [place] [address] Enedelia Wilkins MD [address] [place] [address] ER (Primary Dx) Social History [...] Encounter-JOSÉ MIGUEL CLEMENTS) [Entered: 00:00 Transcrip tion ([facility])] : 47 CHIEF COMPLAINT: Hip [...] t he patient's history through a sign carbon capture power plant manager 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 ASSESSMENT: 1. Left hip pain, left sciatica and muscle spasms. PLAN: The patient will follow-up with Dr. Wilkins in 24-72 hours. Percocet 1-2 tabs q4-6h. Motrin over the counter as prescribed, Robaxin 1000 mg q8h for muscl e spasms. Return if severe pain, unable to walk or worsening symptoms. [id number] JOSÉ MIGUEL DICK MD [place]: Document: [id number] [place], [place] Name: ANTOINE TIPTON EMERGENCY ROOM ENCOUNTER Page 2 of 2 LCN: BASILIO DSC: 03/31/2003 [place], [place] Name: MR#: : Admit Date: DON TIPTON 20[birth year]-09-08-24 1945 03/31/2003 Doctor: JOSÉ MIGUEL DICK MD EMERGENCY ROOM ENCOUNTER Page 1 of 2 Electronically filed by Armond Deleon 04/07/2003 4:12 PM documented in this encounter Plan of Treatment Not on file documented as of this encounter Visit Diagnoses Diagnosis ER- Primary documented in this encounter Care Teams Facility Maintenance Manager Relationship Specialty Start Date End Date Enedelia Wilkins MD [address] [place] [address] PCP - General 10/23/02 10/21/21 Tala Thomason MD, [address] [place], [place] [id number] PCP - General Family Medicine 10/22/21 Santo Crump MD [address] [place] [address] [place] [id number] Assigned Heart and Vascular Provider 06/12/20 10/02/21 Linh Fontanez APRN DRAPERY CUTTER [address] [place] [address] Assigned Heart and Vascular Provider 10/03/21 04/28/23 Santo Crump MD [address] [place] [address] [place] [address] Cardiovascular Disease 10/24/22 Santo Crump MD [address] [place] [address] [place] [address] Assigned Heart and Vascular Provider 05/06/23 documented as of this encounter
--- OUTSIDE RECORDS SUMMARY | 2024-04-15 11:19 | XMS_ITS | Encounter Summary ---
Author Organization [place] Address [address] [facility] [place] [address] Care Team Providers Care Satellite Dish Repairer Name Role Phone Enedelia Wilkins MD Primary Care Provid er Santo Crump MD Unavailable [phone] Linh Fontanez APRN, CNP Unavailable [phone] Paddy COLLINS MD, Tala Lang Primary Care Provider Snato Crump MD Unavailable [phone] Santo Crump MD Unavailable [phone] Encounter Details Date Type Department Care Team (Late st Contact Info) Description 06/22/2021 [place] [facility] Heart [facility] [id number] [place] [address] [address] [place] [address] Santo Crump MD [address] [facility] [address] [place], [place] [address] Social History Tobacco Use Types Packs/Day Years [...] on filedocumented in this encounter Care Teams Satellite Dish Repairer Relationship Specialty Start Date End Date Enedelia Wilkins MD [address] [place] [address] PCP - General 10/23/02 10/21/21 Tala Thomason MD, [address] [place], [place] [phone] PCP - General Family Medicine 10/22/21 Santo Crump MD [address] [place] [address] [place] [address] Assigned Heart and Vascular Provider 06/12/20 10/02/21 Linh Fontanez APRN TURF MANAGER [address] [place] [address] Assigned Heart and Vascular Provider 10/03/21 04/28/23 Santo Crump MD [address] [place] [address] [place] [address] Cardiovascular Disease 10/24/22 Santo Crump MD [address] [place] [address] [place] [address] Assigned Heart and Vascular Provider 05/06/23 documented as of this encounter
--- OUTSIDE RECORDS SUMMARY | 2024-04-15 11:19 | XMS_ITS | Clinical Summary ---
Author Organization [employer] [facility] [facility] Address [place], [place] [address] Care Team Providers Care Psychological Anthropologist Name Role Phone Pcp, No Primary Care [...] 5:38 PM 05/22/2017 9:15 PM Care Teams Psychological Anthropologist Relationship Specialty Start Date End Date Pcp, No . PCP - General 05/20/17
--- OUTSIDE RECORDS SUMMARY | 2024-04-15 11:19 | XMS_ITS | Encounter Summary ---
Author Organization [place] Address [address] [place] [address] Care Team Providers Care Gas Line Servicer Name Role Phone Enedelia Wilkins MD Primary Care Provid er Santo Crump MD Unavailable [phone] Linh Fontanez APRN S[employer] HELPER Unavailable [phone] Paddy COLLINS MD, Tala Lang Primary Care Provider Santo Crump MD Unavailable [phone] Santo Crump MD Unavailable [phone] Encounter Details Date Type Department Care Team (Late st Contact Info) Description 05/14/2021 [facility] Medical Advice [facility] Heart [facility] [address] [place] [address] [address] [place] [address] Santo Crump MD [address] [facility] [address] [place], [place] [address] Social History Tobacco Use Types Packs/Day Years [...] on filedocumented in this encounter Care Teams Gas Line Servicer Relationship Specialty Start Date End Date Enedelia Wilkins MD [address] [place] [address] PCP - General 10/23/02 10/21/21 Tala Thomason MD, [address] [place] [address] PCP - General Family Medicine 10/22/21 Santo Crump MD [address] [place] [address] [place] [address] Assigned Heart and Vascular Provider 06/12/20 10/02/21 Linh Fontanez, SENIOR DEVELOPER [employer] HELPER [address] [place] [address] Assigned Heart and Vascular Provider 10/03/21 04/28/23 Santo Crump MD [address] [place] [address] [place] [address] Cardiovascular Disease 10/24/22 Santo Crump MD [address] [place] [address] [place] [address] Assigned Heart and Vascular Provider 05/06/23 documented as of this encounter
--- OUTSIDE RECORDS SUMMARY | 2024-04-15 11:19 | XMS_ITS | Referral Summary ---
Author Organization [place] Address [address] [place] [address] Care Team Providers Care Paving Rammer Name Role Phone Paddy COLLINS MD, Tala Lang Primary Care Provider Santo Crump MD Unavailable [phone] Santo Crump MD Unavailable [phone] Allergies Active Allergy Reactions Criticality Noted [...] mouth daily Active ergocalciferol (ERGOCALCIFEROL) 1.25 MG (74618 UT) capsule Take 50,000 Units by mouth [...] ONCE WEEKLY. TAKE 30 MINUTES BEFORE FIRST [id number] ATION. AVOID LYING DOWN FOR 30 MINUTES [...] MD LAB - BLOOD [facility] [address] [facility] (1st floor, no room number) [place] [address], [facility] [phone] * (ABNORMAL) Basic metabolic panel (03/18/2019 1:40 PM CDT) Sodium 138 133 - 144 mmol/L 03/18/2019 2:41 PM CDT [facility] Potassium 4.6 3.4 - 5.3 mmol/L 03/18/2019 2:41 PM CDT [facility] Chloride 108 94 - 109 mmol/L 03/18/2019 2:41 PM CDT [facility] Carbon Dioxide 27 20 - 32 mmol/L 03/18/2019 2:47 PM CDT [facility] Anion Gap 3 3 - 14 mmol/L 03/18/2019 2:47 PM CDT [facility] Glucose 94 70 - 99 mg/dL 03/18/2019 2:47 PM CDT [facility] Urea Nitrogen 39(H) 7 - 30 mg/dL 03/18/2019 2:47 PM CDT [facility] Creatinine 1.57(H) 0.52 - 1.04 mg/dL 03/18/2019 2:47 PM T [facility] GFR Estimate 32(L) >60 mL/min/{1 .73_m2} 03/18/2019 2:47 PM T [facility] Comment: Non GFR Calc Starting 08/07/2018, serum creatinine based estimated GFR (eGFR) will be calculated using the Chronic Kidney Disease Epidemiology Collaboration (CKD-EPI) equation. GFR Estimate If Black 38(L) >60 mL/min/{1 .73_m2} 03/18/2019 2:47 PM T [facility] Comment: GFR Calc Starting 08/07/2018, serum creatinine based estimated GFR (eGFR) will be calculated using the Chronic Kidney Disease Epidemiology Collaboration (CKD-EPI) equation. Calcium 9.0 8.5 - 10.1 mg/dL 03/18/2019 2:47 PM CDT [facility] Blood specimen (specimen) 03/18/2019 1:40 PM CDT 03/18/2019 1:43 PM CDT Megan Reynoso DO LAB - BLOOD ORDERABLES [facility] [address] [place] [address], [facility] [phone] [facility] [address] [place] [address], [facility] [phone] * (ABNORMAL) Routine UA with microscopic (01/04/2009 4:40 PM CDT) Source Midstream Urine MISYS Color Urine Light Yellow MISYS Appearance Urine Clear MISYS Glucose Urine Negative NEG mg/dL M[facility] Bilirubin Urine Negative NEG MISYS Ketones Urine Negative NEG mg/dL MIS[facility] Specific [place] Urine 1.009 1.003 - 1.035 MISYS Blood [...] Recently Relevant to Health Maintenance Care Teams Paving Rammer Relationship Specialty Start Date End Date Tala Thomason MD, [address] [id number] PCP - General Family Medicine 10/22/21 Santo Crump MD [address] [facility] [address] [place] [address] Cardiovascular Disease 10/24/22 Santo Crump MD [address] [facility] [address] [place] [id number] Assigned Heart and Vascular Provider 05/06/23
--- OUTSIDE RECORDS SUMMARY | 2024-04-15 11:19 | XMS_ITS | Clinical Summary ---
Author Organization [facility] Address [address] [place] [address] Care Team Providers Care Machine Fur Cleaner Name Role Phone Tala Thomason MD Primary Care Provider [phone] Source Comments You are receiving this document as you are listed as the primary care provider,follow-up provider, or the patient has been referred to you for consultation.This is in compliance with the Medicare andSelect Medical [facility] Hospitalcaid EHR Incentive Program,which states Providers who transition their patient to another setting of careor provider of care or refers their patient to another provider of care shouldprovide summary care record for each transition of care or referral. about.meRehob[facility] ServicesHaload Allergies Active Allergy Reactions Criticality Noted Date [...] on 03/15/2024 Vitamin D, Ergocalciferol, 1.25 MG (72038 UT) CAPS TAKE 1 CAPSULE BY MOUTH 1 TIME EVERY WEEK 13 Capsule 3 04/13/20 23 Active alendronate (FOSAMAX) 70 MG tabletIndications: Osteopenia, unspecified location Take 1 Tablet (70 mg) by mouth once every week. TAKE 30 MINUTES BEFORE FIRST [id number] ON. AVOID LYING DOWN FOR 30 MINUTES [...] as directed. Your dose may change. Call [facility] [place] [phone] with questions. 52 Tablet 04/03/20 24 Active warfarin 3 MG tabletIndications: Chronic atrial fibrillation (HRC),half-way (current) use of anticoagulants Take by mouth 3 mg every Sa; 1.5 mg all other days or as directed. Your dose may change. Call [facility] [phone] with questions. 12/19/19 24 024 Discontinued Active [...] sooner. Chronic atrial fibrillation 05/23/2017 Overview (12/09/2022): grants officer is at [facility]. Chronic diastolic CHF (congestive heart failure) 05/20/2017 Overview (12/09/2022): grants officer is at [facility]. 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/19/2010 12/16/2014 Overview (04/12/2017): Basal Cell Ca Shoulder Routine general medical exam ination at a health care facility 01/25/2006 06/29/2021 Overview (04/12/2017): LW Onset: [id number] ; Health Maintenance Encounters Date Type Department Care Team Description 04/09/2024 Notes/Orders PN Antico[facility] [address] [place] [address] Tala Thomason MD Monitoring for long-term anticoagulant use 03/31/2024 Refill [facility] [address] [place] [id number] Tala Thomason MD Refill (Warfarin) 03/26/2024 Refill [address] [place] [address] Tala Thomason MD Refill (metoprolol succinate (TOPROL XL) 25 MG 24 hour release tablet [Pharmacy Med Name: METOPROLOL ER SUCCINATE 25MG TABS]) 03/22/2024 Telephone PN Anticoagulation Centralized Services [address] [place] [address] Tala Thomason MD APPOINTMENT REQUEST 03/21/2024 11:40 AM CDT Lab Visit [facility] [address] [place] [address] half-way (current) use of anticoagulants 03/21/2024 Anticoagulation PN An[facility] Central[facility] [address] [place] [address] Chronic atrial fibrillation (HRC) (Primary Dx); Monitoring for long-term anticoagulant use 03/15/2024 3:20 PM CDT Lab Visit [facility] [address] [place] [address] Chronic atrial fibrillation (HRC); Monitoring for long-term anticoagulant use; Medicare annual wellness visit, subsequent 03/15/2024 2:30 PM CDT Office Visit [address] [place] [address] Kayleigh Ambrose PA-C Medicare annual wellness visit, [...] screening; Bowel and bladder incontinence 03/03/[address] [address] Tala Thomason MD Refill (furosemide (LASIX) 20 MG tablet [Pharmacy Med Name: FUROSEMIDE 20MG TABLETS]) 02/19/2024 Refill [facility] [address] [place] [address] Tala Thomason MD Refill (levothyroxine (SYNTHROID) 100 MCG tablet [Pharmacy Med Name: LEVOTHYROXINE 0.100MG (100MCG) TAB]) 02/08/2024 11:50 AM CDT Lab Visit [facility] [address] [place] [phone] 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; CKD (chronic kidney disease) stage 4, GFR 15-29 ml/min (HRC) 02/08/2024 Anticoagulation PN Anticoagulation Central[facility] Services [address] [place] [address], [address] [place], [place] [phone] Chronic atrial fibrillation (HRC) (Primary Dx); Monitoring for long-term anticoagulant use 01/26/2024 Refill [facility] [address] [place], [place] [address] Shannon Gunter APRN, COOLING PAN TENDER Refill (sodium bicarbonate 650 MG tablet [Pharmacy Med Name: SODIUM BICARBONATE 10GR(650MG) TABS]) from Last 3 Months Immunizations Name Administration Dates Next Due Flu Vac (3+ yrs) 04/27/2012 Flu Vac Preserv Free (3+yrs) 04/27/2012, 05/12/2011,04/28/2010,2008 HepB Adult (Engerix-B, 20+ y rs, 3 dose series) 06/29/2021,05/13/2019 Influenza IIV3 (Trivalent) F luzone Highdose, 65+ Yrs (50421) 05/13/2019,07/10/2018,05/23/2017,2013 Influenza IIV4 (Quadrivalent ) 0.5mL (12346) 10/14/2013 Influenza IIV4 (Quadrivalent ) Fluad, 65+ [...] 11:40 AM CDT Appointment [facility] [address] [facility] [place] [address] 06/11/2024 5:30 PM CDT Telemedicine [facility] [address] [facility] [place] [address] Tala Thomason MD [address] [place] [address] Health Maintenance Due Date Last Done Comments [...] Comments INR/PROTIME Routine 03/21/2024 11:24 AM CDT half-way (current) use of anticoagulants HGB A1C Routine [...] kidney disease) stage 4, GFR 15-29 ml/min ([facility]) INR/PROTIME Routine 02/08/2024 11:37 AM CDT half-way (current) use of anticoagulants LIPID PANEL & DIRECT LDL (IF NEEDED) Routine 03/14/2023 10:54 AM CDT Hyperlipidemia, unspecified hyperlipidemia type (HRC) DXA BONE DENSITY SPINE/HIP INC VERT FX ASSESS Routine 06/17/2022 9:58 AM CDT Post-menopausal FIT,OCCULT BLOOD, STOOL Routine 03/01/2022 8:00 AM CDT Screening for colon cancer HEPATITIS C ANTIBODY, WITH REFLEX Routine 09/05/2019 10:01 AM [employer] Need for hepatitis C screening test from Last 3 Months or Most Recently Relevant to Health Maintenance Results * (ABNORMAL) INR/Protime (03/21/2024 11:24 AM CDT) Only the most recent of2 resultswithin the time period is included. Protime 31.2(H) 11.8 - 14.6 Seconds 03/21/2024 3:41 PM T [facility] INR 2.9(H) 0.9 - 1.1 03/21/2024 3:41 PM T [facility] Blood Venipuncture / Unknown 03/21/2024 11:24 AM CDT 03/21/2024 11:24 AM CDT [facility] - 03/21/2024 3:41 PM CDT If you take an anticoagulant medicine called warfarin, your doctor or clinician may establish a normal range for you that is different from the baseline range shown. Tala Thomason MD LAB_1 [facility] [address] [place] [address] * TSH (03/15/2024 2:46 PM CDT) Pathologist [facility] TSH, Sensitive 0.37 0.30 - 4.50 uIU/mL 03/15/2024 8:22 PM CDT [facility] Blood Venipuncture / Unknown 03/15/2024 2:46 PM CDT 03/15/2024 2:53 PM CDT Kayleigh Ambrose PA-C LAB_1 Performing Organization Address [facility] Co de Phone Number [facility] [address] * Hgb A1C (03/15/2024 2:46 PM CDT) Pathologist [facility] Hemoglobin A1C 5.5 <=5.6 % 03/16/2024 4:55 PM CDT [facility] Estimated Average Glucose (Calc) 111 < 117 mg/dL 03/16/2024 4:55 PM CDT [facility] Comment:Estimated average gl ucose (eAG) converts A1c into glucose units (mg/dL) and estimates average glucose over the past approximately 3 months. The eAG reference interval (<117 mg/dL) corresponds to an A1c of <5.7%. Blood Venipuncture / Unknown 03/15/2024 2:46 PM CDT 03/15/2024 2:53 PM CDT Kayleigh Ambrose PA-C LAB_1 Performing Organization Address City/[facility]/ZIP Co de Phone Number [facility] [address] [address] * Uric Acid (03/15/2024 2:46 PM CDT) Pathologist [facility] Uric Acid 5.2 2.6 - 6.0 mg/dL 03/15/2024 7:39 PM CDT [facility] Blood Venipuncture / Unknown 03/15/2024 2:46 PM CDT 03/15/2024 2:53 PM CDT Kayleigh Ambrose PA-C LAB_1 Performing Organization Address [facility] Co de Phone Number [facility] [address] [place] [address] * AST (03/15/2024 2:46 PM CDT) [facility] AST (SGOT) 24 10 - 40 U/L 03/15/2024 7:39 PM CDT [facility] Blood Venipuncture / Unknown 03/15/2024 2:46 PM CDT 03/15/2024 2:53 PM CDT Tala Thomason MD LAB_1 Performing Organization Address [facility] de Phone Number [address] * TP/Crea Ratio, Urine (02/09/2024 1:22 PM CDT) [facility] TP/Creat Ratio, Urine Random 0.06 0.00 - 0.20 02/09/2024 8:05 PM CDT [facility] Total Protein, Urine, Random 2 0 - 14 mg/dL 02/09/2024 8:05 PM CDT [facility] Creatinine, Urine, Random 32 >20 mg/dL mg/dL 02/09/2024 8:05 PM CDT [facility] Urine Non-blood Collection / Unknown 02/09/2024 1:22 PM CDT 02/09/2024 1:22 PM CDT Narrative [facility] - 02/09/2024 8:05 PM CDT Low urine creatinine values coupled with low urine protein values can artifactually increase the urine protein/creatinine results. Correlate results of ratio with creatinine results. Shannon Gunter APRN, CNP LAB_1 Performing Organization Address City/[facility]/ZIP Co de Phone Number [facility] [address] [place], [place] [address] * (ABNORMAL) Lipid Panel and Direct LDL(If Needed) (03/14/2023 10:54 AM CDT) [facility] Signature Cholesterol 136 0 - 199 mg/dL 03/14/2023 4:18 PM CDT [facility] Triglyceride 146 <=149 mg/dL 03/14/2023 4:18 PM T [facility] HDL Cholesterol 36(L) >=40 mg/dL 03/14/2023 4:18 PM T [facility] LDL, Calculated 71 <130 mg/dL 03/14/2023 4:18 PM T [facility] Non HDL Chol, Calculated 100 <=159 mg/dL 03/14/2023 4:18 PM T [facility] Cholesterol/HDL Ratio 3.8 03/14/2023 4:18 PM T [facility] Hours Fasting Unknown 03/14/2023 4:18 PM CDT [facility] (PN) Blood Venipuncture / Unknown 03/14/2023 10:54 AM CDT 03/14/2023 10:54 AM CDT Tala Thomason MD LAB_1 Performing Organization Address [facility] Co de Phone Number [facility] [address] [place] [address], [facility] [phone] [facility] (PN) [address] [place] [address] [phone] * DXA Bone Density Spine/Hip Inc Vert FX Assess (06/17/2022 9:58 AM CDT) Anatomical Region Laterality Modality Spine, Hip Radiographic Moriah ging Narrative 06/23/2022 9:09 AM CDT CLINIC DXA REPORT Patient Name: ??Sylvia Doan Densitometer:HoloAvison Young W (S/N [id number]) ROBLEDO BONE OSTEOPOROSIS RISK FACTORS FROM PATIENT [...] trabecular bone, and is derived from the gtowv-es-knkxo changes of bone density embedded in the [...] Rectal Cancer Screening (03/01/2022 8:00 AM CDT) [facility] FIT Specimen 1 Negative Negative 03/03/2022 10:14 AM CDT [facility] Stool 03/01/2022 8:00 AM CDT 03/02/2022 6:29 PM CDT Tala Thomason MD LAB_1 Performing Organization Address City/State/[facility] Co de Phone Number [facility] [address] [phone] * Hepatitis C Virus Liliana with Reflex (09/05/2019 10:01 AM [employer]) [facility] Hepatitis C Antibody Negative (Non Reactive) Negative (Non Reactive) 09/05/2019 1:08 PM [employer] [facility] Comment:Antibodies to HCV no t detected. Does not exclude the possiblity of exposure to HCV. Blood Venipuncture Butterfly / Unknown 09/05/2019 10:01 AM [employer] 09/05/2019 10:01 AM [employer] Tala Thomason MD LAB_1 [facility] [address] [place] [address], [facility] from Last 3 Months or Most Recently Relevant to Health Maintenance Advance Directives Documents on File Type Date Recorded Patient Marbleizer Expl anation HEALTHCARE DIRECTIVE 08/09/2023 Maya ADAMSLAR 1 10/10/2022 Healthcare Agents on File Name Relationship Healthcare Agent Relationshi p Communication Maya ADAMSLAR Daughter Health Care Agent Care Teams Machine Fur Cleaner Relationship Specialty Start Date End Date Tala Thomason MD [address] [place] [address] PCP - General Family Practice 05/22/17
--- OUTSIDE RECORDS SUMMARY | 2024-04-15 11:19 | XMS_ITS | Clinical Summary ---
Author Organization [facility] Address [address] [facility] [place] [address] Care Team Providers Care Optometric Technologist Name Role Phone Paddy COLLINS MD, Tala Lang Primary Care Provider Santo Crump MD Unavailable [phone] Santo Crump MD Unavailable [phone] Allergies Active Allergy Reactions Criticality Noted [...] mouth daily Active ergocalciferol (ERGOCALCIFEROL) 1.25 MG (81330 UT) capsule Take 50,000 Units by mouth [...] ONCE WEEKLY. TAKE 30 MINUTES BEFORE FIRST ADBW-OCHBU-[id number] ATION. AVOID LYING DOWN FOR 30 MINUTES [...] Crump MD LAB - BLOOD ED [facility] Organization Address City/State/ZIP Co de Phone Number LABORATORY [facility] [address] [facility] [facility] (1st floor, no room number) [place] [address], [facility] [phone] * (ABNORMAL) Basic metabolic panel (03/18/2019 1:40 PM CDT) Sodium 138 133 - 144 mmol/L 03/18/2019 2:41 PM CDT [facility] Potassium 4.6 3.4 - 5.3 mmol/L 03/18/2019 2:41 PM T [facility] Chloride 108 94 - 109 mmol/L 03/18/2019 2:41 PM T [facility] Carbon Dioxide 27 20 - 32 mmol/L 03/18/2019 2:47 PM T [facility] Anion Gap 3 3 - 14 mmol/L 03/18/2019 2:47 PM [facility] Glucose 94 70 - 99 mg/dL 03/18/2019 2:47 PM [facility] Urea Nitrogen 39(H) 7 - 30 mg/dL 03/18/2019 2:47 PM [facility] Creatinine 1.57(H) 0.52 - 1.04 mg/dL 03/18/2019 2:47 PM [facility] GFR Estimate 32(L) >60 mL/min/{1 .73_m2} 03/18/2019 2:47 PM [facility] Comment: Non GFR Calc Starting 08/07/2018, serum creatinine based estimated GFR (eGFR) will be calculated using the Chronic Kidney Disease Epidemiology Collaboration (CKD-EPI) equation. GFR Estimate If Black 38(L) >60 mL/min/{1 .73_m2} 03/18/2019 2:47 PM [facility] Comment: GFR Calc Starting 08/07/2018, serum creatinine based estimated GFR (eGFR) will be calculated using the Chronic Kidney Disease Epidemiology Collaboration (CKD-EPI) equation. Calcium 9.0 8.5 - 10.1 mg/dL 03/18/2019 2:47 PM [facility] Blood specimen (specimen) 03/18/2019 1:40 PM CDT 03/18/2019 1:43 PM CDT Megan Reynoso DO LAB - BLOOD ORDERABLES [facility] [address] [place] [address], [facility] [phone] [facility] [address] [place] [address], [facility] [phone] * (ABNORMAL) Routine UA with microscopic (01/04/2009 4:40 PM CDT) Source Midstream Urine MISYS Color Urine Light Yellow MISYS Appearance Urine Clear [facility] Glucose Urine Negative NEG mg/dL [facility] Bilirubin Urine Negative NEG MISYS Ketones Urine Negative NEG mg/dL [facility] Specific [place] Urine 1.009 1.003 - 1.035 MISYS Blood [...] Recently Relevant to Health Maintenance Care Teams Optometric Technologist Relationship Specialty Start Date End Date Tala Thomason MD, MD [address] [id number] PCP - General Family Medicine 3/4/22 Santo Crump MD [address] [place] [address] Cardiovascular Disease 10/24/22 Santo Crump MD [address] [place] [address] Assigned Heart and Vascular Provider 05/06/23
--- OUTSIDE RECORDS SUMMARY | 2024-04-15 11:20 | XMS_ITS | Encounter Summary ---
Author Organization [employer] Address [address] [place] [address] Care Team Providers Care Marble Supervisor Name Role Phone Tala Thomason MD Primary Care Provider [phone] Reason for Visit * Reason Comments Anticoagulation: Warfarin Encounter Details Date Type Department Care Team (Latest Contact Info) Description 03/21/2024 Anticoagulation [facility] [address] [place] [address], [address] [place] [address] Chronic atrial fibrillation (HRC) (Primary [...] the clinician to the plan. Emmie Lombardi [facility] 03/22/2024 8:20 AM documented in this encounter Plan of Treatment Upcoming Encounters Date Type Department Care Team (Late st Contact Info) Description 05/03/2024 11:40 AM CDT Appointment [facility] [address] [place] [address] [place] [address] 06/11/2024 5:30 PM CDT [facility]med[facility] [address] [place] [address] [place] [address] Tala Thomason MD [address] [place] [address] [place] [address] documented as of this encounter Visit Diagnoses Diagnosis Chronic atrial fibrillation (HRC)- Primary Atrial fibrillation Monitoring for long-term anticoagulant use Encounter for long-term (current) use of anticoagulants documented in this encounter Care Teams Marble Supervisor Relationship Specialty Start Date End Date Tala Thomason MD [facility] [address] [id number] PCP - General Family Practice 05/22/17 documented as of this encounter
--- OUTSIDE RECORDS SUMMARY | 2024-04-15 11:20 | XMS_ITS | Encounter Summary ---
Author Organization [employer] Address [address] [place] [address] Care Team Providers Care Taxi Driver Name Role Phone Tala Reyes MD Primary Care Provider [phone] Reason for Visit * Reason Comments Refill Warfarin Encounter Details Date Type Department Care Team (Late st Contact Info) Description 03/31/2024 Refill [facility] [address] [place] [id number] Tala Reyes MD [address] [place] [phone] Refill (Warfarin) Social History Tobacco Use Types [...] 5:30 PM Tala Reyes MD [facility] * Jayne Winn RN - 04/02/2024 8:36 [...] as No Print/No Fill on 12/19/2023 by EBLEN REED), Sig: take by mouth 3 mg every sa; 1.5 mg all other days or as directed. your dose may change. call [facility] [phone] with questions. (changed) -> The requested medication [...] MORSE) was found) Next scheduled visit: None [facility] Refills, Reference: [id number], 03/31/2024 12:26:11 PM CDT, Sarah Leavitt [facility] - Primary Care [[id number]] ([id number]) documented in this encounter Plan of Treatment Upcoming Encounters Date Type Department Care Team (Late st Contact Info) Description 05/03/2024 11:40 AM CDT Appointment [facility] [address] [place], [place] [address]za [facility] [place] [id number] 06/11/2024 5:30 PM CDT Telemedicine [address] [place] [id number] Tala Reyes MD [address] [id number] documented as of this encounter Visit Diagnoses Diagnosis Chronic atrial fibrillation (HRC)- Primary 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
--- OUTSIDE RECORDS SUMMARY | 2024-04-15 11:20 | XMS_ITS | Encounter Summary ---
Author Organization [employer] Address [address] [place] [address] Care Team Providers Care Geospatial Extractor Analysis Name Role Phone Tala Thomason MD Primary Care Provider [phone] Reason for Visit * Reason Comments APPOINTMENT REQUEST Encounter Details Date Type Department Care Team (Late st Contact Info) Description 03/22/2024 Telephone [facility] Anticoagulation Centralized Services [address] [facility], [address] [place] [address] Tala Thomason MD [address] [place] [address] APPOINTMENT REQUEST Social History Tobacco Use [...] was mailed), please close encounter. Emmie Mixon [facility] 03/22/2024 8:25 AM documented in this encounter Plan of Treatment Upcoming Encounters Date Type Department Care Team (Late st Contact Info) Description 05/03/2024 11:40 AM CDT Appointment [facility] [address] [address] 06/11/2024 5:30 PM CDT [facility] [address] [place], [place] [address] [address] Tala Thomason MD [address] [phone] documented as of this encounter Visit Diagnoses Not on filedocumented in this encounter Care Teams Geospatial Extractor Analysis Relationship Specialty Start Date End Date Tala Thomason MD [facility] [address] PCP - General Family Practice 05/22/17 documented as of this encounter
--- OUTSIDE RECORDS SUMMARY | 2024-04-15 11:20 | XMS_ITS | Encounter Summary ---
Author Organization [employer] Address [address] [place] [address] Care Team Providers Care Alemite Operator Name Role Phone Tala Reyes MD Primary Care Provider [phone] Reason for Visit * Reason Comments Refill furosemide (LASIX) 2 0 MG tablet [Pharmacy Med Name: FUROSEMIDE 20MG TABLETS] Encounter Details Date Type Department Care Team (Late st Contact Info) Description 03/03/2024 Refill [facility] [address] [place] [address] Tala Reyes MD [address] [place] [address] Refill (furosemide (LASIX) 20 MG tablet [...] on 01/02/2024 K: 3.9 mEq/L on 01/02/2024 [facility] Embedded Refills, Reference: [id number], 03/03/2024 3:44:47 AM CDT, Pool: PN Refill Centralized Services - Primary Care [[id number]] ([id number]) * Lilliam Keith - 03/03/2024 3:44 AM [...] 11:40 AM CDT Appointment [facility] [address] [employer] [place] [phone] 06/11/2024 5:30 PM CDT Telemed[facility] [address] [facility] [place] [id number] Tala Reyes MD [address] [place] [phone] documented as of this encounter Visit Diagnoses Diagnosis Essential hypertension (HRC) Unspecified essential hypertension documented in this encounter Care Teams Alemite Operator Relationship Specialty Start Date End Date Tala Reyes MD [address] [place] [address] PCP - General Family Practice 05/22/17 documented as of this encounter
--- OUTSIDE RECORDS SUMMARY | 2024-04-15 11:20 | XMS_ITS | Encounter Summary ---
Author Organization [employer] Address [address] [place] [address] Care Team Providers Care Associate Professor Of Biblical Studies Name Role Phone Tala Reyes MD Primary Care Provider [phone] Reason for Visit * Reason Comments Refill furosemide (LASIX) 2 0 MG tablet [Pharmacy Med Name: FUROSEMIDE 20MG TABLETS] Encounter Details Date Type Department Care Team (Late st Contact Info) Description 01/02/2024 Refill [facility] [address] [place] [address] Tala Reyes MD 1884 [facility] [place] [address] Refill (furosemide (LASIX) 20 MG tablet [...] TALA REYES) Next scheduled visit: 03/05/2024 (with TLAA REYES) Cr: 1.8 mg/dL on 03/14/2023 Na: 142 mEq/L on 03/14/2023 K: 3.9 mEq/L on 03/14/2023 [facility] Embedded Refills, Reference: [id number], 01/02/2024 9:25:09 AM PAKOTBryson: JESSIE Refill Centralized Services - Primary Care [[id number]] ([id number]) * Lilliam Keith - 01/02/2024 9:25 AM [...] Info) Description 05/03/2024 11:40 AM CDT Appointment [facility] [address] [place] [address] 06/11/2024 5:30 PM CDT Telemedicine [facility] [address] [place] [address] Tala Reyes MD [address] [place] [address] documented as of this encounter Visit Diagnoses Diagnosis Essential hypertension (HRC) Unspecified essential hypertension documented in this encounter Care Teams Associate Professor Of Biblical Studies Relationship Specialty Start Date End Date Tala Reyes MD [address] [place] [address] PCP - General Family Practice 05/22/17 documented as of this encounter
--- OUTSIDE RECORDS SUMMARY | 2024-04-15 11:20 | XMS_ITS | Encounter Summary ---
Author Organization [facility] Address [address] [place] [address] Care Team Providers Care Forest Manager Name Role Phone Tala Thomason MD Primary Care Provider [phone] Reason for Visit * Reason Comments Refill sodium bicarbonate 6 50 MG tablet [Pharmacy Med Name: SODIUM BICARBONATE 10GR(650MG) TABS] Encounter Details Date Type Department Care Team (Late st Contact Info) Description 01/26/2024 Refill [facility] [address] [place], [place] [address] Mali Gunter, EYEDOTTER, CHIROPRACTIC PHYSICIAN [address] [facility] [address] [place], [place] [id number] Refill (sodium bicarbonate 650 MG tablet [Pharmacy [...] but equivalent) [employer] Embedded Refills, Reference: [id number], 01/26/2024 12:35:13 PM CDT, Pool: NEPH NURSING-PN ([id number]) documented in this encounter Plan of Treatment Upcoming Encounters Date Type Department Care Team (Late st Contact Info) Description 05/03/2024 11:40 AM CDT Appointment [facility] [address] [employer] [facility] [place] [id number] 06/11/2024 5:30 PM CDT [facility] [address] [employer] [place] [address] Tala Thomason MD formerly [facility] [place] [phone] documented as of this encounter Visit Diagnoses Not on filedocumented in this encounter Care Teams Forest Manager Relationship Specialty Start Date End Date Tala Thomason MD [address] [place], [place] [address] PCP - General Family Practice 05/22/17 documented as of this encounter
--- OUTSIDE RECORDS SUMMARY | 2024-04-15 11:20 | XMS_ITS | Encounter Summary ---
Author Organization [employer] Address [address] [place] [address] Care Team Providers Care Wood Tile Installation Helper Name Role Phone Tala Thomason MD Primary Care Provider [phone] Reason for Referral * Consult/Transfer Care (Routine) - New Request Specialty Diagnoses / Procedures Referred By Macie israel Referred To Contact Diagnoses Bowel and bladder incontinence Kayleigh Ambrose PA-C [address] [place] [address] Referral ID Status Reason Start Date Expiration Date V isits Requested Visits Authorized [id number] New Request 03/15/2024 06/14/2025 1 1 Scheduling Instructions Your clinician has recommended an appointment with [facility]. You can quickly make your appointment online at [email or web address]. You can also call [phone] for help scheduling your appointment. We suggest [...] CDT Office Visit [facility] [address] [place] [address] Kayleigh Ambrose PA-C [address] [place] [address] [place] [address] Medicare annual wellness visit, subsequent (Primary Dx); [...] was obtained in Sign Language by professional clothes designer. Review of Systems: Of note, patient has [...] 90 Tablet; Refill: 3 Patient managed by [facility] team. Additionally, her warfarin medication is [...] Cardiology to discuss possibly lowering dose of antihypertensive/beta-elonard. Kayleigh Ambrose PA-C 03/15/2024, 3:23 PM documented in this encounter Plan of Treatment Upcoming Encounters Date Type Department Care Team (Late st Contact Info) Description 05/03/2024 11:40 AM CDT Appointment [facility] [address] [place] [address] 06/11/2024 5:30 PM CDT [facility]medicine [facility] [address] [address] Tala Thomason MD [address] [place] [address] Scheduled Referrals Name Type Priority Associated Diagnoses Orde r Schedule Gastroenterology Consult-Adults Referral Routine Bowel and bladder incontinence Ordered: 03/15/2024 documented as of this encounter Results * Hgb A1C (03/15/2024 2:46 PM CDT) [facility] Hemoglobin A1C 5.5 <=5.6 % 03/16/2024 4:55 PM CDT [facility] Estimated Average Glucose (Calc) 111 < 117 mg/dL 03/16/2024 4:55 PM CDT [facility] Comment:Estimated average gl ucose (eAG) converts A1c into glucose units (mg/dL) and estimates average glucose over the past approximately 3 months. The eAG reference interval (<117 mg/dL) corresponds to an A1c of <5.7%. Blood Venipuncture / Unknown 03/15/2024 2:46 PM CDT 03/15/2024 2:53 PM CDT Kayleigh Ambrose PA-C LAB_1 Performing Organization Address City/[facility]/ZIP Co de Phone Number [facility] [address] * Uric Acid (03/15/2024 2:46 PM CDT) [facility] Uric Acid 5.2 2.6 - 6.0 mg/dL 03/15/2024 7:39 PM CDT [facility] Blood Venipuncture / Unknown 03/15/2024 2:46 PM CDT 03/15/2024 2:53 PM CDT Kayleigh Ambrose PA-C LAB_1 [facility] [address] [place] [address] * TSH (03/15/2024 2:46 PM CDT) [facility] TSH, Sensitive 0.37 0.30 - 4.50 uIU/mL 03/15/2024 8:22 PM CDT [facility] Blood Venipuncture / Unknown 03/15/2024 2:46 PM CDT 03/15/2024 2:53 PM CDT Kayleigh Ambrose PA-C LAB_1 [facility] [address] [place] [address], [facility] documented in this encounter Visit Diagnoses [...] incontinence documented in this encounter Care Teams Wood Tile Installation Helper Relationship Specialty Start Date End Date Tala Thomason MD [address] [place] [address] PCP - General Family Practice 05/22/17 documented as of this encounter
--- OUTSIDE RECORDS SUMMARY | 2024-04-15 11:20 | XMS_ITS | Encounter Summary ---
Author Organization [employer] Address [address] [place] [address] Care Team Providers Care Legal Transcriptionist Name Role Phone Tala Thomason MD Primary Care Provider [phone] Encounter Details Date Type Department Care Team (Late st Contact Info) Description 02/08/2024 11:50 AM CDT Lab Visit [facility] [address] [place] [address] [place] [phone] supervisor speech (current) use of anticoagulants; CKD (chronic kidney [...] Info) Description 05/03/2024 11:40 AM CDT Appointment [facility] [address] [place] [address] [place] [phone] 06/11/2024 5:30 PM CDT [facility] [address] [place] [address] [place] [address] Tala Thomason MD [address] [place] [address] documented as of this encounter Procedures Procedure Name Priority Date/Time Associated Diagnosis Comments TP/CREA RATIO, URINE Routine 02/09/2024 1:22 PM CDT CKD (chronic kidney disease) stage 4, GFR 15-29 ml/min (HRC) INR/PROTIME Routine 02/08/2024 11:37 AM CDT supervisor speech (current) use of anticoagulants documented in this encounter Results * TP/Crea Ratio, Urine (02/09/2024 1:22 PM CDT) TP/Creat Ratio, Urine Random 0.06 0.00 - 0.20 02/09/2024 8:05 PM CDT [facility] Total Protein, Urine, Random 2 0 - 14 mg/dL 02/09/2024 8:05 PM CDT [facility] Creatinine, Urine, Random 32 >20 mg/dL mg/dL 02/09/2024 8:05 PM CDT [facility] Urine Non-blood Collection / Unknown 02/09/2024 1:22 PM CDT 02/09/2024 1:22 PM CDT Narrative [facility] - 02/09/2024 8:05 PM CDT Low urine creatinine values coupled with low urine protein values can artifactually increase the urine protein/creatinine results. Correlate results of ratio with creatinine results. Shannon Gunter APRN, CNP LAB_1 [facility] [address] [place] [address], [facility] * (ABNORMAL) INR/Protime (02/08/2024 11:37 AM CDT) Protime 28.6(H) 11.8 - 14.6 Seconds 02/08/2024 2:17 PM CDT [facility] INR 2.6(H) 0.9 - 1.1 02/08/2024 2:17 PM CDT [facility] Blood Venipuncture / Unknown 02/08/2024 11:37 AM CDT 02/08/2024 11:37 AM CDT Narrative [facility] - 02/08/2024 2:17 PM CDT If you take an anticoagulant medicine called warfarin, your doctor or clinician may establish a normal range for you that is different from the baseline range shown. Tala Thomason MD LAB_1 [facility] [address] [place] [address], [facility] documented in this encounter Visit Diagnoses Diagnosis supervisor speech (current) use of anticoagulants Long-term (current) use of anticoagulants CKD (chronic kidney disease) stage 4, GFR 15-29 ml/min (HRC) Chronic kidney disease, Stage IV (severe) documented in this encounter Care Teams Legal Transcriptionist Relationship Specialty Start Date End Date Tala Thomason MD [address] [place] [address] PCP - General Family Practice 05/22/17 documented as of this encounter
--- OUTSIDE RECORDS SUMMARY | 2024-04-15 11:20 | XMS_ITS | Encounter Summary ---
Author Organization [employer] Address [address] [place] [address] Care Team Providers Care Brick Setter Operator Name Role Phone Tala Thomason MD Primary Care Provider [phone] Encounter Details Date Type Department Care Team (Late st Contact Info) Description 03/21/2024 11:40 AM CDT Lab Visit [facility] [address] [place], [place] [address] [phone] terminal computer operator (current) use of anticoagulants Social History Tobacco [...] 05/03/2024 11:40 AM CDT Appointment [facility] [address] [place], [place] [address] [phone] 06/11/2024 5:30 PM CDT [facility] [address] [place], [place] [address] [address] Tala Thomason MD [facility] [place] [address] [address] documented as of this encounter Procedures Procedure Name Priority Date/Time Associated Diagnosis Comments INR/PROTIME Routine 03/21/2024 11:24 AM CDT [facility] (current) use of anticoagulants documented in this encounter Results * (ABNORMAL) INR/Protime (03/21/2024 11:24 AM CDT) [facility] Protime 31.2(H) 11.8 - 14.6 Seconds 03/21/2024 3:41 PM CDT [facility] INR 2.9(H) 0.9 - 1.1 03/21/2024 3:41 PM CDT [facility] Blood Venipuncture / Unknown 03/21/2024 11:24 AM CDT 03/21/2024 11:24 AM CDT Narrative [facility] - 03/21/2024 3:41 PM CDT If you take an anticoagulant medicine called warfarin, your doctor or clinician may establish a normal range for you that is different from the baseline range shown. 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
--- OUTSIDE RECORDS SUMMARY | 2024-04-15 11:20 | XMS_ITS | Encounter Summary ---
Author Organization [facility] Address [address] [place] [address] Care Team Providers Care Branch Credit Counselor Name Role Phone Tala Thomason MD Primary Care Provider [phone] Reason for Visit * Reason Comments Anticoagulation: Warfarin Encounter Details Date Type Department Care Team (Latest Contact Info) Description 02/08/2024 Anticoagulation PN Anticoagulation Centralized Services [address] [place] [address], [address] [place], [place] [address] Chronic atrial fibrillation (HRC) (Primary Dx); Monitoring [...] Info) Description 05/03/2024 11:40 AM CDT Appointment [facility] [address] [place] [phone] 06/11/2024 5:30 PM CDT Tele[facility] [address] [place] [address] Tala Thomason MD [address] [place] [address] documented as of this encounter Results * AST (03/15/2024 2:46 PM CDT) AST (SGOT) 24 10 - 40 U/L 03/15/2024 7:39 PM CDT [facility] Blood Venipuncture / Unknown 03/15/2024 2:46 PM CDT 03/15/2024 2:53 PM CDT Tala Thomason MD LAB_1 [facility] [address] [place] [address] documented in this encounter Visit Diagnoses Diagnosis Chronic atrial fibrillation (HRC)- Primary Atrial fibrillation Monitoring for long-term anticoagulant use Encounter for long-term (current) use of anticoagulants documented in this encounter Care Teams Branch Credit Counselor Relationship Specialty Start Date End Date Tala Thomason MD [address] [place] [address] [address] PCP - General Family Practice 05/22/17 documented as of this encounter
--- OUTSIDE RECORDS SUMMARY | 2024-04-15 11:20 | XMS_ITS | Encounter Summary ---
Author Organization [employer] Address [address] [place] [address] Care Team Providers Care Soda Worker Name Role Phone Tala Thomason MD Primary Care Provider [phone] Reason for Visit * Reason Comments Refill Encounter Details Date Type Department Care Team (Late st Contact Info) Description 04/13/2016 Refill Nephrology at [facility] [place] [address] [place] [id number] [place] [address] [place], [place] [address] [place], [place] [address] Refill Social History Tobacco Use Types Packs/Day [...] protocol. Patient needs appt. before further refills. N CONTROLLER * Carissa Dupree - 04/13/2016 3:39 PM CDT Last visit: 03/06/15 Future visit: None Last fill: 01/14/16 N CONTROLLER documented in this encounter Plan of Treatment Upcoming Encounters Date Type Department Care Team (Late st Contact Info) Description 05/03/2024 11:40 AM CDT Appointment [facility] [address] [facility] [place] [address] 06/11/2024 5:30 PM CDT [facility] [address] [phone] Tala Thomason MD [address] [place] [address] documented as of this encounter Visit Diagnoses Not on filedocumented in this encounter Care Teams Soda Worker Relationship Specialty Start Date End Date Tala Thomason MD [address] [phone] PCP - General Family Practice 05/22/17 documented as of this encounter
--- OUTSIDE RECORDS SUMMARY | 2024-04-15 11:20 | XMS_ITS | Encounter Summary ---
Author Organization [facility] Address [address] [place] [address] Care Team Providers Care Monotype Caster Name Role Phone Tala Reyes MD Primary Care Provider [phone] Reason for Visit * Reason Comments Refill levothyroxine (SYNTH ROID) 100 MCG tablet [Pharmacy Med Name: LEVOTHYROXINE 0.100MG (100MCG) TAB] Encounter Details Date Type Department Care Team (Late st Contact Info) Description 02/19/2024 Refill [facility] [place] [address] Tala Reyes MD [address] [place] [address] [place] [phone] Refill (levothyroxine (SYNTHROID) 100 MCG tablet [Pharmacy [...] TALA REYES) TSH: 1.86 mIU/L on 03/14/2023 [facility] Embedded Refills, Reference: [id number], 02/19/2024 8:45:19 AM CDT, Sarah ROMAN Refill [facility] - Primary Care [[id number]] ([id number]) * Lilliam Keith - 02/19/2024 8:45 AM [...] 11:40 AM CDT Appointment [facility] [address] [place] [address] 06/11/2024 5:30 PM CDT Telemedicine [facility] [address] [place] [address] Tala Reyes MD [address] [phone] documented as of this encounter Visit Diagnoses Diagnosis Hypothyroidism, unspecified type (HRC) documented in this encounter Care Teams Monotype Caster Relationship Specialty Start Date End Date Tala Reyes MD [address] [phone] PCP - General Family Practice 05/22/17 documented as of this encounter
--- OUTSIDE RECORDS SUMMARY | 2024-04-15 11:20 | XMS_ITS | Encounter Summary ---
Author Organization [employer] Address [address] [place] [address] Care Team Providers Care Supply Technician Name Role Phone Tala Thomason MD Primary Care Provider [phone] Encounter Details Date Type Department Care Team (Late st Contact Info) Description 03/15/2024 3:20 PM CDT Lab Visit [facility] [address] [place] [address] [place] [address] Chronic atrial fibrillation (HRC); Monitoring for long-term [...] 05/03/2024 11:40 AM CDT Appointment [facility] [address] [place] [address] [place] [phone] 06/11/2024 5:30 PM CDT Telemedicine [facility] [address] [place] [address] [place] [address] Tala Thomason MD [address] [place] [address] documented as of this encounter Procedures Procedure [...] 5.5 <=5.6 % 03/16/2024 4:55 PM CDT [facility] Estimated Average Glucose (Calc) 111 < 117 mg/dL 03/16/2024 4:55 PM CDT [facility] Comment:Estimated average gl ucose (eAG) converts A1c into glucose units (mg/dL) and estimates average glucose over the past approximately 3 months. The eAG reference interval (<117 mg/dL) corresponds to an A1c of <5.7%. Blood Venipuncture / Unknown 03/15/2024 2:46 PM CDT 03/15/2024 2:53 PM CDT Kayleigh Ambrose PA-C LAB_1 [facility] [address] [address], [facility] * Uric Acid (03/15/2024 2:46 PM CDT) Uric Acid 5.2 2.6 - 6.0 mg/dL 03/15/2024 7:39 PM CDT [facility] Blood Venipuncture / Unknown 03/15/2024 2:46 PM CDT 03/15/2024 2:53 PM CDT Kayleigh Ambrose PA-C LAB_1 Performing Organization Address [facility] de Phone Number [facility] [address] [place] [address] * TSH (03/15/2024 2:46 PM CDT) TSH, Sensitive 0.37 0.30 - 4.50 uIU/mL 03/15/2024 8:22 PM CDT [facility] Blood Venipuncture / Unknown 03/15/2024 2:46 PM CDT 03/15/2024 2:53 PM CDT Kayleigh Ambrose PA-C LAB_1 Performing Organization Address [facility] Phone Number [facility] [address] * AST (03/15/2024 2:46 PM CDT) AST (SGOT) 24 10 - 40 U/L 03/15/2024 7:39 PM CDT [facility] Blood Venipuncture / Unknown 03/15/2024 2:46 PM CDT 03/15/2024 2:53 PM CDT Tala Thomason MD LAB_1 Performing Organization Address [facility] de Phone Number [facility] [address] [place] [address] documented in this encounter Visit Diagnoses Diagnosis Chronic atrial fibrillation (HRC) Atrial fibrillation Monitoring for long-term anticoagulant use Encounter for long-term (current) use of anticoagulants Medicare annual wellness visit, subsequent Routine general medical examination at a health care facility documented in this encounter Care Teams Supply Technician Relationship Specialty Start Date End Date Tala Thomason MD [address] [place] [address] PCP - General Family Practice 05/22/17 documented as of this encounter
--- OUTSIDE RECORDS SUMMARY | 2024-04-15 11:20 | XMS_ITS | Encounter Summary ---
Author Organization [employer] Address [address] [place] [address] Care Team Providers Care Conveyor Feeder Name Role Phone Tala Reyes MD Primary Care Provider [phone] Reason for Visit * Reason Comments Refill FLUoxetine (PROZAC) 20 MG capsule [Pharmacy Med Name: FLUOXETINE 20MG CAPSULES] Encounter Details Date Type Department Care Team (Late st Contact Info) Description 01/06/2024 Refill [facility] [address] [place] [address] Tala Reyes MD [address] [place] [address] Refill (FLUoxetine (PROZAC) 20 MG capsule [...] Age: 78 [facility] [employer] Embedded Refills, Reference: [id number], 01/06/2024 10:30:24 AM CDT, Sarah ROMAN Refill [facility]ized Services - Primary Care [[id number]] ([id number]) documented in this encounter Plan of Treatment Upcoming Encounters Date Type Department Care Team (Late st Contact Info) Description 05/03/2024 11:40 AM CDT Appointment [facility] [address] [place], [place] [address]za [facility] [place] [place] [phone] 06/11/2024 5:30 PM CDT [facility] [address] [place] [address] Tala Reyes MD [address] [place] [place] [place] [address] documented as of this encounter Visit Diagnoses Diagnosis 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
--- OUTSIDE RECORDS SUMMARY | 2024-04-15 11:20 | XMS_ITS | Encounter Summary ---
Author Organization [employer] Address [address] [place] [address] Care Team Providers Care Portfolio Analyst Name Role Phone Tala Thomason MD Primary Care Provider [phone] Reason for Referral * Consult/Transfer Care (Routine) - Incomplete Specialty Diagnoses / Procedures Referred By Contbennie t Referred To Contact Diagnoses Monitoring for long-term anticoagulant use Tala Thomason MD [address] [place] [address] Referral ID Status Reason Start Date Expiration Date V isits Requested Visits Authorized [id number] Incomplete 04/09/2024 07/09/2025 1 1 Scheduling Instructions [...] 04/09/2024 Notes/Orders PN Anticoagulation Centralized Services [address] [facility] [address] [place] [address] Tala Thomason MD [address] [place] [address] Monitoring for long-term anticoagulant use Social History [...] 11:40 AM CDT Appointment [facility] [address] [place] [address] 06/11/2024 5:30 PM CDT [facility]medicine [facility] [place] [address] Tala Thomason MD [address] [place] [place] [address] Scheduled Orders Name Type Priority Associated Diagnoses Orde r Schedule INR/Protime Lab Routine Monitoring for long-term anticoagulant use PRN for 99 Occurrences starting 04/09/2024 until 04/09/2025 documented as of this encounter Visit Diagnoses Diagnosis Monitoring for long-term anticoagulant use Encounter for long-term (current) use of anticoagulants documented in this encounter Care Teams Portfolio Analyst Relationship Specialty Start Date End Date Tala Thomason MD [address] [place] [address] [address] PCP - General Family Practice 05/22/17 documented as of this encounter
--- OUTSIDE RECORDS SUMMARY | 2024-04-15 11:20 | XMS_ITS | Encounter Summary ---
Author Organization [place] Address [address] [place] [address] Care Team Providers Care Supervisor Particleboard Name Role Phone Tala Thomason MD Primary Care Provider [phone] Reason for Visit * Reason Comments Refill metoprolol succinate (TOPROL XL) 25 MG 24 hour release tablet [Pharmacy Med Name: METOPROLOL ER SUCCINATE 25MG TABS] Encounter Details Date Type Department Care Team (Late st Contact Info) Description 03/26/2024 Refill [facility] [place] [id number] Tala Thomason MD [address] [place] [address] [place] [id number] Refill (metoprolol succinate (TOPROL XL) 25 MG [...] visit: None [facility] Embedded Refills, Reference: [id number], 03/26/2024 3:45:17 AM CDT, Sarah Leavitt Centralized Services - Primary Care [[id number]] ([id number]) documented in this encounter Plan of Treatment Upcoming Encounters Date Type Department Care Team (Late st Contact Info) Description 05/03/2024 11:40 AM CDT Appointment [facility] [address] [place] [address] 06/11/2024 5:30 PM CDT Telemedicine [facility] [address] [place] [address] Tala Thomason MD [address] [id number] documented as of this encounter Visit Diagnoses Diagnosis Essential hypertension (HRC) Unspecified essential hypertension documented in this encounter Care Teams Supervisor Particleboard Relationship Specialty Start Date End Date Tala Thomason MD [address] [place] [address] PCP - General Family Practice 05/22/17 documented as of this encounter
[2024-04-15 11:42] LABS: SARS PCR* Negative SARS-CoV-2 (Negative)
[2024-04-15 12:18] VITALS: BP 141/62; PULSE 70; RESP 20; TEMP 36.2
== END 2024-04-15 12:20 | disposition home or self-care (01) ==
PROVIDERS: Emergency Provider Family Medicine
DX: R10.9 Unspecified abdominal pain (principal); R11.10 Vomiting, unspecified; R19.7 Diarrhea, unspecified
CPT/HCPCS: 87635; 99283; 99284; A9270

== ENCOUNTER 2024-12-02 16:58 | Outpatient (CLI) | payer MEDICARE, SELFPAY | END 2024-12-02 16:59 | disposition home or self-care (01) | LOC: AMB 12-04 09:50 | PROVIDERS: Visit Provider Student in an Organized Health Care Education/Training Program | DX: R06.09 Other forms of dyspnea (principal) | CPT/HCPCS: A0425; A0427 ==

== ENCOUNTER 2024-12-02 17:47 | Inpatient (IN) | payer MEDICARE, SELFPAY ==
[2024-12-02] VITALS (23 sets, daily range): BP systolic 131–161; BP diastolic 68–87; PULSE 80–98; RESP 18–37; TEMP 37.4–38.7; O2SAT 90–98; BMI 34.0; BMI 32.6
--- OUTSIDE RECORDS SUMMARY | 2024-12-02 17:49 | XMS_ITS | Encounter Summary ---
Author Organization [place] Address [address] [place] [address]. [place] [address] Care Team Providers Care Pmo Manager Name Role Phone Enedelia Wilkins MD Primary Care Provid er Santo Crump MD Unavailable [phone] Linh Fontanez APRN, CNP Unavailable [phone] Paddy COLLINS MD, Tala Lang Primary Care Provider Santo Crump MD Unavailable [phone] Santo Crump MD Unavailable [phone] Encounter Details Date Type Department Care Team (Late st Contact Info) Description 03/31/[address] [place] [address] Enedelia Wilkins MD [address] [place] [address] ER (Primary Dx) Social History Tobacco Use Types Packs/Day Years Used Date Smoking Tobacco: Never Smokeless Tobacco: Never Alcohol Use Standard Drinks/Week Comments Not Currently 0 (1 standard drink = 0.6 oz pur e alcohol) beer occ Comments No Sex and Gender Information Value Date Recorded Sex Assigned at Not on file Legal Sex 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 TECHNICAL PROJECT COORDINATOR Gender Identity Not on file Sexual Orientation Not on file documented as of this encounter Progress Notes * 03/31/2003 11:59 PM CDTAddended by: ARMOND DELEON on: 04/07/2003,4:13 PM Modules accepted: Progress Notes 00 :00 Emergency Department Encounter-JOSÉ MIGUEL CLEMENTS) [Entered: 00:00 Transcrip tion ([facility])] : 47 CHIEF COMPLAINT: Hip pain. 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 ASSESSMENT: 1. Left hip pain, left sciatica and muscle spasms. PLAN: The patient will follow-up with Dr. Wilkins in 24-72 hours. Percocet 1-2 tabs q4-6h. Motrin over the counter as prescribed, Robaxin 1000 mg q8h for muscl e spasms. Return if severe pain, unable to walk or worsening symptoms. [id number]_ JOSÉ MIGUEL DICK MD MT: Document: [id number] [place], [place] Name: ANTOINE TIPTON EMERGENCY ROOM ENCOUNTER Page 2 of 2 LCN: ERB DSC: 03/31/2003 [place], [place] Name: MR#: : Admit Date: DON TIPTON 2044-09-08-24 1945 03/31/2003 Doctor: JOSÉ MIGUEL DICK MD EMERGENCY ROOM ENCOUNTER Page 1 of 2 Electronically filed by Armond Deleon 04/07/2003 4:12 PM documented in this encounter Plan of Treatment Not on file documented as of this encounter Visit Diagnoses Diagnosis ER- Primary documented in this encounter Care Teams Pmo Manager Relationship Specialty Start Date End Date Enedelia Wilkins MD [address] [place] [address] PCP - General 10/23/02 10/21/21 Tala Thomason MD, [address] [place] [id number] PCP - General Family Medicine 10/22/21 Santo Crump MD [address] [place] [address] Assigned Heart and Vascular Provider 06/12/20 10/02/21 Linh Fontanez APRN COUNTER TENDER [address] [place] [address] Assigned Heart and Vascular Provider 10/03/21 04/28/23 Santo Crump MD [address] [place] [address] Cardiovascular Disease 10/24/22 Santo Crump MD [address] [place] [address] Assigned Heart and Vascular Provider 05/06/23 11/09/24 documented as of this encounter
--- OUTSIDE RECORDS SUMMARY | 2024-12-02 17:49 | XMS_ITS | Encounter Summary ---
Author Organization [facility] Address [address] [place] [address] Care Team Providers Care Billet Assembler Name Role Phone Tala Thomason MD Primary Care Provider [phone] Reason for Visit * Reason Comments Refill Encounter Details Date Type Department Care Team (Late st Contact Info) Description 04/13/2016 [address]ill [address] [facility] [place] [address] [place] [address] Isabel Paulino MD [address] [place] [address] [address] [place], [place] [address] Refill Social History Tobacco Use Types Packs/Day Years Used Date Smoking Tobacco: Never Smokeless Tobacco: Never Alcohol Use Standard Drinks/Week Comments No 0 (1 standard drink = 0.6 oz pur e alcohol) Comments No Sex and Gender Information Value Date Recorded Sex Assigned at Not on file Legal Sex Female 8:16 PM CDT Gender Identity Not on file Sexual Orientation Not on file Occupation Industry Job Start Date Job End Date Not on file Not on file Not on file Not on file documented as of this encounter Nursing Notes * Mary Alice Gunter RN - 04/13/2016 3:42 PM CDT Medication refilled per refill protocol. Patient needs appt. before further refills. GER STAR * Carissa Dupree - 04/13/2016 3:39 PM CDT Last visit: 03/06/15 Future visit: None Last fill: 01/14/16 GER STAR documented in this encounter Plan of Treatment Upcoming Encounters Date Type Department Care Team (Late st Contact Info) Description 12/17/2024 2:30 PM CDT Appointment [facility] [address] [place] [address] 01/06/2025 1:10 PM CDT Appointment [facility] [address] [place] [address] 01/30/2025 1:30 PM CDT Appointment [facility] [address] [place] [address] Shannon Gunter, MOLDING ASSOCIATE, CAR ESCORT [address] [facility] [address] [place] [address] 02/07/2025 1:30 PM CDT Appointment [facility] C [facility] [address] Urology [address] [place] [phone] Betina Prather PA-C [address] [place] [address] 03/17/2025 1:30 PM CDT Appointment [facility] [address] [place] [id number] Tala Thomason MD [address] [id number] 04/01/2025 12:00 PM CDT Appointment [facility] [address] [place] [address] Tala Thomason MD [address] [id number] documented as of this encounter Visit Diagnoses Not on filedocumented in this encounter Care Teams Billet Assembler Relationship Specialty Start Date End Date Tala Thomason MD [address] [id number] PCP - General Family Practice 05/22/17 documented as of this encounter
--- OUTSIDE RECORDS SUMMARY | 2024-12-02 17:49 | XMS_ITS | Clinical Summary ---
Author Organization [facility] Address [address] [place] [address] Care Team Providers Care Home Maker Name Role Phone Pcp, No Primary Care Provider Unavailabl e Allergies Active Allergy Reactions Criticality Noted Date Comments Codeine Nausea And Vomiting 05/20/2017 Lisinopril Cough 05/20/2017 Medications FLUoxetine (PROZAC) 20 mg capsule Take 20 mg by mouth every morning. 0 7 Active valsartan (DIOVAN) 320 mg tablet Take 320 mg by mouth once daily. 7 Active levothyroxine (SYNTHROID) 112 mcg tablet Take 112 mcg by mouth before breakfast. Active nystatin powder (MYCOSTATIN) powderIndications :Rash Apply topically to affected area(s) of skin folds 2 times daily. 15 g 05/22/2017 9:34 AM CDT 7 Active cloNIDine HCl (CATAPRES) 0.1 mg tabletIndications :HTN (hypertension) Take 1 tablet by mouth 2 times daily. 60 tablet 7 Active carvedilol (COREG) 25 mg tabletIndications :HTN (hypertension) Take 1 tablet by mouth 2 times daily with meals. 60 tablet 05/22/2017 12:46 PM CDT 7 Active amLODIPine (NORVASC) 10 mg tabletIndications :HTN (hypertension) Take 1 tablet by mouth once daily. 30 tablet 05/22/2017 12:46 PM CDT 7 Active probenecid (BENEMID) 500 mg tabletIndications :Gout, unspecified cause, unspecified chronicity, unspecified site Take 1 tablet by mouth 2 times daily. 0 7 Active warfarin (COUMADIN) 4 mg tabletIndications :Atrial fibrillation with slow ventricular response (HC) Take 1 tablet by mouth once daily. 30 tablet 3 05/22/2017 1:43 PM CDT 7 Active Active Problems Problem Noted Date Diagnosed [...] 0.6 oz pur e alcohol) Infrequent use Comments No Sex and Gender Information Value Date Recorded Sex Assigned at Not on file Legal Sex Female 10:42 AM CDT Gender Identity Not on file Sexual Orientation Not on file Obstetrics History Last Filed Vital Signs Vital Sign Reading Time Taken Comments Blood Pressure 140/62 05/22/2017 8:53 AM CDT Pulse 81 05/22/2017 8:53 AM CDT Temperature 36.9 C (98.4 F) 05/22/2017 8:53 AM CDT Respiratory Rate 16 05/22/2017 8:53 AM CDT [...] for age 18-79 1964 Tetanus booster 1966 Pneumococcal series for age 50+ (1 of 1 - PCV) 1996 Zoster (shingles) series for age 50+ (1 of 2) 1996 DEXA/DXA scan for age 65+ 2011 RSV vaccine for adults or pr egnancy (1 - 1-dose 75+ series) 2021 COVID-19 vaccine series (3 - season) 2024 04/30/2021, 04/02/2021 Influenza Vaccine (Season Ended) 2025 Insurance C/O [facility] [address] [place] [address] MEDICARE PART A HB ONLY MEDICARE PB ONLY MEDICARE PART B HB ONLY Advance Directives * Full Code (Latest Code Status on File) Date Activated Date Inactivated Comments 05/20/2017 5:38 PM 05/22/2017 9:15 PM Care Teams Home Maker Relationship Specialty Start Date End Date Pcp, No . PCP - General 05/20/17
--- OUTSIDE RECORDS SUMMARY | 2024-12-02 17:50 | XMS_ITS | Encounter Summary ---
Author Organization [facility] Address [address] [place] [address] Care Team Providers Care Manager Business Systems Name Role Phone Tala Thomason MD Primary Care Provider [phone] Reason for Visit * Reason Comments Anticoagulation: Warfarin Encounter Details Date Type Department Care Team (Latest Contact Info) Description 11/22/2024 Anticoagulation PN Anticoagulation Centralized Services [id number] [address] [facility], [address] [place], [place] [address] Chronic atrial fibrillation (HRC) (Primary Dx); Monitoring for long-term anticoagulant use Social History Tobacco Use Types Packs/Day Years Used Date Smoking Tobacco: Never Smokeless Tobacco: Never Alcohol Use Standard Drinks/Week Comments Not Currently 0 (1 standard drink = 0.6 oz pur e alcohol) rare- beer PHQ-2 Answer Date Recorded PHQ-2 Score 0 06/11/2024 Comments No Sex and Gender Information Value [...] Info) Description 12/17/2024 2:30 PM CDT Appointment [facility] [address] [place] [address] 01/06/2025 1:10 PM CDT Appointment [facility] [address] [facility] [place] [address] 01/30/2025 1:30 PM CDT Appointment [facility] [address] [place] [address] Shannon Gunter, CARRIER LOADER, BUSINESS OFFICE DIRECTOR [address] [facility] [address] [place] [address] 02/07/2025 1:30 PM CDT Appointment [facility] C [facility] [address] Urology [address] [place] [phone] Betina Prather PAAndrew [address] [place] [address] 03/17/2025 1:30 PM CDT Appointment [facility] [address] [facility] [place] [address] Tala Thomason MD [address] [place] [id number] 04/01/2025 12:00 PM CDT Appointment [facility] [address] [place] [address] Tala Thomason MD [address] [place] [id number] documented as of this encounter Visit Diagnoses Diagnosis Chronic atrial fibrillation (HRC)- Primary Atrial fibrillation Monitoring for long-term anticoagulant use Encounter for long-term (current) use of anticoagulants documented in this encounter Care Teams Manager Business Systems Relationship Specialty Start Date End Date Tala Thomason MD [address] [id number] PCP - General Family Practice 05/22/17 documented as of this encounter
--- OUTSIDE RECORDS SUMMARY | 2024-12-02 17:50 | XMS_ITS | Encounter Summary ---
Author Organization [place] Address [address] [facility] [place] [address] Care Team Providers Care Concrete Paving Supervisor Name Role Phone Enedelia Wilkins MD Primary Care Provid er Santo Crump MD Unavailable [phone] Linh Fontanez APRN, CNP Unavailable [phone] Paddy COLLINS MD, Tala Lang Primary Care Provider Santo Crump MD Unavailable [phone] Santo Crump MD Unavailable [phone] Encounter Details Date Type Department Care Team (Late st Contact Info) Description 06/22/2021 MyC Medical Advice [facility] [address] [place] [address] [address] [place] [address] Santo Crump MD [address] [facility] [address] [place], [place] [address] Social History Tobacco Use Types Packs/Day Years Used Date Smoking Tobacco: Never Smokeless Tobacco: Never Alcohol Use Standard Drinks/Week Comments Yes 0 (1 standard drink = 0.6 oz pur e alcohol) beer occ Comments No Sex and Gender Information Value Date Recorded Sex Assigned at Not on file Legal Sex 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 CASINO INVESTIGATOR Gender Identity Not on file Sexual Orientation [...] on filedocumented in this encounter Care Teams Concrete Paving Supervisor Relationship Specialty Start Date End Date Enedelia Wilkins MD [address] [place] [address] PCP - General 10/23/02 10/21/21 Tala Thomason MD, [address] [place], [place] [id number] PCP - General Family Medicine 10/22/21 Snato Crump MD [address] [place] [address] Assigned Heart and Vascular Provider 06/12/20 10/02/21 Linh Fontanez APRN TOUCH UP EDGER [address] [place] [address] Assigned Heart and Vascular Provider 10/03/21 04/28/23 Santo Crump MD [address] [place] [address] Cardiovascular Disease 10/24/22 Santo Crump MD [address] [place] [address] Assigned Heart and Vascular Provider 05/06/23 11/09/24 documented as of this encounter
--- OUTSIDE RECORDS SUMMARY | 2024-12-02 17:50 | XMS_ITS | Encounter Summary ---
Author Organization [facility] Address [address] [place] [address] Care Team Providers Care Machine Cloth Examiner Name Role Phone Tala Thomason MD Primary Care Provider [phone] Encounter Details Date Type Department Care Team (Late st Contact Info) Description 11/27/2024 Results Follow-Up [facility] at [facility] [address] [address] Daniela Davis, BABY NURSE, OCCUPATIONAL THERAPY SPECIALIST [address] [facility] [address] [place], [place] [id number] Social History Tobacco Use Types Packs/Day Years [...] Info) Description 12/17/2024 2:30 PM CDT Appointment [facility] [address] [place] [address] 01/06/2025 1:10 PM CDT Appointment [facility] [address] [place], [place] [id number] 01/30/2025 1:30 PM CDT Appointment [facility] [address] [place] [address] Shannon Gunter, PEDRO, OCCUPATIONAL THERAPY SPECIALIST [address] [facility] [address] [place], [place] [address] 02/07/2025 1:30 PM CDT Appointment Maria C [facility]este [facility] [address] [address]rology [address] [place] [phone] Betina Prather PA-C [address] [place] [address] 03/17/2025 1:30 PM CDT Appointment [facility] [address] [facility] [place], [place] [id number] Tala Thomason MD [address] [place] [id number] 04/01/2025 12:00 PM CDT Appointment [facility] [address] [place] [address] Tala Thomason MD [address] [id number] documented as of this encounter Visit Diagnoses Not on filedocumented in this encounter Care Teams Machine Cloth Examiner Relationship Specialty Start Date End Date Tala Thomason MD [address] [id number] PCP - General Family Practice 05/22/17 documented as of this encounter
--- OUTSIDE RECORDS SUMMARY | 2024-12-02 17:50 | XMS_ITS | Encounter Summary ---
Author Organization [facility] Address [address] [place] [address] Care Team Providers Care Java Designer Name Role Phone Tala Thomason MD Primary Care Provider [phone] Reason for Visit * Procedure/Equipment (Routine) - Incomplete Specialty Diagnoses / Procedures Referred By Macie israel Referred To Contact Diagnoses Incontinence of feces, unspecified fecal incontinence type Procedures XR Abd Flat/KUB 1 View XR Abd Flat And Upright Daniela Davis APRN, FLIGHT PHYSICIAN [address] [place] [address] Phone: tel: fax: Referral ID Status Reason Start Date Expiration Date V isits Requested Visits Authorized [id number] Incomplete 11/26/2024 02/25/2026 1 1 Encounter Details Date Type Department Care Team (Late st Contact Info) Description 11/26/2024 10:30 AM CDT Ancillary Procedure [facility] [address] [place] [address] Daniela Davis APRN, FLIGHT PHYSICIAN [address] [place], [place] [id number] Incontinence of feces, unspecified fecal incontinence type Social History Tobacco Use Types Packs/Day Years [...] Info) Description 12/17/2024 2:30 PM CDT Appointment [facility] [address] [place] [address] 01/06/2025 1:10 PM CDT Appointment [facility] [address] [place] [address] 01/30/2025 1:30 PM CDT Appointment [facility] [address] [place] [address] Shannon Gunter, MAINTENANCE WORKER HOUSE TRAILER, FLIGHT PHYSICIAN [address] [facility] [address] [place] [address] 02/07/2025 1:30 PM CDT Appointment [facility] C [facility] [address] Urology [address] [place] [phone] Betina Prather PA-C [address] [place] [address] 03/17/2025 1:30 PM CDT Appointment [facility] [address] [place] [place] [address] Tala Thomason MD [address] [place] [address] 04/01/2025 12:00 PM CDT Appointment [facility] [address] [facility] [place] [address] Tala Thomason MD [address] [address] documented as of this encounter Procedures Procedure Name Priority Date/Time Associated Diagnosis Comments XR ABD FLAT/KUB 1 VIEW Routine 11/26/2024 10:39 AM CDT Incontinence of feces, unspecified fecal incontinence type documented in this encounter Results * XR Abd Flat/KUB 1 View (11/26/2024 10:39 AM CDT) Anatomical Region Laterality Modality Abdomen Digital Radiogra phy 11/26/2024 10:2 7 AM CDT Narrative 11/26/2024 11:53 AM CDT COMPARISON: January 18, 2022 FINDINGS: Abdominal gas pattern is unremarkable. No suspicious calcifications are identified. No gross free intraperitoneal gas is seen. There are no abnormal air-fluid levels. Stool present in the transverse colon. Procedure Note Itz Silver MD - 11/26/2024 COMPARISON: January 18, 2022 FINDINGS: Abdominal gas pattern is unremarkable. No suspiciouscalcifications are identified. No gross free intraperitoneal gas is seen.There are no abnormal air- fluid levels. Stool present in the transversecolon. us Daniela Davis MAINTENANCE WORKER HOUSE TRAILER, FLIGHT PHYSICIAN RAD GD Gale l Result documented in this encounter Visit Diagnoses Diagnosis Incontinence of feces, unspecified fecal incontinence type documented in this encounter Care Teams Java Designer Relationship Specialty Start Date End Date Tala Thomason MD [address] [place] [address] [address] PCP - General Family Practice 05/22/17 documented as of this encounter
--- OUTSIDE RECORDS SUMMARY | 2024-12-02 17:50 | XMS_ITS | Encounter Summary ---
Author Organization [facility] Address [address] [place] [address] Care Team Providers Care Pediatric Cardiologist Name Role Phone Tala Thomason MD Primary Care Provider [phone] Reason for Referral * Medication Prior Authorization - Closed Specialty Diagnoses / Procedures Referred By Contbennie t Referred To Contact Diagnoses Urinary incontinence, unspecified type OAB (overactive bladder) Urinary urgency Betina Prather PA-C [address] [place] [address] Phone: tel: fax: Referral ID Status Reason Start Date Expiration Date Visits Re quested Visits Authorized [id number] Closed 1 1 Reason for Visit * Reason Comments Med Request Encounter Details Date Type Department Care Team (Late st Contact Info) Description 10/30/2024 Telephone [facility] [address] [facility]rology [address] [place] [address] Betina Prather PA-C [address] [place] [address] Med Request Social History Tobacco Use Types Packs/Day Years [...] as of this encounter Nursing Notes * Selam Patterson RN - 11/11/2024 10:41 AM CDT Detailed message left for patient with the help of a educational sign language interpreter. Provided my call back number in case of questions or for an update in 1 month. * Betina Prather PA-C - 11/07/2024 4:19 PM CDT Urology Note: Bar Gee, thanks for the scoop. I sent in a Rx for Myrbetriq 50 mg daily. Sylvia should stop Gemtesawhile on Myrbetriq. Please encourage Sylvia to intermittently check her blood pressure; if the systolic is elevated she should stop Myrbetriq and let us know as we would hopefully then be able to getthe Gemtesa covered/affordable. Thanks! Anna Prather PA-C Department of Urologic Surgery * Selam Patterson RN - 11/07/2024 2:14 PM CDT Fax received from [email or web address] [facility] letting us know that the request for tier exception for Gemtesa has beendenied because pt must first try all covered brand drugs used to treat your condition in the lower tier 3. The tier 3 drugs are Myrbetriq. Routing to HAN Caceres. * Selam Patterson RN - 11/05/2024 9:23 AM CDT Tier exception request submitted. PA #: [id number]. * Selam Patterson RN - 10/30/2024 2:02 PM CDT Pt calls in and leaves a message stating that she things the medication she was given is helping and she would like a prescription sent in and for us to reach out to her insurance. Pt seen on 10/11/2024 with plans to try Gemtesa. 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 Prescription sent. documented in this encounter Plan of Treatment Upcoming Encounters Date Type Department Care Team (Late st Contact Info) Description 12/17/2024 2:30 PM CDT Appointment [facility] [address] [place] [address] 01/06/2025 1:10 PM CDT Appointment [facility] [address] [place] [address] 01/30/2025 1:30 PM CDT Appointment [facility] [address] [place] [address] Shannon Gunter, NEUROPHYSIOLOGICAL TECHNICIAN, CLIENT SOLUTIONS SPECIALIST [address] [address] 02/07/2025 1:30 PM CDT Appointment [facility] [address] [facility]rology [address] [place] [phone] Betina Prather PA-C [address] [place] [address] 03/17/2025 1:30 PM CDT Appointment [facility] [address] [facility] [place] [id number] Tala Thomason MD [address] [id number] 04/01/2025 12:00 PM CDT Appointment [facility] [address] [place] [address] Tala Thomason MD [address] [place] [id number] documented as of this encounter Visit Diagnoses Diagnosis Urinary incontinence, unspecified type- Primary OAB (overactive bladder) Hypertonicity of bladder Urinary urgency Urgency of urination documented in this encounter Care Teams Pediatric Cardiologist Relationship Specialty Start Date End Date Tala Thomason MD [address] [id number] PCP - General Family Practice 05/22/17 documented as of this encounter
--- OUTSIDE RECORDS SUMMARY | 2024-12-02 17:50 | XMS_ITS | Encounter Summary ---
Author Organization [facility] Address [address] [place] [address] Care Team Providers Care Seasonal Package Handler Name Role Phone Tala Thomason MD Primary Care Provider [phone] Encounter Details Date Type Department Care Team (Late st Contact Info) Description 11/22/2024 1:10 PM CDT Lab Visit [facility] [address] [place] [address] Monitoring for long-term anticoagulant use Social History [...] Info) Description 12/17/2024 2:30 PM CDT Appointment [facility] [address] [place] [address] 01/06/2025 1:10 PM CDT Appointment [facility] [address] [place] [address] 01/30/2025 1:30 PM CDT Appointment [facility] [address] [place] [address] Shannon Gunter, MANUFACTURING SALES REPRESENTATIVE, EXAMINER OF CURRENCY [address] [facility] [address] [place], [place] [address] 02/07/2025 1:30 PM CDT Appointment [facility] [address] [facility] [address] [place] [id number] Betina Prather PA-C [address] [place] [address] 03/17/2025 1:30 PM CDT Appointment [facility] [address] [place] [address] Tala Thomason MD [facility] [address] [place], [place] [id number] 04/01/2025 12:00 PM CDT Appointment [facility] [address] [place] [address] Tala Thomason MD [facility] [address] [place], [place] [id number] documented as of this encounter Procedures Procedure Name Priority Date/Time Associated Diagnosis Comments INR/PROTIME Routine 11/22/2024 12:54 PM CDT Monitoring for long-term anticoagulant use documented in this encounter Results * (ABNORMAL) INR/Protime (11/22/2024 12:54 PM CDT) Pathologist [facility] Protime 28.4(H) 11.8 - 14.6 Seconds 11/22/2024 5:27 PM CDT [facility] INR 2.6(H) 0.9 - 1.1 11/22/2024 5:27 PM CDT [facility] Blood Venipuncture / Unknown 11/22/2024 12:54 PM CDT 11/22/2024 12:54 PM CDT Narrative [facility] - 11/22/2024 5:27 PM CDT If you take an anticoagulant medicine called warfarin, your doctor or clinician may establish a normal range for you that is different from the baseline range shown. us Tala Thomason MD LAB_1 Final Resul t [facility] [address] [place] [phone] documented in this encounter Visit Diagnoses Diagnosis Monitoring for long-term anticoagulant use Encounter for long-term (current) use of anticoagulants documented in this encounter Care Teams Seasonal Package Handler Relationship Specialty Start Date End Date Tala Thomason MD [facility] [place] [id number] PCP - General Family Practice 05/22/17 documented as of this encounter
--- OUTSIDE RECORDS SUMMARY | 2024-12-02 17:50 | XMS_ITS | Clinical Summary ---
[facility] Organization [facility] Address [address] [place] [address] Care Team Providers Care Disability Services Coordinator Name Role Phone Tala Thomason MD Primary Care Provider [phone] Source Comments You are receiving this document as you are listed as the primary care provider,follow-up provider, or the patient has been referred to you for consultation.This is in compliance with the Medicare and[facility] Hospitalca[facility] EHR Incentive Program,which states Providers who transition their patient to another setting of careor provider of care or refers their patient to another provider of care shouldprovide summary care record for each transition of care or referral. Big Screen ToolsGuadalupe County HospitalFishki Allergies Active Allergy Reactions Criticality Noted Date Comments Codeine Nausea And Vomiting 09/21/2004 PN: felt sick Lisinopril Cough 06/02/2009 Morphine And Codeine Unknown 03/28/2003 Tyl #3 Naproxen Rash 03/28/2003 Medications ketoconazole (NIZORAL) 2 % creamIndications :Cutaneous Candidiasis,garcia y button, groin Apply topically daily. Apply 1-2 times daily until clear plus one week Indications: Skin Infection due to Naheed Yeast, belly button, groin 30 g 2 023 Active sodium bicarbonate 650 MG tablet Take 1 Tablet (650 mg) by mouth two times a day. 180 Tablet 3 023 Active mupirocin (BACTROBAN) 2 % ointment Apply to affected area three times a day for 7 days. 22 g 024 Active triamcinolone acetonide (KENALOG) 0.1 % cream Apply to affected area twice daily x7 days 15 g 024 Active allopurinol (ZYLOPRIM) 100 MG tabletIndication s:Gout, unspecified cause, unspecified chronicity, unspecified site,CKD (chronic kidney disease) stage 4, GFR 15-29 ml/min (HRC) Take 2 Tablets (200 mg) by mouth daily. 180 Tablet 3 024 Active amLODIPine (NORVASC) 5 MG tablet Take 1 Tablet (5 mg) by mouth daily. 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 90 Capsule 3 024 Active furosemide (LASIX) 20 MG tabletIndication s:Essential hypertension (HRC) Take 1 Tablet (20 mg) by mouth daily. 90 Tablet 3 024 Active levothyroxine (SYNTHROID) 100 MCG tabletIndication s:Hypothyroidism , unspecified type (HRC) Take 1 Tablet (100 mcg) by mouth daily. 90 Tablet 024 Active losartan (COZAAR) 100 MG tabletIndication s:Essential hypertension (HRC) Take 1 Tablet (100 mg) by mouth daily. 90 Tablet 3 024 2024 Active metoprolol succinate (TOPROL XL) 25 MG 24 hour release tabletIndication s:Essential hypertension (HRC) Take 1 Tablet (25 mg) by mouth daily. 90 Tablet 3 024 Active Vitamin D, Ergocalciferol, 1.25 MG (91965 UT) CAPS TAKE 1 CAPSULE BY MOUTH 1 TIME EVERY WEEK 13 Capsule 3 024 Active alendronate (FOSAMAX) 70 MG tabletIndication s:Osteopenia, unspecified location TAKE 1 TABLET BY MOUTH ONCE WEEKLY. TAKE 30 MINUTES BEFORE FIRST XTYI-[id number]-[id number] TION. AVOID LYING DOWN FOR 30 MINUTES 12 Tablet 024 Active lactase (LACTAID) 3000 units tabletIndication s:Diarrhea, unspecified type Take 1 Tablet (3,000 Units) by mouth with meals and snacks. 100 Tablet 11 025 Active warfarin 3 MG tabletIndication s:Chronic atrial fibrillation (HRC),Monitoring for long-term anticoagulant use Take by mouth 3 mg (3 mg x 1) every W; 1.5 mg (3 mg x 0.5) all other days or as directed. Your dose may change. Call [facility] [phone] with questions. 025 Active Vibegron 75 MG TABSIndications: Urinary incontinence, unspecified type,OAB (overactive bladder),Urinary urgency Take 1 Tablet (75 mg) by mouth daily. 90 Tablet 3 025 Active Additional Information Patient not taking.Reported on 11/26/2024 cetirizine (ZYRTEC) 10 MG tabletIndication s:Eczema, unspecified type,Itchy skin TAKE 1 TABLET(10 MG) BY MOUTH DAILY 90 Tablet 025 Active mirabegron (MYRBETRIQ) 50 MG 24 hour release tabletIndication s:Urinary incontinence, unspecified type,OAB (overactive bladder),Urinary urgency Take 1 Tablet (50 mg) by mouth daily. 90 Tablet 3 025 2025 Active cetirizine (ZYRTEC) 10 MG tabletIndication s:Eczema, unspecified type,Itchy skin Take 1 Tablet (10 mg) by mouth daily. 30 Tablet 2 025 2024 Discontinued Active Problems Problem Noted Date Diagnosed [...] sooner. 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 Chronic diastolic CHF (congestive heart failure) 05/20/2017 Overview (12/09/2022): marketing program manager is at [facility]. Moderate episode of recurrent major depressive d [...] Problem Noted Date Diagnosed Date Resolved Date alf (current) use of anticoagulants 05/23/2017 12/19/2023 Overview (11/27/2017): Update from Spring 2017 IMO load. 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/19/2010 12/16/2014 Overview (04/12/2017): Basal Cell Ca Shoulder Routine general medical exam ination at a health care facility 01/25/2006 06/29/2021 Overview (04/12/2017): LW Onset: ; Health Maintenance Encounters Date Type Department Care Team Description 11/29/2024 Telephone Nephrology at [facility] at [address] [address] Shannon Gunter, SOCIAL MEDIA EXECUTIVE, FINAL ASSEMBLER Lab Orders Needed (01/23/25 appt with Shannon ) 11/27/2024 Results Follow-Up [facility] and [place] [address] [address] [address] [place] [address] Daniela Davis APRN, FINAL ASSEMBLER 11/26/2024 10:30 AM CDT Ancillary Procedure [facility] [address] [place] [address] Daniela Davis, SOCIAL MEDIA EXECUTIVE, FINAL ASSEMBLER Incontinence of feces, unspecified fecal incontinence type 11/26/2024 10:00 AM CDT Office Visit [facility] at [facility] and [place] [address] [address] [address] [place] [address] Daniela Davis APRN, FINAL ASSEMBLER Incontinence of feces, unspecified fecal incontinence type (Primary Dx) 11/22/2024 1:10 PM CDT Lab Visit [facility] [place], [place] [phone] Monitoring for long-term anticoagulant use 11/22/2024 Anticoagulation PN [facility] Central[facility] Services [id number] [address] , [address] [place] [address] Chronic atrial fibrillation (HRC) (Primary Dx); Monitoring for long-term anticoagulant use 11/04/2024 3:50 PM CDT E-Visit [facility] [address] [address] [address] [place] [phone] Betina Prather PA-C Chief Comp: QUESTIONS, GENERAL 11/04/2024 Refill [facility] [address] [place] [address] Tala Thomason MD Refill (cetirizine (ZYRTEC) 10 MG tablet [Pharmacy Med Name: CETIRIZINE 10MG TABLETS]) 10/30/2024 [facility] [address] [address] [address] [place] [phone] Betina Prather PA-C Med Request 10/11/2024 8:30 AM TIMBER FRAMER Office Visit [facility] [address] [address] [address] [place] [phone] Betina Prather PA-C Urinary incontinence, unspecified type (Primary Dx); OAB (overactive bladder); Mixed stress and urge incontinence; Urinary urgency; Other urinary incontinence; Pelvic floor weakness; Alport syndrome; CKD (chronic kidney disease) stage 4, GFR 15-29 ml/min (HRC); History of CHF (congestive heart failure); History of atrial fibrillation 10/10/2024 1:00 PM TIMBER FRAMER Lab Visit [facility] [place], [place] [phone] Monitoring for long-term anticoagulant use; CKD (chronic kidney disease) stage 4, GFR 15-29 ml/min (HRC) 10/10/2024 Anticoagulation PN Antico[facility] Services [id number] [address] [facility], [address] [place], [place] [address] Chronic atrial fibrillation (HRC) (Primary Dx); Monitoring for long-term anticoagulant use 10/09/2024 Results Follow-Up [facility] [address] [place] [address] Yelitza Alvarez PA-C 10/08/2024 6:50 PM TIMBER FRAMER Lab Visit [facility] [address] [place] [address] Diarrhea, unspecified type; Screen for colon cancer 10/08/2024 Telephone PN Anticoagulation Centralized Services [id number] [address] [place] [address] Tala Thomason MD Anticoagulation 09/20/2024 1:00 PM TIMBER FRAMER Lab Visit [facility] [address] [facility] JIMI Gordon [address] Monitoring for long-term anticoagulant use 09/20/2024 Anticoagulation PN Antico[facility] [id number] [address] [place] [address] Chronic atrial fibrillation (HRC) (Primary Dx); Monitoring for long-term anticoagulant use 09/19/2024 Telephone PN Anticoagulation Centralized Services [id number] [address] [place] [address] Tala Thomason MD Anticoagulation: Labs Overdue (Outreach x 2. ) 09/18/2024 Telephone Nephrology at [facility] at [place] [address] [place] [address] Shannon Gunter, SOCIAL MEDIA EXECUTIVE, FINAL ASSEMBLER Lab Orders Needed from Last 3 Months Immunizations Immunization Administration Dates Next Due Flu Vac (3+ yrs) 04/27/2012 Flu Vac Preserv Free (3+yrs) 04/27/2012, 05/12/2011,04/28/2010,2008 HepB Adult (Engerix-B, 20+ y rs, 3 dose series) 06/29/2021,05/13/2019 Influenza IIV3 (Trivalent) F luzone Highdose, 65+ Yrs (86443) 05/13/2019,07/10/2018,05/23/2017,2013 Influenza IIV4 (Quadrivalent ) 0.5mL (33973) 10/14/2013 Influenza IIV4 (Quadrivalent ) Fluad, 65+ [...] file Not on file Not on file Last Filed Vital Signs Vital Sign Reading Time Taken Comments Blood Pressure 137/62 08/30/2024 12:00 PM TIMBER FRAMER Pulse 54 08/30/2024 12:00 PM TIMBER FRAMER Temperature 36.5 C (97.7 F) 07/26/2024 3:18 PM TIMBER FRAMER Respiratory Rate 16 07/26/2024 3:18 PM TIMBER FRAMER Oxygen Saturation 100% 07/26/2024 3:18 PM TIMBER FRAMER Inhaled Oxygen Concentration - - Weight 80.7 kg (177 lb 14.4 oz) 11/26/2024 9:57 AM CDT Height 154.9 cm (5' 1) 11/26/2024 9:57 AM CDT Body Mass Index 33.61 11/26/2024 9:57 AM CDT Plan of Treatment Upcoming Encounters Date Type Department Care Team (Late st Contact Info) Description 12/17/2024 2:30 PM CDT Appointment [facility] [address] [place] [address] 01/06/2025 1:10 PM CDT Appointment [facility] [address] [place] [address] 01/30/2025 1:30 PM CDT Appointment [facility] [address] [place] [address] Shannon Gunter, SOCIAL MEDIA EXECUTIVE, FINAL ASSEMBLER [address] [facility] [address] [place] [address] 02/07/2025 1:30 PM CDT Appointment Maria [facility] [address] [address] [address] [place] [phone] Betina Prather PA-C [address] [place] [address] 03/17/2025 1:30 PM CDT Appointment [facility] [address] [facility] [place] [address] Tala Thomason MD [address] [place] [address] 04/01/2025 12:00 PM CDT Appointment [facility] [address] [place] [address] Tala Thomason MD [address] [place] [id number] Health Maintenance Due Date Last Done Comments Zoster/Shingles (1 of 2) 1996 RSV (1 - 1-dose 75+ series) 2021 HepB (3) 08/24/2021 06/29/2021, 05/13/2019 COVID-19 Vaccine (3 - 2023- season) 2024 04/30/2021, 04/02/2021 Influenza (#1) 2024 06/29/2021, 04/22, 07/10/2018, Additional history exists Dexa 06/17/2024 06/17/2022, 05/22, 01/28/2015, Additional history exists Medicare Annual Wellness Visit 03/15/2025 03/15/2024, 03/24/2022, 02/18/2021, Additional history exists DTaP/Tdap/Td (3 - Tdap) 06/29/2031 06/29/2021, 04/28 Pneumococcal 50+ Yrs Completed 01/08/2019, 11/28/19 Hep C Screening (Preventive Services) Completed 09/05/2019 Cholesterol Discontinued 08/30/2024, 02/19, 12/27/2021, Additional history exists FIT Colon Cancer Screening Discontinued 10/08, 03/01/2022, 02/19/2021, Additional history exists HepA Aged Out No [...] on patient's age to complete this topic Meningococcal B Aged Out No longer el igible based on patient's age to complete this topic Procedures Procedure Name Priority Date/Time Associated Diagnosis Comments XR ABD FLAT/KUB 1 VIEW Routine 11/26/2024 10:39 AM CDT Incontinence of feces, unspecified fecal incontinence type INR/PROTIME Routine 11/22/2024 12:54 PM CDT Monitoring for long-term anticoagulant use COMPLETE BLOOD COUNT-W/DIFF Routine 10/10/2024 12:16 PM TIMBER FRAMER CKD (chronic kidney disease) stage 4, GFR 15-29 ml/min (HRC) TP/CREA RATIO, URINE Routine 10/10/2024 12:16 PM TIMBER FRAMER CKD (chronic kidney disease) stage 4, GFR 15-29 ml/min (HRC) RENAL FUNCTION PANEL Routine 10/10/2024 12:16 PM TIMBER FRAMER CKD (chronic kidney disease) stage 4, GFR 15-29 ml/min (HRC) INTACT PTH Routine 10/10/2024 12:16 PM TIMBER FRAMER CKD (chronic kidney disease) stage 4, GFR 15-29 ml/min (HRC) CBC AND DIFFERENTIAL PANEL Routine 10/10/2024 12:16 PM TIMBER FRAMER CKD (chronic kidney disease) stage 4, GFR 15-29 ml/min (HRC) INR/PROTIME Routine 10/10/2024 12:16 PM TIMBER FRAMER Monitoring for long-term anticoagulant use FIT,OCCULT BLOOD, STOOL Routine 10/08/2024 8:00 AM TIMBER FRAMER Diarrhea, unspecified type Screen for colon cancer INR/PROTIME Routine 09/20/2024 12:38 PM TIMBER FRAMER Monitoring for long-term anticoagulant use LIPID PANEL & DIRECT LDL (IF NEEDED) Routine 08/30/2024 11:16 AM TIMBER FRAMER Hyperlipidemia, unspecified hyperlipidemia type (HRC) DXA BONE DENSITY SPINE/HIP INC VERT FX ASSESS Routine 06/17/2022 9:58 AM CDT Post-menopausal HEPATITIS C ANTIBODY, WITH REFLEX Routine 09/05/2019 10:01 AM TIMBER FRAMER Need for hepatitis C screening test from Last 3 Months or Most Recently Relevant to Health Maintenance Results * XR Abd Flat/KUB 1 View [...] present in the transversecolon. us Daniela Davis SOCIAL MEDIA EXECUTIVE, FINAL ASSEMBLER JASPER LOPEZ Gale basil Result * (ABNORMAL) INR/Protime (11/22/2024 12:54 PM CDT) Only the most recent of3 resultswithin the time period is included. Protime 28.4(H) 11.8 - 14.6 Seconds 11/22/2024 5:27 PM CDT [facility] INR 2.6(H) 0.9 - 1.1 11/22/2024 5:27 PM CDT [facility] Blood Venipuncture / Unknown 11/22/2024 12:54 PM CDT 11/22/2024 12:54 PM CDT Narrative [facility] - 11/22/2024 5:27 PM CDT If you take an anticoagulant medicine called warfarin, your doctor or clinician may establish a normal range for you that is different from the baseline range shown. Tala Thomason MD LAB_1 Final Resul t [facility] [address] [place] [address] * (ABNORMAL) Renal Function Panel (10/10/2024 12:16 PM TIMBER FRAMER) Pathologist [facility] Sodium 139 136 - 145 mmol/L 10/10/2024 7:31 PM [facility] Potassium 4.4 3.5 - 5.1 mmol/L 10/10/2024 7:31 PM [facility] Chloride 106 98 - 109 mmol/L 10/10/2024 7:31 PM [facility] CO2 23 20 - 29 mmol/L 10/10/2024 7:31 PM [facility] Anion Gap 10 6 - 16 mmol/L 10/10/2024 7:31 PM [facility] Calcium 9.7 8.4 - 10.4 mg/dL 10/10/2024 7:31 PM [facility] BUN 34(H) 7 - 26 mg/dL 10/10/2024 7:31 PM [facility] Creatinine 1.72(H) 0.55 - 1.02 mg/dL 10/10/2024 7:31 PM [facility] Albumin 3.7 3.5 - 5.0 g/dL 10/10/2024 7:31 PM [facility] Phosphorus 4.0 2.3 - 4.7 mg/dL 10/10/2024 7:31 PM [facility] Glucose 84 70 - 100 mg/dL 10/10/2024 7:31 PM [facility] Comment:The given reference range is for the fasting state. Non-fasting reference range for glucose is 70 - 180 mg/dL. GFR, Estimated 30(L) >60 mL/min/1.7 3m2 10/10/2024 7:31 PM [facility] Hours Fasting 0.1 8 - 12 Hours 10/10/2024 7:31 PM [facility] Blood Venipuncture / Unknown 10/10/2024 12:16 PM TIMBER FRAMER 10/10/2024 12:16 PM TIMBER FRAMER Shannon Gunter APRN, DEBRA LAB_1 Final Resu lt Performing Organization Address City/[facility]/ZIP Co de Phone Number [facility] [address] [place] [phone] * Intact PTH (10/10/2024 12:16 PM TIMBER FRAMER) Intact PTH 68 10 - 100 pg/mL 10/10/2024 7:40 PM TIMBER FRAMER [facility] Blood Venipuncture / Unknown 10/10/2024 12:16 PM TIMBER FRAMER 10/10/2024 12:16 PM TIMBER FRAMER Shannon Gunter APRN, FINAL ASSEMBLER LAB_1 Final Resu lt Performing Organization Address City/[facility]/ZIP Co de Phone Number [facility] [address] * Complete Blood Count-W/Diff (10/10/2024 12:16 PM TIMBER FRAMER) WBC 8.2 3.5 - 10.5 x10(9)/L 10/10/2024 12:50 PM TIMBER FRAMER [facility] (PN) RBC 3.90 3.90 - 5.03 x10(12)/L 10/10/2024 12:50 PM TIMBER FRAMER [facility] (PN) Hemoglobin 12.1 12.0 - 15.5 g/dL 10/10/2024 12:50 PM TIMBER FRAMER [facility] (PN) HCT 35.9 34.9 - 44.5 % 10/10/2024 12:50 PM TIMBER FRAMER [facility] (PN) MCV 92.1 80.0 - 100.0 fL 10/10/2024 12:50 PM TIMBER FRAMER [facility] (PN) MCH 31.0 27.6 - 33.3 pg 10/10/2024 12:50 PM TIMBER FRAMER [facility] (PN) MCHC 33.7 31.5 - 35.2 g/dL 10/10/2024 12:50 PM TIMBER FRAMER [facility] (PN) RDW 15.1 11.9 - 15.5 % 10/10/2024 12:50 PM TIMBER FRAMER [facility] (PN) Platelets 369 150 - 450 x10(9)/L 10/10/2024 12:50 PM TIMBER FRAMER [facility] (PN) Neutrophil Absolute 5.3 1.7 - 7.0 10(9)/L 10/10/2024 12:50 PM TIMBER FRAMER [facility] (PN) Lymphocyte Absolute 1.9 1.0 - 4.8 10(9)/L 10/10/2024 12:50 PM TIMBER FRAMER [facility] (PN) Monocyte Absolute 0.5 0.2 - 0.9 10(9)/L 10/10/2024 12:50 PM TIMBER FRAMER [facility] (PN) Eosinophil Absolute 0.4 0.0 - 0.5 10(9)/L 10/10/2024 12:50 PM TIMBER FRAMER [facility] (PN) Basophil Absolute 0.0 0.0 - 0.3 10(9)/L 10/10/2024 12:50 PM TIMBER FRAMER [facility] (PN) Immature Granulocyte % 0.4 0.0 - 0.5 % 10/10/2024 12:50 PM TIMBER FRAMER [facility] (PN) Blood Venipuncture / Unknown 10/10/2024 12:16 PM TIMBER FRAMER 10/10/2024 12:16 PM TIMBER FRAMER us Shannon Gunter APRN, CNP LAB_1 Final Resu lt [facility] (PN) [address] [facility] [place] [address], [facility] * TP/Crea Ratio, Urine (10/10/2024 12:16 PM TIMBER FRAMER) TP/Creat Ratio, Urine Random 0.08 0.00 - 0.20 10/10/2024 7:43 PM TIMBER FRAMER [facility] Total Protein, Urine, Random 3 0 - 14 mg/dL 10/10/2024 7:43 PM TIMBER FRAMER [facility] Creatinine, Urine, Random 38 >20 mg/dL mg/dL 10/10/2024 7:43 PM TIMBER FRAMER [facility] Urine Venipuncture / Unknown 10/10/2024 12:16 PM TIMBER FRAMER 10/10/2024 12:16 PM TIMBER FRAMER Narrative [facility] - 10/10/2024 7:43 PM TIMBER FRAMER Low urine creatinine values coupled with low urine protein values can artifactually increase the urine protein/creatinine results. Correlate results of ratio with creatinine results. Shannon Gunter APRN, CNP LAB_1 Final Resu lt Performing Organization Address City/[facility]/ZIP Co de Phone Number [facility] [address] [place] [address], [facility] * FIT, OCCULT BLOOD, STOOL (10/08/2024 8:00 AM TIMBER FRAMER) FIT Specimen 1 Negative Negative 10/09/2024 1:54 AM TIMBER FRAMER [facility] Stool Non-blood Collection / Unknown 10/08/2024 8:00 AM TIMBER FRAMER 10/08/2024 5:43 PM TIMBER FRAMER Tala Thomason MD LAB_1 Final Resul t [facility] [address] [address] * Lipid Panel & Direct LDL (if Needed) (08/30/2024 11:16 AM TIMBER FRAMER) Cholesterol 130 0 - 199 mg/dL 08/30/2024 4:59 PM [facility] Triglyceride 131 <=149 mg/dL 08/30/2024 4:59 PM [facility] HDL Cholesterol 46 >=40 mg/dL 4:59 PM [facility] LDL, Calculated 58 <130 mg/dL 4:59 PM [facility] Non HDL Chol, Calculated 84 <=159 mg/dL 08/30/2024 4:59 PM [facility] Cholesterol/HDL Ratio 2.8 <=5.0 08/30/2024 4:59 PM [facility] Hours Fasting 2.0 8 - 12 Hours 08/30/2024 4:59 PM [facility] (PN) Blood Venipuncture / Unknown 08/30/2024 11:16 AM TIMBER FRAMER 08/30/2024 11:16 AM [facility] us Tala Thomason MD LAB_1 Final Resul t [facility] [address] [place] [address] (PN) [address] [place] [address] * DXA Bone Density Spine/Hip Inc Vert FX Assess (06/17/2022 9:58 AM CDT) Anatomical Region Laterality Modality Spine, Hip Radiographic Moriah ging Narrative 06/23/2022 9:09 AM CDT CLINIC DXA REPORT Patient Name: Sylvia Doan Densitometer:[employer] W (S/N [id number]) [place] BONE OSTEOPOROSIS RISK FACTORS FROM PATIENT QUESTIONNAIRE: The patient is a 77 y.o.female: Calcium intake is not adequate. There is no self-reported history of hip, spine, pelvis, humerus, or wrist fracture; no family history of spine fracture; and a positive family history of hip fracture. BONE MINERAL DENSITY: Lumbar Spine Vertebrae Included: [...] or absence of other risk factors. RECOMMENDATIONS: In the setting of high FRAX, as in this case, one can consider pharmacotherapy for low bone mass to reduce fracture risk. Clinical correlation needed. Consider repeat bone density in 2 years or as clinically indicated. TBS for this patient is 1.244 FRAX fracture risk estimates are adjusted for Trabecular Bone Score (TBS) Trabecular Bone Score (TBS) is a measure of the microarchitectural integrity of trabecular bone, and is derived from the [id number]-[id number]-[id number] changes of bone density embedded in the [...] FRAX scores. Tala Thomason MD RAD DEXA Final Resul t * Hepatitis C Virus Liliana with Reflex (09/05/2019 10:01 AM TIMBER FRAMER) Hepatitis C Antibody Negative (Non Reactive) Negative (Non Reactive) 09/05/2019 1:08 PM TIMBER FRAMER [facility] Comment:Antibodies to HCV no t detected. Does not exclude the possiblity of exposure to HCV. Blood Venipuncture Butterfly / Unknown 09/05/2019 10:01 AM TIMBER FRAMER 09/05/2019 10:01 AM TIMBER FRAMER Tala Thomason MD LAB_1 Final Resul t [facility] [address] [place] [address], [facility] from Last 3 Months or Most Recently Relevant to Health Maintenance Insurance [place] [employer] [employer] [id number] [place] [address] [place]ICARE [place] [id number] JIMI [place] [id number] [place] [id number] JIMI [place] [id number] MEDICARE Advance Directives Documents on File Type Date Recorded Patient Rolfer Expl anation HEALTHCARE DIRECTIVE 08/09/2023 Mayasandi Crane GELLAR 1 10/10/2022 Healthcare Agents on File Name Relationship Healthcare Agent Relationshi p Communication Maya Rowans GELLAR Daughter Health Care Agent Care Teams Disability Services Coordinator Relationship Specialty Start Date End Date Tala Thomason MD [address] [place] [address] PCP - General Family Practice 05/22/17
--- OUTSIDE RECORDS SUMMARY | 2024-12-02 17:50 | XMS_ITS | Encounter Summary ---
Author Organization [place] Address [address] [place] [place] [address] Care Team Providers Care Cork Slabs Sawyer Name Role Phone Enedelia Wilkins MD Primary Care Provid er Santo Crump MD Unavailable [phone] Linh Fontanez APRN, CNP Unavailable [phone] Paddy COLLINS MD, Tala Lang Primary Care Provider Santo Crump MD Unavailable [phone] Santo Crump MD Unavailable [phone] Encounter Details Date Type Department Care Team (Late st Contact Info) Description 05/14/2021 MyC Medical Advice [facility] Heart [facility] [address] [place] [address] [address] [place] [address] Santo Crump MD [address] [facility] [address] [place], [place] [id number] Social History Tobacco Use Types Packs/Day Years Used Date Smoking Tobacco: Never Smokeless Tobacco: Never Alcohol Use Standard Drinks/Week Comments Yes 0 (1 standard drink = 0.6 oz pur e alcohol) beer occ Comments No Sex and Gender Information Value Date Recorded Sex Assigned at Not on file 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 Gender Identity Not on file Sexual Orientation [...] on filedocumented in this encounter Care Teams Cork Slabs Sawyer Relationship Specialty Start Date End Date Enedelia Wilkins MD [address] [place] [address] PCP - General 10/23/02 10/21/21 Tala Thomason MD, [address] [place], [place] [id number] PCP - General Family Medicine 10/22/21 Santo Crump MD [address] [place] [id number] Assigned Heart and Vascular Provider 06/12/20 10/02/21 Linh Fontanez APRN LANGUAGE ASST [address] [place] [address] Assigned Heart and Vascular Provider 10/03/21 04/28/23 Santo Crump MD [address] [place] [address] Cardiovascular Disease 10/24/22 Santo Crump MD [address] [place] [id number] Assigned Heart and Vascular Provider 05/06/23 11/09/24 documented as of this encounter
--- OUTSIDE RECORDS SUMMARY | 2024-12-02 17:50 | XMS_ITS | Encounter Summary ---
Author Organization [facility] Address [address] [place] [address] Care Team Providers Care Loop Drier Operator Name Role Phone Tala Thomason MD Primary Care Provider [phone] Reason for Visit * Reason Comments CONSULT * Consult/Transfer Care (Routine) - New Request Specialty Diagnoses / Procedures Referred By Macie israel Referred To Contact Diagnoses Bowel and bladder incontinence Kayleigh Ambrose PA-C [address] [place] [address] Phone: tel: fax: Referral ID Status Reason Start Date Expiration Date V isits Requested Visits Authorized [id number] New Request 03/15/2024 06/14/2025 1 1 Encounter Details Date Type Department Care Team (Late st Contact Info) Description 11/26/2024 10:00 AM CDT Office Visit [facility] [address] [id number] Daniela Davis APRN, EVENTS DIRECTOR [address] [facility] [address] [place], [place] [address] Incontinence of feces, unspecified fecal incontinence type (Primary Dx) Social History Tobacco Use Types [...] Sign Reading Time Taken Comments Blood Pressure - - Pulse - - Temperature - - Respiratory Rate - - Oxygen Saturation - - Inhaled Oxygen Concentration - - Weight 80.7 kg (177 lb 14.4 oz) 11/26/2024 9:57 AM CDT Height 154.9 cm (5' 1) 11/26/2024 9:57 AM CDT Body Mass Index 33.61 11/26/2024 9:57 AM CDT documented in this encounter Progress Notes * Daniela Davis, PEDRO, EVENTS DIRECTOR - 11/26/2024 12:00 AM CDT NAME: ANTOINE TIPTON CSN: [id number] CLINIC NOTE CLINIC PROGRESS NOTE DATE OF SERVICE: 11/26/2024 : 1945 HISTORY OF PRESENT ILLNESS: Antoine is seen in the clinic today, with the assistance of a professional railroad signal operator, with a history of intermittent diarrhea with urgency and incontinence.She states this has been a longstanding issue, perhaps 2 times a week she will develop explosive diarrhea and she often cannot make it to the bathroom. She wears a Depends daily. On other days she reports having at least 3 to 4 bowel movements which can sometimes be small. She does not feel constipated. She states that the diarrhea can be triggered by eating too much or eating greasy or fatty foods. She does not notice any blood in the stool. She typically does not have abdominal pain, but occasionally may get cramping prior to a bowel movement. She takes Imodium if she has to go out, at the most she will take 2 Imodium. She does not notice blood in her stool. She has never had a colonoscopy. She does get a FIT test and had a negative one this year. She had negative celiac serologies in August. PAST MEDICAL HISTORY: Osteopenia, hyperlipidemia, anxiety, depression, basal cell skin cancer, chronic kidney disease, deafness, hypertension. PAST SURGICAL HISTORY: Tonsillectomy, laparoscopy, eye surgery, tubal ligation. FAMILY HISTORY: No family history of colon cancer. ALLERGIES: ADVERSE DRUG REACTIONS: REVIEWED IN [facility]. MEDICATIONS: Reviewed in [facility]. OBJECTIVE: Antoine appears well and in no apparent distress. LABORATORY DATA: October 10, 2024; white blood cell count 8.2, hemoglobin 12.1, platelets 369. Sodium 139, potassium 4.4, magnesium 4, BUN 34, creatinine 1.72, alkaline phosphatase 50, ALT 23, AST 30, total bilirubin 0.4, TSH 2.64. ASSESSMENT: Antoine is a 79-year-old female with a long history of intermittent diarrhea with urgency and occasional incontinence. She has had negative celiac serologies. She uses Imodium on occasion to prevent episodes of diarrhea when she is out. She states she also had episodes of incontinence with the formed stools. We discussed using fiber supplements. Antoine states that she cannot tolerate drinking fiber supplements. We discussed using in tablet form, but then she had concerns that it may make her constipated. We discussed possible overflow diarrhea, in which case she may need a laxative. I did recommend getting an abdominal x-ray to evaluate stool and gas pattern. PLAN: 1. Abdominal x-ray. 2. Depending on results, we could try fiber supplement versus laxative. 3. If Antoine continues to have episodes of incontinence despite using laxatives or fiber, we discussed further evaluation at [facility]. Total time spent was 30 minutes with more than 50% of that time spent discussing diagnosis and treatment plan. Billing based on complexity. TINO FARIAS/ALEXIS /[id number] documented in this encounter Plan of Treatment Upcoming Encounters Date Type Department Care Team (Late st Contact Info) Description 12/17/2024 2:30 PM CDT Appointment [facility] [address] [place] [address] 01/06/2025 1:10 PM CDT Appointment [facility] [address] [facility] [place] [address] 01/30/2025 1:30 PM CDT Appointment [facility] [address] [place] [address] Shannon Gunter, MANAGER STRATEGIC PARTNERSHIPS, EVENTS DIRECTOR [address] [facility] [address] [place] [address] 02/07/2025 1:30 PM CDT Appointment [facility] [address] [facility] [address] [place] [phone] Betina Prather PAJacintaC [address] [place] [address] 03/17/2025 1:30 PM CDT Appointment [facility] [address] [facility] [place], [place] [id number] Tala Thomason MD [address] [place] [id number] 04/01/2025 12:00 PM CDT Appointment [facility] [address] [place] [address] Tala Thomason MD [address] [place] [id number] documented as of this encounter Visit Diagnoses Diagnosis Incontinence of feces, unspecified fecal incontinence type- Primary documented in this encounter Care Teams Loop Drier Operator Relationship Specialty Start Date End Date Tala Thomason MD [address] [place] [id number] PCP - General Family Practice 05/22/17 documented as of this encounter
--- OUTSIDE RECORDS SUMMARY | 2024-12-02 17:50 | XMS_ITS | Encounter Summary ---
Author Organization [facility] Address [address] [place] [address] Care Team Providers Care Director Child Development Center Name Role Phone Tala Thomason MD Primary Care Provider [phone] Reason for Visit * Reason Comments Refill cetirizine (ZYRTEC) 10 MG tablet [Pharmacy Med Name: CETIRIZINE 10MG TABLETS] Encounter Details Date Type Department Care Team (Late st Contact Info) Description 11/04/2024 Refill [facility] [address] [place] [id number] Tala Thomason MD [address] [place] [address] [address] [place] [id number] Refill (cetirizine (ZYRTEC) 10 MG tablet [Pharmacy Med Name: CETIRIZINE 10MG TABLETS]) Social History Tobacco Use Types Packs/Day [...] Info) Description 12/17/2024 2:30 PM CDT Appointment [facility] [address] [place] [address] 01/06/2025 1:10 PM CDT Appointment [facility] [address] [place] [address] 01/30/2025 1:30 PM CDT Appointment [facility] [address] [place] [address] Shannon Gunter, CHEF INSTRUCTOR, COMPUTER NUMERIC CONTROL SETTER [address] [facility] [address] [place] [address] 02/07/2025 1:30 PM CDT Appointment [facility] [address] [facility] [address] [place] [phone] Betina Prather PA-C [address] [place] [address] 03/17/2025 1:30 PM CDT Appointment [facility] [address] [place] [address] [place] [address] Tala Thomason MD [address] [place] [address] 04/01/2025 12:00 PM CDT Appointment [facility] [address] [place] [address] Tala Thomason MD [address] [place] [address] documented as of this encounter Visit Diagnoses Diagnosis Eczema, unspecified type Itchy skin Unspecified pruritic disorder documented in this encounter Care Teams Director Child Development Center Relationship Specialty Start Date End Date Tala Thomason MD [address] [place] [address] PCP - General Family Practice 05/22/17 documented as of this encounter
--- OUTSIDE RECORDS SUMMARY | 2024-12-02 17:50 | XMS_ITS | Encounter Summary ---
Author Organization [place] Address [address] [facility] [place] [address] Care Team Providers Care Sample Worker Name Role Phone Enedelia Wilkins MD Primary Care Provid er Linh Fontanez APRN VICE PRESIDENT OF MANUFACTURING Unavailable [phone] Paddy COLLINS MD, Tala Lang Primary Care Provider Santo Crump MD Unavailable [phone] Santo Crump MD Unavailable [phone] Reason for Visit * Reason Onset Date Comments Refill Request 10/14/2021 atorvastatin (LI PITOR) 40 MG tablet Encounter Details Date Type Department Care Team (Late st Contact Info) Description 10/14/2021 Telephone [facility] Heart [place] [id number] [facility] [address] [place] [address] Santo Crump MD [address] [facility] [address] [place], [place] [address] Refill Request ( atorvastatin (LIPITOR) 40 MG tablet ) Social History Tobacco Use Types Packs/Day Years Used Date Smoking Tobacco: Never Smokeless Tobacco: Never Alcohol Use Standard Drinks/Week Comments Yes 0 (1 standard drink = 0.6 oz pur e alcohol) beer occ Comments No Sex and Gender Information Value Date Recorded Sex Assigned at Not on file Legal Sex 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 HOT IRON WORKER Gender Identity Not on file Sexual Orientation Not on file COVID-19 Exposure Response Date Recorded In the last month, have you been in contact with someone who was confirmed or suspected to have Coronavirus / COVID-19? No / Unsure 10/15/2021 9:10 AM HOT IRON WORKER documented as of this encounter Miscellaneous Notes * Telephone Encounter - Leigh Duggan - 10/14/2021 11:33 AM CST [facility] Call Center Phone Message May a detailed message be left on voicemail: yes Reason for Call: Medication Refill Request Has the patient contacted the pharmacy for the refill? Yes Name of medication being requested: atorvastatin (LIPITOR) 40 MG tablet Provider who prescribed the medication: Dr. Santo Crump Pharmacy: [id number] [place] [address] AT [facility] [address] & Date medication is needed: BERTHA - pt took her last pill 10.13.21 Pt stated her pharmacy has been contacting the DrClarke With no response. Action Taken: Message routed to: [facility] ira Daugherty Screening: Not Applicable IRON WORKER documented in this encounter Plan of Treatment Not on file documented as of this encounter Visit Diagnoses Not on filedocumented in this encounter Care Teams Sample Worker Relationship Specialty Start Date End Date Enedelia Wilkins MD [address] [place] [address] PCP - General 10/23/02 10/21/21 Tala Thomason MD, [address] [place] [address] PCP - General Family Medicine 10/22/21 Linh Fontanez APRN VICE PRESIDENT OF MANUFACTURING [address] [place] [address] Assigned Heart and Vascular Provider 10/03/21 04/28/23 Santo Crump MD [address] [place] [address] Cardiovascular Disease 10/24/22 Santo Crump MD [address] [place] [address] Assigned Heart and Vascular Provider 05/06/23 11/09/24 documented as of this encounter
--- OUTSIDE RECORDS SUMMARY | 2024-12-02 17:50 | XMS_ITS | Encounter Summary ---
Author Organization [facility] Address [address] [place] [address] Care Team Providers Care Corporate Associate Attorney Name Role Phone Tala Thomason MD Primary Care Provider [phone] Reason for Visit * Reason Comments QUESTIONS, GENERAL Entered automaticall y based on patient selection in [employer]. Encounter Details Date Type Department Care Team (Late st Contact Info) Description 11/04/2024 3:50 PM CDT E-Visit [facility] [address] [facility] [address] [place] [address] Betina Prather, PA-C [address] [place], [place] [address] Chief Comp: QUESTIONS, GENERAL Social History Tobacco Use Types Packs/Day Years [...] Info) Description 12/17/2024 2:30 PM CDT Appointment [facility] [address] [place] [address] 01/06/2025 1:10 PM CDT Appointment [facility] [address] [place] [address] 01/30/2025 1:30 PM CDT Appointment [facility] [address] [place] [address] Shannon Gunter, DELIVERY DIRECTOR, DOCUMENT REVIEW ATTORNEY [address] [facility] [address] [place] [address] 02/07/2025 1:30 PM CDT Appointment [facility] [address] [address] [address] [place] [address] Betina Prather PA-C [address] [place], [place] [address] 03/17/2025 1:30 PM CDT Appointment [facility] [address] [place], [place] [phone] Tala Thomason MD [address] [place] [id number] 04/01/2025 12:00 PM CDT Appointment [facility] [address] [place] [address] Tala Thomason MD [address] [place] [id number] documented as of this encounter Visit Diagnoses Not on filedocumented in this encounter Care Teams Corporate Associate Attorney Relationship Specialty Start Date End Date Tala Thomason MD [address] [place], [place] [address] PCP - General Family Practice 05/22/17 documented as of this encounter
--- OUTSIDE RECORDS SUMMARY | 2024-12-02 17:50 | XMS_ITS | Clinical Summary ---
Author Organization [place] Address [address] [place] [address] Care Team Providers Care Training Lead Name Role Phone Paddy COLLINS MD, Tala Lang Primary Care Provider Santo Crump MD Unavailable [phone] Allergies Active Allergy Reactions Criticality Noted Date Comments Acetaminophen 04/07/2003 Percocet Morphine And Codeine 03/28/2003 Tyl #3 Naproxen Rash 03/28/2003 Medications FLUoxetine (PROZAC) 20 MG capsule Take 20 mg by mouth daily Active furosemide (LASIX) 20 MG tablet Take 20-40 mg by mouth daily Active levothyroxine (SYNTHROID/LEVOTH ROID) 100 MCG tablet Take 100 mcg by mouth daily Active losartan (COZAAR) 100 MG tablet Take 100 mg by mouth daily Active allopurinol (ZYLOPRIM) 100 MG tablet Take 100 mg by mouth daily Active ergocalciferol (ERGOCALCIFEROL) 1.25 MG (78114 UT) capsule Take 50,000 Units by mouth Active cetirizine (ZYRTEC) 10 MG tablet Take 10 mg by mouth daily Active metoprolol succinate ER (TOPROL-XL) 25 MG 24 hr tabletIndications :Essential hypertension, benign Take 1 tablet (25 mg) by mouth daily 90 tablet 3 2 Active amLODIPine (NORVASC) 5 MG tabletIndications :Essential hypertension, benign Take 1 tablet (5 mg) by mouth daily 90 tablet 3 2 Active warfarin ANTICOAGULANT (COUMADIN) 3 MG tablet TAKE 1/2 TO 2 TABLETS BY MOUTH DAILY 3 Active calcium carbonate (OS-JOVANY) 600 MG tablet Take 600 mg by mouth Active alendronate (FOSAMAX) 70 MG tablet TAKE 1 TABLET BY MOUTH ONCE WEEKLY. TAKE 30 MINUTES BEFORE FIRST TQOS-XSURM-SZHH CATION. AVOID LYING DOWN FOR 30 MINUTES Active sodium bicarbonate 650 MG tablet Take 650 mg by mouth 3 Active atorvastatin (LIPITOR) 40 MG tabletIndications :Carotid artery calcification, left Take 1 tablet (40 mg) by mouth daily. Appointment needed for additional refills. Please call [phone] to schedule. 90 tablet 4 Active Active Problems Problem Noted Date Diagnosed Date Arrhythmia 03/14/2019 Chronic atrial fibrillation 03/14/2019 Chronic kidney disease 03/14/2019 Acute on chronic diastolic heart failure 019 Degeneration of lumbar or lumbosacral interverte bral disc 05/26/2003 Essential hypertension, benign 03/06/2003 Hypothyroidism 03/06/2003 Overview (05/21/2015): Problem list name updated by automated process. Provider to review Gout 03/06/2003 Overview (05/21/2015): Problem list name updated by automated process. [...] School Help Needed Not on file 06/04 Comments No Sex and Gender Information Value Date Recorded Sex Assigned at Not on file Legal Sex 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 SPACE BUYER Gender Identity Not on file Sexual Orientation [...] MICROALBUMIN 1945 TSH W/FREE T4 REFLEX 1945 URIC ACID 1945 HEPATITIS C SCREENING 1964 ZOSTER IMMUNIZATION (1 of 2) 1996 CBC 01/04/2010 01/04/2009 FALL RISK ASSESSMENT 2011 BMP 09/18/2019 03/18/2019, 01/04/2009 RSV VACCINE (1 - 1-dose 75+ series) 2021 MEDICARE ANNUAL WELLNESS VISIT 02/18/2022 02/18/2021, 07/11/2019 DIABETES SCREENING 03/18/2022 03/18/2019, 0 01/04/2009, 03/17/2003 LIPID 04/27/2022 04/27/2021 COVID-19 Vaccine (3 - season) 2024 04/30/2021, 04/02/2021 INFLUENZA VACCINE (#1) 2024 , 05/13/2019, 07/10/2018, Additional history exists PHQ-2 (once per calendar year) 2024 05/01/2023 DTAP/TDAP/TD IMMUNIZATION (3 - Td or Tdap) 06/29/2031 06/29/2021, 04/28/2010 DEXA 06/17/2037 06/17/2022 URINALYSIS Completed 01/04/2009 Pneumococcal Vaccine: 50+ Years Completed 01/08/2019, 11/27/2017 COLORECTAL CANCER SCREENING Discontinued FIT Discontinued 02/19/2021 MAMMO SCREENING Discontinued 02/19/2021, 09/2020, 01/21/2015, Additional history exists COLONOSCOPY Discontinued [...] 138 <200 mg/dL 04/27/2021 1:56 PM CDT LABORATORY Comment: Age 0-19 years Desirable: <170 mg/dL Borderline high: 170-199 mg/dl High: >199 mg/dl Age 20 years and older Desirable: <200 mg/dL Triglycerides 88 <150 mg/dL 04/27/2021 1:56 PM CDT [facility] LABORATORY Comment: 0-9 years: Normal: Less than 75 mg/dL Borderline high: 75-99 mg/dL High: Greater than or equal to 100 mg/dL 0-19 years: Normal: Less than 90 mg/dL Borderline high: 90-129 mg/dL High: Greater than or equal to 130 mg/dL 20 years and older: Normal: Less than 150 mg/dL Borderline high: 150-199 mg/dL High: 200-499 mg/dL Very high: Greater than or equal to 500 mg/dL Direct Measure HDL 55 >=50 mg/dL 2020 1:56 PM CDT [facility] LABORATORY Comment: 0-19 years: Greater than or equal to 45 mg/dL Low: Less than 40 mg/dL Borderline low: 40-44 mg/dL 20 years and older: Female: Greater than or equal to 50 mg/dL Male: Greater than or equal to 40 mg/dL LDL Cholesterol Calculated 65 <=100 mg/dL 04/27/2021 1:56 PM CDT LABORATORY Comment: Age 0-19 years: Desirable: 0-110 mg/dL Borderline high: 110-129 mg/dL High: >= 130 mg/dL Age 20 years and older: Desirable: <100mg/dL Above desirable: 100-129 mg/dL Borderline high: 130-159 mg/dL High: 160-189 mg/dL Very high: >= 190 mg/dL Non HDL Cholesterol 83 <130 mg/dL 04/27/2021 1:56 PM CDT LABORATORY Comment: 0-19 years: Desirable: Less than 120 mg/dL Borderline high: 120-144 mg/dL High: Greater than or equal to 145 mg/dL 20 years and older: Desirable: 130 mg/dL Above Desirable: 130-159 mg/dL Borderline high: 160-189 mg/dL High: 190-219 mg/dL Very high: Greater than or equal to 220 mg/dL Blood STRUCTURE OF LEFT UPPER LIMB / Unknown Venipuncture / Unknown 04/27/2021 1:23 PM CDT 04/27/2021 1:23 PM CDT us Santo Crump MD LAB - BLOOD ORDERABLES Fin al Result LABORATORY [facility] [address] Lab (1st floor, no room number) [place] [address], [facility] [phone] * (ABNORMAL) Basic metabolic panel (03/18/2019 1:40 PM CDT) Sodium 138 133 - 144 mmol/L 03/18/2019 2:41 PM CDT [facility] Potassium 4.6 3.4 - 5.3 mmol/L 03/18/2019 2:41 PM CDT [facility] Chloride 108 94 - 109 mmol/L 03/18/2019 2:41 PM CDT [facility] Carbon Dioxide 27 20 - 32 mmol/L 03/18/2019 2:47 PM CDT [facility] Anion Gap 3 3 - 14 mmol/L 03/18/2019 2:47 PM CDT [facility] Glucose 94 70 - 99 mg/dL 03/18/2019 2:47 PM CDT [facility] Urea Nitrogen 39(H) 7 - 30 mg/dL 03/18/2019 2:47 PM CDT [facility] Creatinine 1.57(H) 0.52 - 1.04 mg/dL 03/18/2019 2:47 PM CDT [facility] GFR Estimate 32(L) >60 mL/min/{1 .73_m2} 03/18/2019 2:47 PM CDT [facility] Comment: Non GFR Calc Starting 08/07/2018, serum creatinine based estimated GFR (eGFR) will be calculated using the Chronic Kidney Disease Epidemiology Collaboration (CKD-EPI) equation. GFR Estimate If Black 38(L) >60 mL/min/{1 .73_m2} 03/18/2019 2:47 PM CDT [facility] Comment: GFR Calc Starting 08/07/2018, serum creatinine based estimated GFR (eGFR) will be calculated using the Chronic Kidney Disease Epidemiology Collaboration (CKD-EPI) equation. Calcium 9.0 8.5 - 10.1 mg/dL 03/18/2019 2:47 PM CDT [facility] Blood specimen (specimen) 03/18/2019 1:40 PM CDT 03/18/2019 1:43 PM CDT us Megan Reynoso DO LAB - BLOOD ORDERAB LES Final Result [facility] [address] [address], [place] [phone] [facility] [address] [place] [address], [place] [phone] * (ABNORMAL) Routine UA with microscopic (01/04/2009 4:40 PM CDT) Source Midstream Urine MISYS Color Urine Light Yellow MISYS Appearance Urine Clear [facility]ISYS Glucose Urine Negative NEG mg/dL MIS[facility] Bilirubin Urine Negative NEG MISYS Ketones Urine Negative NEG mg/dL [facility] Specific [place] Urine 1.009 1.003 - 1.035 MISYS Blood [...] CDT Armando Christianson MD LAB - URINE ORDERABLES Fi nal Result MISYS * (ABNORMAL) CBC with platelets differential [...] 3:41 PM CDT 01/04/2009 3:06 PM CDT us Armando Christianson MD LAB - BLOOD ORDERABLES Fi nal Result MISYS * ABSTRACT MAMMO-NO CHARGE (03/03/1993) Anatomical Region Laterality Modality Other us Lisy Trujillo [facility]AL [facility]AG[facility] Final Result from Last 3 Months or Most Recently Relevant to Health Maintenance Insurance MEDICARE Care Teams Training Lead Relationship Specialty Start Date End Date Tala Thomason MD, [address] [place] [address] PCP - General Family Medicine 10/22/21 Santo Crump MD [address] [facility] [address] [place] [id number] Cardiovascular Disease 10/24/22
--- OUTSIDE RECORDS SUMMARY | 2024-12-02 17:50 | XMS_ITS | Encounter Summary ---
Author Organization [facility] Address [address] [place] [address] Care Team Providers Care Recreational Resort Manager Name Role Phone Tala Thomasno MD Primary Care Provider [phone] Reason for Visit * Reason Comments Lab Orders Needed 01/23/25 appt with Murphy bhatt Encounter Details Date Type Department Care Team (Late st Contact Info) Description 11/29/2024 Telephone Nephrology at [facility] [place] [address] [address] [place], [place] [phone] Shannon Gunter, LIVE IN COMPANION, NEGATIVE TURNER [address] [facility] [address] [place], [place] [address] Lab Orders Needed (01/23/25 appt with Shannon ) Social History Tobacco Use Types Packs/Day [...] as of this encounter Nursing Notes * Shila Jean, RN - 11/29/2024 3:55 PM CDT Lab for 01/23/25 Shannon Gunter, DEBRA, LIVE IN COMPANION, appointment with patient have . Placed standard protocol labs for now. documented in this encounter Plan of Treatment Upcoming Encounters Date Type Department Care Team (Late st Contact Info) Description 12/17/2024 2:30 PM CDT Appointment [facility] [address] [place] [address] 01/06/2025 1:10 PM CDT Appointment [facility] [address] [place] [address] 01/30/2025 1:30 PM CDT Appointment [facility] [address] [place] [address] Shannon Gunter, LIVE IN COMPANION, NEGATIVE TURNER [address] [facility] [address] [place] [address] 02/07/2025 1:30 PM CDT Appointment [facility] [address] [facility] [address] [place] [phone] Betina Prather PA-C [address] [place] [address] 03/17/2025 1:30 PM CDT Appointment [facility] [address] [facility] [address] [place] [id number] Tala Thomason MD [address] [place] [address] 04/01/2025 12:00 PM CDT Appointment [facility] [address] [place] [address] Tala Thomason MD [address] [place] [address] [address] Scheduled Orders Name Type Priority Associated Diagnoses Orde r Schedule Intact PTH Lab Routine CKD (chronic kidney disease) stage 4, GFR 15-29 ml/min (HRC) Essential hypertension (HRC) Alport syndrome Expected: 01/20/2025, Expires: 01/30/2025 Complete Blood Count -W/Diff Lab Routine CKD (chronic kidney disease) stage 4, GFR 15-29 ml/min (HRC) Essential hypertension (HRC) Alport syndrome Expected: 01/20/2025, Expires: 01/30/2025 Renal Function Panel Lab Routine CKD (chronic kidney disease) stage 4, GFR 15-29 ml/min (HRC) Essential hypertension (HRC) Alport syndrome Expected: 01/20/2025, Expires: 01/30/2025 TP/Crea Ratio, Urine Lab Routine CKD (chronic kidney disease) stage 4, GFR 15-29 ml/min (HRC) Essential hypertension (HRC) Alport syndrome Expected: 01/20/2025, Expires: 01/30/2025 documented as of this encounter Visit Diagnoses Diagnosis Essential hypertension (HRC)- Primary Unspecified essential hypertension CKD (chronic kidney disease) stage 4, GFR 15-29 ml/min (HRC) Chronic kidney disease, Stage IV (severe) Alport syndrome Other specified congenital anomalies documented in this encounter Care Teams Recreational Resort Manager Relationship Specialty Start Date End Date Tala Thomason MD [address] [place] [address] PCP - General Family Practice 05/22/17 documented as of this encounter
--- OUTSIDE RECORDS SUMMARY | 2024-12-02 17:50 | XMS_ITS | Encounter Summary ---
Author Organization [facility] Address [address] [place] [address] Care Team Providers Care Snow Groomer Name Role Phone Tala Thomason MD Primary Care Provider [phone] Encounter Details Date Type Department Care Team (Late Contact Info) Description 10/09/2024 Results Follow-Up [facility] [address] [facility] [place], [place] [id number] Yelitza Alvarez, PA-C [address] [place] [address] Social History Tobacco Use Types Packs/Day Years [...] Info) Description 12/17/2024 2:30 PM CDT Appointment [facility] [address] [place] [address] 01/06/2025 1:10 PM CDT Appointment [facility] [address] [facility] [place] [address] 01/30/2025 1:30 PM CDT Appointment [facility] [address] [place] [address] Shannon Gunter, REFRIGERATION SUPERVISOR, LEATHER PARTS MATCHER [address] [facility] [address] [place] [address] 02/07/2025 1:30 PM CDT Appointment [facility] [address] [address] [address] [place] [phone] Betina Prather, PA-C [address] [place] [address] 03/17/2025 1:30 PM CDT Appointment [facility] [address] [facility] [place] [address] Tala Thomason MD [address] [place] [id number] 04/01/2025 12:00 PM CDT Appointment [facility] [address] [place] [address] Tala Thomason MD [address] [place] [id number] documented as of this encounter Visit Diagnoses Not on filedocumented in this encounter Care Teams Snow Groomer Relationship Specialty Start Date End Date Tala Thomason MD [address] [place] [id number] PCP - General Family Practice 05/22/17 documented as of this encounter
--- NOTE | 2024-12-02 18:28 | CRLHL7_ITS ---
For Patients: As a result of the Century Cures Act, medical imaging exams and procedure reports are released immediately into your electronic medical record. You may view this report before your referring provider. If you have questions, please contact your health care provider. Indication: : Hypoxia TECHNIQUE: Single-view chest. FINDINGS: Enlarged cardiac silhouette. Perihilar interstitial opacities most likely reflecting pulmonary edema right perihilar upper lobe opacification may represent pneumonia. No effusion is seen. Follow up imaging is recommended in 4-6 weeks to assess for resolution and to exclude the possibility of malignancy. Dictated by Kourtney [facility] MD @ 12/02/2024 7:38:19 PM (Electronically Signed)
--- NOTE | 2024-12-02 18:30 | ED.SOB ---
HPI - SOB/Dyspnea General Chief Complaint: Shortness of Breath/Dyspnea Stated Complaint: Shortness of Breathing Time Seen by Provider: 12/02/24 18:17 History of Present Illness HPI Narrative: This 79-year-old female is deaf and requires home health clinical liaison. She came in by ambulance who reported oximetry at 77% on room air when they arrived at her place. She was on nasal cannula oxygen which brought her up to 86%. At the time of my visit she is on BiPAP and has 97% oximetry. The patient states that she began to feel short of breath just today. She has a history of atrial fibrillation. She does not report any chest pain. She arrives here with normal vital signs except for her need for ventilatory support. Related Data Home Medications ?Medication ?Instructions ?Recorded ?Confirmed amlodipine 5 mg tablet 5 mg PO DAILY 03/12/22 12/02/24 atorvastatin 40 mg tablet 40 mg PO DAILY 03/12/22 12/02/24 fluoxetine 20 mg capsule 20 mg PO DAILY 03/12/22 12/02/24 furosemide 20 mg tablet 20 mg PO DAILY 03/12/22 12/02/24 gabapentin 100 mg capsule 100 mg PO Q8H PRN pain 03/12/22 04/15/24 levothyroxine 100 mcg tablet 100 mcg PO DAILY 03/12/22 12/02/24 losartan 100 mg tablet 100 mg PO DAILY 03/12/22 12/02/24 metoprolol succinate 25 mg 25 mg PO DAILY 03/12/22 12/02/24 tablet,extended release 24 hr warfarin 1 mg tablet 0.5 - 1 mg PO DAILY 03/12/22 12/02/24 alendronate 70 mg tablet 70 mg PO 12/02/24 allopurinol 100 mg tablet 200 mg PO DAILY 12/02/24 12/02/24 cetirizine 10 mg tablet 10 mg PO DAILY 12/02/24 12/02/24 mirabegron 50 mg tablet,extended 50 mg PO DAILY 12/02/24 12/02/24 release 24 hr (Myrbetriq) Allergies Allergy/AdvReac Type Severity Reaction Status Date / Time No Known Drug Allergies Allergy Verified 12/02/24 18:23 Review of Systems Status of ROS: Reports: 10 or more systems reviewed and unremarkable except as noted in History and below Narrative: Constitutional: No fevers, no weight gain or loss. Eyes: No discharge. No vision changes. HENT: No congestion, no sore throat, no ear pain. Cardiovascular: No chest pain, no palpitations. Respiratory: Shortness of breath. Gastrointestinal: No abdominal pain, no vomiting, no diarrhea. Genitourinary: No dysuria, no hematuria. Musculoskeletal: Normal range of motion. Skin: No rashes, no pruritis. Neurological: No dizziness, weakness, sensory change, speech change. Endo/Heme/Allergies: No bruising or bleeding. No polydipsia. Pysch: no suicidality, no anxiety, no insomnia. All other systems reviewed and are negative. [facility] Medical History (Updated 12/02/24 @ 23:18 by Bessie Tenorio MD) Osteopenia ?M85.80 - Other specified disorders of bone density and structure, unspecified site (ICD-10) BCC (basal cell carcinoma), shoulder ?C44.611 - Basal cell carcinoma of skin of unspecified upper limb, including shoulder (ICD-10) Hypothyroidism ?E03.9 - Hypothyroidism, unspecified (ICD-10) Gout ?M10.9 - Gout, unspecified (ICD-10) Anxiety ?F41.9 - Anxiety disorder, unspecified (ICD-10) Anemia in chronic renal disease ?N18.9 - Chronic kidney disease, unspecified (ICD-10) ?D63.1 - Anemia in chronic kidney disease (ICD-10) Moderate episode of recurrent major depressive disorder ?F33.1 - Major depressive disorder, recurrent, moderate (ICD-10) Elevated LFTs ?R79.89 - Other specified abnormal findings of blood chemistry (ICD-10) Diastolic CHF ?I50.30 - Unspecified diastolic (congestive) heart failure (ICD-10) Hyperlipidemia ?E78.5 - Hyperlipidemia, unspecified (ICD-10) Alport syndrome ?Q87.81 - Alport syndrome (ICD-10) Deaf ?H91.90 - Unspecified hearing loss, unspecified ear (ICD-10) COVID-19 ?U07.1 - COVID-19 (ICD-10) Hypertension ?I10 - Essential (primary) hypertension (ICD-10) Chronic kidney disease ?N18.9 - Chronic kidney disease, unspecified (ICD-10) Atrial fibrillation, chronic ?I48.20 - Chronic atrial fibrillation, unspecified (ICD-10) Surgical History (Updated 12/02/24 @ 22:35 by Bessie Tenorio MD) H/O dilation and curettage (04/03/06) ?Z98.890 - Other specified postprocedural states (ICD-10) Hx of tonsillectomy ?Z90.89 - Acquired absence of other organs (ICD-10) H/O laparoscopy ?Z98.890 - Other specified postprocedural states (ICD-10) H/O wisdom tooth extraction ?K08.409 - Partial loss of teeth, unspecified cause, unspecified class (ICD-10) History of tubal ligation ?Z98.51 - Tubal ligation status (ICD-10) Family History (Updated 12/02/24 @ 22:36 by Bessie Tenorio MD) Father Diabetes Cardiovascular disease High blood pressure Sister Stroke Social History (Updated 12/02/24 @ 22:37 by Bessie Tenorio MD) Narrative: Lives in [id number] suite of basement of daughter's house. No tobacco or alcohol use. What is your current living situation?: I presently have a place to live Problems where you live: no known problems Problems where you live details: NA In the past 12 months, utilities in danger of being shut off: no In past 12 months, lack of transportation kept you from medical appts, meetings, work, or getting things needed for daily living: no In the past 12 mos, have been you worried that your food would run out before you had money to buy more?: never true In the past 12 mos, the food you bought just didn't last and you didn't have money to buy more?: never true Highest level of school completed/degree received: high school graduate Smoking Status: Never smoker Second hand tobacco smoke exposure: No How often do you have a drink containing alcohol: never AUDIT-C Alcohol total score: 0 Non-prescribed substance use: denies use Caffeine: Yes How often does anyone, including family, friends and others, physically hurt you: never How often does anyone, including family, friends and others, insult or talk down to you: never How often does anyone, including family, friends and others, threaten you with harm: never How often does anyone, including family, friends and others, scream or curse at you: never service: No Exam Narrative: Exam Narrative: Constitutional: Well-developed, well-nourished, no acute distress. HEENT: Normocephalic, atraumatic. Neck: Normal range of motion. Nontender. Supple. Heart: Regular. No murmurs. Normal rate. Intact distal pulses. Lungs: Decreased breath sounds on the right. Abdomen: Normal bowel sounds. Nontender. No rebound tenderness. Genitalia: Deferred. Back: No midline tenderness. Normal range of motion. Extremities: Normal range of motion. No injury. Skin: Intact. No rash. Warm. No erythema or pallor. Neurologic: No altered sensation. No weakness. Alert and oriented. Psychiatric: No suicidality. No anxiety or depression. No insomnia. Nursing notes and vitals signs are reviewed. Const: Vital Signs, click to edit/add: Vital Signs - 24 hr 12/02/24 18:10 12/02/24 18:24 12/02/24 18:30 Temperature 99.4 F Pulse Rate 92 92 Pulse Rate [Pulse Oximeter] 86 Respiratory Rate 18 22 27 H Blood Pressure Blood Pressure [Ri ght Upper Arm] 139/68 Pulse Oximetry 97 97 97 Oxygen Delivery Me thod Room Air Oxygen Flow Rate 12/02/24 18:32 12/02/24 18:45 12/02/24 19:00 Temperature Pulse Rate 84 90 84 Pulse Rate [Pulse Oximeter] Respiratory Rate 28 H 22 23 Blood Pressure 131/75 Blood Pressure [Ri ght Upper Arm] Pulse Oximetry 97 96 98 Oxygen Delivery Me thod Oxygen Flow Rate 12/02/24 19:03 12/02/24 19:04 12/02/24 19:10 Temperature Pulse Rate 80 88 92 Pulse Rate [Pulse Oximeter] Respiratory Rate 22 22 23 Blood Pressure 160/86 H Blood Pressure [Ri ght Upper Arm] Pulse Oximetry 98 98 98 Oxygen Delivery Me thod Oxygen Flow Rate 12/02/24 19:15 12/02/24 19:30 12/02/24 19:32 Temperature Pulse Rate 89 93 87 Pulse Rate [Pulse Oximeter] Respiratory Rate 19 28 H 31 H Blood Pressure 161/87 H Blood Pressure [Ri ght Upper Arm] Pulse Oximetry 98 97 98 Oxygen Delivery Me thod Oxygen Flow Rate 12/02/24 19:45 12/02/24 20:00 12/02/24 20:02 Temperature Pulse Rate 87 98 82 Pulse Rate [Pulse Oximeter] Respiratory Rate 35 H 37 H 25 H Blood Pressure 154/70 H Blood Pressure [Ri ght Upper Arm] Pulse Oximetry 98 92 Oxygen Delivery Me thod OxyMask Oxygen Flow Rate 5 12/02/24 20:03 12/02/24 20:15 12/02/24 20:37 Temperature Pulse Rate 89 92 88 Pulse Rate [Pulse Oximeter] Respiratory Rate 19 34 H Blood Pressure Blood Pressure [Ri ght Upper Arm] Pulse Oximetry 90 Oxygen Delivery Me thod OxyMask Oxygen Flow Rate 6 12/02/24 20:45 12/02/24 21:15 Temperature Pulse Rate 90 Pulse Rate [Pulse Oximeter] Respiratory Rate 26 H Blood Pressure Blood Pressure [Ri ght Upper Arm] Pulse Oximetry 93 90 Oxygen Delivery Me thod OxyMask Oxygen Flow Rate 8 Course Vital Signs Vital signs: Initial Vital Signs Temperature 99.4 F 12/02/24 18:10 Temperature Source Temporal Artery Scan 12/02/24 18:10 Pulse Rate 86 12/02/24 18:10 Respiratory Rate 18 12/02/24 18:10 Blood Pressure 139/68 12/02/24 18:10 Blood Pressure Mean 91 12/02/24 18:10 Blood Pressure Position Sitting 12/02/24 18:10 Pulse Oximetry 97 12/02/24 18:10 Oxygen Delivery Method Room Air 12/02/24 18:10 Vital Signs Temperature 99.4 F 12/02/24 18:10 Pulse Rate 86 12/02/24 18:10 Respiratory Rate 18 12/02/24 18:10 Blood Pressure 139/68 12/02/24 18:10 Pulse Oximetry 97 12/02/24 18:10 Oxygen Delivery Method Room Air 12/02/24 18:10 Temperature 101.6 F H 12/02/24 22:48 Pulse Rate 90 12/02/24 20:45 Respiratory Rate 26 H 12/02/24 21:15 Blood Pressure 154/70 H 12/02/24 20:02 Pulse Oximetry 91 12/02/24 22:07 Oxygen Delivery Method OxyMask 12/02/24 21:15 Oxygen Flow Rate 8 12/02/24 21:15 Medications Administered Medications: Generic Name Dose Route Start Last Admin Trade Name Freq PRN Reason Stop Dose Admin Acetaminophen 975 mg 12/02/24 22:07 12/02/24 22:48 Acetaminophen 325 Mg Tablet PO 975 mg Q6H PRN Administration pain or fever Ondansetron HCl 4 mg 12/02/24 22:07 12/02/24 22:23 Ondansetron 2 Mg/Ml Inj IVP 4 mg Q4H PRN Administration Nausea Discontinued Medications Generic Name Dose Route Start Last Admin Trade Name Freq PRN Reason Stop Dose Admin Azithromycin 500 mg 12/02/24 19:37 12/02/24 19:57 Azithromycin 250 Mg Tablet PO 12/02/24 19:38 500 mg ONCE ONE Administration Ceftriaxone Sodium 1 gm/ 100 mls @ 200 mls/hr 12/02/24 19:37 12/02/24 20:50 Sodium Chloride IVPB 12/02/24 19:38 Infused ONCE ONE Infusion Sodium Chloride 1,000 mls @ 6,000 mls/hr 12/02/24 22:07 12/02/24 23:38 0.9 % Sodium Chloride 1000 Ml IV 12/02/24 22:16 Infused .Q10M NEGRA Infusion Warfarin Sodium 0.5 mg 12/02/24 22:45 12/02/24 22:47 Warfarin 2 Mg Tablet PO 12/02/24 22:46 0.5 mg ONCE ONE Administration MDM - SOB/Dyspnea Lab Data Labs: Lab Results 12/02/24 12/02/24 12/02/24 Range/Units 18:40 19:05 20:21 WBC 21.33 H (4.50-11.00) K/uL RBC 3.68 L (4.00-5.20) m/uL Hgb 11.3 L (12.0-16.0) gm/dL Hct 34.8 (33.0-51.0) % MCV 95 (80-100) fL MCH 31 (26-34) pg MCHC 33 (32-36) gm/dL RDW Coeff of Halle 14.1 (11.5-15.5) % Plt Count 364 (140-440) K/uL Neut % (Auto) 90.4 H (42.0-72.0) % Lymph % (Auto) 4.0 L (20-44) % Stonewall % (Auto) 5.3 (0.0-11.0) % Eos % (Auto) 0.0 (0.0-7.0) % Baso % (Auto) 0.1 (0.0-3.0) % Neut # (Auto) 19.30 H (1.7-7.0) K/uL Lymph # (Auto) 0.90 (0.90-2.90) K/uL Stonewall # (Auto) 1.10 H (0.00-0.90) K/UL Eos # (Auto) 0.00 (0.00-0.50) K/uL Baso # (Auto) 0.00 (0.00-0.30) K/uL Abs Immat Gran (auto) 0.00 (0.00-0.30) K/uL Imm/Tot Granulo (auto) 0.2 % INR 2.40 H (0.91-1.10) D-Dimer Quant (PE/DVT) 2.15 H (0.00-0.50) ug/ml VBG pH 7.375 (7.32-7.43) VBG pCO2 37 L (40-50) mmHG VBG pO2 34.4 (25-47) mmHG VBG HCO3 22 (21-28) mmol/L Sodium 139 (135-149) mmol/L Potassium 4.1 (3.6-5.1) mmol/L Chloride 103 (96-114) mmol/L Carbon Dioxide 17 L (20-32) mmol/L Anion Gap 19 H (7-15) mEq/L BUN 42 H (7-30) mg/dL Creatinine 2.1 H (0.5-1.5) mg/dL Estimated Creat Clear 16.66 Estimated GFR 24 ml/min Glucose 116 H (60-115) mg/dL Lactate 3.1 H (0.5-1.9) mmol/L Calcium 9.0 (8.4-10.6) mg/dL Troponin I 0.31 H* 0.27 H* (0.01-0.04) ng/mL SARS-CoV-2 (PCR) Negative SARS-CoV-2 (Negative) Influenza Type A (PCR) Negative PCR FLU A (Negative) Influenza Type B (PCR) Negative PCR FLU B (Negative) RSV (PCR) Negative PCR RSV (Negative) POC Troponin I 0.19 H (0.01-0.04) ng/ml Imaging Data Chest x-ray: Radiologist's impression: Enlarged cardiac silhouette. Perihilar interstitial opacities most likely reflecting pulmonary edema right perihilar upper lobe opacification may represent pneumonia. No effusion is seen. Follow up imaging is recommended in 4-6 weeks to assess for resolution and to exclude the possibility of malignancy. ECG Data Attestation: I personally reviewed and interpreted this ECG as follows: Interpretation: Atrial fibrillation, rate 91 beats per minute. There are no specific ST or T-wave abnormalities.
--- OUTSIDE RECORDS SUMMARY | 2024-12-02 18:39 | XMS_ITS | Encounter Summary ---
Author Organization [facility] Address [address] [place] [address] Care Team Providers Care Electrical Appliance Repairer Name Role Phone Tala Thomason MD Primary Care Provider [phone] Reason for Visit * Procedure/Equipment (Routine) - Incomplete Specialty Diagnoses / Procedures Referred By Macie israel Referred To Contact Diagnoses Incontinence of feces, unspecified fecal incontinence type Procedures XR Abd Flat/KUB 1 View XR Abd Flat And Upright Daniela Davis APRN, STORAGE CENTER MANAGER [address] [place] [address] Phone: tel: fax: Referral ID Status Reason Start Date Expiration Date V isits Requested Visits Authorized [id number] Incomplete 11/26/2024 02/25/2026 1 1 Encounter Details Date Type Department Care Team (Late st Contact Info) Description 11/26/2024 10:30 AM CDT Ancillary Procedure [facility] [address] [place] [address] Daniela Davis APRN, STORAGE CENTER MANAGER [address] [place], [place] [id number] Incontinence of feces, unspecified fecal incontinence type [...] Info) Description 12/17/2024 2:30 PM CDT Appointment [facility] [address] [place] [address] 01/06/2025 1:10 PM CDT Appointment [facility] [address] [facility] [place] [address] 01/30/2025 1:30 PM CDT Appointment [facility] [address] [place] [address] Shannon Gunter, AUDIT TECH, STORAGE CENTER MANAGER [address] [facility] [address] [place] [address] 02/07/2025 1:30 PM CDT Appointment [facility] [facility] [address] [place] [phone] Betina Prather PA-C [address] [place] [address] 03/17/2025 1:30 PM CDT Appointment [facility] [address] [place] [address] Tala Thomason MD [address] [place] [address] 04/01/2025 12:00 PM CDT Appointment [facility] [address] [facility] [place] [address] Tala Thomason MD [address] [place] [address] documented as of this encounter Procedures Procedure [...] present in the transversecolon. us Daniela Davis AUDIT TECH, STORAGE CENTER MANAGER RAD GD Gale l Result documented in this encounter Visit Diagnoses Diagnosis Incontinence of feces, unspecified fecal incontinence type documented in this encounter Care Teams Electrical Appliance Repairer Relationship Specialty Start Date End Date Tala Thomason MD [address] [place] [address] PCP - General Family Practice 05/22/17 documented as of this encounter
--- OUTSIDE RECORDS SUMMARY | 2024-12-02 18:39 | XMS_ITS | Encounter Summary ---
Author Organization [facility] Address [address] [place] [address] Care Team Providers Care Hedge Fund Manager Name Role Phone Tala Thomason MD Primary Care Provider [phone] Reason for Visit * Reason Comments Refill cetirizine (ZYRTEC) 10 MG tablet [Pharmacy Med Name: CETIRIZINE 10MG TABLETS] Encounter Details Date Type Department Care Team (Late st Contact Info) Description 11/04/2024 Refill [facility] [address] [id number] Tala Thomason MD [address] [place] [address] [place] [id number] Refill (cetirizine (ZYRTEC) 10 MG tablet [Pharmacy [...] Info) Description 12/17/2024 2:30 PM CDT Appointment [facility] [address] [place] [address] 01/06/2025 1:10 PM CDT Appointment [facility] [address] [place] [address] 01/30/2025 1:30 PM CDT Appointment [facility] [address] [place] [address] Shannon Gunter, YARD PIPE GRADER, PROJECT LEADER [address] [facility] [address] [place] [address] 02/07/2025 1:30 PM CDT Appointment Maria C Cel[facility] [address] [facility] [address] [place] [phone] Betina Prather PA-C [address] [place] [address] 03/17/2025 1:30 PM CDT Appointment [facility] [address] [place] [address] [place] [address] Tala Thomason MD [address] [place] [address] 04/01/2025 12:00 PM CDT Appointment [facility] [address] [place] [address] Tala Thomason MD [address] [place] [address] documented as of this encounter Visit Diagnoses Diagnosis Eczema, unspecified type Itchy skin Unspecified pruritic disorder documented in this encounter Care Teams Hedge Fund Manager Relationship Specialty Start Date End Date Tala Thomason MD [address] [place] [address] PCP - General Family Practice 05/22/17 documented as of this encounter
--- OUTSIDE RECORDS SUMMARY | 2024-12-02 18:39 | XMS_ITS | Encounter Summary ---
Author Organization [facility] Address [address] [place] [address] Care Team Providers Care Hostess Cashier Name Role Phone Tala Thomason MD Primary Care Provider [phone] Reason for Visit * Reason Comments QUESTIONS, GENERAL Entered automaticall y based on patient selection in [employer]. Encounter Details Date Type Department Care Team (Late st Contact Info) Description 11/04/2024 3:50 PM CDT E-Visit [facility] [address] Urology [address] [place] [address] Betina Prather, PA-C 16[address] [place], [place] [id number] Chief Comp: QUESTIONS, GENERAL Social History Tobacco [...] Info) Description 12/17/2024 2:30 PM CDT Appointment [facility] [address] [place] [address] 01/06/2025 1:10 PM CDT Appointment [facility] [address] [place] [address] 01/30/2025 1:30 PM CDT Appointment [facility] [address] [place] [address] Shannon Gunter, PRIVATE EQUITY ANALYST, CONCRETE FENCE BUILDER 39[address] [facility] [address] [place] [address] 02/07/2025 1:30 PM CDT Appointment [facility] [address] Urology [address] [place] [phone] Betina Prather PA-C [address] [place], [place] [address] 03/17/2025 1:30 PM CDT Appointment [facility] [address] [place], [place] [phone] Tala Thomason MD [address] [place] [id number] 04/01/2025 12:00 PM CDT Appointment [facility] [address] [place] [address] Tala Thomason MD [address] [place] [id number] documented as of this encounter Visit Diagnoses Not on filedocumented in this encounter Care Teams Hostess Cashier Relationship Specialty Start Date End Date Tala Thomason MD [address] [place], [place] [address] PCP - General Family Practice 05/22/17 documented as of this encounter
--- OUTSIDE RECORDS SUMMARY | 2024-12-02 18:39 | XMS_ITS | Encounter Summary ---
Author Organization [facility] Address [address] [place] [address] Care Team Providers Care Clean Energy Policy Analyst Name Role Phone Tala Thomason MD Primary Care Provider [phone] Reason for Visit * Reason Comments Anticoagulation: Warfarin Encounter Details Date Type Department Care Team (Latest Contact Info) Description 11/22/2024 Anticoagulation PN Anticoagulation Centralized Services [id number] [email or web address] [facility], [address] [place], [place] [address] Chronic atrial fibrillation (HRC) (Primary Dx); Monitoring [...] Info) Description 12/17/2024 2:30 PM CDT Appointment [facility] [address] [place] [address] 01/06/2025 1:10 PM CDT Appointment [facility] [address] [place] [address] 01/30/2025 1:30 PM CDT Appointment [facility] [address] [place] [address] Shannon Gunter, PLASTER TENDER, TRIAL JUDGE 39[address] [facility] [address] [place] [address] 02/07/2025 1:30 PM CDT Appointment [facility] [address] Urology [address] [place] [phone] Betina Prather PAAndrew [address] [place] [address] 03/17/2025 1:30 PM CDT Appointment [facility] [address] [facility] [place] [address] Tala Thomason MD [address] [place] [id number] 04/01/2025 12:00 PM CDT Appointment [facility] [address] [place] [address] Tala Thomason MD [address] [place] [id number] documented as of this encounter Visit Diagnoses Diagnosis Chronic atrial fibrillation (HRC)- Primary Atrial fibrillation Monitoring for long-term anticoagulant use Encounter for long-term (current) use of anticoagulants documented in this encounter Care Teams Clean Energy Policy Analyst Relationship Specialty Start Date End Date Tala Thomason MD [address] [id number] PCP - General Family Practice 05/22/17 documented as of this encounter
--- OUTSIDE RECORDS SUMMARY | 2024-12-02 18:39 | XMS_ITS | Encounter Summary ---
Author Organization [facility] Address [address] [place] [address] Care Team Providers Care Type Caster Name Role Phone Tala Thomason MD Primary Care Provider [phone] Encounter Details Date Type Department Care Team (Late st Contact Info) Description 11/27/2024 Results Follow-Up [facility] at [facility] [address] [address] Daniela Davis, PALEOBOTANIST, FAST FOOD CREW MEMBER [address] [facility] [address] [place], [place] [phone] Social History Tobacco Use Types Packs/Day Years [...] Info) Description 12/17/2024 2:30 PM CDT Appointment [facility] [address] [place] [address] 01/06/2025 1:10 PM CDT Appointment [facility] [address] [place], [place] [id number] 01/30/2025 1:30 PM CDT Appointment [facility] [address] [place] [address] Shannon Gunter, PEDRO, FAST FOOD CREW MEMBER 39[address] [facility] [place] [address] [place], [place] [address] 02/07/2025 1:30 PM CDT Appointment Maria C [facility] [address] [address]rology [address] [place] [phone] Betina Prather PA-C [address] [place] [address] 03/17/2025 1:30 PM CDT Appointment [facility] 188 [facility] [place], [place] [id number] Tala Thomason MD [address] [place] [id number] 04/01/2025 12:00 PM CDT Appointment [facility] [address] [place] [address] Tala Thomason MD [address] [id number] documented as of this encounter Visit Diagnoses Not on filedocumented in this encounter Care Teams Type Caster Relationship Specialty Start Date End Date Tala Thomason MD [address] [id number] PCP - General Family Practice 05/22/17 documented as of this encounter
--- OUTSIDE RECORDS SUMMARY | 2024-12-02 18:39 | XMS_ITS | Encounter Summary ---
Author Organization [facility] Address [address] [place] [address] Care Team Providers Care Conditioner Tender Name Role Phone Tala Thomason MD Primary Care Provider [phone] Reason for Visit * Reason Comments CONSULT * Consult/Transfer Care (Routine) - New Request Specialty Diagnoses / Procedures Referred By Macie israel Referred To Contact Diagnoses Bowel and bladder incontinence Kayleigh Ambrose PA-C [address] [place] [address] Phone: tel: fax: Referral ID Status Reason Start Date Expiration Date V isits Requested Visits Authorized [id number] New Request 03/15/2024 06/14/2025 1 1 Encounter Details Date Type Department Care Team (Late st Contact Info) Description 11/26/2024 10:00 AM CDT Office Visit [facility] at [facility] [address] [id number] Daniela Davis APRN, PET RESORT CONCIERGE [address] [facility] [address] [place], [place] [address] Incontinence of feces, unspecified fecal incontinence type [...] encounter Progress Notes * Daniela Davis, PEDRO, PET RESORT CONCIERGE - 11/26/2024 12:00 AM CDT NAME: ANTOINE TIPTON CSN: [id number] CLINIC NOTE CLINIC PROGRESS NOTE DATE OF SERVICE: 11/26/2024 : 1945 HISTORY OF PRESENT ILLNESS: Antoine is seen in the clinic today, with the assistance of a professional flag signalman, with a history of intermittent diarrhea with [...] cancer. ALLERGIES: ADVERSE DRUG REACTIONS: REVIEWED IN [facility]. MEDICATIONS: Reviewed in [facility]. OBJECTIVE: Antoine appears well and in no [...] plan. Billing based on complexity. TINO FARIAS/ALEXIS /[id number] documented in this encounter Plan of Treatment Upcoming Encounters Date Type Department Care Team (Late st Contact Info) Description 12/17/2024 2:30 PM CDT Appointment [facility] [address] [place] [address] 01/06/2025 1:10 PM CDT Appointment [facility] 188 [facility] [place] [facility] [place] [address] 01/30/2025 1:30 PM CDT Appointment [facility] [address] [place] [address] Shannon Gunter, PARK MAINTAINER, PET RESORT CONCIERGE 3931 [facility] [address] [place] [address] 02/07/2025 1:30 PM CDT Appointment Maria C [facility] [address] Urology [address] [place] [phone] Betina Prather PAJacintaC [address] [place] [address] 03/17/2025 1:30 PM CDT Appointment [facility] 188 [facility] [place] [facility] [place], [place] [phone] Tala Thomason MD [address] [place] [id number] 04/01/2025 12:00 PM CDT Appointment [facility] [address] [place] [address] Tala Thomason MD [address] [place] [id number] documented as of this encounter Visit Diagnoses Diagnosis Incontinence of feces, unspecified fecal incontinence type- Primary documented in this encounter Care Teams Conditioner Tender Relationship Specialty Start Date End Date Tala Thomason MD [address] [place] [id number] PCP - General Family Practice 05/22/17 documented as of this encounter
--- OUTSIDE RECORDS SUMMARY | 2024-12-02 18:39 | XMS_ITS | Clinical Summary ---
Author Organization [facility] Address [address] [place] [address] Care Team Providers Care Mathematics Academic Chair Name Role Phone Pcp, No Primary Care [...] Insurance C/O Star Ambrose [address] [place] [id number] MEDICARE PART A HB ONLY MEDICARE PB ONLY MEDICARE PART B HB ONLY Advance Directives * Full Code (Latest Code Status on File) Date Activated Date Inactivated Comments 05/20/2017 5:38 PM 05/22/2017 9:15 PM Care Teams Mathematics Academic Chair Relationship Specialty Start Date End Date Pcp, No . PCP - General 05/20/17
--- OUTSIDE RECORDS SUMMARY | 2024-12-02 18:39 | XMS_ITS | Encounter Summary ---
Author Organization [facility] Address [address] [place] [address] Care Team Providers Care Veneer Drier Name Role Phone Tala Thomason MD Primary Care Provider [phone] Encounter Details Date Type Department Care Team (Late st Contact Info) Description 11/22/2024 1:10 PM CDT Lab Visit [facility] [address] [place] [address] Monitoring for long-term anticoagulant use Social History [...] Info) Description 12/17/2024 2:30 PM CDT Appointment [facility] [address] [place] [address] 01/06/2025 1:10 PM CDT Appointment [facility] [address] [place] [address] 01/30/2025 1:30 PM CDT Appointment [facility] [address] [place] [address] Shannon Gunter, PATTERN FITTER, FIREARMS INSTRUCTOR [address] [facility] [place] [address] [place], [place] [address] 02/07/2025 1:30 PM CDT Appointment Maria C Booker [facility] [address] Urology [address] [place] [phone] Betina Prather PA-C [address] [place] [address] 03/17/2025 1:30 PM CDT Appointment [facility] [address] [place] [address] Tala Thomason MD [facility] [address] [place] [id number] 04/01/2025 12:00 PM CDT Appointment [facility] [address] [place] [address] Tala Thomason MD [facility] [address] [place], [place] [phone] documented as of this encounter Procedures Procedure Name Priority Date/Time Associated Diagnosis Comments INR/PROTIME Routine 11/22/2024 12:54 PM CDT Monitoring for long-term anticoagulant use documented in this encounter Results * (ABNORMAL) INR/Protime (11/22/2024 12:54 PM CDT) Pathologist [facility] Protime 28.4(H) 11.8 - 14.6 Seconds 11/22/2024 5:27 PM CDT [facility] INR 2.6(H) 0.9 - 1.1 11/22/2024 5:27 PM CDT [facility] Blood Venipuncture / Unknown 11/22/2024 12:54 PM CDT 11/22/2024 12:54 PM CDT Narrative [facility] - 11/22/2024 5:27 PM CDT If you take an anticoagulant medicine called warfarin, your doctor or clinician may establish a normal range for you that is different from the baseline range shown. us Tala Thomason MD LAB_1 Final Resul t [facility] [address] [place] [address] documented in this encounter Visit Diagnoses Diagnosis Monitoring for long-term anticoagulant use Encounter for long-term (current) use of anticoagulants documented in this encounter Care Teams Veneer Drier Relationship Specialty Start Date End Date Tala Thomason MD [facility] [place] [id number] PCP - General Family Practice 05/22/17 documented as of this encounter
--- OUTSIDE RECORDS SUMMARY | 2024-12-02 18:39 | XMS_ITS | Encounter Summary ---
Author Organization [facility] Address [address] [place] [address]. [place] [address] Care Team Providers Care Metal Fabricating Inspector Name Role Phone Enedelia Wilkins MD Primary Care Provid er Santo Crump MD Unavailable [phone] Linh Fontanez APRN, CNP Unavailable [phone] Paddy COLLINS MD, Tala Lang Primary Care Provider Santo Crump MD Unavailable [phone] Santo Crump MD Unavailable [phone] Encounter Details Date Type Department Care Team (Late st Contact Info) Description 03/31/[address] [place] [address] Enedelia Wilkins MD [address] [place] [address] ER (Primary Dx) Social History Tobacco Use Types Packs/Day Years Used Date Smoking Tobacco: Never Smokeless Tobacco: Never Alcohol Use Standard Drinks/Week Comments Not Currently 0 (1 standard drink = 0.6 oz pur e alcohol) beer occ Comments No Sex and Gender Information Value Date Recorded Sex Assigned at Not on file Legal Sex 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 WELLNESS EDUCATOR Gender Identity Not on file Sexual Orientation [...] t he patient's history through a sign scooping machine tender 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 ASSESSMENT: 1. Left hip pain, left sciatica and muscle spasms. PLAN: The patient will follow-up with Dr. Wilkins in 24-72 hours. Percocet 1-2 tabs q4-6h. Motrin over the counter as prescribed, Robaxin 1000 mg q8h for muscl e spasms. Return if severe pain, unable to walk or worsening symptoms. [id number] JOSÉ MIGUEL DICK MD [place]: Document: [id number] [place], [place] Name: ANTOINE TIPTON EMERGENCY ROOM ENCOUNTER Page 2 of 2 LCN: ERB DSC: 03/31/2003 [place], [place] Name: MR#: : Admit Date: DON TIPTON 2044-09[birth year]08[birth year]24 1945 03/[birth year]/2003 Doctor: JOSÉ MIGUEL DICK MD EMERGENCY ROOM ENCOUNTER Page 1 of 2 Electronically filed by Armond Deleon 04/07/2003 4:12 PM documented in this encounter Plan of Treatment Not on file documented as of this encounter Visit Diagnoses Diagnosis ER- Primary documented in this encounter Care Teams Metal Fabricating Inspector Relationship Specialty Start Date End Date Enedelia Wilkins MD [address] [place] [address] PCP - General 10/23/02 10/21/21 Tala Thomason MD, [address] [place] [id number] PCP - General Family Medicine 10/22/21 Santo Crump MD [address] [place] [address] [place] [address] Assigned Heart and Vascular Provider 06/12/20 10/02/21 Linh Fontanez APRN MID LEVEL JAVA DEVELOPER [address] [place] [address] Assigned Heart and Vascular Provider 10/03/21 04/28/23 Santo Crump MD [address] [place] [place] [address] Cardiovascular Disease 10/24/22 Santo Crump MD [address] [place] [address] [place] [address] Assigned Heart and Vascular Provider 05/06/23 11/09/24 documented as of this encounter
--- OUTSIDE RECORDS SUMMARY | 2024-12-02 18:39 | XMS_ITS | Clinical Summary ---
Author Organization [facility] Address [address] [place] [address] Care Team Providers Care Spa Coordinator Name Role Phone Tala Thomason MD Primary Care Provider [phone] Source Comments You are receiving this document as you are listed as the primary care provider,follow-up provider, or the patient has been referred to you for consultation.This is in compliance with the Medicare andTr[facility] Medical Centercaid EHR Incentive Program,which states Providers who transition their patient to another setting of careor provider of care or refers their patient to another provider of care shouldprovide summary care record for each transition of care or referral. [facility] management Allergies Active Allergy Reactions Criticality Noted Date [...] 024 Active Vitamin D, Ergocalciferol, 1.25 MG (86715 UT) CAPS TAKE 1 CAPSULE BY MOUTH 1 TIME EVERY WEEK 13 Capsule 3 024 Active alendronate (FOSAMAX) 70 MG tabletIndication s:Osteopenia, unspecified location TAKE 1 TABLET BY MOUTH ONCE WEEKLY. TAKE 30 MINUTES BEFORE FIRST [id number] TION. AVOID LYING DOWN FOR 30 MINUTES [...] as directed. Your dose may change. Call [facility] [phone] with questions. 025 Active Vibegron 75 MG [...] sooner. 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 Moderate episode of recurrent major depressive [...] Problem Noted Date Diagnosed Date Resolved Date retirement (current) use of anticoagulants 05/23/2017 12/19/2023 Overview [...] Care Team Description 11/29/2024 Telephone Nephrology at [facility] at [address] [address] Shannon Gunter, JUNIOR SALES ASSISTANT, VULCANIZER RUBBER PLATE Lab Orders Needed (01/23/25 appt with Shannon ) 11/27/2024 Results Follow-Up [facility] at [facility] and [place] [address] [address] [address] [place] [address] Daniela Davis APRN, VULCANIZER RUBBER PLATE 11/26/2024 10:30 AM CDT Ancillary Procedure [facility] [address] [place] [address] Daniela Davis, JUNIOR SALES ASSISTANT, VULCANIZER RUBBER PLATE Incontinence of feces, unspecified fecal incontinence type 11/26/2024 10:00 AM CDT Office Visit [facility] at [facility] and [place] [address] [address] [address] [place] [address] Daniela Davis APRN, VULCANIZER RUBBER PLATE Incontinence of feces, unspecified fecal incontinence type (Primary Dx) 11/22/2024 1:10 PM CDT Lab Visit [facility] [place], [place] [phone] Monitoring for long-term anticoagulant use 11/22/2024 Anticoagulation [facility] [id number] [address] , [address] [place] [address] Chronic atrial fibrillation (HRC) (Primary Dx); Monitoring for long-term anticoagulant use 11/04/2024 3:50 PM CDT E-Visit [facility] [address] [address] [address] [place] [phone] Betina Prather PA-C Chief Comp: QUESTIONS, GENERAL 11/04/2024 Refill [facility] [address] [place] [address] Tala Thomason MD Refill (cetirizine (ZYRTEC) 10 MG tablet [Pharmacy Med Name: CETIRIZINE 10MG TABLETS]) 10/30/2024 [facility] [address] [address] [address] [place] [phone] Betina Prather PA-C Med Request 10/11/2024 8:30 AM HYDROCHLORIC AREA SUPERVISOR Office Visit [facility] [address] [address] [address] [place] [phone] Betina Prather PA-C Urinary incontinence, unspecified type (Primary Dx); OAB (overactive bladder); Mixed stress and urge incontinence; Urinary urgency; Other urinary incontinence; Pelvic floor weakness; Alport syndrome; CKD (chronic kidney disease) stage 4, GFR 15-29 ml/min (HRC); History of CHF (congestive heart failure); History of atrial fibrillation 10/10/2024 1:00 PM HYDROCHLORIC AREA SUPERVISOR Lab Visit [facility] [place], [place] [phone] Monitoring for long-term anticoagulant use; CKD (chronic kidney disease) stage 4, GFR 15-29 ml/min (HRC) 10/10/2024 Anticoagulation PN [facility] [id number] [address] [facility], [address] [place], [place] [address] Chronic atrial fibrillation (HRC) (Primary Dx); Monitoring for long-term anticoagulant use 10/09/2024 Results Follow-Up [facility] Care [address] [place] [address] Yelitza Alvarez PA-C 10/08/2024 6:50 PM HYDROCHLORIC AREA SUPERVISOR Lab Visit [facility] [address] [place] [address] Diarrhea, unspecified type; Screen for colon cancer 10/08/2024 Telephone [facility] [id number] [address] [place] [address] Tala Thomason MD Anticoagulation 09/20/2024 1:00 PM HYDROCHLORIC AREA SUPERVISOR Lab Visit [facility] [address] [facility] [address] [place] [address] Monitoring for long-term anticoagulant use 09/20/2024 Anticoagulation PN [facility] [id number] [address] [place] [address] Chronic atrial fibrillation (HRC) (Primary Dx); Monitoring for long-term anticoagulant use 09/19/2024 Telephone PN [facility] [id number] [address] [place] [address] Tala Thomason MD Anticoagulation: Labs Overdue (Outreach x 2. ) 09/18/2024 Telephone Nephrology at [facility] at [place] [address] [place] [address] Shannon Gunter, JUNIOR SALES ASSISTANT, VULCANIZER RUBBER PLATE Lab Orders Needed from Last 3 Months Immunizations Immunization Administration Dates Next Due Flu Vac (3+ yrs) 04/27/2012 Flu Vac Preserv Free (3+yrs) 04/27/2012, 05/12/2011,04/28/2010,2008 HepB Adult (Engerix-B, 20+ y rs, 3 dose series) 06/29/2021,05/13/2019 Influenza IIV3 (Trivalent) F luzone Highdose, 65+ Yrs (49259) 05/13/2019,07/10/2018,05/23/2017,2013 Influenza IIV4 (Quadrivalent ) 0.5mL (32224) 10/14/2013 Influenza IIV4 (Quadrivalent ) Fluad, 65+ [...] Comments Blood Pressure 137/62 08/30/2024 12:00 PM HYDROCHLORIC AREA SUPERVISOR Pulse 54 08/30/2024 12:00 PM HYDROCHLORIC AREA SUPERVISOR Temperature 36.5 C (97.7 F) 07/26/2024 3:18 PM HYDROCHLORIC AREA SUPERVISOR Respiratory Rate 16 07/26/2024 3:18 PM HYDROCHLORIC AREA SUPERVISOR Oxygen Saturation 100% 07/26/2024 3:18 PM HYDROCHLORIC AREA SUPERVISOR Inhaled Oxygen Concentration - - Weight 80.7 kg (177 lb 14.4 oz) 11/26/2024 9:57 AM CDT Height 154.9 cm (5' 1) 11/26/2024 9:57 AM CDT Body Mass Index 33.61 11/26/2024 9:57 AM CDT Plan of Treatment Upcoming Encounters Date Type Department Care Team (Late st Contact Info) Description 12/17/2024 2:30 PM CDT Appointment [facility] [address] [place] [address] 01/06/2025 1:10 PM CDT Appointment [facility] [address] [place] [address] 01/30/2025 1:30 PM CDT Appointment [facility] [address] [place] [address] Shannon Gunter, JUNIOR SALES ASSISTANT, VULCANIZER RUBBER PLATE [address] [facility] [address] [place] [address] 02/07/2025 1:30 PM CDT Appointment Maria C [facility] [address] [address] [address] [place] [phone] Betina Prather PA-C [address] [place] [address] 03/17/2025 1:30 PM CDT Appointment [facility] [address] [facility] [place] [address] Tala Thomason MD [address] [place] [address] 04/01/2025 12:00 PM CDT Appointment [facility] [address] [place] [address] Tala Thomason MD [address] [place] [id number] Health Maintenance Due Date Last Done Comments [...] COMPLETE BLOOD COUNT-W/DIFF Routine 10/10/2024 12:16 PM HYDROCHLORIC AREA SUPERVISOR CKD (chronic kidney disease) stage 4, GFR 15-29 ml/min (HRC) TP/CREA RATIO, URINE Routine 10/10/2024 12:16 PM HYDROCHLORIC AREA SUPERVISOR CKD (chronic kidney disease) stage 4, GFR 15-29 ml/min (HRC) RENAL FUNCTION PANEL Routine 10/10/2024 12:16 PM HYDROCHLORIC AREA SUPERVISOR CKD (chronic kidney disease) stage 4, GFR 15-29 ml/min (HRC) INTACT PTH Routine 10/10/2024 12:16 PM HYDROCHLORIC AREA SUPERVISOR CKD (chronic kidney disease) stage 4, GFR 15-29 ml/min (HRC) CBC AND DIFFERENTIAL PANEL Routine 10/10/2024 12:16 PM HYDROCHLORIC AREA SUPERVISOR CKD (chronic kidney disease) stage 4, GFR 15-29 ml/min (HRC) INR/PROTIME Routine 10/10/2024 12:16 PM HYDROCHLORIC AREA SUPERVISOR Monitoring for long-term anticoagulant use FIT,OCCULT BLOOD, STOOL Routine 10/08/2024 8:00 AM HYDROCHLORIC AREA SUPERVISOR Diarrhea, unspecified type Screen for colon cancer INR/PROTIME Routine 09/20/2024 12:38 PM HYDROCHLORIC AREA SUPERVISOR Monitoring for long-term anticoagulant use LIPID PANEL & DIRECT LDL (IF NEEDED) Routine 08/30/2024 11:16 AM HYDROCHLORIC AREA SUPERVISOR Hyperlipidemia, unspecified hyperlipidemia type (HRC) DXA BONE DENSITY SPINE/HIP INC VERT FX ASSESS Routine 06/17/2022 9:58 AM CDT Post-menopausal HEPATITIS C ANTIBODY, WITH REFLEX Routine 09/05/2019 10:01 AM HYDROCHLORIC AREA SUPERVISOR Need for hepatitis C screening test from [...] present in the transversecolon. us Daniela Davis JUNIOR SALES ASSISTANT, VULCANIZER RUBBER PLATE JASPER LOPEZ Gale basil Result * (ABNORMAL) INR/Protime (11/22/2024 12:54 PM CDT) Only the most recent of3 resultswithin the time period is included. Protime 28.4(H) 11.8 - 14.6 Seconds 11/22/2024 5:27 PM CDT [facility] INR 2.6(H) 0.9 - 1.1 11/22/2024 5:27 PM CDT [facility] Blood Venipuncture / Unknown 11/22/2024 12:54 PM CDT 11/22/2024 12:54 PM CDT Narrative [facility] - 11/22/2024 5:27 PM CDT If you take an anticoagulant medicine called warfarin, your doctor or clinician may establish a normal range for you that is different from the baseline range shown. Tala Thomason MD LAB_1 Final Resul t [facility] [address] [place] [address]RUST * (ABNORMAL) Renal Function Panel (10/10/2024 12:16 PM HYDROCHLORIC AREA SUPERVISOR) Pathologist [facility] Sodium 139 136 - 145 mmol/L 10/10/2024 7:31 PM [facility] Potassium 4.4 3.5 - 5.1 mmol/L 10/10/2024 7:31 PM [facility] Chloride 106 98 - 109 mmol/L 10/10/2024 7:31 PM [facility] CO2 23 20 - 29 mmol/L 10/10/2024 7:31 PM [facility] Anion Gap 10 6 - 16 mmol/L 10/10/2024 7:31 PM [facility] Calcium 9.7 8.4 - 10.4 mg/dL 10/10/2024 7:31 PM [facility] BUN 34(H) 7 - 26 mg/dL 10/10/2024 7:31 PM [facility] Creatinine 1.72(H) 0.55 - 1.02 mg/dL 10/10/2024 7:31 PM [facility] Albumin 3.7 3.5 - 5.0 g/dL 10/10/2024 7:31 PM [facility] Phosphorus 4.0 2.3 - 4.7 mg/dL 10/10/2024 7:31 PM [facility] Glucose 84 70 - 100 mg/dL 10/10/2024 7:31 PM [facility] Comment:The given reference range is for the fasting state. Non-fasting reference range for glucose is 70 - 180 mg/dL. GFR, Estimated 30(L) >60 mL/min/1.7 3m2 10/10/2024 7:31 PM [facility] Hours Fasting 0.1 8 - 12 Hours 10/10/2024 7:31 PM [facility] Blood Venipuncture / Unknown 10/10/2024 12:16 PM HYDROCHLORIC AREA SUPERVISOR 10/10/2024 12:16 PM HYDROCHLORIC AREA SUPERVISOR Shannon Gunter APRN, DEBRA LAB_1 Final Resu lt Performing Organization Address City/[facility]/ZIP Co de Phone Number [facility] [address] [place] [address]RUST * Intact PTH (10/10/2024 12:16 PM HYDROCHLORIC AREA SUPERVISOR) Intact PTH 68 10 - 100 pg/mL 10/10/2024 7:40 PM HYDROCHLORIC AREA SUPERVISOR [facility] Blood Venipuncture / Unknown 10/10/2024 12:16 PM HYDROCHLORIC AREA SUPERVISOR 10/10/2024 12:16 PM HYDROCHLORIC AREA SUPERVISOR Shannon Gunter APRN, VULCANIZER RUBBER PLATE LAB_1 Final Resu lt Performing Organization Address City/[facility]/ZIP Co de Phone Number [facility] [address] * Complete Blood Count-W/Diff (10/10/2024 12:16 PM HYDROCHLORIC AREA SUPERVISOR) WBC 8.2 3.5 - 10.5 x10(9)/L 10/10/2024 12:50 PM HYDROCHLORIC AREA SUPERVISOR [facility] (PN) RBC 3.90 3.90 - 5.03 x10(12)/L 10/10/2024 12:50 PM HYDROCHLORIC AREA SUPERVISOR [facility] (PN) Hemoglobin 12.1 12.0 - 15.5 g/dL 10/10/2024 12:50 PM HYDROCHLORIC AREA SUPERVISOR [facility] (PN) HCT 35.9 34.9 - 44.5 % 10/10/2024 12:50 PM HYDROCHLORIC AREA SUPERVISOR [facility] (PN) MCV 92.1 80.0 - 100.0 fL 10/10/2024 12:50 PM HYDROCHLORIC AREA SUPERVISOR [facility] (PN) MCH 31.0 27.6 - 33.3 pg 10/10/2024 12:50 PM HYDROCHLORIC AREA SUPERVISOR [facility] (PN) MCHC 33.7 31.5 - 35.2 g/dL 10/10/2024 12:50 PM HYDROCHLORIC AREA SUPERVISOR [facility] (PN) RDW 15.1 11.9 - 15.5 % 10/10/2024 12:50 PM HYDROCHLORIC AREA SUPERVISOR [facility] (PN) Platelets 369 150 - 450 x10(9)/L 10/10/2024 12:50 PM HYDROCHLORIC AREA SUPERVISOR [facility] (PN) Neutrophil Absolute 5.3 1.7 - 7.0 10(9)/L 10/10/2024 12:50 PM HYDROCHLORIC AREA SUPERVISOR [facility] (PN) Lymphocyte Absolute 1.9 1.0 - 4.8 10(9)/L 10/10/2024 12:50 PM HYDROCHLORIC AREA SUPERVISOR [facility] (PN) Monocyte Absolute 0.5 0.2 - 0.9 10(9)/L 10/10/2024 12:50 PM HYDROCHLORIC AREA SUPERVISOR [facility] (PN) Eosinophil Absolute 0.4 0.0 - 0.5 10(9)/L 10/10/2024 12:50 PM HYDROCHLORIC AREA SUPERVISOR [facility] (PN) Basophil Absolute 0.0 0.0 - 0.3 10(9)/L 10/10/2024 12:50 PM HYDROCHLORIC AREA SUPERVISOR [facility] (PN) Immature Granulocyte % 0.4 0.0 - 0.5 % 10/10/2024 12:50 PM HYDROCHLORIC AREA SUPERVISOR [facility] (PN) Blood Venipuncture / Unknown 10/10/2024 12:16 PM HYDROCHLORIC AREA SUPERVISOR 10/10/2024 12:16 PM HYDROCHLORIC AREA SUPERVISOR us Shannon Gunter APRN, CNP LAB_1 Final Resu lt [facility] (PN) [address] [facility] [place] [address], [facility] * TP/Crea Ratio, Urine (10/10/2024 12:16 PM HYDROCHLORIC AREA SUPERVISOR) TP/Creat Ratio, Urine Random 0.08 0.00 - 0.20 10/10/2024 7:43 PM HYDROCHLORIC AREA SUPERVISOR [facility] Total Protein, Urine, Random 3 0 - 14 mg/dL 10/10/2024 7:43 PM HYDROCHLORIC AREA SUPERVISOR [facility] Creatinine, Urine, Random 38 >20 mg/dL mg/dL 10/10/2024 7:43 PM HYDROCHLORIC AREA SUPERVISOR [facility] Urine Venipuncture / Unknown 10/10/2024 12:16 PM HYDROCHLORIC AREA SUPERVISOR 10/10/2024 12:16 PM HYDROCHLORIC AREA SUPERVISOR Narrative [facility] - 10/10/2024 7:43 PM HYDROCHLORIC AREA SUPERVISOR Low urine creatinine values coupled with low urine protein values can artifactually increase the urine protein/creatinine results. Correlate results of ratio with creatinine results. Shannon Gunter APRN, CNP LAB_1 Final Resu lt Performing Organization Address City/[facility]/ZIP Co de Phone Number [facility] [address] [place] [address], [facility] * FIT, OCCULT BLOOD, STOOL (10/08/2024 8:00 AM HYDROCHLORIC AREA SUPERVISOR) FIT Specimen 1 Negative Negative 10/09/2024 1:54 AM HYDROCHLORIC AREA SUPERVISOR [facility] Stool Non-blood Collection / Unknown 10/08/2024 8:00 AM HYDROCHLORIC AREA SUPERVISOR 10/08/2024 5:43 PM HYDROCHLORIC AREA SUPERVISOR Tala Thomason MD LAB_1 Final Resul t [facility] [address] [address] * Lipid Panel & Direct LDL (if Needed) (08/30/2024 11:16 AM HYDROCHLORIC AREA SUPERVISOR) Cholesterol 130 0 - 199 mg/dL 08/30/2024 4:59 PM [facility] Triglyceride 131 <=149 mg/dL 08/30/2024 4:59 PM [facility] HDL Cholesterol 46 >=40 mg/dL 4:59 PM [facility] LDL, Calculated 58 <130 mg/dL 4:59 PM [facility] Non HDL Chol, Calculated 84 <=159 mg/dL 08/30/2024 4:59 PM [facility] Cholesterol/HDL Ratio 2.8 <=5.0 08/30/2024 4:59 PM [facility] Hours Fasting 2.0 8 - 12 Hours 08/30/2024 4:59 PM [facility] (PN) Blood Venipuncture / Unknown 08/30/2024 11:16 AM HYDROCHLORIC AREA SUPERVISOR 08/30/2024 11:16 AM [facility] us Tala Thomason MD LAB_1 Final Resul t [facility] [address] [place] [address] [facility] (PN) [address] [place] [address]RUST * DXA Bone Density Spine/Hip Inc Vert FX Assess (06/17/2022 9:58 AM CDT) Anatomical Region Laterality Modality Spine, Hip Radiographic Moriah ging Narrative 06/23/2022 9:09 AM CDT CLINIC DXA REPORT Patient Name: Sylvia Doan Densitometer:HolomTraks W (S/N [id number]) ROBLEDO BONE OSTEOPOROSIS RISK FACTORS FROM PATIENT [...] trabecular bone, and is derived from the azmod-zy-[id number] changes of bone density embedded in the [...] Virus Liliana with Reflex (09/05/2019 10:01 AM HYDROCHLORIC AREA SUPERVISOR) Hepatitis C Antibody Negative (Non Reactive) Negative (Non Reactive) 09/05/2019 1:08 PM HYDROCHLORIC AREA SUPERVISOR [facility] Comment:Antibodies to HCV no t detected. Does not exclude the possiblity of exposure to HCV. Blood Venipuncture Butterfly / Unknown 09/05/2019 10:01 AM HYDROCHLORIC AREA SUPERVISOR 09/05/2019 10:01 AM HYDROCHLORIC AREA SUPERVISOR Tala Thomason MD LAB_1 Final Resul t [facility] [address] [place] [address], [facility] from Last 3 Months or Most Recently Relevant to Health Maintenance Insurance [place] [employer] [id number] [place] [address] MEDICARE [place] [id number] [address] [id number] [place] [id number] [address] [place] [id number] MEDICARE Advance Directives Documents on File Type Date Recorded Patient Histopathology Technician Expl anation HEALTHCARE DIRECTIVE 08/09/2023 Mayasandi Crane GELLAR 1 10/10/2022 Healthcare Agents on File Name Relationship Healthcare Agent Relationshi p Communication Maya Rowans GELLAR Daughter Health Care Agent Care Teams Spa Coordinator Relationship Specialty Start Date End Date Tala Thomason MD [address] [place] [address] PCP - General Family Practice 05/22/17
--- OUTSIDE RECORDS SUMMARY | 2024-12-02 18:39 | XMS_ITS | Clinical Summary ---
Author Organization [facility] Address [address] [facility] [place] [address] Care Team Providers Care Engineer Assistant Name Role Phone Paddy COLLINS MD, Tala Lang Primary Care Provider Santo Crump MD Unavailable [phone] Allergies Active Allergy Reactions Criticality Noted Date [...] mouth daily Active ergocalciferol (ERGOCALCIFEROL) 1.25 MG (71324 UT) capsule Take 50,000 Units by mouth [...] ONCE WEEKLY. TAKE 30 MINUTES BEFORE FIRST [id number] CATION. AVOID LYING DOWN FOR 30 MINUTES Active sodium bicarbonate 650 MG tablet Take 650 mg by mouth 3 Active atorvastatin (LIPITOR) 40 MG tabletIndications :Carotid artery calcification, left Take 1 tablet (40 mg) by mouth daily. Appointment needed for additional refills. Please call [phone] to schedule. 90 tablet 4 Active Active [...] on file Legal Sex 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 MACHINE LACER Gender Identity Not on file Sexual Orientation [...] - BLOOD ORDERABLES Fin al Result LABORATORY [facility] Acute Care Lab [address] Lab (1st floor, no room number) [place] [address], [facility] [phone] * (ABNORMAL) Basic metabolic panel (03/18/2019 1:40 PM CDT) Sodium 138 133 - 144 mmol/L 03/18/2019 2:41 PM CDT [facility] Potassium 4.6 3.4 - 5.3 mmol/L 03/18/2019 2:41 PM CDT [facility] Chloride 108 94 - 109 mmol/L 03/18/2019 2:41 PM CDT [facility] Carbon Dioxide 27 20 - 32 mmol/L 03/18/2019 2:47 PM CDT [facility] Anion Gap 3 3 - 14 mmol/L 03/18/2019 2:47 PM CDT [facility] Glucose 94 70 - 99 mg/dL 03/18/2019 2:47 PM CDT [facility] Urea Nitrogen 39(H) 7 - 30 mg/dL 03/18/2019 2:47 PM CDT [facility] Creatinine 1.57(H) 0.52 - 1.04 mg/dL 03/18/2019 2:47 PM CDT [facility] GFR Estimate 32(L) >60 mL/min/{1 .73_m2} 03/18/2019 2:47 PM CDT [facility] Comment: Non GFR Calc Starting 08/07/2018, serum creatinine based estimated GFR (eGFR) will be calculated using the Chronic Kidney Disease Epidemiology Collaboration (CKD-EPI) equation. GFR Estimate If Black 38(L) >60 mL/min/{1 .73_m2} 03/18/2019 2:47 PM CDT [facility] Comment: GFR Calc Starting 08/07/2018, serum creatinine based estimated GFR (eGFR) will be calculated using the Chronic Kidney Disease Epidemiology Collaboration (CKD-EPI) equation. Calcium 9.0 8.5 - 10.1 mg/dL 03/18/2019 2:47 PM CDT [facility] Blood specimen (specimen) 03/18/2019 1:40 PM CDT 03/18/2019 1:43 PM CDT us Megan Reynoso DO LAB - BLOOD ORDERAB LES Final Result [facility] [address] [address], [place] [phone] [facility] [address] [place] [address], [place] [phone] * (ABNORMAL) Routine UA with microscopic (01/04/2009 4:40 PM CDT) Source Midstream Urine MISYS Color Urine Light Yellow MISYS Appearance Urine Clear MISYS Glucose Urine Negative NEG mg/dL MISYS Bilirubin Urine Negative NEG MISYS Ketones Urine Negative NEG mg/dL MISYS Specific [place] Urine 1.009 1.003 - 1.035 MISYS Blood [...] to Health Maintenance Insurance MEDICARE Care Teams Engineer Assistant Relationship Specialty Start Date End Date Tala Thomason MD, [address] [place] [address] PCP - General Family Medicine 10/22/21 Santo Crump MD [address] [place] [id number] Cardiovascular Disease 10/24/22
--- OUTSIDE RECORDS SUMMARY | 2024-12-02 18:39 | XMS_ITS | Encounter Summary ---
Author Organization [facility] Address [address] [place] [address] Care Team Providers Care Calender Machine Operator Name Role Phone Tala Thomason MD Primary Care Provider [phone] Reason for Visit * Reason Comments Refill Encounter Details Date Type Department Care Team (Late st Contact Info) Description 04/13/2016 Refill Nephrology at [facility] [place] [address] [place] [id number] Isabel Paulino MD [address] [place] [address] [address] [place], [place] [address] Refill Social History Tobacco Use Types Packs/Day [...] protocol. Patient needs appt. before further refills. EAD SEWER * Carissa Dupree - 04/13/2016 3:39 PM CDT Last visit: 03/06/15 Future visit: None Last fill: 01/14/16 EAD SEWER documented in this encounter Plan of Treatment Upcoming Encounters Date Type Department Care Team (Late st Contact Info) Description 12/17/2024 2:30 PM CDT Appointment [facility] [address] [place] [address] 01/06/2025 1:10 PM CDT Appointment [facility] [address] [place] [address] 01/30/2025 1:30 PM CDT Appointment [facility] [address] [place] [address] Shannon Gunter, SEAT BUILDER, TOP POLISHER [address] [place] [address] 02/07/2025 1:30 PM CDT Appointment Maria C Celeste [facility] [address] [facility] [address] [place] [phone] Betina Prather PA-C [address] [place] [address] 03/17/2025 1:30 PM CDT Appointment [facility] [address] [place] [id number] Tala Thomason MD [address] [id number] 04/01/2025 12:00 PM CDT Appointment [facility] [address] [place] [address] Tala Thomason MD [address] [id number] documented as of this encounter Visit Diagnoses Not on filedocumented in this encounter Care Teams Calender Machine Operator Relationship Specialty Start Date End Date Tala Thomason MD [address] [id number] PCP - General Family Practice 05/22/17 documented as of this encounter
--- OUTSIDE RECORDS SUMMARY | 2024-12-02 18:39 | XMS_ITS | Encounter Summary ---
Author Organization [facility] Address [address] [place] [address] Care Team Providers Care Blacktop Paver Operator Name Role Phone Tala Thomason MD Primary Care Provider [phone] Reason for Visit * Reason Comments Lab Orders Needed 01/23/25 appt with Murphy bhatt Encounter Details Date Type Department Care Team (Late st Contact Info) Description 11/29/2024 Telephone Nephrology at [facility] [place] [address] [place], [place] [address] Shannon Gunter, AUTO CLUTCH REBUILDER, SLIP COVER SEWER [address] [facility] [address] [place], [place] [address] Lab Orders Needed (01/23/25 appt with Shannon [...] CDT Lab for 01/23/25 Shannon Gunter, DEBRA, AUTO CLUTCH REBUILDER, appointment with patient have . Placed standard protocol labs for now. documented in this encounter Plan of Treatment Upcoming Encounters Date Type Department Care Team (Late st Contact Info) Description 12/17/2024 2:30 PM CDT Appointment [facility] [address] [place] [address] 01/06/2025 1:10 PM CDT Appointment [facility] [address] [place] [address] 01/30/2025 1:30 PM CDT Appointment [facility] [address] [place] [address] Shannon Gunter, AUTO CLUTCH REBUILDER, SLIP COVER SEWER [address] [facility] [address] [place] [address] 02/07/2025 1:30 PM CDT Appointment [facility] [address] [facility]rology [address] [place] [phone] Betina Prather PA-C [address] [place] [address] 03/17/2025 1:30 PM CDT Appointment [facility] [address] [facility] [place] [id number] Tala Thomason MD [address] [place] [address] 04/01/2025 12:00 PM CDT Appointment [facility] [address] [place] [address] Tala Thomason MD [address] [place] [address] [address] Scheduled Orders Name Type Priority Associated Diagnoses [...] anomalies documented in this encounter Care Teams Blacktop Paver Operator Relationship Specialty Start Date End Date Tala Thomason MD [address] [place] [address] PCP - General Family Practice 05/22/17 documented as of this encounter
--- OUTSIDE RECORDS SUMMARY | 2024-12-02 18:39 | XMS_ITS | Encounter Summary ---
Author Organization [facility] Address [address] [place] [address] Care Team Providers Care Licensed Psychologist Name Role Phone Tala Thomason MD Primary Care Provider [phone] Reason for Referral * Medication Prior Authorization - Closed Specialty Diagnoses / Procedures Referred By Contbennie t Referred To Contact Diagnoses Urinary incontinence, unspecified type OAB (overactive bladder) Urinary urgency Betina Prather PA-C [address] [place] [address] Phone: tel: fax: Referral ID Status Reason Start Date Expiration Date Visits Re quested Visits Authorized [id number] Closed 1 1 Reason for Visit * Reason Comments Med Request Encounter Details Date Type Department Care Team (Late st Contact Info) Description 10/30/2024 Telephone [facility] [place] [address] Urology [address] [place] [address] Betina Prather PA-C [address] [place] [address] Med Request Social History Tobacco [...] for patient with the help of a exhibit designer. Provided my call back number in case [...] 11/07/2024 2:14 PM CDT Fax received from [facility] letting us know that the request for tier exception for Gemtesa has beendenied because pt must first try all covered brand drugs used to treat your condition in the lower tier 3. The tier 3 drugs are Myrbetriq. Routing to HAN Caceres. * Selam Patterson RN - 11/05/2024 9:23 AM CDT Tier exception request submitted. PA #: [id number]. * Selam Patterson RN - 10/30/2024 2:02 [...] Info) Description 12/17/2024 2:30 PM CDT Appointment [facility] [address] [place] [address] 01/06/2025 1:10 PM CDT Appointment [facility] [address] [place] [address] 01/30/2025 1:30 PM CDT Appointment [facility] [address] [place] [address] Shannon Gunter, GRAPHITE DISK ASSEMBLER, MARKETING SUPPORT COORDINATOR [address] [address] 02/07/2025 1:30 PM CDT Appointment [facility] [place] [address] Urology [address] [place] [phone] Betina Prather PA-C [address] [place] [address] 03/17/2025 1:30 PM CDT Appointment [facility] [address] [facility] [place] [id number] Tala Thomason MD [address] [id number] 04/01/2025 12:00 PM CDT Appointment [facility] [address] [place] [address] Tala Thomason MD [address] [place] [id number] documented as of this encounter Visit Diagnoses Diagnosis Urinary incontinence, unspecified type- Primary OAB (overactive bladder) Hypertonicity of bladder Urinary urgency Urgency of urination documented in this encounter Care Teams Licensed Psychologist Relationship Specialty Start Date End Date Tala Thomason MD [address] [id number] PCP - General Family Practice 05/22/17 documented as of this encounter
--- OUTSIDE RECORDS SUMMARY | 2024-12-02 18:39 | XMS_ITS | Encounter Summary ---
Author Organization [facility] Address [address] [place] [address] Care Team Providers Care Manufacturing Quality Inspector Name Role Phone Tala Thomason MD Primary Care Provider [phone] Encounter Details Date Type Department Care Team (Late Contact Info) Description 10/09/2024 Results Follow-Up [facility] Primary [facility] [address] [facility] [place] [place], [place] [id number] Yelitza Alvarez, PA-C [address] [place] [address] Social History Tobacco Use Types Packs/Day [...] Info) Description 12/17/2024 2:30 PM CDT Appointment [facility] [address] [place] [address] 01/06/2025 1:10 PM CDT Appointment [facility] [address] [facility] [place] [address] 01/30/2025 1:30 PM CDT Appointment [facility] [address] [place] [address] Shannon Gunter, PATENT DRAFTER, TECHNICIAN SEMICONDUCTOR DEVELOPMENT [address] [facility] [address] [place] [address] 02/07/2025 1:30 PM CDT Appointment [facility] [address] [facility]rology [address] [place] [phone] Betina Prather, PA-C [address] [place] [address] 03/17/2025 1:30 PM CDT Appointment [facility] [address] [facility] [place] [address] Tala Thomason MD [address] [place] [id number] 04/01/2025 12:00 PM CDT Appointment [facility] [address] [place] [address] Tala Thomason MD [address] [place] [id number] documented as of this encounter Visit Diagnoses Not on filedocumented in this encounter Care Teams Manufacturing Quality Inspector Relationship Specialty Start Date End Date Tala Thomason MD [address] [place] [id number] PCP - General Family Practice 05/22/17 documented as of this encounter
--- OUTSIDE RECORDS SUMMARY | 2024-12-02 18:40 | XMS_ITS | Encounter Summary ---
Author Organization [facility] Address [address] [facility] [place] [address] Care Team Providers Care Freight Conductor Name Role Phone Enedelia Wilkins MD Primary Care Provid er Santo Crump MD Unavailable [phone] Linh Fontanez APRN, CNP Unavailable [phone] Paddy COLLINS MD, Tala Lang Primary Care Provider Santo Crump MD Unavailable [phone] Santo Crump MD Unavailable [phone] Encounter Details Date Type Department Care Team (Late st Contact Info) Description 05/14/2021 MyC Medical Advice [facility] Heart [facility] [address] [place] [address] [address] [place] [address] Santo Crump MD [address] [facility] [address] [place], [place] [address] Social History Tobacco Use Types Packs/Day Years Used Date Smoking Tobacco: Never Smokeless Tobacco: Never Alcohol Use Standard Drinks/Week Comments Yes 0 (1 standard drink = 0.6 oz pur e alcohol) beer occ Comments No Sex and Gender Information Value Date Recorded Sex Assigned at Not on file Legal Sex 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 BATT PACKER Gender Identity Not on file Sexual Orientation [...] on filedocumented in this encounter Care Teams Freight Conductor Relationship Specialty Start Date End Date Enedelia Wilkins MD [address] [place] [address] PCP - General 10/23/02 10/21/21 Tala Thomason MD, [address] [place], [place] [id number] PCP - General Family Medicine 10/22/21 Santo Crump MD [address] [place] [address] [place] [address] Assigned Heart and Vascular Provider 06/12/20 10/02/21 Linh Fontanez APRN ELECTRICIAN MACHINE SHOP [address] [place] [address] Assigned Heart and Vascular Provider 10/03/21 04/28/23 Santo Crump MD [address] [place] [address] [place] [address] Cardiovascular Disease 10/24/22 Santo Crump MD [address] [place] [address] [place] [address] Assigned Heart and Vascular Provider 05/06/23 11/09/24 documented as of this encounter
--- OUTSIDE RECORDS SUMMARY | 2024-12-02 18:40 | XMS_ITS | Encounter Summary ---
Author Organization [place] Address [address] [place] [address] Care Team Providers Care Interior Design Coordinator Name Role Phone Enedelia Wilkins MD Primary Care Provid er Linh Fontanez APRN SEARCH ENGINE OPTIMIZATION MANAGER Unavailable [phone] Paddy COLLINS MD, Tala Lang Primary Care Provider Santo Crump MD Unavailable [phone] Santo Crump MD Unavailable [phone] Reason for Visit * Reason Onset Date Comments Refill Request 10/14/2021 atorvastatin (LI PITOR) 40 MG tablet Encounter Details Date Type Department Care Team (Late st Contact Info) Description 10/14/2021 Telephone [facility] Heart [place] [address] [facility] [address] [place] [address] Santo Crump MD [address] [facility] [address] [place], [place] [address] Refill Request ( atorvastatin (LIPITOR) 40 MG tablet ) Social History Tobacco Use Types Packs/Day Years Used Date Smoking Tobacco: Never Smokeless Tobacco: Never Alcohol Use Standard Drinks/Week Comments Yes 0 (1 standard drink = 0.6 oz pur e alcohol) beer occ Comments No Sex and Gender Information Value Date Recorded Sex Assigned at Not on file Legal Sex 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 POLE SANDER OPERATOR Gender Identity Not on file Sexual Orientation Not on file COVID-19 Exposure Response Date Recorded In the last month, have you been in contact with someone who was confirmed or suspected to have Coronavirus / COVID-19? No / Unsure 10/15/2021 9:10 AM POLE SANDER OPERATOR documented as of this encounter Miscellaneous Notes * Telephone Encounter - Leigh Duggan - 10/14/2021 11:33 AM CST [facility] Call Center Phone Message May a detailed message be left on voicemail: yes Reason for Call: Medication Refill Request Has the patient contacted the pharmacy for the refill? Yes Name of medication being requested: atorvastatin (LIPITOR) 40 MG tablet Provider who prescribed the medication: Dr. Santo Crump Pharmacy: [id number] [place] [address] AT [facility] [address] & Date medication is needed: BERTHA - pt took her last pill 10.13.21 Pt stated her pharmacy has been contacting the DrClarke With no response. Action Taken: Message routed to: [facility] ira Daugherty Screening: Not Applicable SANDER OPERATOR documented in this encounter Plan of Treatment Not on file documented as of this encounter Visit Diagnoses Not on filedocumented in this encounter Care Teams Interior Design Coordinator Relationship Specialty Start Date End Date Enedelia Wilkins MD [address] [place] [address] PCP - General 10/23/02 10/21/21 Tala Thomason MD, [address] [place] [id number] PCP - General Family Medicine 10/22/21 Linh Fontanez APRN SEARCH ENGINE OPTIMIZATION MANAGER [address] [place] [address] Assigned Heart and Vascular Provider 10/03/21 04/28/23 Santo Crump MD [address] [place] [address] [place] [address] Cardiovascular Disease 10/24/22 Santo Crump MD [address] [place] [address] [place] [address] Assigned Heart and Vascular Provider 05/06/23 11/09/24 documented as of this encounter
--- OUTSIDE RECORDS SUMMARY | 2024-12-02 18:40 | XMS_ITS | Encounter Summary ---
Author Organization [place] Address [address] [facility] [place] [address] Care Team Providers Care Apple Packing Header Name Role Phone Enedelia Wilkins MD Primary Care Provid er Santo Crump MD Unavailable [phone] Linh Fontanez APRN, CNP Unavailable [phone] Paddy COLLINS MD, Tala Lang Primary Care Provider Santo Crump MD Unavailable [phone] Santo Crump MD Unavailable [phone] Encounter Details Date Type Department Care Team (Late st Contact Info) Description 06/22/2021 MyC Medical Advice [facility] Heart [facility] [id number] [place] [address] [address] [place] [address] Santo Crump MD [address] [facility] [address] [place], [place] [address] Social History Tobacco Use Types Packs/Day Years Used Date Smoking Tobacco: Never Smokeless Tobacco: Never Alcohol Use Standard Drinks/Week Comments Yes 0 (1 standard drink = 0.6 oz pur e alcohol) beer occ Comments No Sex and Gender Information Value Date Recorded Sex Assigned at Not on file Legal Sex 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 REWINDER OPERATOR Gender Identity Not on file Sexual [...] on filedocumented in this encounter Care Teams Apple Packing Header Relationship Specialty Start Date End Date Enedelia Wilkins MD [address] [place] [address] PCP - General 10/23/02 10/21/21 Tala Thomason MD, [address] [place], [place] [id number] PCP - General Family Medicine 10/22/21 Santo Crump MD [address] [place] [address] [place] [address] Assigned Heart and Vascular Provider 06/12/20 10/02/21 Linh Fontanez APRN DUMP TRUCK DRIVER [address] [place] [address] Assigned Heart and Vascular Provider 10/03/21 04/28/23 Santo Crump MD [address] [place] [address] [place] [address] Cardiovascular Disease 10/24/22 Santo Crump MD [address] [place] [address] [place] [address] Assigned Heart and Vascular Provider 05/06/23 11/09/24 documented as of this encounter
[2024-12-02 19:15] LABS: Basophils Percent Auto 0.1 % (0.0-3.0); Hematocrit 34.8 % (33.0-51.0); Hemoglobin* 11.3 gm/dL (12.0-16.0); Immature Granulocytes Pct Auto 0.2 %; Mean Corpuscular HGB Conc 33 gm/dL (32-36); Mean Corpuscular Hemoglobin 31 pg (26-34); Mean Corpuscular Volume 95 fL (80-100); Monocytes Percent Auto 5.3 % (0.0-11.0); Neutrophils Percent Auto 90.4 % (42.0-72.0); Platelet Count* 364 K/uL (140-440); RDW Coefficient of Variation % 14.1 % (11.5-15.5); Red Blood Count 3.68 m/uL (4.00-5.20); White Blood Count* 21.33 K/uL (4.50-11.00)
[2024-12-02 19:21] LABS: Slide Review Reflex No
[2024-12-02 19:28] LABS: Troponin, Point-of-Care* 0.19 ng/ml (0.01-0.04)
[2024-12-02 19:40] LABS: D Dimer Quantitative* 2.15 ug/ml (0.00-0.50)
[2024-12-02] MEDS: AZITHROMYCIN 250 MG TABLET 500 MG PO (19:57)
[2024-12-02 20:00] LABS: Chloride* 103 mmol/L (96-114); Potassium* 4.1 mmol/L (3.6-5.1); Sodium* 139 mmol/L (135-149)
[2024-12-02] MEDS: cefTRIAXone 1 GM in 0.9 % SODIUM CHLORIDE Mini-bag 100 ML IVPB (20:00)
[2024-12-02 20:03] LABS: Anion Gap 19 mEq/L (7-15); Blood Urea Nitrogen* 42 mg/dL (7-30); Carbon Dioxide* 17 mmol/L (20-32); Creatinine* 2.1 mg/dL (0.5-1.5); Est. Creatinine Clearance* 16.66; Estimated Glomerular Filt Rate 24 ml/min; Glucose* 116 mg/dL (60-115)
--- NOTE | 2024-12-02 20:07 | CRLHL7_ITS ---
For Patients: As a result of the Century Cures Act, medical imaging exams and procedure reports are released immediately into your electronic medical record. You may view this report before your referring provider. If you have questions, please contact your health care provider. Indication: Hypoxia, pneumonia Technique: Noncontrast CT of the chest with multiplanar reformats. Comparison: Same day chest radiograph Findings: Lungs: Right greater than left pleural effusions. Bibasilar atelectasis. A superimposed areas of patchy consolidations noted bilaterally. Mild interlobular septal thickening. Mediastinum: Cardiomegaly. Calcified coronary arterial and aortic atherosclerosis. Lymph nodes: No gross lymphadenopathy. Upper abdomen: No acute abnormality appreciated. Soft tissues: No acute abnormality appreciated. Bones: No acute abnormality appreciated. Degenerative changes in the spine and shoulders. Impression: Findings suspicious for heart failure and pulmonary edema. Superimposed pneumonia can not be excluded. Please note that all CT scans at this facility use dose modulation, iterative reconstruction, and/or weight-based dosing when appropriate to reduce radiation dose to as low as reasonably achievable. Dictated by Jermaine Andersen MD @ 12/02/2024 9:06:56 PM (Electronically Signed)
[2024-12-02 20:11] LABS: PCR FLU A Negative PCR FLU A (Negative); PCR FLU B Negative PCR FLU B (Negative); PCR RSV Negative PCR RSV (Negative); SARS PCR* Negative SARS-CoV-2 (Negative)
[2024-12-02 20:28] LABS: HCO3 VBG 22 mmol/L (21-28); Lactate* 3.1 mmol/L (0.5-1.9); PCO2 VBG 37 mmHG (40-50); PO2 VBG 34.4 mmHG (25-47); pH VBG 7.375 (7.32-7.43)
[2024-12-02 21:10] LABS: Prothrombin Time 27.3 Seconds
--- NOTE | 2024-12-02 21:50 | P.IMHP_ITS ---
Assessment and Plan Assessment and plan (1) Acute hypoxemic respiratory failure: Problem comment: - Patient is also febrile with an elevated WBC and probable pneumonia on CXR. CT more c/w CHF. She does have a h/o CHF. Clinically this looks like pneumonia and she appears dry. Lactate is also elevated, lending more credence to hypovolemia. - Treat pneumonia as below. Oxygen supplementation. VBG reassuring, no hypercapnea, and she does not appear to be struggling to breath, so continue with oxygen via oxymask tonight. Status: Acute (2) Severe sepsis: Problem comment: - source: suspect pneumonia, possibly also cholecystitis - BC pending, treat with zosyn - Elevated lactate, giving less than 30mL/kg due to h/o diastolic CHF Status: Acute (3) Pneumonia: Problem comment: - Expand antibiotic coverage due to RUQ pain. - oxygen supplementation as above - consult RT - sputum culture, legionella, S pneumo ag Status: Acute (4) RUQ abdominal pain: Problem comment: - add LFTs onto labs drawn previously. Check RUQ US. Continue ceftriaxone. If LFTs abnormal, may need to expand antibiotic coverage. Status: Acute (5) Elevated troponin: Problem comment: - EKG reviewed. Denies CP. Recheck troponin. Status: Acute (6) Atrial fibrillation, chronic: Problem comment: - continue metoprolol for rate control, anticoagulation with warfarin, daily INR Status: Chronic (7) Chronic kidney disease: Problem comment: - stage 4, alport syndrome, follows with nephrology, baseline Cr 2.1. Stable. Status: Chronic (8) Alport syndrome: Status: Chronic (9) Deaf: Problem comment: deaf, able to speak, reads lips Status: Chronic (10) Diastolic CHF: Problem comment: - chronic, she appears hypovolemic rather than volume overloaded clinically. Check proBNP. Status: Chronic (11) Urinary tract infection symptoms: Problem comment: - Obtain UA/UC Status: Acute Total Time Spent Total Time Spent: Time spent: Today I spent 75 minutes seeing the patient with family in the room, discussing the patient with ER staff, reviewing Expanse and EPIC notes/diagnostics, discussing the care plan with our care team that includes social work, PT/OT, pharmacy, RT, correction and documenting my impressions and plan in the medical record. MEDICAL NECESSITY FOR HOSPITALIZATION Anticipated midnights in the hospital: 2 Admitting diagnosis: Pneumonia, severe sepsis, acute respiratory distress, elevated troponin Risk of morbidity and mortality: high Acuity is characterized as high and reflected in: The patient has a history of Alport syndrome with chronic kidney disease stage 4 and CHF. These comorbidities specifically would increase the risk during treatment and potentially prolong treatment length. This patient will require hospital services as outlined in the assessment and plan in order to stabilize and be safely discharged to a lower level of care. Because of the risk and acuity as described above, this patient cannot be managed at a lower level of care. LENGTH OF STAY: 2 IP ? Anticipated LOS>2 midnights due to acuity of clinical presentation requiring inpatient level of care Hospitalist- H&P: HPI History of Present Illness Time Seen by Provider: 21:40 Date Seen: 12/02/24 Chief complaint: Shortness of Breathing Narrative: Sylvia Doan is a 79 year old female with Alport syndrome, deafness, CKD stage 4, essential hypertension, afib on coumadin, osteopenia, hyperlipidemia, diastolic CHF, gout and hypothyroidism who presented through the ER for cough, shortness of breath and decreased appetite. Her family is with her and help give history. Sylvia tells me that she's been feeling fatigued and short of breath a few days, and it got much worse overnight. Her family tells me that she lives in a [id number] suite in their basement and comes up for meals. She has seemed like her usual self until today and has been eating normally and they really did not know anything was wrong. Today was a different story. They are surprised at how fast this came on. She seemed tired and did not want to eat at all. She was also coughing. Her daughter notes that that she has brought up some phlegm today. She denies fevers, but did start to have one as she got to the floor. She also c/o pain with urination. She was recently started on Myrbetriq. Family tells me she snores, but they've never noticed her stop breathing. Son has sleep apnea. Review of Systems Status of ROS: Reports: 10 or more systems reviewed and unremarkable except as noted in History and below [facility] Medical History (Updated 12/02/24 @ 23:18 by Bessie Tenorio MD) Osteopenia ?M85.80 - Other specified disorders of bone density and structure, unspecified site (ICD-10) BCC (basal cell carcinoma), shoulder ?C44.611 - Basal cell carcinoma of skin of unspecified upper limb, including shoulder (ICD-10) Hypothyroidism ?E03.9 - Hypothyroidism, unspecified (ICD-10) Gout ?M10.9 - Gout, unspecified (ICD-10) Anxiety ?F41.9 - Anxiety disorder, unspecified (ICD-10) Anemia in chronic renal disease ?N18.9 - Chronic kidney disease, unspecified (ICD-10) ?D63.1 - Anemia in chronic kidney disease (ICD-10) Moderate episode of recurrent major depressive disorder ?F33.1 - Major depressive disorder, recurrent, moderate (ICD-10) Elevated LFTs ?R79.89 - Other specified abnormal findings of blood chemistry (ICD-10) Diastolic CHF ?I50.30 - Unspecified diastolic (congestive) heart failure (ICD-10) Hyperlipidemia ?E78.5 - Hyperlipidemia, unspecified (ICD-10) Alport syndrome ?Q87.81 - Alport syndrome (ICD-10) Deaf ?H91.90 - Unspecified hearing loss, unspecified ear (ICD-10) COVID-19 ?U07.1 - COVID-19 (ICD-10) Hypertension ?I10 - Essential (primary) hypertension (ICD-10) Chronic kidney disease ?N18.9 - Chronic kidney disease, unspecified (ICD-10) Atrial fibrillation, chronic ?I48.20 - Chronic atrial fibrillation, unspecified (ICD-10) Surgical History (Updated 12/02/24 @ 22:35 by Bessie Tenorio MD) H/O dilation and curettage (04/03/06) ?Z98.890 - Other specified postprocedural states (ICD-10) Hx of tonsillectomy ?Z90.89 - Acquired absence of other organs (ICD-10) H/O laparoscopy ?Z98.890 - Other specified postprocedural states (ICD-10) H/O wisdom tooth extraction ?K08.409 - Partial loss of teeth, unspecified cause, unspecified class (ICD- 10) History of tubal ligation ?Z98.51 - Tubal ligation status (ICD-10) Family History (Updated 12/02/24 @ 22:36 by Bessie Tenorio MD) Father Diabetes Cardiovascular disease High blood pressure Sister Stroke Social History (Updated 12/02/24 @ 22:37 by Bessie Tenorio MD) Narrative: Lives in [id number] suite of basement of daughter's house. No tobacco or alcohol use. What is your current living situation?: I presently have a place to live Problems where you live: no known problems Problems where you live details: NA In the past 12 months, utilities in danger of being shut off: no In past 12 months, lack of transportation kept you from medical appts, meetings, work, or getting things needed for daily living: no In the past 12 mos, have been you worried that your food would run out before you had money to buy more?: never true In the past 12 mos, the food you bought just didn't last and you didn't have money to buy more?: never true Highest level of school completed/degree received: high school graduate Smoking Status: Never smoker Second hand tobacco smoke exposure: No How often do you have a drink containing alcohol: never AUDIT-C Alcohol total score: 0 Non-prescribed substance use: denies use Caffeine: Yes How often does anyone, including family, friends and others, physically hurt you : never How often does anyone, including family, friends and others, insult or talk down to you: never How often does anyone, including family, friends and others, threaten you with harm: never How often does anyone, including family, friends and others, scream or curse at you: never service: No Meds Home Medications and Allergies Home Medications ?Medication ?Instructions ?Recorded ?Confirmed ?Type amlodipine 5 mg tablet 5 mg PO DAILY 03/12/22 12/02/24 History atorvastatin 40 mg tablet 40 mg PO DAILY 03/12/22 12/02/24 History fluoxetine 20 mg capsule 20 mg PO DAILY 03/12/22 12/02/24 History furosemide 20 mg tablet 20 mg PO DAILY 03/12/22 12/02/24 History gabapentin 100 mg capsule 100 mg PO Q8H PRN pain 03/12/22 04/15/24 History levothyroxine 100 mcg tablet 100 mcg PO DAILY 03/12/22 12/02/24 History losartan 100 mg tablet 100 mg PO DAILY 03/12/22 12/02/24 History metoprolol succinate 25 mg 25 mg PO DAILY 03/12/22 12/02/24 History tablet,extended release 24 hr warfarin 1 mg tablet 0.5 - 1 mg PO DAILY 03/12/22 12/02/24 History alendronate 70 mg tablet 70 mg PO 12/02/24 History allopurinol 100 mg tablet 200 mg PO DAILY 12/02/24 12/02/24 History cetirizine 10 mg tablet 10 mg PO DAILY 12/02/24 12/02/24 History mirabegron 50 mg tablet,extended 50 mg PO DAILY 12/02/24 12/02/24 History release 24 hr (Myrbetriq) Allergies Allergy/AdvReac Type Severity Reaction Status Date / Time No Known Drug Allergies Allergy Verified 12/02/24 18:23 Exam Narrative: Exam Narrative: General: Mild respiratory distress. Appears comfortable. Sleepy, arousable, oriented x3. Using sign language. Answering questions appropriately. HEENT: Normocephalic atraumatic, pupils equally round and reactive to light and accommodation. Oropharynx clear. Mucous membranes are dry. No cervical lymphadenopathy, thyromegaly or carotid bruits. No JVD. Cardiovascular: Regular rate and rhythm. No murmurs, gallops, or rubs. Chest: Mild tachypnea. Clear to auscultation bilaterally. No crackles or wheezes. Abdomen: Bowel sounds present. Soft, nondistended, tender in the right upper quadrant, no rebound tenderness or guarding. No hepatosplenomegaly or masses. Extremities: No edema, no cyanosis or clubbing. Skin: No jaundice, no pallor, no rashes. Neuro: Grossly intact. No focal deficits. Const: Vital Signs, click to edit/add: Vital Signs - 24 hr 12/02/24 18:10 12/02/24 18:24 12/02/24 18:30 Temperature 99.4 F Pulse Rate 92 92 Pulse Rate [Pulse Oximeter] 86 Respiratory Rate 18 22 27 H Blood Pressure Blood Pressure [Ri ght Upper Arm] 139/68 Pulse Oximetry 97 97 97 Oxygen Delivery Me thod Room Air Oxygen Flow Rate 12/02/24 18:32 12/02/24 18:45 12/02/24 19:00 Temperature Pulse Rate 84 90 84 Pulse Rate [Pulse Oximeter] Respiratory Rate 28 H 22 23 Blood Pressure 131/75 Blood Pressure [Ri ght Upper Arm] Pulse Oximetry 97 96 98 Oxygen Delivery Me thod Oxygen Flow Rate 12/02/24 19:03 12/02/24 19:04 12/02/24 19:10 Temperature Pulse Rate 80 88 92 Pulse Rate [Pulse Oximeter] Respiratory Rate 22 22 23 Blood Pressure 160/86 H Blood Pressure [Ri ght Upper Arm] Pulse Oximetry 98 98 98 Oxygen Delivery Me thod Oxygen Flow Rate 12/02/24 19:15 12/02/24 19:30 12/02/24 19:32 Temperature Pulse Rate 89 93 87 Pulse Rate [Pulse Oximeter] Respiratory Rate 19 28 H 31 H Blood Pressure 161/87 H Blood Pressure [Ri ght Upper Arm] Pulse Oximetry 98 97 98 Oxygen Delivery Me thod Oxygen Flow Rate 12/02/24 19:45 12/02/24 20:00 12/02/24 20:02 Temperature Pulse Rate 87 98 82 Pulse Rate [Pulse Oximeter] Respiratory Rate 35 H 37 H 25 H Blood Pressure 154/70 H Blood Pressure [Ri ght Upper Arm] Pulse Oximetry 98 92 Oxygen Delivery Me thod OxyMask Oxygen Flow Rate 5 12/02/24 20:03 12/02/24 20:15 12/02/24 20:37 Temperature Pulse Rate 89 92 88 Pulse Rate [Pulse Oximeter] Respiratory Rate 19 34 H Blood Pressure Blood Pressure [Ri ght Upper Arm] Pulse Oximetry 90 Oxygen Delivery Me thod OxyMask Oxygen Flow Rate 6 12/02/24 20:45 Temperature Pulse Rate 90 Pulse Rate [Pulse Oximeter] Respiratory Rate Blood Pressure Blood Pressure [Ri ght Upper Arm] Pulse Oximetry 93 Oxygen Delivery Me thod Oxygen Flow Rate Hospitalist - H&P: Result Labs Labs: Short CBC 12/02/24 Range/Units 19:05 WBC 21.33 H (4.50-11.00) K/uL Hgb 11.3 L (12.0-16.0) gm/dL Hct 34.8 (33.0-51.0) % Plt Count 364 (140-440) K/uL BMP 12/02/24 19:05 Sodium 139 Potassium 4.1 Chloride 103 Carbon Dioxide 17 L BUN 42 H Creatinine 2.1 H Glucose 116 H Calcium 9.0 12/02/2024 EKG: Atrial fibrillation with a competing junctional pacemaker with premature ventricular aberrantly conducted complexes. Right superior axis deviation. Voltage QRS. Cannot rule out anterior infarct, age undetermined. Ordering Physician: Pritesh Carter M.D. Date of Service: 12/02/24 Procedure(s): XR chest 1V portable Accession Number(s): [id number] cc: Pritesh Carter M.D.; Provider,Not a Local~ For Patients: As a result of the Cures Act, medical imaging exams and procedure reports are released immediately into your electronic medical record. You may view this report before your referring provider. If you have questions, please contact your health care provider. Indication: : Hypoxia TECHNIQUE: Single-view chest. FINDINGS: Enlarged cardiac silhouette. Perihilar interstitial opacities most likely reflecting pulmonary edema right perihilar upper lobe opacification may represent pneumonia. No effusion is seen. Follow up imaging is recommended in 4-6 weeks to assess for resolution and to exclude the possibility of malignancy. Dictated by Kourtney Griffin MD @ 12/02/2024 7:38:19 PM (Electronically Signed) Ordering Physician: Pritesh Carter M.D. Date of Service: 12/02/24 Procedure(s): CT chest wo con Accession Number(s): [id number] cc: Pritesh Carter M.D.; Provider,Not a Local~ For Patients: As a result of the Cures Act, medical imaging exams and procedure reports are released immediately into your electronic medical record. You may view this report before your referring provider. If you have questions, please contact your health care provider. Indication: Hypoxia, pneumonia Technique: Noncontrast CT of the chest with multiplanar reformats. Comparison: Same day chest radiograph Findings: Lungs: Right greater than left pleural effusions. Bibasilar atelectasis. A superimposed areas of patchy consolidations noted bilaterally. Mild interlobular septal thickening. Mediastinum: Cardiomegaly. Calcified coronary arterial and aortic atherosclerosis. Lymph nodes: No gross lymphadenopathy. Upper abdomen: No acute abnormality appreciated. Soft tissues: No acute abnormality appreciated. Bones: No acute abnormality appreciated. Degenerative changes in the spine and shoulders. Impression: Findings suspicious for heart failure and pulmonary edema. Superimposed pneumonia can not be excluded. Please note that all CT scans at this facility use dose modulation, iterative reconstruction, and/or weight-based dosing when appropriate to reduce radiation dose to as low as reasonably achievable. Dictated by Jermaine Andersen MD @ 12/02/2024 9:06:56 PM (Electronically Signed)
[2024-12-02] MEDS: ONDANSETRON 2 MG/ML inj 4 MG IVP (22:23)
[2024-12-02] MEDS: 0.9 % SODIUM CHLORIDE 1000 ml 1,000 ML 6000 ML IV (22:30)
[2024-12-02] MEDS: WARFARIN 2 MG TABLET 0.5 MG PO (22:47)
[2024-12-02] MEDS: ACETAMINOPHEN 325 MG TABLET 975 MG PO (22:48)
[2024-12-02 23:27] LABS: HCO3 VBG 18 mmol/L (21-28); PCO2 VBG 34 mmHG (40-50); PO2 VBG 37.5 mmHG (25-47); pH VBG 7.337 (7.32-7.43)
[2024-12-02 23:29] LABS: Lactate* 3.9 mmol/L (0.5-1.9)
[2024-12-02] MEDS: 0.9 % SODIUM CHLORIDE 500 ML 500 ML IV (23:44)
[2024-12-02 23:48] LABS: Troponin I* 0.27 ng/mL (0.01-0.04)
[2024-12-02 23:48] LABS: Troponin I* 0.31 ng/mL (0.01-0.04)
[2024-12-03] VITALS: BP 115/54; PULSE 79; RESP 12; TEMP 37.5; O2SAT 93
[2024-12-03 00:02] LABS: NT Pro B Type NatriureticPept* 31500 pg/mL
[2024-12-03 00:03] LABS: Troponin I* 0.45 ng/mL (0.01-0.04)
[2024-12-03 00:09] LABS: Albumin* 3.8 g/dL (3.3-5.0); Aspartate Amino Transferase* 46 U/L (12-35); Bilirubin Direct* 0.5 mg/dL (0.0-0.5); Bilirubin Total* 1.6 mg/dL (0.1-1.5); Total Protein* 6.7 g/dL (6.0-8.3)
[2024-12-03 00:10] LABS: Alanine Aminotransferase* 24 U/L (4-35); Alkaline Phosphatase* 30 U/L (40-150)
[2024-12-03 00:25] VITALS: TEMP 37.5
[2024-12-03] MEDS: PIPERACILLIN/TAZOBACTAM 2.25 GM in 0.9 % SODIUM CHLORIDE Mini-bag 100 ML IVPB (00:26)
--- NOTE | 2024-12-03 00:29 | P.IMPN_ITS ---
Subjective Time Seen by Provider: 00:29 Date Seen: 12/03/24 Interval history: Sylvia is more SOB and having more labored breathing. Her troponin and lactate are rising. Exam Const: Vital Signs, click to edit/add: Vital Signs - 24 hr 12/02/24 18:10 12/02/24 18:24 12/02/24 18:30 Temperature 99.4 F Pulse Rate 92 92 Pulse Rate [Pulse Oximeter] 86 Pulse Rate [Right Pulse Oximeter] Respiratory Rate 18 22 27 H Blood Pressure Blood Pressure [Le ft Arm] Blood Pressure [Ri ght Upper Arm] 139/68 Pulse Oximetry 97 97 97 Oxygen Delivery Me thod Room Air Oxygen Flow Rate 12/02/24 18:32 12/02/24 18:45 12/02/24 19:00 Temperature Pulse Rate 84 90 84 Pulse Rate [Pulse Oximeter] Pulse Rate [Right Pulse Oximeter] Respiratory Rate 28 H 22 23 Blood Pressure 131/75 Blood Pressure [Le ft Arm] Blood Pressure [Ri ght Upper Arm] Pulse Oximetry 97 96 98 Oxygen Delivery Me thod Oxygen Flow Rate 12/02/24 19:03 12/02/24 19:04 12/02/24 19:10 Temperature Pulse Rate 80 88 92 Pulse Rate [Pulse Oximeter] Pulse Rate [Right Pulse Oximeter] Respiratory Rate 22 22 23 Blood Pressure 160/86 H Blood Pressure [Le ft Arm] Blood Pressure [Ri ght Upper Arm] Pulse Oximetry 98 98 98 Oxygen Delivery Me thod Oxygen Flow Rate 12/02/24 19:15 12/02/24 19:30 12/02/24 19:32 Temperature Pulse Rate 89 93 87 Pulse Rate [Pulse Oximeter] Pulse Rate [Right Pulse Oximeter] Respiratory Rate 19 28 H 31 H Blood Pressure 161/87 H Blood Pressure [Le ft Arm] Blood Pressure [Ri ght Upper Arm] Pulse Oximetry 98 97 98 Oxygen Delivery Me thod Oxygen Flow Rate 12/02/24 19:45 12/02/24 20:00 12/02/24 20:02 Temperature Pulse Rate 87 98 82 Pulse Rate [Pulse Oximeter] Pulse Rate [Right Pulse Oximeter] Respiratory Rate 35 H 37 H 25 H Blood Pressure 154/70 H Blood Pressure [Le ft Arm] Blood Pressure [Ri ght Upper Arm] Pulse Oximetry 98 92 Oxygen Delivery Me thod OxyMask Oxygen Flow Rate 5 12/02/24 20:03 04/14/25 20:15 12/02/24 20:37 Temperature Pulse Rate 89 92 88 Pulse Rate [Pulse Oximeter] Pulse Rate [Right Pulse Oximeter] Respiratory Rate 19 34 H Blood Pressure Blood Pressure [Le ft Arm] Blood Pressure [Ri ght Upper Arm] Pulse Oximetry 90 Oxygen Delivery Me thod OxyMask Oxygen Flow Rate 6 12/02/24 20:45 12/02/24 21:15 12/02/24 21:15 Temperature 101.6 F H Pulse Rate 90 Pulse Rate [Pulse Oximeter] Pulse Rate [Right Pulse Oximeter] 81 Respiratory Rate 26 H 22 Blood Pressure Blood Pressure [Le ft Arm] 139/77 Blood Pressure [Ri ght Upper Arm] Pulse Oximetry 93 90 91 Oxygen Delivery Me thod OxyMask OxyMask Oxygen Flow Rate 8 6 12/02/24 22:07 12/02/24 22:48 12/02/24 23:00 Temperature 101.6 F H Pulse Rate Pulse Rate [Pulse Oximeter] Pulse Rate [Right Pulse Oximeter] 81 Respiratory Rate 22 Blood Pressure Blood Pressure [Le ft Arm] Blood Pressure [Ri ght Upper Arm] Pulse Oximetry 91 Oxygen Delivery Me thod Oxygen Flow Rate 12/03/24 00:00 12/03/24 00:25 Temperature 99.5 F 99.5 F Pulse Rate Pulse Rate [Pulse Oximeter] Pulse Rate [Right Pulse Oximeter] 79 Respiratory Rate 12 Blood Pressure Blood Pressure [Le ft Arm] 115/54 L Blood Pressure [Ri ght Upper Arm] Pulse Oximetry 93 Oxygen Delivery Me thod BiPAP Oxygen Flow Rate Labs Labs: Laboratory Results - last 24 hr 12/02/24 12/02/24 12/02/24 18:40 19:05 20:21 WBC 21.33 H RBC 3.68 L Hgb 11.3 L Hct 34.8 MCV 95 MCH 31 MCHC 33 RDW Coeff of [place] 14.1 Plt Count 364 Neut % (Auto) 90.4 H Lymph % (Auto) 4.0 L [place] % (Auto) 5.3 Eos % (Auto) 0.0 Baso % (Auto) 0.1 Neut # (Auto) 19.30 H Lymph # (Auto) 0.90 [place] # (Auto) 1.10 H Eos # (Auto) 0.00 Baso # (Auto) 0.00 Abs Immat Gran (auto) 0.00 Imm/Tot Granulo (auto) 0.2 INR 2.40 H D-Dimer Quant (PE/DVT) 2.15 H VBG pH 7.375 VBG pCO2 37 L VBG pO2 34.4 VBG HCO3 22 Sodium 139 Potassium 4.1 Chloride 103 Carbon Dioxide 17 L Anion Gap 19 H BUN 42 H Creatinine 2.1 H Estimated Creat Clear 16.66 Estimated GFR 24 Glucose 116 H Lactate 3.1 H Calcium 9.0 Total Bilirubin 1.6 H Direct Bilirubin 0.5 AST 46 H ALT 24 Alkaline Phosphatase 30 L Troponin I 0.27 H* 0.31 H* NT-Pro-B Natriuret Pep 37544 Total Protein 6.7 Albumin 3.8 SARS-CoV-2 (PCR) Negative SARS-CoV-2 Influenza Type A (PCR) Negative PCR FLU A Influenza Type B (PCR) Negative PCR FLU B RSV (PCR) Negative PCR RSV Lab Acknowledgement POC Troponin I 0.19 H 12/02/24 12/02/24 12/02/24 22:07 22:45 23:20 WBC RBC Hgb Hct MCV MCH MCHC RDW Coeff of [place] Plt Count Neut % (Auto) Lymph % (Auto) [place] % (Auto) Eos % (Auto) Baso % (Auto) Neut # (Auto) Lymph # (Auto) [place] # (Auto) Eos # (Auto) Baso # (Auto) Abs Immat Gran (auto) Imm/Tot Granulo (auto) INR D-Dimer Quant (PE/DVT) VBG pH 7.337 VBG pCO2 34 L VBG pO2 37.5 VBG HCO3 18 L Sodium Potassium Chloride Carbon Dioxide Anion Gap BUN Creatinine Estimated Creat Clear Estimated GFR Glucose Lactate 3.9 H Calcium Total Bilirubin Direct Bilirubin AST ALT Alkaline Phosphatase Troponin I 0.45 H* NT-Pro-B Natriuret Pep Total Protein Albumin SARS-CoV-2 (PCR) Influenza Type A (PCR) Influenza Type B (PCR) RSV (PCR) Lab Acknowledgement Test Added Test Added POC Troponin I 12/02/24 23:51 WBC RBC Hgb Hct MCV MCH MCHC RDW Coeff of [place] Plt Count Neut % (Auto) Lymph % (Auto) [place] % (Auto) Eos % (Auto) Baso % (Auto) Neut # (Auto) Lymph # (Auto) [place] # (Auto) Eos # (Auto) Baso # (Auto) Abs Immat Gran (auto) Imm/Tot Granulo (auto) INR D-Dimer Quant (PE/DVT) VBG pH VBG pCO2 VBG pO2 VBG HCO3 Sodium Potassium Chloride Carbon Dioxide Anion Gap BUN Creatinine Estimated Creat Clear Estimated GFR Glucose Lactate Calcium Total Bilirubin Direct Bilirubin AST ALT Alkaline Phosphatase Troponin I NT-Pro-B Natriuret Pep Total Protein Albumin SARS-CoV-2 (PCR) Influenza Type A (PCR) Influenza Type B (PCR) RSV (PCR) Lab Acknowledgement Test Added POC Troponin I
[2024-12-03 00:49] LABS: HCO3 VBG 18 mmol/L (21-28); PCO2 VBG 31 mmHG (40-50); PO2 VBG 46.7 mmHG (25-47); pH VBG 7.382 (7.32-7.43)
[2024-12-03 01:00] VITALS: BP 119/54; PULSE 77; RESP 19; TEMP 36.4; O2SAT 94
[2024-12-03] MEDS: 0.9 % SODIUM CHLORIDE 500 ML 500 ML IV (01:14)
--- NOTE | 2024-12-03 01:19 | P.DS_ITS ---
Transfer Discharge Sum: Prov Provider Time Seen by Provider: 00:34 Date Seen: 12/03/24 Date of admission: 12/02/24 22:07 Primary care physician: Not a Local Provider Consults: 12/02/24 22:14 Consult to Respiratory Therapy [CONS] Routine Comment: Reason(s) for RT Consult:: Consult Attending physician on discharge: Bessie Tenorio Anticipated date of transfer: 12/03/24 Receiving physician/facility: Dr. Kenneth Alberts DS: Diagnosis Discharge Diagnosis (1) Severe sepsis: Status: Acute Problem details: - source: suspect pneumonia, possibly also cholecystitis - BC pending, treat with zosyn, renally dosed - Elevated lactate, giving less than 30mL/kg due to h/o diastolic CHF - Lactate more elevated on recheck. I've added vanco. Patient is well perfused with good pulse and good capillary refill on exam on 12/03/24 at 00:10. VBG pH is 7.38, so I think she is perfusing well and lactate is likely elevated for other reasons. Will do trial of albumin for volume due to h/o CHF. Transferring to [facility] for cardiology. (2) Diastolic CHF: Status: Chronic Problem details: - chronic, she appears hypovolemic rather than volume overloaded clinically. proBNP elevated. Baseline proBNP unknown. May be more markedly elevated due to CKD. Using albumin for volume repletion as above. (3) Urinary tract infection symptoms: Status: Acute Problem details: - Obtain UA/UC (4) Elevated troponin: Status: Acute Problem details: - EKG reviewed. Denies CP. Troponin rising. Patient not having CP. EKG repeated , unchanged. Suspect NSTEMI type II, demand ischemia. I have spoken to a hospitalist at [facility], since we do not have cardiology here. He has accepted this patient in transfer. (5) Deaf: Status: Chronic Problem details: deaf, able to speak, reads lips (6) Alport syndrome: Status: Chronic (7) Chronic kidney disease: Status: Chronic Problem details: - stage 4, alport syndrome, follows with nephrology, baseline Cr 2.1. Stable. (8) Atrial fibrillation, chronic: Status: Chronic Problem details: - continue metoprolol for rate control, anticoagulation with warfarin, daily INR (9) Acute hypoxemic respiratory failure: Status: Acute Problem details: - Patient is also febrile with an elevated WBC and probable pneumonia on CXR. CT more c/w CHF. She does have a h/o CHF. Clinically this looks like pneumonia and she appears dry. Lactate is also elevated, lending more credence to hypovolemia. - Treat pneumonia as below. Oxygen supplementation. VBG reassuring, no hypercapnea. More labored breathing this evening, so I initiated BIPAP. She is feeling less SOB and breathing has improved, less labored. RR now 19. Will obtain ABG. (10) Pneumonia: Status: Acute Problem details: - Expand antibiotic coverage due to RUQ pain. - oxygen supplementation as above - consult RT - sputum culture, legionella, S pneumo ag pending. (11) RUQ abdominal pain: Status: Acute Problem details: - LFTs show mild elevation of AST and tbili/indirect. Possibly from chronic CHF. RUQ US ordered, not yet complete. Transfer Discharge Sum: Med Medications Active and Home Medications: Home Medications amlodipine 5 mg tablet 5 mg PO DAILY 03/12/22 [History Confirmed 12/02/24] atorvastatin 40 mg tablet 40 mg PO DAILY 03/12/22 [History Confirmed 12/02/24] fluoxetine 20 mg capsule 20 mg PO DAILY 03/12/22 [History Confirmed 12/02/24] furosemide 20 mg tablet 20 mg PO DAILY 03/12/22 [History Confirmed 12/02/24] gabapentin 100 mg capsule 100 mg PO Q8H PRN pain 03/12/22 [History Confirmed 04/15/24] levothyroxine 100 mcg tablet 100 mcg PO DAILY 03/12/22 [History Confirmed 12/02/24] losartan 100 mg tablet 100 mg PO DAILY 03/12/22 [History Confirmed 12/02/24] metoprolol succinate 25 mg tablet,extended release 24 hr 25 mg PO DAILY 03/12/22 [History Confirmed 12/02/24] warfarin 1 mg tablet 0.5 - 1 mg PO DAILY 03/12/22 [History Confirmed 12/02/24] alendronate 70 mg tablet 70 mg PO 12/02/24 [History] allopurinol 100 mg tablet 200 mg PO DAILY 12/02/24 [History Confirmed 12/02/24] cetirizine 10 mg tablet 10 mg PO DAILY 12/02/24 [History Confirmed 12/02/24] mirabegron 50 mg tablet,extended release 24 hr (Myrbetriq) 50 mg PO DAILY 12/02/24 [History Confirmed 12/02/24] Active Medications Acetaminophen (Acetaminophen 325 Mg Tablet) 975 mg PO Q6H PRN PRN Reason: pain or fever Last Admin: 12/02/24 22:48 Dose: 975 mg Allopurinol (Allopurinol 100 Mg Tablet) 200 mg PO DAILY [facility] Cetirizine HCl (Cetirizine Hcl 10 Mg Tablet) 10 mg PO DAILY [facility] Fluoxetine HCl (Fluoxetine Hcl 20 Mg Capsule) 20 mg PO DAILY [facility] Piperacillin Sod/Tazobactam (Sod 2.25 gm/ Sodium Chloride) 100 mls @ 200 mls/hr IVPB Q6H [facility] Last Infusion: 12/03/24 01:15 Dose: Infused Sodium Chloride (0.9 % Sodium Chloride 500 Ml) 500 mls @ 500 mls/hr IV .Q1H ONE Stop: 12/03/24 01:24 Last Admin: 12/03/24 01:14 Dose: 500 mls/hr Vancomycin/PEG/NADA/Lysine/Water (Vancomycin 1.75 Gm/350 Ml) 1.75 gm in 350 mls @ 200 mls/hr IVPB ONCE ONE; Protocol Stop: 12/03/24 02:26 IV Miscellaneous Supplies (Pharmacist Consult) 1 each Q24H [facility]; Protocol Levothyroxine Sodium (Levothyroxine 100 Mcg Tablet) 100 mcg PO 0600 [facility] Metoprolol Succinate (Metoprolol Succinate (Xl) 25 Mg Tab) 25 mg PO DAILY [facility] Non-Formulary Medication (Mirabegron [Myrbetriq]) 50 mg PO DAILY [facility] Ondansetron HCl (Ondansetron 2 Mg/Ml Inj) 4 mg IVP Q4H PRN PRN Reason: Nausea Last Admin: 12/02/24 22:23 Dose: 4 mg Polyethylene Glycol (Polyethylene Glycol 3350 17 Gm Pack) 17 gm PO DAILY PRN Senna/Docusate Sodium (Sennosides/Docusate Tablet) 1 tab PO DAILY PRN Sodium Chloride (Sodium Chloride 0.9 % (Flush) 10 Ml Syringe) 5 ml IVF .FLUSH PRN Sodium Chloride (Sodium Chloride 0.9 % (Flush) 10 Ml Syringe) 5 ml IVF BID [facility] Warfarin Sodium (Warfarin 2 Mg Tablet) 0.5 - 1 mg PO DAILYC [facility] Transfer Discharge Sum: Hosp Hospital Course Hospital course: Sylvia Doan is a 79 year old female with Alport syndrome, deafness, CKD stage 4, essential hypertension, afib on coumadin, osteopenia, hyperlipidemia, diastolic CHF, gout and hypothyroidism who presented through the ER for cough, shortness of breath and decreased appetite. Her family is with her and help give history. Sylvia tells me that she's been feeling fatigued and short of breath a few days, and it got much worse overnight. Her family tells me that she lives in a [id number] in their basement and comes up for meals. She has seemed like her usual self until today and has been eating normally and they really did not know anything was wrong. Today was a different story. They are surprised at how fast this came on. She seemed tired and did not want to eat at all. She was also coughing. Her daughter notes that that she has brought up some phlegm today. She denies fevers, but did start to have one as she got to the floor. She also c/o pain with urination. She was recently started on Myrbetriq. Family tells me she snores, but they've never noticed her stop breathing. Son has sleep apnea. Ceftriaxone and azithromycin were given in ER. Due to RUQ pain and severe sepsis I switched her to zosyn. Gentle IVF bolus given for elevated lactate/severe sepsis. I gave 1500cc bolus instead of 2400cc due to her h/o CHF. Lactate and trop more elevated despite IVF and antibiotics. After getting IVF, she was having more labored breathing. BiPAP started and she is comfortable again. Vancomycin load, 500cc NS bolus and albumin 25 g x 2 were given. Recheck lactate and troponin ordered for 3am, ABG ordered for now. I spoke with Dr. Patricia from [facility] who is taking over care of this patient for the night while she awaits transfer to [facility]. Time Spent with Patient Time attestation: Total time spent providing and/or coordinating transfer services: 40 minutes due to updates to patient and family, telephone calls to [facility] and [place], telephone call with hospitalist at [facility]. Exam Narrative: Exam Narrative: 12/03/2024 00:15 General: No acute distress. Breathing comfortably on BiPAP. Sleeping, arousable, oriented x3. No pallor or diaphoresis. No jaundice. Oropharynx: Clear. Mucous membranes dry. Cardiovascular: Irregularly irregular. No murmurs, gallops, or rubs. Respiratory: Coarse throughout, no crackles or wheezes. Extremities: Good capillary refill, 2+ distal pulses. No mottling. Const: Vital Signs, click to edit/add: Vital Signs - 24 hr 12/02/24 18:10 12/02/24 18:24 12/02/24 18:30 Temperature 99.4 F Pulse Rate 92 92 Pulse Rate [Pulse Oximeter] 86 Pulse Rate [Right Pulse Oximeter] Respiratory Rate 18 22 27 H Blood Pressure Blood Pressure [Le ft Arm] Blood Pressure [Ri ght Upper Arm] 139/68 Pulse Oximetry 97 97 97 Oxygen Delivery Me thod Room Air Oxygen Flow Rate 12/02/24 18:32 12/02/24 18:45 12/02/24 19:00 Temperature Pulse Rate 84 90 84 Pulse Rate [Pulse Oximeter] Pulse Rate [Right Pulse Oximeter] Respiratory Rate 28 H 22 23 Blood Pressure 131/75 Blood Pressure [Le ft Arm] Blood Pressure [Ri ght Upper Arm] Pulse Oximetry 97 96 98 Oxygen Delivery Me thod Oxygen Flow Rate 12/02/24 19:03 12/02/24 19:04 12/02/24 19:10 Temperature Pulse Rate 80 88 92 Pulse Rate [Pulse Oximeter] Pulse Rate [Right Pulse Oximeter] Respiratory Rate 22 22 23 Blood Pressure 160/86 H Blood Pressure [Le ft Arm] Blood Pressure [Ri ght Upper Arm] Pulse Oximetry 98 98 98 Oxygen Delivery Me thod Oxygen Flow Rate 12/02/24 19:15 12/02/24 19:30 12/02/24 19:32 Temperature Pulse Rate 89 93 87 Pulse Rate [Pulse Oximeter] Pulse Rate [Right Pulse Oximeter] Respiratory Rate 19 28 H 31 H Blood Pressure 161/87 H Blood Pressure [Le ft Arm] Blood Pressure [Ri ght Upper Arm] Pulse Oximetry 98 97 98 Oxygen Delivery Me thod Oxygen Flow Rate 12/02/24 19:45 12/02/24 20:00 12/02/24 20:02 Temperature Pulse Rate 87 98 82 Pulse Rate [Pulse Oximeter] Pulse Rate [Right Pulse Oximeter] Respiratory Rate 35 H 37 H 25 H Blood Pressure 154/70 H Blood Pressure [Le ft Arm] Blood Pressure [Ri ght Upper Arm] Pulse Oximetry 98 92 Oxygen Delivery Me thod OxyMask Oxygen Flow Rate 5 12/02/24 20:03 12/02/24 20:15 12/02/24 20:37 Temperature Pulse Rate 89 92 88 Pulse Rate [Pulse Oximeter] Pulse Rate [Right Pulse Oximeter] Respiratory Rate 19 34 H Blood Pressure Blood Pressure [Le ft Arm] Blood Pressure [Ri ght Upper Arm] Pulse Oximetry 90 Oxygen Delivery Me thod OxyMask Oxygen Flow Rate 6 12/02/24 20:45 12/02/24 21:15 12/02/24 21:15 Temperature 101.6 F H Pulse Rate 90 Pulse Rate [Pulse Oximeter] Pulse Rate [Right Pulse Oximeter] 81 Respiratory Rate 26 H 22 Blood Pressure Blood Pressure [Le ft Arm] 139/77 Blood Pressure [Ri ght Upper Arm] Pulse Oximetry 93 90 91 Oxygen Delivery Me thod OxyMask OxyMask Oxygen Flow Rate 8 6 12/02/24 22:07 12/02/24 22:48 12/02/24 23:00 Temperature 101.6 F H Pulse Rate Pulse Rate [Pulse Oximeter] Pulse Rate [Right Pulse Oximeter] 81 Respiratory Rate 22 Blood Pressure Blood Pressure [Le ft Arm] Blood Pressure [Ri ght Upper Arm] Pulse Oximetry 91 Oxygen Delivery Me thod Oxygen Flow Rate 12/03/24 00:00 12/03/24 00:25 12/03/24 01:00 Temperature 99.5 F 99.5 F 97.5 F L Pulse Rate Pulse Rate [Pulse Oximeter] Pulse Rate [Right Pulse Oximeter] 79 77 Respiratory Rate 12 19 Blood Pressure Blood Pressure [Le ft Arm] 115/54 L 119/54 L Blood Pressure [Ri ght Upper Arm] Pulse Oximetry 93 94 Oxygen Delivery Me thod BiPAP BiPAP Oxygen Flow Rate Transfer Discharge Sum: Data Data Completed and Pending Completed studies during hospitalization: 12/02/2024 EKG: Atrial fibrillation with a competing junctional pacemaker with premature ventricular aberrantly conducted complexes. Right superior axis devia tion. Voltage QRS. Cannot rule out anterior infarct, age undetermined. 12/02/2024 11:04 p.m. EKG: Atrial fibrillation with premature ventricular and aberrantly conducted complexes. A 7 beats per minute. Right superior axis deviation. Low voltage QRS, cannot rule out anterior infarct, age undetermined. Ordering Physician: Pritesh Carter M.D. Date of Service: 12/02/24 Procedure(s): XR chest 1V portable Accession Number(s): [id number] cc: Pritesh Carter M.D.; Provider,Not a Local~ For Patients: As a result of the Cures Act, medical imaging exams and procedure reports are released immediately into your electronic medical record. You may view this report before your referring provider. If you have questions, please contact your health care provider. Indication: : Hypoxia TECHNIQUE: Single-view chest. FINDINGS: Enlarged cardiac silhouette. Perihilar interstitial opacities most likely reflecting pulmonary edema right perihilar upper lobe opacification may represent pneumonia. No effusion is seen. Follow up imaging is recommended in 4-6 weeks to assess for resolution and to exclude the possibility of malignancy. Dictated by Kourtney Griffin MD @ 12/02/2024 7:38:19 PM (Electronically Signed) Ordering Physician: Pritesh Carter M.D. Date of Service: 12/02/24 Procedure(s): CT chest wo con Accession Number(s): [id number] cc: Pritesh Carter M.D.; Provider,Not a Local~ For Patients: As a result of the Cures Act, medical imaging exams and procedure reports are released immediately into your electronic medical record. You may view this report before your referring provider. If you have questions, please contact your health care provider. Indication: Hypoxia, pneumonia Technique: Noncontrast CT of the chest with multiplanar reformats. Comparison: Same day chest radiograph Findings: Lungs: Right greater than left pleural effusions. Bibasilar atelectasis. A superimposed areas of patchy consolidations noted bilaterally. Mild interlobular septal thickening. Mediastinum: Cardiomegaly. Calcified coronary arterial and aortic atherosclerosis. Lymph nodes: No gross lymphadenopathy. Upper abdomen: No acute abnormality appreciated. Soft tissues: No acute abnormality appreciated. Bones: No acute abnormality appreciated. Degenerative changes in the spine and shoulders. Impression: Findings suspicious for heart failure and pulmonary edema. Superimposed pneumonia can not be excluded. Please note that all CT scans at this facility use dose modulation, iterative reconstruction, and/or weight-based dosing when appropriate to reduce radiation dose to as low as reasonably achievable. Dictated by Jermaine Andersen MD @ 12/02/2024 9:06:56 PM (Electronically Signed) Discharge Plan Discharge Disposition: [facility] Discharge Location: [facility] Date of Admission: 12/02/24 22:07 Attending Provider on Discharge: Bessie Tenorio Primary Care Provider: Provider,Not a Local Discharge Orders: Transfer of Care to Other Hospital (ORDER); Ordered 12/03/24 Ordered By: Bessie Tenorio Oxygen: Yes Oxygen Delivery Method: BiPAP Oxygen Flow Rate: 40% FiO2 Urinary Catheter: No Services not available here: Cardiology
[2024-12-03 01:33] LABS: ABG PCO2 29 mmHG (35-45); Base Excess ABG -6.1 mmol/L (-3.0-3.0); HCO3 ABG 18 mmol/L (21-28); Oxygen Saturation ABG 95 % (92-100); PO2 ABG 65.1 mmHG (80-105); TCO2 ABG 17 mmol/l (21-30); pH ABG 7.39 (7.35-7.45)
[2024-12-03] MEDS: ALBUMIN HUMAN 25% 25 GM/100 ML VIAL IVPB ×2 (01:40→02:46)
[2024-12-03] MEDS: VANCOMYCIN 1.75 GM/350 ML 1.75 GM/350 ML PIGGYBACK IVPB (01:40)
[2024-12-03 02:00] VITALS: BP 119/54; PULSE 77; RESP 19; TEMP 36.4; O2SAT 94
--- NOTE | 2024-12-03 03:10 | PC.NURSE ---
End of shift report [id number]?? : Patient hearing impaired, [facility] clinics mainframe programmer analyst present on admission until 2199.? Patient?s daughter translated per patient request. Alert and oriented x 4.? Pain to RUQ reported, pain is only with palpation of abdomen.? Bowel sounds active x 4 quadrants.?? Patient reports that she is short of breath with exertion and at rest, currently on oxymask at 6L with O2 sats 93%.? Tachypneic at 26/min. Lung sounds clear, diminished in bilateral base.? Intermittent moist cough, unable to expectorate sputum at this time.? At 225 patient O2 sats decreased to 86%, O2 increased to 10L via oxymask with no change in O2 saturation.? New oximeter placed on different finger and head of bed elevated with no change.? MD updated and new order to place on bipap.? VBG?s drawn at 0030, 30 minutes post bipap placement and labs reviewed with MD, no change in treatment plan.? Patient tolerating well and reports that her breathing ?feels a lot easier? since placement.? Heavy assist x 2 to pivot transfer onto bedside commode, patient had moderate amount of liquid stool.? Per family report patient has loose stools at baseline.? External female catheter placed to preserve energy.? Fever of 101.6 upon admission to unit, PRN tylenol administered and reduced to 97.5.? Chills resolved with fever reduction.? Patient accepted at [facility], nurse to nurse report given at 0200 to Karrie.? EMS called for transport.?EMS arrival at 239, comic writer assisted with transfer to [facility] and report given to EMS. ?Patient discharged facility at 304. ?Treasury Representative called and updated Karrie at [facility] of patient?s departure from facility and updated with current IV medications running and when they are due to be completed. ?Patient?s daughter Maya bedside and is accompanying patient with EMS to be assistance with interpreting if needed.?
== END 2024-12-03 03:05 | disposition short-term general hospital (02) | DRG 871 ==
LOC: ED 19:31 → MEDSURG 21:06
PROVIDERS: Admitting Provider Family Medicine; Emergency Provider Emergency Medicine Emergency Medical Services; Visit Provider Family Medicine
DX: A41.9 Sepsis, unspecified organism (principal); I21.A1 Myocardial infarction type 2; J18.9 Pneumonia, unspecified organism; J96.01 Acute respiratory failure with hypoxia; I48.20 Chronic atrial fibrillation, unspecified; Q87.81 Alport syndrome; N18.4 Chronic kidney disease, stage 4 (severe); I13.0 Hypertensive heart and chronic kidney disease with heart failure and stage 1 through stage 4 chronic kidney disease, or unspecified chronic kidney disease; I50.32 Chronic diastolic (congestive) heart failure; R65.20 Severe sepsis without septic shock; K81.9 Cholecystitis, unspecified; R10.11 Right upper quadrant pain; H91.8X9 Other specified hearing loss, unspecified ear; Z79.01 Long term (current) use of anticoagulants; F41.9 Anxiety disorder, unspecified; M10.9 Gout, unspecified; E78.5 Hyperlipidemia, unspecified
CPT/HCPCS: 36415; 36600; 71045; 71250; 80048; 80076; 81001; 82803; 83605; 83880; 84484; 85025; 85379; 85610; 86140; 87040; 87070; 87205; 87449; 87631; 87899; 93005; 94660; 94761; 99285; 99291; A9270; J0696; J2405; J2543; J3372; J7030; P9047

== ENCOUNTER 2024-12-03 02:45 | Outpatient (CLI) | payer MEDICARE, SELFPAY | END 2024-12-03 02:46 | disposition home or self-care (01) | PROVIDERS: Visit Provider Emergency Medicine Emergency Medical Services | DX: I50.30 Unspecified diastolic (congestive) heart failure (principal); A41.9 Sepsis, unspecified organism; R39.9 Unspecified symptoms and signs involving the genitourinary system; R79.89 Other specified abnormal findings of blood chemistry | CPT/HCPCS: A0425; A0434 ==

== ENCOUNTER 2025-01-24 16:31 | Emergency (ER) | payer MEDICARE, SELFPAY ==
--- OUTSIDE RECORDS SUMMARY | 2024-12-13 13:30 | XMS_ITS | Encounter Summary ---
Author Organization [facility] Address [address] [place] [address] Care Team Providers Care Mottler Machine Feeder Name Role Phone Tala Thomason MD Primary Care Provider [phone] Encounter Details Date Type Department Care Team (Late st Contact Info) Description 12/13/2024 1:[address]T Lab Visit [facility] [place] [address] Monitoring for long-term anticoagulant use; Chronic kidney disease, stage IV (severe) ([facility]); Hospital discharge follow-up Social History Tobacco Use Types Packs/Day Years [...] Care Team (Late st Contact Info) Description 01/30/2025 1:30 PM CDT Appointment [facility] [address] [place] [address] Shannon Gunter, NATUROPATH, NURSE [address] [facility] [address] [place] [address] 02/03/2025 1:10 PM CDT Appointment [facility] [address] [place] [address] 02/11/2025 1:00 PM CDT Appointment [facility] [address] [facility] [address] [place] [phone] Jessica Zayas, NATUROPATH, NURSE [address] [place] [phone] 04/01/2025 12:00 PM CDT Appointment [facility] [address] [place] [address] Tala Thomason MD [address] [place] [address] documented as of this encounter Procedures Procedure Name Priority Date/Time Associated Diagnosis Comments BASIC METABOLIC PANEL Routine 12/13/2024 2:09 PM CDT Hospital discharge follow-up RENAL FUNCTION PANEL Routine 12/13/2024 1:37 PM CDT Chronic kidney disease, stage IV (severe) ([facility]) INTACT PTH Routine 12/13/2024 1:37 PM CDT Chronic kidney disease, stage IV (severe) ([facility]) HEMOGLOBIN, BLOOD Routine 12/13/2024 1:3 7 PM CDT Chronic kidney disease, stage IV (severe) ([facility]) INR/PROTIME Routine 12/13/2024 1:37 PM CDT Monitoring for long-term anticoagulant use documented in this encounter Results * Albumin/Creatinine Ratio,Random Urine (12/20/2024 12:48 PM CDT) Pathologist [facility] Albumin/Creati nine Ratio, Urine, Random 10 <30 mg/g 12/20/2024 6:07 PM [facility] Albumin, Urine, Random 2.7 mg/L 12/20/2024 6:07 PM T [facility] Creatinine, Urine, Random 28 >20 mg/dL mg/dL 12/20/2024 6:07 PM [facility] Urine Non-blood Collection / Unknown 12/20/2024 12:48 PM CDT 12/20/2024 12:48 PM CDT us Hong Lopez MD LAB_1 Final Result [facility] [address] [place] [address] * (ABNORMAL) Basic Metabolic Panel (12/13/2024 2:09 PM CDT) [facility] Sodium 137 136 - 145 mmol/L 12/13/2024 7:31 PM [facility] Potassium 4.3 3.5 - 5.1 mmol/L 12/13/2024 7:31 PM [facility] Chloride 106 98 - 109 mmol/L 12/13/2024 7:31 PM [facility] CO2 20 20 - 29 mmol/L 12/13/2024 7:31 PM [facility] Anion Gap 11 6 - 16 mmol/L 12/13/2024 7:31 PM [facility] Calcium 9.2 8.4 - 10.4 mg/dL 12/13/2024 7:31 PM [facility] BUN 71(H) 7 - 26 mg/dL 12/13/2024 7:31 PM [facility] Creatinine 1.90(H) 0.55 - 1.02 mg/dL 12/13/2024 7:31 PM [facility] Glucose 102(H) 70 - 100 mg/dL 12/13/2024 7:31 PM [facility] Comment:The given reference range is for the fasting state. Non-fasting reference range for glucose is 70 - 180 mg/dL. GFR, Estimated 27(L) >60 mL/min/1.7 3m2 12/13/2024 7:31 PM CDT [facility] Hours Fasting 0.1 8 - 12 Hours 12/13/2024 7:31 PM CDT [facility] Blood Venipuncture / Unknown 12/13/2024 2:09 PM CDT 12/13/2024 2:09 PM CDT Samanta Cervantes APRN, DEBRA LAB_1 Final Re sult [facility] [address] [place] [address], [facility] * (ABNORMAL) Intact PTH (12/13/2024 1:37 PM CDT) Intact PTH 141(H) 10 - 100 pg/mL 12/13/2024 8:11 PM CDT [facility] Blood Venipuncture / Unknown 12/13/2024 1:37 PM CDT 12/13/2024 1:37 PM CDT Hong Lopez MD LAB_1 Final Result Performing Organization Address [facility] Co de Phone Number [facility] [address] [place], [place] [address] * (ABNORMAL) Hemoglobin, Blood (12/13/2024 1:37 PM CDT) Hemoglobin 11.6(L) 12.0 - 15.5 g/dL 12/13/2024 1:44 PM CDT [facility] (PN) Blood Venipuncture / Unknown 12/13/2024 1:37 PM CDT 12/13/2024 1:37 PM CDT Hong Lopez MD LAB_1 Final Result Performing Organization Address City/[facility]/ZIP Co de Phone Number [facility] (PN) [address] [place] [address], [facility] * (ABNORMAL) Renal Function Panel (12/13/2024 1:37 PM CDT) Sodium 137 136 - 145 mmol/L 12/13/2024 7:37 PM [facility] Potassium 4.5 3.5 - 5.1 mmol/L 12/13/2024 7:37 PM [facility] Chloride 106 98 - 109 mmol/L 12/13/2024 7:37 PM [facility] CO2 21 20 - 29 mmol/L 12/13/2024 7:37 PM [facility] Anion Gap 10 6 - 16 mmol/L 12/13/2024 7:37 PM [facility] Calcium 9.1 8.4 - 10.4 mg/dL 12/13/2024 7:37 PM [facility] BUN 72(H) 7 - 26 mg/dL 12/13/2024 7:37 PM [facility] Creatinine 1.77(H) 0.55 - 1.02 mg/dL 12/13/2024 7:37 PM [facility] Albumin 3.2(L) 3.5 - 5.0 g/dL 12/13/2024 7:37 PM [facility] Phosphorus 4.0 2.3 - 4.7 mg/dL 12/13/2024 7:37 PM [facility] Glucose 102(H) 70 - 100 mg/dL 12/13/2024 7:37 PM [facility] Comment:The given reference range is for the fasting state. Non-fasting reference range for glucose is 70 - 180 mg/dL. GFR, Estimated 29(L) >60 mL/min/1.7 3m2 12/13/2024 7:37 PM [facility] Hours Fasting 4.0 8 - 12 Hours 12/13/2024 7:37 PM [facility] (PN) Blood Venipuncture / Unknown 12/13/2024 1:37 PM CDT 12/13/2024 1:37 PM CDT us Hong Lopez MD LAB_1 Final Result [facility] [address] [place] [address], [facility] (PN) [address] [facility] [place] [address], [facility] * (ABNORMAL) INR/Protime (12/13/2024 1:37 PM CDT) Protime 24.6(H) 11.8 - 14.6 Seconds 12/13/2024 5:16 PM CDT [facility] INR 2.2(H) 0.9 - 1.1 12/13/2024 5:16 PM CDT [facility] Blood Venipuncture / Unknown 12/13/2024 1:37 PM CDT 12/13/2024 1:37 PM CDT Narrative [facility] - 12/13/2024 5:16 PM CDT If you take an anticoagulant medicine called warfarin, your doctor or clinician may establish a normal range for you that is different from the baseline range shown. us Tala Thomason MD LAB_1 Final Resul t [facility] [address] [place] [address] documented in this encounter Visit Diagnoses Diagnosis Monitoring for long-term anticoagulant use Encounter for long-term (current) use of anticoagulants Chronic kidney disease, stage IV (severe) ([facility]) Chronic kidney disease, Stage IV (severe) Hospital discharge follow-up Other follow-up examination documented in this encounter Care Teams Mottler Machine Feeder Relationship Specialty Start Date End Date Tala Thomason MD [facility] [address] [phone] PCP - General Family Practice 05/22/17 documented as of this encounter
--- OUTSIDE RECORDS SUMMARY | 2024-12-13 14:00 | XMS_ITS | Encounter Summary ---
Author Organization [facility] Address [address] [place] [address] Care Team Providers Care Nuclear Medical Technologist Name Role Phone Tala Thomason MD Primary Care Provider [phone] Reason for Visit * Reason Comments Hospital / Follow Up Sepsis, in for 11 d ays Encounter Details Date Type Department Care Team (Late st Contact Info) Description 12/13/2024 2:00 PM CDT Office Visit [facility] [address] [facility] [address] [place] [phone] Samanta Cervantes, BIKE TECHNICIAN, RN OBGYN [address] [place] [address] Hospital discharge follow-up (Primary Dx) Social History Tobacco Use Types [...] Sign Reading Time Taken Comments Blood Pressure 111/64 12/13/2024 1:55 PM CDT Pulse 69 12/13/2024 1:55 PM CDT Temperature - - Respiratory Rate - - Oxygen Saturation - - Inhaled Oxygen Concentration - - Weight 77.6 kg (171 lb) 12/13/2024 1:55 PM CDT Height 155 cm (5' 1.02) 12/13/2024 1:55 PM CDT Body Mass Index 32.28 12/13/2024 1:55 PM CDT documented in this encounter Progress Notes * Samanta Cervantes, BIKE TECHNICIAN, RN OBGYN - 12/13/2024 2:00 PM CDT Chief Complaint Patient presents with Hospital / Follow Up Sepsis, in for 11 days SUBJECTIVE: Sylvia Doan is a 79 y.o. female presenting to clinic for hospital discharge follow up after being admitted to [facility] from 12/03/2024 to 12/10/2024 for sepsis 2/2 PNA and CHF exacerbation. Also had JIAN with decreased renal function. While in the hospital, she had an incidentalfinding of a 9 cm right renal lesion, benign per MRI. She was treated with IV antibiotics and required bipap for ~1 day. Was discharged in stable condition and was instructed to follow up with [facility]CP [facility] [place]. Today she reports she is feeling much better, notices improvement in her symptoms every day. She has a cough that she notices when lying down, though this is also improving each day. Most recent chest XR was on 12/08 and showed some pulmonary edema. Continues taking Lasix 20 mg daily, weighing herself daily as well. Breathing much better. She continues to hold off on her alendronate and losartan. Checking her blood pressure at home and averaging in the 140's/60's, stable in clinic today. Denies any worsening cough, shortness of breath, chest pain, fevers, or urinary symptoms. Notes reviewed: [facility] Discharge notes OBJECTIVE: Vital Signs: BP 111/64 (BP Location: Left Arm, BP Cuff Size: Large) Pulse 69 Ht 1.55 m (5' 1.02) Wt 77.6 kg (171 lb) BMI 32.28 kg/m?? General: Alert, pleasant female, in NAD. Oropharynx: Nonerythematous, no tonsillar enlargement. Moist mucous membranes. CV: RRR without murmurs, rubs or gallops. Resp: Clear to auscultation without crackles, wheezes or distress. Skin: No rashes or lesions. Psychiatric: Alert & oriented with normal affect and insight, does not appear depressed or anxious. ASSESSMENT AND PLAN: Sylvia was seen today for hospital / follow up. Diagnoses and all orders for this visit: Hospital discharge follow-up: Reviewed her hospital course and test results. Answered any questionsshe had. Discussed her ongoing cough when lying down at length- her lung sounds are clear, most recent XR was on 12/08 and showed some pulmonary edema. She feels her symptoms improve each day and therefore will hold off on further imaging today. Instructed her to continue checking blood pressure andweight each day and to continue holding losartan and alendronate until she sees nephrology on 12/20, she understood. BMP to recheck electrolytes is pending, will share results to [facility] when available. Reviewed more concerning signs/symptoms and instructed patient to RTC if these develop, she understood. Reviewed red flag signs and symptoms and instructed patient to seek emergency care if these develop, patient understood. - Basic Metabolic Panel; Future Follow up As needed. Samanta Cervantes APRN, DEBRA documented in this encounter Plan of Treatment Upcoming Encounters Date Type Department Care Team (Late st Contact Info) Description 01/30/2025 1:30 PM CDT Appointment [facility] [address] [place], [place] [phone] Shannon Gunter APRN, RN OBGYN [address] [facility] [address] [place], [place] [address] 02/03/2025 1:10 PM CDT Appointment [facility] [address] [place], [place] [phone] 02/11/2025 1:00 PM CDT Appointment Maria C Celeste [facility] [address] [facility] [address] [place] [address] Jessica Zayas, BIKE TECHNICIAN, RN OBGYN [address] [place] [address] 04/01/2025 12:00 PM CDT Appointment [facility] [address] [place], [place] [address] Tala Thomason MD [address] [place] [address] documented as of this encounter Results * (ABNORMAL) Basic Metabolic Panel (12/13/2024 2:09 PM CDT) Sodium 137 136 - 145 mmol/L 12/13/2024 7:31 PM [facility] Potassium 4.3 3.5 - 5.1 mmol/L 12/13/2024 7:31 PM [facility] Chloride 106 98 - 109 mmol/L 12/13/2024 7:31 PM [facility] CO2 20 20 - 29 mmol/L 12/13/2024 7:31 PM [facility] Anion Gap 11 6 - 16 mmol/L 12/13/2024 7:31 PM [facility] Calcium 9.2 8.4 - 10.4 mg/dL 12/13/2024 7:31 PM [facility] BUN 71(H) 7 - 26 mg/dL 12/13/2024 7:31 PM [facility] Creatinine 1.90(H) 0.55 - 1.02 mg/dL 12/13/2024 7:31 PM [facility] Glucose 102(H) 70 - 100 mg/dL 12/13/2024 7:31 PM [facility] Comment:The given reference range is for the fasting state. Non-fasting reference range for glucose is 70 - 180 mg/dL. GFR, Estimated 27(L) >60 mL/min/1.7 3m2 12/13/2024 7:31 PM [facility] Hours Fasting 0.1 8 - 12 Hours 12/13/2024 7:31 PM [facility] Blood Venipuncture / Unknown 12/13/2024 2:09 PM CDT 12/13/2024 2:09 PM CDT us Samanta Cervantes APRN, RN OBGYN LAB_1 Final Re sult [facility] [address] [place] [address], [facility] documented in this encounter Visit Diagnoses Diagnosis Hospital discharge follow-up- Primary Other follow-up examination documented in this encounter Care Teams Nuclear Medical Technologist Relationship Specialty Start Date End Date Tala Thomason MD [address] [place] [address] PCP - General Family Practice 05/22/17 documented as of this encounter
--- OUTSIDE RECORDS SUMMARY | 2024-12-20 13:00 | XMS_ITS | Encounter Summary ---
Author Organization [facility] Address [address] [place] [address] Care Team Providers Care Unit Receptionist Name Role Phone Tala Thomason MD Primary Care Provider [phone] Encounter Details Date Type Department Care Team (Late st Contact Info) Description 12/20/2024 1:00 PM CDT Lab Visit [facility] [address] [place] [address] Monitoring for long-term anticoagulant use; Chronic kidney disease, stage IV (severe) ([facility]) Social History Tobacco Use Types Packs/Day Years [...] Info) Description 01/30/2025 1:30 PM CDT Appointment [facility] [address] [place] [address] Shannon Gunter, HAND BRAILLE TRANSCRIBER, SEARCH ENGINE OPTIMIZATION SPECIALIST [address] [facility] [address] [place] [address] 02/03/2025 1:10 PM CDT Appointment [facility] [address] [place] [address] 02/11/2025 1:00 PM CDT Appointment Maria C Booker [facility] [address] [address] [address] [place] [phone] Jessica Zayas, HAND BRAILLE TRANSCRIBER, SEARCH ENGINE OPTIMIZATION SPECIALIST [address] [place] [phone] 04/01/2025 12:00 PM CDT Appointment [facility] [address] [place] [address] Tala Thomason MD [address] [facility] [place], [place] [id number] documented as of this encounter Procedures Procedure Name Priority Date/Time Associated Diagnosis Comments ALBUMIN/CREAT RATIO Routine 12/20/2024 12:48 PM CDT Chronic kidney disease, stage IV (severe) ([facility]) INR/PROTIME Routine 12/20/2024 12:48 PM CDT Monitoring for long-term anticoagulant use documented in this encounter Results * Albumin/Creatinine Ratio,Random Urine (12/20/2024 12:48 PM CDT) Albumin/Creati nine Ratio, Urine, Random 10 <30 mg/g 12/20/2024 6:07 PM CDT [facility] Albumin, Urine, Random 2.7 mg/L 12/20/2024 6:07 PM CDT [facility] Creatinine, Urine, Random 28 >20 mg/dL mg/dL 12/20/2024 6:07 PM T [facility] Urine Non-blood Collection / Unknown 12/20/2024 12:48 PM CDT 12/20/2024 12:48 PM CDT us Hong Lopez MD LAB_1 Final Result Performing Organization Address [facility] de Phone Number [address] [address] * (ABNORMAL) INR/Protime (12/20/2024 12:48 PM CDT) Protime 20.7(H) 11.8 - 14.6 Seconds 12/20/2024 5:25 PM CDT [facility] INR 1.7(H) 0.9 - 1.1 12/20/2024 5:25 PM CDT [facility] Blood Venipuncture / Unknown 12/20/2024 12:48 PM CDT 12/20/2024 12:48 PM CDT Narrative [facility] - 12/20/2024 5:25 PM CDT If you take an anticoagulant medicine called warfarin, your doctor or clinician may establish a normal range for you that is different from the baseline range shown. us Tala Thomason MD LAB_1 Final Resul t Performing Organization Address [facility] de Phone Number [address] [phone] documented in this encounter Visit Diagnoses Diagnosis Monitoring for long-term anticoagulant use Encounter for long-term (current) use of anticoagulants Chronic kidney disease, stage IV (severe) ([facility]) Chronic kidney disease, Stage IV (severe) documented in this encounter Care Teams Unit Receptionist Relationship Specialty Start Date End Date Tala Thomason MD [address] [place] [address] PCP - General Family Practice 05/22/17 documented as of this encounter
--- OUTSIDE RECORDS SUMMARY | 2024-12-26 11:00 | XMS_ITS | Encounter Summary ---
Author Organization [email or web address] Address [address] [place] [address] Care Team Providers Care Scientific Laboratory Supervisor Name Role Phone Tala Thomason MD Primary Care Provider [phone] Reason for Visit * Reason Comments HYPERTENSION Entered automaticall y based on patient selection in [employer]. Encounter Details Date Type Department Care Team (Late st Contact Info) Description 12/26/2024 11:00 AM CDT E-Visit [facility] [address] [facility] [address] [place] [id number] Samanta Cervantes, TELEVISION AND RADIO REPAIRER, HAND SHAPER [address] [place] [address] Chief Comp: HYPERTENSION Social History Tobacco Use Types Packs/Day Years [...] Info) Description 01/30/2025 1:30 PM CDT Appointment [facility] [address] [place] [address] Shannon Gunter, TELEVISION AND RADIO REPAIRER, HAND SHAPER [address] [facility] [address] [place] [address] 02/03/2025 1:10 PM CDT Appoint[facility] [address] [facility] [place], [place] [phone] 02/11/2025 1:00 PM CDT Appointment Maria C Celeste [facility] [address] [facility] [address] [place] [phone] Jessica Zayas, TELEVISION AND RADIO REPAIRER, HAND SHAPER [address] [place] [phone] 04/01/2025 12:00 PM CDT Appointment [facility] [address] [place] [address] Tala Thomason MD [address] [id number] documented as of this encounter Visit Diagnoses Not on filedocumented in this encounter Care Teams Scientific Laboratory Supervisor Relationship Specialty Start Date End Date Tala Thomason MD [address] [place] [phone] PCP - General Family Practice 05/22/17 documented as of this encounter
--- OUTSIDE RECORDS SUMMARY | 2025-01-06 13:10 | XMS_ITS | Encounter Summary ---
Author Organization [facility] Address [address] [place] [address] Care Team Providers Care Restaurant General Manager Name Role Phone Tala Thomason MD Primary Care Provider [phone] Encounter Details Date Type Department Care Team (Late st Contact Info) Description 01/06/2025 1:10 PM CDT Lab Visit [facility] [address] [place] [address] Monitoring for long-term anticoagulant use Social History [...] Info) Description 01/30/2025 1:30 PM CDT Appointment [facility] [address] [place] [address] Shannon Gunter, EPIC SPECIALIST, LITIGATION CLAIM REPRESENTATIVE [address] [place] [address] 02/03/2025 1:10 PM CDT Appointment [facility] [address] [place] [place] [address] 02/11/2025 1:00 PM CDT Appointment Maria C [facility] [address] [facility]rology [address] [place] [phone] Jessica Zayas, EPIC SPECIALIST, LITIGATION CLAIM REPRESENTATIVE [address] [place] [phone] 04/01/2025 12:00 PM CDT Appointment [facility] [address] [place] [address] Tala Thomason MD [address] [place] [id number] documented as of this encounter Procedures Procedure Name Priority Date/Time Associated Diagnosis Comments INR/PROTIME Routine 01/06/2025 12:46 PM CDT Monitoring for long-term anticoagulant use documented in this encounter Results * (ABNORMAL) INR/Protime (01/06/2025 12:46 PM CDT) Protime 21.8(H) 11.8 - 14.6 Seconds 01/06/2025 5:10 PM CDT [facility] INR 1.8(H) 0.9 - 1.1 01/06/2025 5:10 PM CDT [facility] Blood Venipuncture / Unknown 01/06/2025 12:46 PM CDT 01/06/2025 12:46 PM CDT Narrative [facility] - 01/06/2025 5:10 PM CDT If you take an anticoagulant medicine called warfarin, your doctor or clinician may establish a normal range for you that is different from the baseline range shown. us Tala Thomason MD LAB_1 Final Resul t [facility] [address] [place] [address], [facility] documented in this encounter Visit Diagnoses Diagnosis Monitoring for long-term anticoagulant use Encounter for long-term (current) use of anticoagulants documented in this encounter Care Teams Restaurant General Manager Relationship Specialty Start Date End Date Tala Thomason MD [address] [place] [address] PCP - General Family Practice 05/22/17 documented as of this encounter
--- OUTSIDE RECORDS SUMMARY | 2025-01-20 14:20 | XMS_ITS | Encounter Summary ---
Author Organization [facility] Address [address] [place] [address] Care Team Providers Care Refrigerator Repair Technician Name Role Phone Tala Thomason MD Primary Care Provider [phone] Encounter Details Date Type Department Care Team (Late st Contact Info) Description 01/20/2025 2:20 PM CDT Lab Visit [facility] [address] [place] [address] Monitoring for long-term anticoagulant use; CKD (chronic kidney disease) stage 4, GFR 15-29 ml/min (HRC); Essential hypertension (HRC); Alport syndrome Social History Tobacco Use Types Packs/Day Years [...] Department Care Team (Late Contact Info) Description 01/30/2025 1:30 PM CDT Appointment [facility] [address] [place] [address] Shannon Gunter, PEDRO, BEHAVIORIST [address] [facility] [address] [place] [address] 02/03/2025 1:10 PM CDT Appointment [facility] [address] [place] [address] 02/11/2025 1:00 PM CDT Appointment Maria C Celeste [facility] [address] [facility] [address] [place] [phone] Jessica Zayas, PEDRO, BEHAVIORIST [address] [place] [phone] 04/01/2025 12:00 PM CDT Appointment [facility] [address] [place] [address] Tala Thomason MD [address] [place] [id number] documented as of this encounter Procedures Procedure Name Priority Date/Time Associated Diagnosis Comments CBC AND DIFFERENTIAL PANEL Routine 01/20/2025 12:53 PM CDT CKD (chronic kidney disease) stage 4, GFR 15-29 ml/min (HRC) Essential hypertension (HRC) Alport syndrome RENAL FUNCTION PANEL Routine 01/20/2025 12:53 PM CDT CKD (chronic kidney disease) stage 4, GFR 15-29 ml/min (HRC) Essential hypertension (HRC) Alport syndrome INTACT PTH Routine 01/20/2025 12:53 PM CDT CKD (chronic kidney disease) stage 4, GFR 15-29 ml/min (HRC) Essential hypertension (HRC) Alport syndrome COMPLETE BLOOD COUNT-W/DIFF Routine 01/20/2025 12:53 PM CDT CKD (chronic kidney disease) stage 4, GFR 15-29 ml/min (HRC) Essential hypertension (HRC) Alport syndrome TP/CREA RATIO, URINE Routine 01/20/2025 12:53 PM CDT CKD (chronic kidney disease) stage 4, GFR 15-29 ml/min (HRC) Essential hypertension (HRC) Alport syndrome INR/PROTIME Routine 01/20/2025 12:53 PM CDT Monitoring for long-term anticoagulant use documented in this encounter Results * Complete Blood Count-W/Diff (01/20/2025 12:53 PM CDT) [facility] WBC 7.6 3.5 - 10.5 x10(9)/L 01/20/2025 1:02 PM CDT [facility] (PN) RBC 3.99 3.90 - 5.03 x10(12)/L 01/20/2025 1:02 PM CDT [facility] (PN) Hemoglobin 12.2 12.0 - 15.5 g/dL 01/20/2025 1:02 PM CDT [facility] (PN) HCT 36.4 34.9 - 44.5 % 01/20/2025 1:02 PM CDT [facility] (PN) MCV 91.2 80.0 - 100.0 fL 01/20/2025 1:02 PM CDT [facility] (PN) MCH 30.6 27.6 - 33.3 pg 01/20/2025 1:02 PM CDT [facility] (PN) MCHC 33.5 31.5 - 35.2 g/dL 01/20/2025 1:02 PM CDT [facility] (PN) RDW 13.9 11.9 - 15.5 % 01/20/2025 1:02 PM CDT [facility] (PN) Platelets 315 150 - 450 x10(9)/L 01/20/2025 1:02 PM CDT [facility] (PN) Neutrophil Absolute 5.1 1.7 - 7.0 10(9)/L 01/20/2025 1:02 PM CDT [facility] (PN) Lymphocyte Absolute 1.7 1.0 - 4.8 10(9)/L 01/20/2025 1:02 PM CDT [facility] (PN) Monocyte Absolute 0.5 0.2 - 0.9 10(9)/L 01/20/2025 1:02 PM CDT [facility] (PN) Eosinophil Absolute 0.3 0.0 - 0.5 10(9)/L 01/20/2025 1:02 PM CDT [facility] (PN) Basophil Absolute 0.0 0.0 - 0.3 10(9)/L 01/20/2025 1:02 PM CDT [facility] (PN) Immature Granulocyte % 0.1 0.0 - 0.5 % 01/20/2025 1:02 PM CDT [facility] (PN) Blood Venipuncture / Unknown 01/20/2025 12:53 PM CDT 01/20/2025 12:53 PM CDT us Shannon Gunter APRN, CNP LAB_1 Final Resu lt [facility] (PN) [address] [place] [address], [facility] * TP/Crea Ratio, Urine (01/20/2025 12:53 PM CDT) TP/Creat Ratio, Urine Random 0.05 0.00 - 0.20 01/20/2025 8:23 PM CDT [facility] Total Protein, Urine, Random 18 0 - 14 mg/dL 01/20/2025 8:23 PM CDT [facility] Comment:The overall interpre tation for this test is normal (the ratio is within the reference interval). Individual test components may fall outside the reference interval but still give a normal overall test result. Creatinine, Urine, Random 397 >20 mg/dL mg/dL 01/20/2025 8:23 PM CDT [facility] Urine Non-blood Collection / Unknown 01/20/2025 12:53 PM CDT 01/20/2025 12:53 PM CDT Narrative [facility] - 01/20/2025 8:23 PM CDT Low urine creatinine values coupled with low urine protein values can artifactually increase the urine protein/creatinine results. Correlate results of ratio with creatinine results. us Shannon Gunter APRN, CNP LAB_1 Final Resu lt [facility] [address] [place] [address], [facility] * (ABNORMAL) Renal Function Panel (01/20/2025 12:53 PM CDT) Sodium 140 136 - 145 mmol/L 01/20/2025 7:46 PM [facility] Potassium 4.4 3.5 - 5.1 mmol/L 01/20/2025 7:46 PM [facility] Chloride 106 98 - 109 mmol/L 01/20/2025 7:46 PM [facility] CO2 18(L) 20 - 29 mmol/L 01/20/2025 7:46 PM [facility] Anion Gap 16 6 - 16 mmol/L 01/20/2025 7:46 PM [facility] Calcium 9.1 8.4 - 10.4 mg/dL 01/20/2025 7:46 PM [facility] BUN 37(H) 7 - 26 mg/dL 01/20/2025 7:46 PM [facility] Creatinine 2.33(H) 0.55 - 1.02 mg/dL 01/20/2025 7:46 PM [facility] Albumin 3.5 3.5 - 5.0 g/dL 01/20/2025 7:46 PM [facility] Phosphorus 4.2 2.3 - 4.7 mg/dL 01/20/2025 7:46 PM [facility] Glucose 89 70 - 100 mg/dL 01/20/2025 7:46 PM [facility] Comment:The given reference range is for the fasting state. Non-fasting reference range for glucose is 70 - 180 mg/dL. GFR, Estimated 21(L) >60 mL/min/1.7 3m2 01/20/2025 7:46 PM [facility] Hours Fasting 0.1 8 - 12 Hours 01/20/2025 7:46 PM [facility] Blood Venipuncture / Unknown 01/20/2025 12:53 PM CDT 01/20/2025 12:53 PM CDT Shannon Gunter APRN, CNP LAB_1 Final Resu lt Performing Organization Address [facility]/ZIP Co de Phone Number [facility] [address] [place] [address] * (ABNORMAL) Intact PTH (01/20/2025 12:53 PM CDT) Intact PTH 140(H) 10 - 100 pg/mL 01/20/2025 8:09 PM CDT [facility] Blood Venipuncture / Unknown 01/20/2025 12:53 PM CDT 01/20/2025 12:53 PM CDT Shannon Gunter APRN, CNP LAB_1 Final Resu lt Performing Organization Address [facility] de Phone Number [facility] [address] [place], [place] [phone] [place] [address] * (ABNORMAL) INR/Protime (01/20/2025 12:53 PM CDT) Protime 32.3(H) 11.8 - 14.6 Seconds 01/20/2025 5:08 PM CDT [facility] INR 3.1(H) 0.9 - 1.1 01/20/2025 5:08 PM CDT [facility] Blood Venipuncture / Unknown 01/20/2025 12:53 PM CDT 01/20/2025 12:53 PM CDT Narrative [facility] - 01/20/2025 5:08 PM CDT If you take an anticoagulant medicine called warfarin, your doctor or clinician may establish a normal range for you that is different from the baseline range shown. Tala Thomason MD LAB_1 Final Resul t Performing Organization Address [facility]/ZIP Co de Phone Number [facility] [address] [place] [address], [facility] documented in this encounter Visit Diagnoses Diagnosis Monitoring for long-term anticoagulant use Encounter for long-term (current) use of anticoagulants CKD (chronic kidney disease) stage 4, GFR 15-29 ml/min (HRC) Chronic kidney disease, Stage IV (severe) Essential hypertension (HRC) Unspecified essential hypertension Alport syndrome Other specified congenital anomalies documented in this encounter Care Teams Refrigerator Repair Technician Relationship Specialty Start Date End Date Tala Thomason MD [address] [place] [address] PCP - General Family Practice 05/22/17 documented as of this encounter
--- OUTSIDE RECORDS SUMMARY | 2025-01-21 13:00 | XMS_ITS | Encounter Summary ---
Author Organization [facility] Address [address] [place] [address] Care Team Providers Care Pharmacy Consultant Name Role Phone Tala Thomason MD Primary Care Provider [phone] Reason for Visit * Reason Comments RESULTS, TEST Entered automaticall y based on patient selection in [employer]. Encounter Details Date Type Department Care Team (Late st Contact Info) Description 01/21/2025 1:00 PM CDT E-Visit [facility] [address] [place] [address] [address] [place] [id number] Tala Thomason MD [address] [place] [address] [place] [id number] Chief Comp: RESULTS, TEST Social History Tobacco Use Types Packs/Day Years [...] Info) Description 01/30/2025 1:30 PM CDT Appointment [facility] [address] [place] [address] Shannon Gunter, BANDING MACHINE OPERATOR, AIRCRAFT MACHINIST [address] [facility] [address] [place] [address] 02/03/2025 1:10 PM CDT Appointment [facility] [address] [facility] [place], [place] [phone] 02/11/2025 1:00 PM CDT Appointment Maria C Celeste [facility] [address] [facility] [address] [place] [phone] Jessica Zayas, BANDING MACHINE OPERATOR, AIRCRAFT MACHINIST [address] [place] [phone] 04/01/2025 12:00 PM CDT Appointment [facility] [address] [place] [address] Tala Thomason MD [address] [place] [id number] documented as of this encounter Visit Diagnoses Not on filedocumented in this encounter Care Teams Pharmacy Consultant Relationship Specialty Start Date End Date Tala Thomason MD [address] [place] [id number] PCP - General Family Practice 05/22/17 documented as of this encounter
--- OUTSIDE RECORDS SUMMARY | 2025-01-24 16:34 | XMS_ITS | Encounter Summary ---
Author Organization [facility] Address [address] [place] [address] Care Team Providers Care Manager Hair Name Role Phone Tala Thomason MD Primary Care Provider [phone] Reason for Visit * Reason Comments Anticoagulation: Chart Update Encounter Details Date Type Department Care Team (Latest Contact Info) Description 12/12/2024 Anticoagulation PN Anticoagulation Centralized Services [id number] [facility] [address] [place], [place] [address] Tala Thomason MD [address] [place] [address] Chronic atrial fibrillation (HRC) (Primary Dx); Monitoring [...] Info) Description 01/30/2025 1:30 PM CDT Appointment [facility] [address] [place] [address] Shannon Gunter, PEDRO, SHOE STAINER [address] [facility] [address] [place] [address] 02/03/2025 1:10 PM CDT Appointment [facility] [address] [facility] [place], [place] [id number] 02/11/2025 1:00 PM CDT Appointment Maria C Celeste [place] [address] [facility]rology [address] [place] [phone] Jessica Zayas APRN, SHOE STAINER [address] [place] [phone] 04/01/2025 12:00 PM CDT Appointment [facility] [address] [place] [address] Tala Thomason MD [address] [place] [address] documented as of this encounter Visit Diagnoses Diagnosis Chronic atrial fibrillation (HRC)- Primary Atrial fibrillation Monitoring for long-term anticoagulant use Encounter for long-term (current) use of anticoagulants documented in this encounter Care Teams Manager Hair Relationship Specialty Start Date End Date Tala Thomason MD [address] [place] [id number] PCP - General Family Practice 05/22/17 documented as of this encounter
--- OUTSIDE RECORDS SUMMARY | 2025-01-24 16:34 | XMS_ITS | Encounter Summary ---
Author Organization [facility] Address [address] [place] [address] Care Team Providers Care Fact Checker Name Role Phone Tala Thomason MD Primary Care Provider [phone] Encounter Details Date Type Department Care Team (Late st Contact Info) Description 12/16/2024 Results Follow-Up [facility] [address] [place] [id number] Samanta Cervantes, ORDNANCE MECHANIC, CONTENT MANAGEMENT CONSULTANT [address] [place] [id number] Social History Tobacco Use Types Packs/Day Years [...] Info) Description 01/30/2025 1:30 PM CDT Appointment [facility] [address] [place] [address] Shannon Gunter, PEDRO, CONTENT MANAGEMENT CONSULTANT [address] [facility] [address] [place] [address] 02/03/2025 1:10 PM CDT Appointment [facility] [address] [facility] [place], [place] [phone] 02/11/2025 1:00 PM CDT Appointment Maria C Celeste [facility] [address] [facility]rology [address] [place] [phone] Jessica Zayas, PEDRO, CONTENT MANAGEMENT CONSULTANT [address] [place] [phone] 04/01/2025 12:00 PM CDT Appointment [facility] [address] [place] [address] Tala Thomason MD [address] [place] [address] documented as of this encounter Visit Diagnoses Not on filedocumented in this encounter Care Teams Fact Checker Relationship Specialty Start Date End Date Tala Thomason MD [address] [place] [address] PCP - General Family Practice 05/22/17 documented as of this encounter
--- OUTSIDE RECORDS SUMMARY | 2025-01-24 16:34 | XMS_ITS | Encounter Summary ---
Author Organization [facility] Address [address] [place] [address] Care Team Providers Care Remediation Consultant Name Role Phone Tala Thomason MD Primary Care Provider [phone] Reason for Visit * Reason Comments Anticoagulation: Chart Update Encounter Details Date Type Department Care Team (Latest Contact Info) Description 12/11/2024 Anticoagulation PN Anticoagulation Centralized Services [id number] [address] [facility] [address] [place], [place] [address] Tala Thomason MD [address] [place] [address] Chronic atrial fibrillation (HRC) (Primary [...] as of this encounter Progress Notes * Anna Parker RN - 12/11/2024 10:13 AM CDT Chart update: Patient was admitted to [facility]; discharged on 12/10/24. Warfarin dosing during their stay: 12/02/24 - missed 12/03/24 - Hold 12/04/24 - Hold 12/05/24 - 3 mg 12/06/24 - Hold 12/07/24 - Hold 12/08/24 - 0.5 mg 12/09/24 - Hold 12/10/24 - 1.5 mg 12/11/24 - 3 mg INRs 12/03/24 - 4.0 12/04/24 - 4.6 12/05/24 - 3.3 12/06/24 - 3.9 12/07/24 - 4.6 12/08/24 - 3.7 12/09/24 - 3.4 12/10/24 - 2.8 New Medication Changes at Discharge: Antibiotics for severe sepsis/CAP: metronidazole (12/03-12/05), cefepime (12/03- 12/05), ceftriaxone (12/05-12/09), azithromycin (12/08-12/10) Steroids: prednisone (12/07-12/10) Discharge to: Home with home care; Name of Home Care Agency: [facility];Home care notified of patients next INR/CFX due date? Yes Recommended INR/CFX recheck date: 12/12/24 - with POCT INR, advised to prepare for venous INR if POCT is greater than 3.9. Appointment made: No - Home Care will address at 12/12/24 visit. Future Appointments Date Time Provider Department Center 12/13/2024 2:00 PM Samanta Cervantes APRN, [facility] PN [facility] 12/17/2024 2:30 PM RESIDENT3, [place] [facility] [place] MARIA A PN [place] 01/06/2025 1:10 PM LAB, [facility] PN [facility] 01/30/2025 1:30 PM Shannon Gunter APRN, DEBRA [place] NEP PN [place] 02/07/2025 1:30 [place] [address] 04/01/2025 12:00 PM [place] B[facility] [place] BNDSY PN [place] Anna Parker, RN 12/11/2024, 10:33 AM documented in this encounter Plan of Treatment Upcoming Encounters Date Type Department Care Team (Late st Contact Info) Description 01/30/2025 1:30 PM CDT Appointment [facility] [address] [place] [address] Shannon Gunter, LOADING MACHINE OPERATOR HELPER, [place] BO[place] [address] [facility] [address] [place] [address] 02/03/2025 1:10 PM CDT Appointment [facility] [address] [place] [address] 02/11/2025 1:00 PM CDT Appointment Maria C Celeste [facility] [address] [facility]rology [address] [place] [phone] Jessica Zayas, LOADING MACHINE OPERATOR HELPER, [place] [address] [place] [phone] 04/01/2025 12:00 PM CDT Appointment [facility] [address] [place] [address] Tala Thomason MD [address] [place] [address] documented as of this encounter Visit Diagnoses Diagnosis Chronic atrial fibrillation (HRC)- Primary Atrial fibrillation Monitoring for long-term anticoagulant use Encounter for long-term (current) use of anticoagulants documented in this encounter Care Teams Remediation Consultant Relationship Specialty Start Date End Date Tala Thomason MD [address] [place] [address] PCP - General Family Practice 05/22/17 documented as of this encounter
--- OUTSIDE RECORDS SUMMARY | 2025-01-24 16:34 | XMS_ITS | Encounter Summary ---
Author Organization [facility] Address [address] [place] [address] Care Team Providers Care Card Runner Name Role Phone Tala Thomason MD Primary Care Provider [phone] Reason for Visit * Reason Comments Anticoagulation Refused HC visit Encounter Details Date Type Department Care Team (Late st Contact Info) Description 12/12/2024 Telephone PN Anticoagulation Centralized Services [id number] [address] [facility] [address] [place], [place] [address] Tala Thomason MD [address] [place] [place] [address] Anticoagulation (Refused HC visit) Social History Tobacco Use Types Packs/Day Years [...] as of this encounter Nursing Notes * Broback, Mari N, RN - 12/12/2024 12:08 PM CDT ACC RN spoke with home care nurse. Patient was discharged from [facility] this week. Home care referral was placed. Patient is declining need for services through home care. Patient let admissions nurse know that she will go into the clinic lab for INR testing. Future Appointments Provider Department [place] 12/13/2024 1:30 PM LAB, [facility] PN [facility] 12/13/2024 2:00 PM (Arrive by 1:45 PM) Samanta Cervantes APRN, HAZMAT CDL A DRIVER [facility] PN [facility] 12/17/2024 2:30 PM VENKAT PATRICIA DERM [facility] PN [place] 01/06/2025 1:10 PM LAB, [facility] PN [facility] 01/30/2025 1:30 PM Shannon Gunter APRN, HAZMAT CDL A DRIVER [facility] PN [place] 02/11/2025 1:00 PM Jessica Zayas APRN, HAZMAT CDL A DRIVER [facility] [address] [place] [address] 04/01/2025 12:00 PM [facility] PN [place] ACC RN spoke with patient. See Anticoagulation Encounter dated 12/12/2024. * Makenzie Do - 12/12/2024 11:48 AM CDT [facility] HC calling to report pt refused hc visit today so no INR was obtained today. Makenzie Do 12/12/2024, 11:49 AM documented in this encounter Plan of Treatment Upcoming Encounters Date Type Department Care Team (Late st Contact Info) Description 01/30/2025 1:30 PM CDT Appointment [facility] [address] [place], [place] [phone] Shannon Gunter APRN, HAZMAT CDL A DRIVER [address] [facility] [address] [place], [place] [address] 02/03/2025 1:10 PM CDT Appointment [facility] [address] [facility] [place] [place] [id number] 02/11/2025 1:00 PM CDT Appointment [facility] C [place] [address] [facility]rology [address] [place] [phone] Jessica Zayas, SUPERVISOR CIGAR MAKING HAND, HAZMAT CDL A DRIVER [address] [place] [phone] 04/01/2025 12:00 PM CDT Appointment [facility] [address] [place] [address] Tala Thomason MD [address] [place] [address] documented as of this encounter Visit Diagnoses Not on filedocumented in this encounter Care Teams Card Runner Relationship Specialty Start Date End Date Tala Thomason MD [address] [id number] PCP - General Family Practice 05/22/17 documented as of this encounter
--- OUTSIDE RECORDS SUMMARY | 2025-01-24 16:34 | XMS_ITS | Clinical Summary ---
Author Organization [employer] [facility] Address [address] [place] [id number] Care Team Providers Care T[employer] Trimmer Hand Name Role Phone Tala Thomason MD Primary Care Provider [phone] Allergies Active Allergy Reactions Criticality Noted Date Comments Codeine Nausea And Vomiting 05/20/2017 Lisinopril Cough 05/20/2017 Medications FLUoxetine (PROZAC) 20 mg capsule Take 20 mg by mouth every morning. 0 05/04/2017 Active allopurinoL 100 mg tablet Take 200 mg by mouth once daily. 03/15/2024 Active atorvastatin 40 mg tablet Take 40 mg by mouth at bedtime. 07/01/2024 Active furosemide 20 mg tablet Take 20 mg by mouth once daily. 03/15/2024 Active amLODIPine 5 mg tablet Take 5 mg by mouth once daily. 03/15/2024 Active cetirizine 10 mg tablet Take 10 mg by mouth once daily. 11/07/2024 Active levothyroxine 100 mcg tablet Take 100 mcg by mouth once daily. 03/15/2024 Active metoprolol succinate 25 mg Sustained-Releas e tablet Take 25 mg by mouth once daily. 03/15/2024 Active mirabegron EXTENDED-release 50 mg tablet Take 50 mg by mouth once daily. 11/07/2024 Active ergocalciferol 50,000 unit capsule Take 50,000 units by mouth once weekly. Active potassium chloride 20 mEq extended-release tablet (part/cryst)Charissa cations:Hypokale shruti Take 1 Tablet (20 mEq) by mouth once daily with a meal. 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 Provider to review Resolved Problems Problem Noted Date Diagnosed Date Resolved Date Atrial fibrillation with slo w ventricular response 05/20/2017 12/03/2024 Essential hypertension, benign 03/06/2003 12/03/2024 Overview (12/03/2024): Hypertension Encounters Date Type Department Care Team Description 12/30/2024 Orders Only [facility] Scanner 1 scan: (1-Ord) [facility] PF #10 OS, 12/30/2024 12/03/2024 4:10 AM CDT - 12/10/2024 12:38 PM CDT Hospital Encounter [facility] [address] [place] [address] [facility] [place], [facility] Hospitalists Of Lizzy Fajardo MD Fredrickson, MD Tahira Almonte, Ally Bermeo, Longstanding persistent atrial fibrillation (HC) (Primary Dx); Hypokalemia; Acute respiratory failure with hypoxia (HC) Discharge Disposition: Home Health 12/03/2024 Travel from Last 3 Months Family History Medical [...] 0.6 oz pur e alcohol) Infrequent use Social Connections Answer Date Recorded Do you often feel lonely or isolated from those around you? 0 12/03/2024 Financial Resource Strain Answer Date R ecorded Difficulty of Paying Living Expenses 3 12/03/2024 Difficulty of Paying Living Expenses Not on file 12/03/2024 Food Insecurity Answer Date Recorded Do you worry your food will run out before you are able to buy more? 1 12/03/2024 Transportation Needs Answer Date Record ed Does lack of transportation keep you from medica l appointments? 1 12/03/2024 Does lack of transportation keep you from work, meetings or getting things that you need? 1 12/03/2024 Housing Stability Answer Date Recorded What is your housing situation today? 1 12/03/2024 Interpersonal Safety Answer Date Record ed Are you being hit, kicked, p ushed or yelled at (see row info)? No 12/03/2024 Interpersonal Safety Abuse 12 - 18 Not on file 12/03/2024 Interpersonal Safety Ambulatory Vulnerability No t on file 12/03/2024 Utilities Answer Date Recorded Do you have trouble paying f or utilities (for example, heat, electricity, water, phone)? 1 12/03/2024 Comments No Sex and Gender Information Value Date Recorded Sex Assigned at Not on file Legal Sex Female 10:42 AM CDT Gender Identity Not on file Sexual Orientation Not on file Obstetrics History Last Filed Vital Signs Vital Sign Reading Time Taken Comments Blood Pressure 145/77 12/10/2024 7:59 AM CDT Pulse 68 12/10/2024 7:59 AM CDT Temperature 36.6 C (97.9 F) 12/10/2024 7:59 AM CDT Respiratory Rate 18 12/10/2024 7:59 AM CDT Oxygen Saturation 97% 12/10/2024 7:59 AM CDT Inhaled Oxygen Concentration - - Weight 76.4 kg (168 lb 8 oz) 12/10/2024 4:23 AM CDT Height 154.9 cm (5' 0.98) 12/03/2024 5:11 AM CD T Body Mass Index 31.85 12/03/2024 5:11 AM CDT Plan of Treatment Health Maintenance Due Date Last Done Comments Tdap 1957 Depression screening for age 12+ 1958 BMI (ht and wt on same day) for age 18+ 1964 Hepatitis C screening for ag e 18-79 1964 Pneumococcal series for age 50+ (1 of 2 - PCV) 1965 Tetanus booster 1966 Zoster (shingles) series for age 50+ (1 of 2) 1996 DEXA/DXA scan for age 65+ 2011 RSV vaccine for adults or (1 - 1-dose 75+ series) 2021 COVID-19 vaccine series (3 - season) 2024 04/30/2021, 04/02/2021 Influenza Vaccine (Season Ended) 2025 Hepatitis B series for 19+ Aged Out N o longer eligible based on patient's age to complete this topic Procedures Procedure Name Priority Date/Time Associated Diagnosis Comments SCAN-OPERATIVE/PROCEDUR E REPORT 12/30/2024 12:00 AM CDT POTASSIUM BERTHA 12/10/2024 6:29 AM CDT RENAL FUNCTION PANEL Early AM 12/10/2024 6:29 AM CDT PROTIME-INR Early AM 12/10/2024 6:29 AM CDT POTASSIUM Timed 12/09/2024 12:19 PM CDT MAGNESIUM BERTHA 12/09/2024 6:21 AM CDT ELECTROLYTE PANEL Early AM 12/09/2024 6:2 1 AM CDT CREATININE Early AM 12/09/2024 6:21 AM CDT PROTIME-INR Early AM 12/09/2024 6:21 AM CDT XR CHEST 1 VIEW PORTABLE Routine 12/08/2024 11:45 AM CDT WHITE BLOOD COUNT Early AM 12/08/2024 7:1 1 AM CDT BASIC METABOLIC PANEL Early AM 12/08/2024 7:11 AM CDT PROTIME-INR Early AM 12/08/2024 7:11 AM CDT XR KNEE 2 VIEWS RIGHT BERTHA 12/07/2024 2:39 PM CDT XR KNEE 2 VIEWS LEFT BERTHA 12/07/2024 2:39 PM CDT URIC ACID BERTHA 12/07/2024 6:12 AM CDT C-REACTIVE PROTEIN BERTHA 12/07/2024 6: 12 AM CDT BASIC METABOLIC PANEL Early AM 12/07/2024 6:12 AM CDT PROTIME-INR Early AM 12/07/2024 6:12 AM CDT MR ABDOMEN RENAL WWO Routine 12/06/2024 4:46 PM CDT SCAN CORRESP-EKG RESULTS 12/06/2024 12:59 PM CDT SCAN CORRESP-LABORATORY RESULTS 12/06/2024 12:59 PM CDT SCAN CORRESP-IMAGING 12/06/2024 12:59 PM CDT RENAL FUNCTION PANEL Early AM 12/06/2024 7:17 AM CDT PROTIME-INR Early AM 12/06/2024 7:17 AM CDT WHITE BLOOD COUNT Early AM 12/05/2024 6:2 4 AM CDT BASIC METABOLIC PANEL Early AM 12/05/2024 6:24 AM CDT PROTIME-INR Early AM 12/05/2024 6:24 AM CDT SCAN-CARDIAC STRIP 12/05/2024 1: 53 AM CDT CLOSTRIDIOIDES DIFFICILE TOXIN PCR Today 12/04/2024 1:51 PM CDT ECHO TTE LIMITED WO CONTRAST W COLOR W LTD DOPPLER Routine 12/04/2024 12:57 PM CDT WHITE BLOOD COUNT Early AM 12/04/2024 4:5 1 AM CDT HEMOGLOBIN Early AM 12/04/2024 4:51 AM CDT BASIC METABOLIC PANEL Early AM 12/04/2024 4:51 AM CDT PROTIME-INR Early AM 12/04/2024 4:51 AM CDT CLOSTRIDIOIDES DIFFICILE TOXIN PCR Today 12/04/2024 3:00 AM CDT SCAN-CARDIAC STRIP 12/04/2024 1: 02 AM CDT URINALYSIS MICROSCOPIC Timed 4:37 PM CDT UA W/ SEDIMENT EXAM REFLEXED PER CRITERIA Today 12/03/2024 4:37 PM CDT PROTIME-INR Early AM 12/03/2024 10:37 AM CDT US ABDOMEN LIMITED Routine 12/03/2024 9: 02 AM CDT VANCOMYCIN Today 12/03/2024 7:59 AM CDT LACTATE VENOUS Timed 12/03/2024 7:59 AM CDT SCAN-CARDIAC STRIP 12/03/2024 6: 48 AM CDT MRSA/SA PCR Today 12/03/2024 5:21 AM CDT PROCALCITONIN Today 12/03/2024 5:18 AM CDT BLOOD GAS,VENOUS Today 12/03/2024 5:18 AM CDT LACTATE VENOUS Today 12/03/2024 5:18 AM CDT CBC W PLT NO DIFF Today 12/03/2024 5:1 8 AM CDT BASIC METABOLIC PANEL Timed 12/03/2024 5:18 AM CDT from Last 3 Months Results * SCAN-OPERATIVE/PROCEDURE REPORT (12/30/2024 12:00 AM CDT) us Scanner OTHER Final Result * (ABNORMAL) POTASSIUM (12/10/2024 6:29 AM CDT) Only the most recent of2 resultswithin the time period is included. POTASSIUM 3.4(L) 3.5 - 5.1 mmol/L 12/10/2024 7:18 AM CDT [facility] Blood BLOOD SPECIMEN / Unknown Venipuncture / Unknown 12/10/2024 6:29 AM CDT 12/10/2024 6:36 AM CDT us Ally Hoffmann DO CHEMISTRY Final Re sult [facility] [address] [place] [address], * (ABNORMAL) PROTIME-INR (12/10/2024 6:29 AM CDT) Only the most recent of8 resultswithin the time period is included. INR 2.8(H) <1.3 12/10/2024 6:52 AM CDT [facility] PROTIME 32.2(H) 10.6 - 12.4 sec 12/10/2024 6:[facility] Blood BLOOD SPECIMEN / Unknown Venipuncture / Unknown 12/10/2024 6:29 AM CDT 12/10/2024 6:36 AM CDT [facility] - 12/10/2024 6:52 AM CDT Therapeutic Range 2.0-3.0 for most anticoagulated patients 2.5-3.5 or 4.0 for high risk patients The INR is only used for patients on stable oral anticoagulant therapy. It makes no significant contribution to the diagnosis or treatment of patients whose Protime is prolonged for other reasons. INR results are increased when heparin levels exceed 1.0 U/mL, which corresponds to an aPTT >125 seconds if the patient is on UFH. Tom Regalado MD HEMATOLOGY Fi nal Result [facility] [address] [place] [address], * (ABNORMAL) RENAL FUNCTION PANEL (12/10/2024 6:29 AM CDT) Only the most recent of2 resultswithin the time period is included. SODIUM 138 136 - 145 mmol/L 12/10/2024 7:18 AM [facility] POTASSIUM 3.4(L) 3.5 - 5.1 mmol/L 12/10/2024 7:18 AM [facility] CHLORIDE 104 98 - 107 mmol/L 12/10/2024 7:18 AM [facility] CO2,TOTAL 20(L) 22 - 29 mmol/L 12/10/2024 7:18 AM [facility] ANION GAP 14 5 - 18 12/10/2024 7:18 AM [facility] GLUCOSE 122(H) 70 - 99 mg/dL 12/10/2024 7:18 AM [facility] CALCIUM 8.6(L) 8.8 - 10.4 mg/dL 12/10/2024 7:18 AM [facility] Comment: Reference ranges for this test were updated on 06/25/2024 to reflect our healthy population more accurately. Reference range changes are not retroactively applied to results, but previous results using the same methodology can be interpreted in the context of the new reference range. BUN 85(H) 8 - 23 mg/dL 12/10/2024 7:18 AM CDT [facility] CREATININE 2.33(H) 0.50 - 0.90 mg/dL 12/10/2024 7:18 AM CDT [facility] BUN/CREAT RATIO 36(H) 10 - 20 7:18 AM CDT [facility] eGFR 21(L) >90 mL/min/1. 73m2 12/10/2024 7:18 AM CDT [facility] Comment:As of 2021, eG FR is calculated by the CKD-EPI creatinine equation without race adjustment. eGFR can be influenced by muscle mass, exercise, and diet. The reported eGFR is an estimation only and is only applicable if the renal function is stable. PHOSPHORUS 3.7 2.5 - 4.5 mg/dL 12/10/2024 7:18 AM CDT [facility] ALBUMIN 3.2(L) 4.0 - 4.9 g/dL 12/10/2024 7:18 AM CDT [facility] Blood BLOOD SPECIMEN / Unknown Venipuncture / Unknown 12/10/2024 6:29 AM CDT 12/10/2024 6:36 AM CDT us Hong Lopez MD CHEMISTRY Final Resu lt [facility] [address] [place] [address], * (ABNORMAL) Creatinine AM (12/09/2024 6:21 AM CDT) eGFR 19(L) >90 mL/min/1.7 3m2 12/09/2024 6:59 AM CDT [facility] Comment:As of 2021, eG FR is calculated by the CKD-EPI creatinine equation without race adjustment. eGFR can be influenced by muscle mass, exercise, and diet. The reported eGFR is an estimation only and is only applicable if the renal function is stable. CREATININE 2.52(H) 0.50 - 0.90 mg/dL 12/09/2024 6:59 AM CDT [facility] Blood BLOOD SPECIMEN / Unknown Venipuncture / Unknown 12/09/2024 6:21 AM CDT 12/09/2024 6:27 AM CDT Ally Hoffmann DO CHEMISTRY Final Re sult Performing Organization Address City/[facility]/ZIP Co de Phone Number [facility] [address] [place] [address], [place] * MAGNESIUM (12/09/2024 6:21 AM CDT) MAGNESIUM 1.6 1.6 - 2.4 mg/dL 12/09/2024 11:54 AM CDT [facility] Blood BLOOD SPECIMEN / Unknown Venipuncture / Unknown 12/09/2024 6:21 AM CDT 12/09/2024 6:27 AM CDT Hong Lopez MD CHEMISTRY Final Resu lt Performing Organization Address [facility]/ZIP Co de Phone Number [facility] [address] [place] [address], [place] * (ABNORMAL) Electrolyte panel AM (12/09/2024 6:21 AM CDT) SODIUM 139 136 - 145 mmol/L 12/09/2024 7:00 AM CDT [facility] POTASSIUM 3.0(L) 3.5 - 5.1 mmol/L 12/09/2024 7:00 AM CDT [facility] CHLORIDE 99 98 - 107 mmol/L 12/09/2024 7:00 AM CDT [facility] CO2,TOTAL 21(L) 22 - 29 mmol/L 12/09/2024 7:00 AM CDT [facility] ANION GAP 19(H) 5 - 18 12/09/2024 7:00 AM CDT [facility] Blood BLOOD SPECIMEN / Unknown Venipuncture / Unknown 12/09/2024 6:21 AM CDT 12/09/2024 6:27 AM CDT Ally Hoffmann DO CHEMISTRY Final Re sult [facility] [address] [place] [address], [place] * XR CHEST 1 VIEW PORTABLE (12/08/2024 11:45 AM CDT) Anatomical Region Laterality Modality HEART, THORAX, CHEST Digital Rad iography 12/08/2024 5:09 PM CDT Narrative 12/08/2024 5:09 PM CDT For Patients: As a result of the Cures Act, medical imaging exams and procedure reports are released immediately into your electronic medical record. You may view this report before your referring provider. If you have questions, please contact your health care provider. Indication: : Shortness of breath TECHNIQUE: Single-view chest. FINDINGS: Enlarged cardiac silhouette. Mild thickening along the right fissure. Minimal prominence interstitial markings could represent pulmonary edema. Retrocardiac atelectasis. No pneumothorax. Dictated by Kourtney Griffin MD @ Dec 08 2024 5:09PM (Electronically Signed) [email or web address] Procedure Note Kourtney Griffin MD - 12/08/2024 For Patients: As a result of the Cures Act, medical imagingexams and procedure reports are released immediately into your electronicmedical record. You may view this report before your referring provider.If you have questions, please contact your health care provider. Indication: : Shortness of breath TECHNIQUE: Single-view chest. FINDINGS: Enlarged cardiac silhouette. Mild thickening along the right fissure.Minimal prominence interstitial markings could represent pulmonary edema.Retrocardiac atelectasis. No pneumothorax. Dictated by Kourtney Griffin MD @ Dec 08 2024 5:09PM (Electronically Signed) [email or web address] Ally Hoffmann DO GENERAL IMAGING Final Re sult * (ABNORMAL) WBC AM (12/08/2024 7:11 AM CDT) Only the most recent of3 resultswithin the time period is included. WHITE BLOOD COUNT 17.1(H) 4.5 - 11.0 thou/cu mm 12/08/2024 7:32 AM CDT [facility] NRBC 0.0 % 12/08/2024 7:32 AM CDT [facility] ABS NRBC 0.0 thou /cu mm 12/08/2024 7:32 AM CDT [facility] Blood BLOOD SPECIMEN / Unknown Venipuncture / Unknown 12/08/2024 7:11 AM CDT 12/08/2024 7:20 AM CDT Ally Hoffmann DO HEMATOLOGY Final Re sult [facility] [address] [place] [address], * (ABNORMAL) BASIC METABOLIC PANEL (12/08/2024 7:11 AM CDT) Only the most recent of5 resultswithin the time period is included. SODIUM 140 136 - 145 mmol/L 12/08/2024 7:51 AM CDT [facility] POTASSIUM 3.6 3.5 - 5.1 mmol/L 12/08/2024 7:51 AM CDT [facility] CHLORIDE 100 98 - 107 mmol/L 12/08/2024 7:51 AM CDT [facility] CO2,TOTAL 21(L) 22 - 29 mmol/L 12/08/2024 7:51 AM CDT [facility] ANION GAP 19(H) 5 - 18 12/08/2024 7:51 AM CDT [facility] GLUCOSE 159(H) 70 - 99 mg/dL 12/08/2024 7:51 AM CDT [facility] CALCIUM 8.9 8.8 - 10.4 mg/dL 12/08/2024 7:51 AM CDT [facility] Comment: Reference ranges for this test were updated on 06/25/2024 to reflect our healthy population more accurately. Reference range changes are not retroactively applied to results, but previous results using the same methodology can be interpreted in the context of the new reference range. BUN 64(H) 8 - 23 mg/dL 12/08/2024 7:51 AM CDT [facility] CREATININE 2.32(H) 0.50 - 0.90 mg/dL 12/08/2024 7:51 AM CDT [facility] BUN/CREAT RATIO 28(H) 10 - 20 7:51 AM CDT [facility] eGFR 21(L) >90 mL/min/1. 73m2 12/08/2024 7:51 AM CDT [facility] Comment:As of 2021, eG FR is calculated by the CKD-EPI creatinine equation without race adjustment. eGFR can be influenced by muscle mass, exercise, and diet. The reported eGFR is an estimation only and is only applicable if the renal function is stable. Blood BLOOD SPECIMEN / Unknown Venipuncture / Unknown 12/08/2024 7:11 AM CDT 12/08/2024 7:20 AM CDT us Gregory Yip MD CHEMISTRY Final Resul t [facility] [address] [place] [address], [place] * XR KNEE 2 VIEWS RIGHT (12/07/2024 2:39 PM CDT) Anatomical Region Laterality Modality KNEE R Digital Radiogra phy 12/07/2024 3:20 PM CDT Narrative 12/07/2024 3:20 PM CDT For Patients: As a result of the s Act, medical imaging exams and procedure reports are released immediately into your electronic medical record. You may view this report before your referring provider. If you have questions, please contact your health care provider. INDICATION: Pain and swelling. FINDINGS: Two views of the right knee show no evidence of acute fracture or dislocation. Small diffuse marginal osteophyte formation. Significant chondrocalcinosis. No other bony or soft tissue abnormalities identified. Dictated by Micky Griffin MD @ Dec 07 2024 3:20PM (Electronically Signed) [email or web address] Procedure Note Micky Griffin MD - 12/07/2024 For Patients: As a result of the s Act, medical imagingexams and procedure reports are released immediately into your electronicmedical record. You may view this report before your referring provider.If you have questions, please contact your health care provider. INDICATION: Pain and swelling. FINDINGS: Two views of the right knee show no evidence of acute fracture ordislocation. Small diffuse marginal osteophyte formation. Significant chondrocalcinosis. No other bony or soft tissue abnormalities identified. Dictated by Micky Griffin MD @ Dec 07 2024 3:20PM (Electronically Signed) [email or web address] Lamine Gutierrez MD GENERAL IMAGING Final Result * XR KNEE 2 VIEWS LEFT (12/07/2024 2:39 PM CDT) Anatomical Region Laterality Modality KNEE L Digital Radiogra phy 12/07/2024 3:19 PM CDT Narrative 12/07/2024 3:19 PM CDT For Patients: As a result of the s Act, medical imaging exams and procedure reports are released immediately into your electronic medical record. You may view this report before your referring provider. If you have questions, please contact your health care provider. INDICATION: Pain and swelling. FINDINGS: Two views of the left knee show no evidence of acute fracture or dislocation. Small marginal osteophyte formation. Significant chondrocalcinosis. No other bony or soft tissue abnormalities identified. Dictated by Micky Griffin MD @ Dec 07 2024 3:19PM (Electronically Signed) [email or web address] Procedure Note Micky Griffin MD - 12/07/2024 For Patients: As a result of the Cures Act, medical imagingexams and procedure reports are released immediately into your electronicmedical record. You may view this report before your referring provider.If you have questions, please contact your health care provider. INDICATION: Pain and swelling. FINDINGS: Two views of the left knee show no evidence of acute fracture ordislocation. Small marginal osteophyte formation. Significant chondrocalcinosis. No other bony or soft tissue abnormalities identified. Dictated by Micky Griffin MD @ Dec 07 2024 3:19PM (Electronically Signed) [email or web address] Lamine Gutierrez MD GENERAL IMAGING Final Result * (ABNORMAL) C-REACTIVE PROTEIN (12/07/2024 6:12 AM CDT) C-REACTIVE PROTEIN 23.4(H) <0.5 mg/dL 12/07/2024 10:26 AM CDT [facility] Blood BLOOD SPECIMEN / Unknown Venipuncture / Unknown 12/07/2024 6:12 AM CDT 12/07/2024 6:27 AM CDT Ally Hoffmann DO CHEMISTRY Final Re sult [facility] [address] [place] [id number] * (ABNORMAL) URIC ACID (12/07/2024 6:12 AM CDT) URIC ACID 10.0(H) 2.4 - 5.7 mg/dL 12/07/2024 10:43 AM CDT [email or web address] Blood BLOOD SPECIMEN / Unknown Venipuncture / Unknown 12/07/2024 6:12 AM CDT 12/07/2024 6:27 AM CDT Ally Hoffmann DO CHEMISTRY Final Re sult [facility] [address] [place] [address], [place] * MR ABDOMEN RENAL WWO (12/06/2024 4:46 PM CDT) Anatomical Region Laterality Modality Abdomen, KIDNEY L, KIDNEY R, KIDNEYS Magnetic Resonance 12/07/2024 6:33 AM CDT Narrative 12/09/2024 10:22 AM CDT For Patients: As a result of the Cures Act, medical imaging exams and procedure reports are released immediately into your electronic medical record. You may view this report before your referring provider. If you have questions, please contact your health care provider. INDICATION: 9 cm cystic mass lower pole right kidney; further assessment. COMPARISON: Ultrasound examination of the right upper quadrant of the abdomen December 03, 2024. TECHNIQUE: Precontrast T1 and T2 weighted imaging; T2 haste imaging; diffusion-weighted imaging; in and out of phase imaging; postcontrast imaging including subtraction; 20 cc of clariscan contrast was injected IV. Findings : An 8.2 x 6 cm septated lobulated cystic mass lower pole right kidney which has high signal on the precontrast T2 haste imaging and low signal on the precontrast T1 weighted imaging without enhancement post contrast administration. Multiple hemorrhagic/complicated cysts identified in the right kidney. Simple cortical cyst lower pole left kidney. No enhancing mass lesions in the kidneys on either side. No focal hepatic or splenic pathology. No pancreatic pathology. Distended gallbladder without any pericholecystic inflammatory changes. no adrenal pathology. No retroperitoneal lymphadenopathy. No evidence of abdominal ascites. Bilateral pleural effusion. Impression: 1. 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 2. Several subcentimeter hemorrhagic cysts right kidney. 3. A simple cortical cyst left kidney. 4. Bilateral pleural effusion. Dictated by Bharat Funes MD @ Dec 09 2024 10:22AM (Electronically Signed) [email or web address] Procedure Note Bharat Funes MBBS - 12/09/2024 For Patients: As a result of the Cures Act, medical imagingexams and procedure reports are released immediately into your electronicmedical record. You may view this report before your referring provider.If you have questions, please contact your health care provider. INDICATION: 9 cm cystic mass lower pole right kidney; further assessment. COMPARISON: Ultrasound examination of the right upper quadrant of the abdomen 2024. TECHNIQUE: Precontrast T1 and T2 weighted imaging; T2 haste imaging;diffusion-weighted imaging; in and out of phase imaging; postcontrastimaging including subtraction; 20 cc of clariscan contrast was injectedIV. Findings : An 8.2 x 6 cm septated lobulated cystic mass lower pole right kidney whichhas high signal on the precontrast T2 haste imaging and low signal on theprecontrast T1 weighted imaging without enhancement post contrastadministration. Multiple hemorrhagic/complicated cysts identified in theright kidney. Simple cortical cyst lower pole left kidney. No enhancingmass lesions in the kidneys on either side. No focal hepatic or splenicpathology. No pancreatic pathology. Distended gallbladder without anypericholecystic inflammatory changes. no adrenal pathology. Noretroperitoneal lymphadenopathy. No evidence of abdominal ascites.Bilateral pleural effusion. Impression: 1. 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 2. Several subcentimeter hemorrhagic cysts right kidney. 3. A simple cortical cyst left kidney. 4. Bilateral pleural effusion. Dictated by Bharat Funes MD @ Dec 09 2024 10:22AM (Electronically Signed) [email or web address] Tom Regalado MD MR Davis nal Result * SCAN CORRESP-LABORATORY RESULTS (12/06/2024 12:59 PM CDT) Narrative 12/06/2024 12:59 PM CDT Ordered by an unspecified provider. us Other Clinical Staff OTHER Final Resul t * SCAN CORRESP-EKG RESULTS (12/06/2024 12:59 PM CDT) Narrative 12/06/2024 12:59 PM CDT Ordered by an unspecified provider. us Other Clinical Staff OTHER Final Resul t * SCAN CORRESP-IMAGING (12/06/2024 12:59 PM CDT) Anatomical Region Laterality Modality Other Narrative 12/06/2024 12:59 PM CDT Ordered by an unspecified provider. us Other Clinical Staff OTHER Final Resul t * SCAN-CARDIAC STRIP (12/05/2024 1:53 AM CDT) us Scanner OTHER Final Result * CLOSTRIDIOIDES DIFFICILE TOXIN PCR (12/04/2024 1:51 PM CDT) Only the most recent of2 resultswithin the time period is included. Pathologist [facility] CLOSTRIDIUM DIFFICILE PCR Negative 12/04/2024 4:53 PM CDT [facility] PRESUMPTIVE NAP1 STRAIN Negative 12/04/2024 4:53 PM CDT [facility] Stool STOOL SPECIMEN / Unknown Non-Blood / Unknown 12/04/2024 1:51 PM CDT 12/04/2024 1:59 PM CDT Narrative [facility] - 12/04/2024 4:53 PM CDT The NAP1 (027 or BI) strain is a hypervirulent strain. Detection may be useful for epidemiological purposes. us Verenice Raphael RN MICROBIOLOGY Final Result [facility] [address] [place] [address], [place] * ECHO TTE LIMITED WO CONTRAST W COLOR W LTD DOPPLER (12/04/2024 12:57 PM CDT) AORTIC VALVE MEAN PG 6 mmHg PEAK TR VELOCITY 2.8 m/s LVEDD 4.1 cm EJECTION FRACTION 55 - 60% Anatomical Region Laterality Modality Ultrasound 12/04/2024 11:1 5 AM CDT Narrative 12/04/2024 1:02 PM CDT ECHOCARDIOGRAM Sylvia Doan : 1945 79 years Study Date: 12/04/2024 11:15:32 AM Gender: F BP: 141/87 mmHg Height: 155.00 cm BSA: 1.81 m Weight: 82.00 kg Tech: [facility] Referring MD: LIZZY FAJARDO Site: [facility] Reading Location: [facility] IP Patient Location: Inpatient. Procedure: 2D, Color Doppler and Limited Spectral Doppler. Indication for study: CHF Cardiac Rhythm: Irregular.Study quality: Fair. Final Impressions: 1. Normal LV size, mildly increased wall thickness, normal global systolic function with an estimated EF of 55 - 60%. 2. Moderately enlarged left atrium. 3. Right ventricular cavity size is mildly enlarged, global systolic RV function is borderline reduced. 4. Tricuspid valve is normal, mild-moderate tricuspid regurgitation. 5. No pericardial effusion. Chamber Sizes and Function Normal left ventricular size, mildly increased wall thickness, normal global systolic function with an estimated EF of 55 - 60%. No resting regional wall motion abnormality visualized. Left atrial size is moderately enlarged. Right ventricular cavity size is mildly enlarged, global systolic RV function is borderline reduced. The right atrium is moderately enlarged. Right atrial area is 17 cm . The pulmonary artery is of normal size and origin. The sinus of Valsalva is normal sized. The ascending aorta is normal sized. Valves, RV Pressures and Diastolic Function The aortic valve is normal in structure and trileaflet, no stenosis and mild regurgitation. The mitral valve is normal in structure, trace mitral regurgitation. Mild mitral annular calcification is present. Indeterminate pattern of LV diastolic filling. The tricuspid valve is normal in structure, mild-moderate tricuspid regurgitation. The tricuspid regurgitant velocity is 2.8 m/s, the estimated right ventricular systolic pressure is 32 mmHg plus right atrial pressure. The pulmonic valve is normal. Mild pulmonary regurgitation. Masses, Effusion, Shunts There is no pericardial effusion. The inferior vena cava is dilated, respiratory size variation less than 50%. No left to right shunting was detected by limited color flow Doppler interrogation of the interatrial septum. MEASUREMENTS AND CALCULATIONS 2-D Measurements and LV Function: LVID (d) 4.1 cm LV FS% (2D) 39 % LVID (s) 2.5 cm LVOT diameter 1.8 cm IVS (d) 1.1 cm HR 74 bpm LVPW (d) 1.0 cm LA Vol index 43 ml/m2 Ao Sinus 2.7 cm RA area 17 cm Ao Sinus ULN 3.7 cm RV Basal Diam 3.5 cm Asc Ao 3.4 cm Asc Ao ULN 4.0 cm Diastology: Tissue Doppler e', Septum 0.09 m/s e', Lateral 0.08 m/s Aortic Valve: Vmax 1.5 m/s ABILIO (V) 2.16 cm AI P 1/2 395 msec VTI 0.37 m ABILIO (I) 1.78 cm LVOT V max 1.2 m/s Max PG 10 mmHg LVOT VTI 0.24 m Mean PG 6 mmHg SV 65 ml Dim Index 0.66 SV index 36 ml/m CO 4.8 l/min CI 2.7 l/min/m Tricuspid Valve and estimated PA pressures: TR Vmax 2.8 m/s TAPSE 1.7 cm TR maxG 32 mmHg . This study was interpreted by an [facility] accredited facility. Final (Updated) Procedure Note Cari Gonzalez MD - 12/06/2024 ECHOCARDIOGRAM Sylvia Doan : 1945 79 years Study Date: 12/04/2024 11:15:32 AM Gender: F BP: 141/87 mmHg Height: 155.00 cm BSA: 1.81 m Weight: 82.00 kg Tech: [facility] Referring MD: LIZZY FAJARDO Site: [facility] Reading Location: [facility] Patient Location: Inpatient. Procedure: 2D, Color Doppler and Limited Spectral Doppler. Indication for study: CHF Cardiac Rhythm: Irregular.Study quality: Fair. Final Impressions: 1. Normal LV size, mildly increased wall thickness, normal globalsystolic function with an estimated EF of 55 - 60%. 2. Moderately enlarged left atrium. 3. Right ventricular cavity size is mildly enlarged, global systolic RVfunction is borderline reduced. 4. Tricuspid valve is normal, mild-moderate tricuspid regurgitation. 5. No pericardial effusion. Chamber Sizes and Function Normal left ventricular size, mildly increased wall thickness, normalglobal systolic function with an estimated EF of 55 - 60%. No restingregional wall motion abnormality visualized. Left atrial size ismoderately enlarged. Right ventricular cavity size is mildly enlarged,global systolic RV function is borderline reduced. The right atrium ismoderately enlarged. Right atrial area is 17 cm . The pulmonary artery isof normal size and origin. The sinus of Valsalva is normal sized. Theascending aorta is normal sized. Valves, RV Pressures and Diastolic Function The aortic valve is normal in structure and trileaflet, no stenosis andmild regurgitation. The mitral valve is normal in structure, trace mitralregurgitation. Mild mitral annular calcification is present. Indeterminatepattern of LV diastolic filling. The tricuspid valve is normal instructure, mild-moderate tricuspid regurgitation. The tricuspidregurgitant velocity is 2.8 m/s, the estimated right ventricular systolicpressure is 32 mmHg plus right atrial pressure. The pulmonic valve isnormal. Mild pulmonary regurgitation. Masses, Effusion, Shunts There is no pericardial effusion. The inferior vena cava is dilated,respiratory size variation less than 50%. No left to right shunting wasdetected by limited color flow Doppler interrogation of the interatrialseptum. MEASUREMENTS AND CALCULATIONS 2-D Measurements and LV Function: LVID (d) 4.1 cm LV FS% (2D) 39 % LVID (s) 2.5 cm LVOT diameter 1.8 cm IVS (d) 1.1 cm HR 74 bpm LVPW (d) 1.0 cm LA Vol index 43 ml/m2 Ao Sinus 2.7 cm RA area 17 cm Ao Sinus ULN 3.7 cm RV Basal Diam 3.5 cm Asc Ao 3.4 cm Asc Ao ULN 4.0 cm Diastology: Tissue Doppler e', Septum 0.09 m/s e', Lateral 0.08 m/s Aortic Valve: Vmax 1.5 m/s ABILIO (V) 2.16 cm AI P 1/2 395 msec VTI 0.37 m ABILIO (I) 1.78 cm LVOT V max 1.2 m/s Max PG 10 mmHg LVOT VTI 0.24 m Mean PG 6 mmHg SV 65 ml Dim Index 0.66 SV index 36 ml/m CO 4.8 l/min CI 2.7 l/min/m Tricuspid Valve and estimated PA pressures: TR Vmax 2.8 m/s TAPSE 1.7 cm TR maxG 32 mmHg . This study was interpreted by an [facility] accredited facility. Final (Updated) us Lizzy Fajardo MD ECHO ORD Edit ed Result - Final * (ABNORMAL) Hemoglobin AM (12/04/2024 4:51 AM CDT) HEMOGLOBIN 9.3(L) 12.0 - 16.0 g/dL 12/04/2024 5:50 AM CDT [facility] MCV 94 80 - 100 fL 12/04/2024 5:50 AM CDT [facility] Blood BLOOD SPECIMEN / Unknown Venipuncture / Unknown 12/04/2024 4:51 AM CDT 12/04/2024 5:40 AM CDT us Tom Regalado MD HEMATOLOGY Fi nal Result [facility] [address] [place] [id number], [place] * SCAN-CARDIAC STRIP (12/04/2024 1:02 AM CDT) us Scanner OTHER Final Result * (ABNORMAL) URINALYSIS MICROSCOPIC (12/03/2024 4:37 PM CDT) RBC 11-25(A) 0-2, None Seen /HPF 12/03/2024 5:10 PM CDT [facility] WBC 0-2 0-2, 3-5, None Seen /HPF 12/03/2024 5:10 PM CDT [facility] BACTERIA None Seen None Seen, Rare, Few Bacteria/ HPF 12/03/2024 5:10 PM CDT [facility] EPITHELIAL CELLS None Seen None Seen, Few Epi/HPF 12/03/2024 5:10 PM CDT [facility] HYALINE CASTS 3-5 0-2, 3-5 /LPF 12/03/2024 5:10 PM CDT [facility] Urine URINE SPECIMEN / Unknown Non-Blood / Unknown 12/03/2024 4:37 PM CDT 12/03/2024 4:48 PM CDT us Lizzy Fajardo MD URINE Gale l Result [facility] [address] [place] [address], [place] * (ABNORMAL) Urinalysis TODAY (12/03/2024 4:37 PM CDT) COLOR Yellow Yellow Color 12/03/2024 5:10 PM CDT [facility] CLARITY Cloudy(A) Clear Clarity 12/03/2024 5:10 PM CDT [facility] SPECIFIC GRAVITY,URINE 1.025 1.010, 1.015, 1.020, 1.025 12/03/2024 5:10 PM CDT [facility] PH,URINE 5.0(A) 6.0, 7.0, 8.0, 5.5, 6.5, 7.5, 8.5 12/03/2024 5:10 PM CDT [facility] UROBILINOGEN, QUALITATIVE Normal Normal EU/dl 12/03/2024 5:10 PM CDT [facility] PROTEIN, URINE Negative Negative mg/dL 12/03/2024 5:10 PM CDT [facility] GLUCOSE, URINE Negative Negative mg/dL 12/03/2024 5:10 PM CDT [facility] KETONES,URINE Trace(A) Negative mg/dL 12/03/2024 5:10 PM CDT [facility] BILIRUBIN,URI NE Negative Negative 12/03/2024 5:10 PM CDT [facility] OCCULT BLOOD,URINE Large(A) Negative 12/03/2024 5:10 PM CDT [facility] NITRITE Negative Negative 12/03/2024 5:10 PM CDT [facility] LEUKOCYTE ESTERASE Small(A) Negative 12/03/2024 5:10 PM CDT [facility] Urine URINE SPECIMEN / Unknown Non-Blood / Unknown 12/03/2024 4:37 PM CDT 12/03/2024 4:48 PM CDT us Lizzy Fajardo MD URINE Gale l Result [facility] [address] [place] [address], [place] * RUQ ultrasound today (12/03/2024 9:02 AM CDT) Anatomical Region Laterality Modality Abdomen, LIVER, KIDNEYS, PANCREAS, GALLBLADDER, SPLEEN Ultrasound 12/03/2024 9:07 AM CDT Impressions 12/03/2024 9:07 AM CDT 1. Dilated intrahepatic IVC and hepatic veins suggest volume overload/elevated right heart pressures. 2. Hydropic appearing gallbladder without findings of acute calculus cholecystitis. 3. Incompletely evaluated 9 centimeter right lower pole renal lesion which may be several adjacent cysts versus a multilocular septated cyst. Recommend renal mass protocol CT or MR abdomen without and with IV contrast. Dictated by Celia Mckoy MD @ 12/03/2024 9:07:53 AM (Electronically Signed) Narrative 12/03/2024 9:07 AM CDT For Patients: As a result of the Century Cures Act, medical imaging exams and procedure reports are released immediately into your electronic medical record. You may view this report before your referring provider. If you have questions, please contact your health care provider. INDICATION: Abdominal pain and fever COMPARISON: None. TECHNIQUE: Reed-scale and color Doppler ultrasound of the right upper quadrant. FINDINGS: Pancreas: Largely obscured by bowel gas but normal where seen. Liver: Normal hepatic echogenicity and normal echotexture. No mass. Patent portal vein with normal directional flow. Dilated intrahepatic IVC. Dilated intrahepatic veins. Gallbladder and bile ducts: Gallbladder is distended. Hydropic appearing gallbladder wall measuring up to 5 millimeters in thickness. No stones or sludge. No pericholecystic fluid. Negative sonographic Ortiz`s sign. No intrahepatic or extrahepatic biliary ductal dilatation. The common bile duct is not well seen. RIGHT Kidney: Renal length: 13.8 cm, inclusive of the lower pole cystic lesion Parenchyma: Decreased thickness and increased echogenicity. Cyst: Large lower pole cysts are not fully seen. Multilocular septated versus multiple cysts adjacent to 1 another measuring 9 x 5 x 6 centimeters. Mass: No solid mass seen. Calculi: None Urinary tract: Not dilated. Abdominal aorta: Not evaluated directly. Ascites: No right upper quadrant ascites. Procedure Note Celia Mckoy MD - 12/03/2024 For Patients: As a result of the Cures Act, medical imagingexams and procedure reports are released immediately into your electronicmedical record. You may view this report before your referring provider.If you have questions, please contact your health care provider. INDICATION: Abdominal pain and fever COMPARISON: None. TECHNIQUE: Reed-scale and color Doppler ultrasound of the right upper quadrant. FINDINGS: Pancreas: Largely obscured by bowel gas but normal where seen. Liver: Normal hepatic echogenicity and normal echotexture. No mass. Patentportal vein with normal directional flow. Dilated intrahepatic IVC.Dilated intrahepatic veins. Gallbladder and bile ducts: Gallbladder is distended. Hydropic appearinggallbladder wall measuring up to 5 millimeters in thickness. No stones orsludge. No pericholecystic fluid. Negative sonographic Ortiz`s sign. Nointrahepatic or extrahepatic biliary ductal dilatation. The common bileduct is not well seen. RIGHT Kidney: Renal length: 13.8 cm, inclusive of the lower pole cystic lesion Parenchyma: Decreased thickness and increased echogenicity. Cyst: Large lower pole cysts are not fully seen. Multilocular septatedversus multiple cysts adjacent to 1 another measuring 9 x 5 x 6centimeters. Mass: No solid mass seen. Calculi: None Urinary tract: Not dilated. Abdominal aorta: Not evaluated directly. Ascites: No right upper quadrant ascites. IMPRESSION: 1. Dilated intrahepatic IVC and hepatic veins suggest volumeoverload/elevated right heart pressures. 2. Hydropic appearing gallbladder without findings of acute calculuscholecystitis. 3. Incompletely evaluated 9 centimeter right lower pole renal lesion whichmay be several adjacent cysts versus a multilocular septated cyst.Recommend renal mass protocol CT or MR abdomen without and with IVcontrast. Dictated by Celia Mckoy MD @ 12/03/2024 9:07:53 AM (Electronically Signed) Lizzy Fajardo MD US Gale l Result * LACTATE VENOUS (12/03/2024 7:59 AM CDT) Only the most recent of2 resultswithin the time period is included. LACTATE,VENOUS 1.8 0.5 - 2.0 mmol/L 12/03/2024 9:23 AM CDT [facility] Blood BLOOD SPECIMEN / Unknown Butterfly / Unknown 12/03/2024 7:59 AM CDT 12/03/2024 8:52 AM CDT Lizzy Fajardo MD CHEMISTRY Gale l Result Performing Organization Address [facility] Co de Phone Number [facility] [address] [place] [address], [place] * VANCOMYCIN (12/03/2024 7:59 AM CDT) VANCOMYCIN 24.1 ug/mL 12/03/2024 9:23 AM CDT [facility] Comment:No Reference Range D efined. DATE OF LAST DOSE,RANDOM 12/03/2024 12/03/2024 9:23 AM CDT [facility] TIME OF LAST DOSE,RANDOM 12:45 AM 12/03/2024 9:23 AM CDT [facility] Blood BLOOD SPECIMEN / Unknown Butterfly / Unknown 12/03/2024 7:59 AM CDT 12/03/2024 8:51 AM CDT Tom Regalado MD CHEMISTRY Fi nal Result Performing Organization Address City/[facility]/ZIP Co de Phone Number [facility] [address] [address], [place] * SCAN-CARDIAC STRIP (12/03/2024 6:48 AM CDT) us Scanner OTHER Final Result * (ABNORMAL) MRSA/SA PCR (12/03/2024 5:21 AM CDT) Pathologist [facility] MRSA DNA PCR Negative Negative 12/03/2024 7:04 AM CDT [facility] STAPHYLOCOCCUS AUREUS PCR Positive(A) Negative 12/03/2024 7:04 AM CDT [facility] Other SPECIMEN FROM INTERNAL NOSE / Unknown Non-Blood / Unknown 12/03/2024 5:21 AM CDT 12/03/2024 5:38 AM CDT Narrative [facility] - 12/03/2024 7:04 AM CDT S. aureus detected; NOT MRSA. Test result does not preclude MRSA nasal colonization. False negative for MRSA could be obtained if MRSA present in the sample is below threshold of detection. Lizzy Fajardo MD MICROBIOLOGY Gale l Result [facility] [address] [place] [address], * (ABNORMAL) PROCALCITONIN (12/03/2024 5:18 AM CDT) [facility] PROCALCITONIN 78.70(H) ng/ml 12/03/2024 6:21 AM CDT [facility] Blood BLOOD SPECIMEN / Unknown Venipuncture / Unknown 12/03/2024 5:18 AM CDT 12/03/2024 5:27 AM CDT Narrative [facility] - 12/03/2024 6:21 AM CDT Procalcitonin for initial assessment of Lower Respiratory Tract Infection: Results Interpretation <0.10 ng/mL Antibiotic therapy strongly discoraged. Indicates absent of bacterial infection. * 0.10 - 0.25 ng/mL Antibiotic therapy discouraged. Bacterial infection unlikely. * 0.26 - 0.50 ng/mL Antibiotic therapy encouraged. Bacterial infection possible. >0.50 ng/mL Antibiotic therapy strongly encouraged. Suggestive of presence of bacterial infection. *Antibiotic therapy should be considered regardless of PCT result if the patient is clinically unstable, is at high risk for adverse outcome, has strong evidence of bacterial pathogen, or the clinical context indicates antibiotic therapy is warranted. If antibiotics are withheld, reassess if symptoms persist/worsen and/or repeat PCT measurement within 6-24 hours. In order to assess treatment success and to support a decision to discontinue antibiotic therapy, follow up samples should be tested once every 1-2 days, based upon physician discretion taking into account patient's evolution and progress. Procalcitonin for initial assessment of severe sepsis risk: Results Interpretation <0.5 ng/ml A PCT level below 0.5 ng/ml on the first day of ICU admission is associated with a low risk for progression to severe sepsis and/or septic shock. > 2.0 ng/mL A PCT level above 2.0 ng/mL on the first day of ICU admission is associated with a high risk for progression to severe sepsis and/or septic shock. Note: Concentrations < 0.5 ng/mL do not exclude an infection, on account of localized infections (without systemic signs) which can be associated with such low concentrations, or a systemic infection in its initial stages(< 6 hours). Furthermore, increased procalcitonin can occur without infection. PCT concentrations between 0.5 and 2.0 ng/mL should be interpreted taking into account the patient's history. It is recommended to retest PCT within 6-24 hours if any concentrations < 2 ng/mL are obtained. us Lizzy Fajardo MD SEND OUTS Gale basil Result [facility] [address] [place] [address], * (ABNORMAL) CBC no diff TODAY (12/03/2024 5:18 AM CDT) [facility] WHITE BLOOD COUNT 17.6(H) 4.5 - 11.0 thou/cu mm 12/03/2024 5:40 AM CDT [facility] RED BLOOD COUNT 3.01(L) 4.00 - 5.20 mil/cu mm 12/03/2024 5:40 AM CDT [facility] HEMOGLOBIN 9.3(L) 12.0 - 16.0 g/dL 12/03/2024 5:40 AM CDT [facility] HEMATOCRIT 28.9(L) 33.0 - 51.0 % 12/03/2024 5:40 AM CDT [facility] MCV 96 80 - 100 fL 12/03/2024 5:40 AM CDT [facility] MCH 30.9 26.0 - 34.0 pg 12/03/2024 5:40 AM CDT [facility] MCHC 32.2 32.0 - 36.0 g/dL 12/03/2024 5:40 AM CDT [facility] RDW 14.3 11.5 - 15.5 % 12/03/2024 5:40 AM CDT [facility] PLATELET COUNT 240 140 - 440 thou/cu mm 12/03/2024 5:40 AM CDT [facility] MPV 10.7 6.5 - 11.0 fL 12/03/2024 5:40 AM CDT [facility] NRBC 0.0 % 12/03/2024 5:40 AM CDT [facility] ABS NRBC 0.0 thou /cu mm 12/03/2024 5:40 AM CDT [facility] Blood BLOOD SPECIMEN / Unknown Venipuncture / Unknown 12/03/2024 5:18 AM CDT 12/03/2024 5:27 AM CDT us Lizzy Fajardo MD HEMATOLOGY Gale l Result [facility] [address] [place] [address], * (ABNORMAL) BLOOD GAS,VENOUS (12/03/2024 5:18 AM CDT) PH, VENOUS 7.28(L) 7.32 - 7.43 12/03/2024 5:31 AM CDT [facility] PCO2, VENOUS 40(L) 41 - 51 mmHg 12/03/2024 5:31 AM CDT [facility] PO2, VENOUS 25(L) 35 - 40 mmHg 12/03/2024 5:31 AM CDT [facility] HCO3,VENOUS 19(L) 22 - 29 mmol/L 12/03/2024 5:31 AM CDT [facility] BASE EXCESS, VENOUS, POCT -7.5(L) -2.0 - 3.0 12/03/2024 5:31 AM CDT [facility] O2 SATURATION, VENOUS 33(L) 70 - 75 % 12/03/2024 5:31 AM CDT [facility] PATIENT TEMPERATURE 37.0 Degrees C 12/03/2024 5:31 AM CDT [facility] Blood VENOUS BLOOD SPECIMEN / Unknown Venipuncture / Unknown 12/03/2024 5:18 AM CDT 12/03/2024 5:27 AM CDT Lizzy Fajardo MD CHEMISTRY Gale l Result [facility] [address] [address], from Last 3 Months Insurance MEDICARE PART A HB ONLY MEDICARE PB ONLY MEDICARE PART B HB ONLY Advance Directives * Full Code (Latest Code Status on File) Date Activated Date Inactivated Comments 12/03/2024 4:27 AM 12/10/2024 2:39 PM Question Answer Comments Code Status Discussion: Reviewed Preferences * Full Code Date Activated Date Inactivated Comments 05/20/2017 5:38 PM 05/22/2017 9:15 PM Care Teams [employer] Hand Relationship Specialty Start Date End Date Tala Thomason MD [address] [place] [id number] PCP - General Family Practice 12/03/24
--- OUTSIDE RECORDS SUMMARY | 2025-01-24 16:34 | XMS_ITS | Encounter Summary ---
Author Organization [facility] Address [address] [facility] [place] [address] Care Team Providers Care Booster Plant Operator Name Role Phone Enedelia Wilkins MD Primary Care Provid er Santo Crump MD Unavailable [phone] Linh Fontanez APRN HOGSHEAD HEAD MATCHER Unavailable [phone] Paddy COLLINS MD, Tala Lang Primary Care Provider Santo Crump MD Unavailable [phone] Santo Crump MD Unavailable [phone] Linh Fontanez APRN HOGSHEAD HEAD MATCHER Unavailable [phone] Encounter Details Date Type Department Care Team (Late st Contact Info) Description 06/22/2021 [facility] [address] [place] [address] [address] [place] [address] Santo Crump MD [address] [facility] [address] [place], [place] [id number] Social History Tobacco Use Types Packs/Day Years Used Date Smoking Tobacco: Never Smokeless Tobacco: Never Alcohol Use Standard Drinks/Week Comments Yes 0 (1 standard drink = 0.6 oz pur e alcohol) beer occ Comments No Sex and Gender Information Value Date Recorded Sex Assigned at Not on file Legal Sex 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 Gender Identity Not on file Sexual Orientation [...] Care Team (Late st Contact Info) Description 03/03/2025 2:10 PM CDT Office Visit [facility] [id number] [place] [address] [address] [place] [address] Linh Fontanez, MASTER TECHNICIAN HOGSHEAD HEAD MATCHER [address] [place] [address] documented as of this encounter Visit Diagnoses Not on filedocumented in this encounter Care Teams Booster Plant Operator Relationship Specialty Start Date End Date Enedelia Wilkins MD [address] [place] [address] PCP - General 10/23/02 10/21/21 Tala Thomason MD, [address] [place], [place] [id number] PCP - General Family Medicine 10/22/21 Santo Crump MD [address] [place] [address] Assigned Heart and Vascular Provider 06/12/20 10/02/21 Linh Fontanez, MASTER TECHNICIAN HOGSHEAD HEAD MATCHER [address] [place] [address] Assigned Heart and Vascular Provider 10/03/21 04/28/23 Santo Crump MD [address] [place] [address] Cardiovascular Disease 10/24/22 Santo Crump MD [address] [place] [address] Assigned Heart and Vascular Provider 05/06/23 11/09/24 Linh Fontanez, MASTER TECHNICIAN HOGSHEAD HEAD MATCHER [address] [place] [address] Nurse Practitioner Cardiovascular Disease 01/07/25 documented as of this encounter
--- OUTSIDE RECORDS SUMMARY | 2025-01-24 16:34 | XMS_ITS | Encounter Summary ---
Author Organization [facility] Address [address] [place] [address] Care Team Providers Care Supervisor Heading Name Role Phone Tala Thomason MD Primary Care Provider [phone] Reason for Visit * Reason Comments Anticoagulation Encounter Details Date Type Department Care Team (Late st Contact Info) Description 12/11/2024 Telephone PN Anticoagulation Centralized Services [id number] [address] [facility] [address] [place] [address] Tala Thomason MD [address] [place] [address] Anticoagulation Social History Tobacco Use Types Packs/Day Years [...] as of this encounter Nursing Notes * Anna Parker RN - 12/11/2024 10:12 AM CDT See AC Encounter dated 12/11/24 for details. * Luna Lopez - 12/11/2024 10:00 AM CDT [facility] calling wanting to know pt next INR check. Pt was dc from the hospital and is now have [facility]. Pt had INR check yesterday. documented in this encounter Plan of Treatment Upcoming Encounters Date Type Department Care Team (Late st Contact Info) Description 01/30/2025 1:30 PM CDT Appointment [facility] [address] [place], [place] [id number] Shannon Gunter APRN, MECHANIC WELDER TRUCK DRIVER [address] [facility] [address] [place] [address] 02/03/2025 1:10 PM CDT Appointment Evan Willis [address] [place] [id number] 02/11/2025 1:00 PM CDT Appointment Maria C [facility] [address] [facility] [address] [place] [phone] Jessica Zayas, PEDRO, MECHANIC WELDER TRUCK DRIVER [address] [place] [phone] 04/01/2025 12:00 PM CDT Appointment [facility] [address] [place] [address] Tala Thomason MD [address] [place] [id number] documented as of this encounter Visit Diagnoses Not on filedocumented in this encounter Care Teams Supervisor Heading Relationship Specialty Start Date End Date Tala Thomason MD [address] [place], [place] [address] PCP - General Family Practice 05/22/17 documented as of this encounter
--- OUTSIDE RECORDS SUMMARY | 2025-01-24 16:34 | XMS_ITS | Clinical Summary ---
[facility] Organization [facility] Address [address] [place] [address] Care Team Providers Care Brokerage Purchase And Sale Clerk Name Role Phone Tlaa Thomason MD Primary Care Provider [phone] Source Comments You are receiving this document as you are listed as the primary care provider,follow-up provider, or the patient has been referred to you for consultation.This is in compliance with the Medicare and[facility] Cent[facility] EHR Incentive Program,which states Providers who transition their patient to another setting of careor provider of care or refers their patient to another provider of care shouldprovide summary care record for each transition of care or referral. [facility] Center[facility]myName Allergies Active Allergy Reactions Criticality Noted Date Comments Codeine Nausea And Vomiting 09/21/2004 PN: felt sick Lisinopril Cough 06/02/2009 Morphine And Codeine Unknown 03/28/2003 Tyl #3 Naproxen Rash 03/28/2003 Medications ketoconazole (NIZORAL) 2 % creamIndications: Cutaneous Candidiasis,belly button, groin Apply topically daily. Apply 1-2 times daily until clear plus one week Indications: Skin Infection due to Naheed Yeast, belly button, groin 30 g 2 12/10/19 23 Active sodium bicarbonate 650 MG tablet Take 1 Tablet (650 mg) by mouth two times a day. 180 Tablet 3 02/02/20 23 Active mupirocin (BACTROBAN) 2 % ointment Apply to affected area three times a day for 7 days. 22 g 12/23/19 24 Active triamcinolone acetonide (KENALOG) 0.1 % cream Apply to affected area twice daily x7 days 15 g 12/23/19 24 Active allopurinol (ZYLOPRIM) 100 MG tabletIndications :Gout, unspecified cause, unspecified chronicity, unspecified site,CKD (chronic kidney disease) stage 4, GFR 15-29 ml/min (HRC) Take 2 Tablets (200 mg) by mouth daily. 180 Tablet 3 03/15/20 24 Active amLODIPine (NORVASC) 5 MG tablet Take 1 Tablet (5 mg) by mouth daily. 90 Tablet 3 03/15/20 24 Active furosemide (LASIX) 20 MG tabletIndications :Essential hypertension (HRC) Take 1 Tablet (20 mg) by mouth daily. 90 Tablet 3 03/15/20 24 Active levothyroxine (SYNTHROID) 100 MCG tabletIndications :Hypothyroidism, unspecified type (HRC) Take 1 Tablet (100 mcg) by mouth daily. 90 Tablet 3 03/15/20 24 Active losartan (COZAAR) 100 MG tabletIndications :Essential hypertension (HRC) Take 1 Tablet (100 mg) by mouth daily. 90 Tablet 3 03/15/20 24 025 Active Additional Information Patient not taking.Reported on 12/13/2024 metoprolol succinate (TOPROL XL) 25 MG 24 hour release tabletIndications :Essential hypertension (HRC) Take 1 Tablet (25 mg) by mouth daily. 90 Tablet 3 03/15/20 24 Active Vitamin D, Ergocalciferol, 1.25 MG (50282 UT) CAPS TAKE 1 CAPSULE BY MOUTH 1 TIME EVERY WEEK 13 Capsule 3 04/18/20 24 Active alendronate (FOSAMAX) 70 MG tabletIndications :Osteopenia, unspecified location TAKE 1 TABLET BY MOUTH ONCE WEEKLY. TAKE 30 MINUTES BEFORE FIRST JQZQ-IRMUD-HUHFCIL ION. AVOID LYING DOWN FOR 30 MINUTES 12 Tablet 05/27/20 24 Active Additional Information Patient not taking.Reported on 12/13/2024 lactase (LACTAID) 3000 units tabletIndications :Diarrhea, unspecified type Take 1 Tablet (3,000 Units) by mouth with meals and snacks. 100 Tablet 11 08/29/19 25 Active Vibegron 75 MG TABSIndications:U rinary incontinence, unspecified type,OAB (overactive bladder),Urinary urgency Take 1 Tablet (75 mg) by mouth daily. 90 Tablet 3 10/31/19 25 Active Additional Information Patient not taking.Reported on 12/13/2024 cetirizine (ZYRTEC) 10 MG tabletIndications :Eczema, unspecified type,Itchy skin TAKE 1 TABLET(10 MG) BY MOUTH DAILY 90 Tablet 11/08/19 25 Active mirabegron (MYRBETRIQ) 50 MG 24 hour release tabletIndications :Urinary incontinence, unspecified type,OAB (overactive bladder),Urinary urgency Take 1 Tablet (50 mg) by mouth daily. 90 Tablet 3 11/08/19 25 026 Active FLUoxetine (PROZAC) 20 MG capsuleIndication s:Moderate episode of recurrent major depressive disorder (HRC) TAKE 1 CAPSULE(20 MG) BY MOUTH DAILY 90 Capsule 12/26/19 25 Active atorvastatin (LIPITOR) 40 MG tablet Take 1 Tablet (40 mg) by mouth. 07/01/20 24 Active potassium chloride (KLOR-CON M) 20 MEQ ER tablet Take 1 Tablet (20 mEq) by mouth. 12/11/19 25 Active warfarin 3 MG tabletIndications :Chronic atrial fibrillation (HRC),Monitoring for long-term anticoagulant use Take by mouth 5/2: 3 mg; Otherwise 3 mg every W; 1.5 mg all other days or as directed. Your dose may change. Call [facility] [phone] with questions. 12/21/19 25 Active Active Problems Problem Noted Date Diagnosed [...] sooner. 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 Moderate episode of recurrent major [...] Problem Noted Date Diagnosed Date Resolved Date [facility] (current) use of anticoagulants 05/23/2017 12/19/2023 Overview [...] Encounters Date Type Department Care Team Description 01/21/2025 1:00 PM CDT E-Visit [facility] [address] [place] [address] [place] [address] Tala Thomason MD Chief Comp: RESULTS, TEST 01/20/2025 2:20 PM CDT Lab Visit [facility] [address] [place] [address] [place] [address] Monitoring for long-term anticoagulant use; CKD (chronic kidney disease) stage 4, GFR 15-29 ml/min (HRC); Essential hypertension (HRC); Alport syndrome 01/20/2025 Anticoagulation PN [facility] [id number] [place] [address] Chronic atrial fibrillation (HRC) (Primary Dx); Monitoring for long-term anticoagulant use 01/06/2025 1:10 PM CDT Lab Visit [facility] [address] [place] [address] [place] [address] Monitoring for long-term anticoagulant use 01/06/2025 Anticoagulation PN [facility] [id number] [place] [address] Chronic atrial fibrillation (HRC) (Primary Dx); Monitoring for long-term anticoagulant use 12/26/2024 11:00 AM CDT [facility]-Visit [facility] [address] [place], [place] [address] [place] [address] Samanta Cervantes, LOCATE TECHNICIAN, ROD AND TUBE STRAIGHTENER Chief Comp: HYPERTENSION 12/20/2024 1:00 PM CDT Lab Visit [facility] [address] [place] [address] [place] [address] Monitoring for long-term anticoagulant use; Chronic kidney disease, stage IV (severe) (HRC) 12/20/2024 Anticoagulation PN [facility] [id number] [place] [address] Chronic atrial fibrillation (C) (Primary Dx); Monitoring for long-term anticoagulant use 12/18/[address] [place] [address] Kayleigh Ambrose PA-C Refill (FLUoxetine (PROZAC) 20 MG capsule [Pharmacy Med Name: FLUOXETINE 20MG CAPSULES]) 12/17/2024 [address]ill [address] [place] [address] Kayleigh Ambrose PA-C Refill (losartan (COZAAR) 100 MG tablet [Pharmacy Med Name: LOSARTAN 100MG TABLETS]) 12/17/2024 [address] [place] [address] Kayleigh Ambrose PA-C Refill (metoprolol succinate (TOPROL XL) 25 MG 24 hour release tablet [Pharmacy Med Name: METOPROLOL ER SUCCINATE 25MG TABS]) 12/16/2024 Results Follow-Up [facility] [address] [place], [place] [address] [address] Samanta Cervantes APRN, CNP 12/13/2024 2:00 PM CDT Office Visit [facility] [address] [place], [place] [address] [address] Samanta Cervantes APRN, DEBRA Hospital discharge follow-up (Primary Dx) 12/13/2024 1:30 PM CDT Lab Visit [facility] [address] [place] [address] [place] [address] Monitoring for long-term anticoagulant use; Chronic kidney disease, stage IV (severe) ([facility]); Hospital discharge follow-up 12/13/2024 Anticoagulation PN [facility]tico[facility] Central[facility] [id number] [id number] [place] [address] Chronic atrial fibrillation ([facility]) (Primary Dx); Monitoring for long-term anticoagulant use 12/12/2024 Anticoagulation PN [facility] [id number] [id number] [place] [address] Tala Thomason MD Chronic atrial fibrillation (HR) (Primary Dx); Monitoring for long-term anticoagulant use 12/12/2024 Telephone PN [facility] [id number] [address] [place] [address] Tala Thomason MD Anticoagulation (Refused HC visit) 12/11/2024 Anticoagulation PN [facility] [id number] [id number] [place] [address] Tala Thomason MD Chronic atrial fibrillation ([facility]) (Primary Dx); Monitoring for long-term anticoagulant use 12/11/2024 Telephone PN [facility] [id number] [address] [place] [address] Tala Thomason MD Anticoagulation 12/05/2024 Telephone Nephrology at [facility] at [address] [address] Isabel Paulino MD [facility] 12/03/2024 E-Visit [address] [place] [address] [address] Mychart, Generic Provider 12/03/2024 Telephone PN [facility] [id number] [id number] [place] [address] Tala Thomason MD Anticoagulation (External hospital follow up) 11/29/2024 Telephone Nephrology at [facility] at [address] [address] Shannon Gunter, LOCATE TECHNICIAN, ROD AND TUBE STRAIGHTENER Lab Orders Needed (01/23/25 appt with Shannon ) 11/27/2024 Results Follow-Up [facility] [place] [address] [address] [address] [place] [address] Daniela Davis, LOCATE TECHNICIAN, ROD AND TUBE STRAIGHTENER 11/26/2024 10:30 AM CDT Ancillary Procedure [facility] [address] [place] [address] Daniela Davis, LOCATE TECHNICIAN, ROD AND TUBE STRAIGHTENER Incontinence of feces, unspecified fecal incontinence type 11/26/2024 10:00 AM CDT Office Visit [facility] [place] [address] [address] [address] [place] [address] Daniela Davis, LOCATE TECHNICIAN, ROD AND TUBE STRAIGHTENER Incontinence of feces, unspecified fecal incontinence type (Primary Dx) 11/22/2024 1:10 PM CDT Lab Visit [facility] [address] [place] [id number] Monitoring for long-term anticoagulant use 11/22/2024 Anticoagulation PN [facility]tico[facility] Central[facility] [id number] [facility], [address] [place] [address] Chronic atrial fibrillation (HRC) (Primary Dx); Monitoring for long-term anticoagulant use 11/04/2024 3:50 PM CDT E-Visit [facility] [address] [address] [address] [place] [phone] Betina Prather PA-C Chief Comp: QUESTIONS, GENERAL 11/04/2024 Refill [facility] [address] [place] [address] Tala Thomason MD Refill (cetirizine (ZYRTEC) 10 MG tablet [Pharmacy Med Name: CETIRIZINE 10MG TABLETS]) 10/30/2024 [facility] [address] [facility] [address] [place] [phone] Betina Prather PA-C Med Request from Last 3 Months Immunizations Immunization Administration Dates Next Due Flu Vac (3+ yrs) 04/27/2012 Flu Vac Preserv Free (3+yrs) 04/27/2012, 05/12/2011,04/28/2010,2008 HepB Adult (Engerix-B, 20+ y rs, 3 dose series) 06/29/2021,05/13/2019 Influenza IIV3 (Trivalent) F elliott Highdose, 65+ Yrs (86979) 05/13/2019,07/10/2018,05/23/2017,2013 Influenza IIV4 (Quadrivalent ) 0.5mL (50227) 10/14/2013 Influenza IIV4 (Quadrivalent ) Fluad, 65+ [...] Grandmother Sister 1 Sisters Alive Sister 2 Manteno Sister 3 Sister Social History Tobacco Use [...] Pulse 69 12/13/2024 1:55 PM CDT Temperature 36.5 C (97.7 F) 07/26/2024 3:18 PM IMAGERY ANALYST Respiratory Rate 16 07/26/2024 3:18 PM IMAGERY ANALYST Oxygen Saturation 100% 07/26/2024 3:18 PM IMAGERY ANALYST Inhaled Oxygen Concentration - - Weight 77.6 kg (171 lb) 12/13/2024 1:55 PM CDT Height 155 cm (5' 1.02) 12/13/2024 1:55 PM CDT Body Mass Index 32.28 12/13/2024 1:55 PM CDT Plan of Treatment Upcoming Encounters Date Type Department Care Team (Late st Contact Info) Description 01/30/2025 1:30 PM CDT Appointment [facility] [address] [place] [address] Shannon Gunter, PEDRO, ROD AND TUBE STRAIGHTENER [address] [facility] [address] [place] [address] 02/03/2025 1:10 PM CDT Appointment [facility] [address] [place] [address] 02/11/2025 1:00 PM CDT Appointment [facility] [place] [address] [address] [address] [place] [phone] Jessica Zayas, LOCATE TECHNICIAN, ROD AND TUBE STRAIGHTENER [address] [place] [phone] 04/01/2025 12:00 PM CDT Appointment [facility] [address] [place] [address] Tala Thomason MD [address] [place] [address] Health Maintenance Due Date Last Done Comments Zoster/Shingles Vaccine (1 of 2) 1996 RSV Vaccine (1 - 1-dose 75+ series) 2021 HepB Vaccine (3) 08/24/2021 06/29/2021, 05/13/2019 COVID-19 Vaccine (3 - 2023- season) 2024 04/30/2021, 04/02/2021 Dexa 06/17/2024 06/17/2022, 05/22, 01/28/2015, Additional history exists Medicare Annual Wellness Visit 03/15/2025 03/15/2024, 03/24/2022, 02/18/2021, Additional history exists Influenza Vaccine (Season Ended) 2025 06/29/2021, 05/13/2019, 07/10/2018, Additional history exists DTaP/Tdap/Td Vaccine (3 - Tdap) 06/29/2031 06/29/2021, 04/28/2010 Pneumococcal Vaccine 50+ Yrs Completed 01/08/2019, 11/27/2017 Hep C Screening (Preventive Services) Completed 09/05/2019 Cholesterol Discontinued 08/30/2024, 02/19, 12/27/2021, Additional history exists FIT Colon Cancer Screening Discontinued 10/08, 03/01/2022, 02/19/2021, Additional history exists HepA Vaccine Aged Out No longer eligi ble based on patient's age to complete this topic Hib Vaccine Aged Out No longer eligi ble based on patient's age to complete this topic IPV (Polio) Vaccine Aged Out No longe r eligible based on patient's age to complete this topic MCV4 Vaccine Aged Out No longer eligi ble based on patient's age to complete this topic Meningococcal B Vaccine Aged Out No l onger eligible based on patient's age to complete this topic Procedures Procedure Name Priority Date/Time Associated Diagnosis Comments COMPLETE BLOOD COUNT-W/DIFF Routine 01/20/2025 12:53 PM [...] ml/min (HRC) Essential hypertension (HRC) Alport syndrome CBC AND DIFFERENTIAL PANEL Routine 01/20/2025 12:53 PM CDT CKD (chronic kidney disease) stage 4, GFR 15-29 ml/min (HRC) Essential hypertension (HRC) Alport syndrome INTACT PTH Routine 01/20/2025 12:53 PM CDT CKD (chronic kidney disease) stage 4, GFR 15-29 ml/min (HRC) Essential hypertension (HRC) Alport syndrome INR/PROTIME Routine 01/20/2025 12:53 PM CDT Monitoring for long-term anticoagulant use INR/PROTIME Routine 01/06/2025 12:46 PM CDT Monitoring for long-term anticoagulant use ALBUMIN/CREAT RATIO Routine 12/20/2024 1 2:48 PM CDT Chronic kidney disease, stage IV (severe) (HRC) INR/PROTIME Routine 12/20/2024 12:48 PM CDT Monitoring for long-term anticoagulant use BASIC METABOLIC PANEL Routine 12/13/2024 2:09 PM CDT Hospital discharge follow-up INTACT PTH Routine 12/13/2024 1:37 PM CDT Chronic kidney disease, stage IV (severe) (HRC) HEMOGLOBIN, BLOOD Routine 12/13/2024 1:3 7 PM CDT Chronic kidney disease, stage IV (severe) (HRC) RENAL FUNCTION PANEL Routine 12/13/2024 1:37 PM CDT Chronic kidney disease, stage IV (severe) (HRC) INR/PROTIME Routine 12/13/2024 1:37 PM CDT Monitoring for long-term anticoagulant use XR ABD FLAT/KUB 1 VIEW Routine 11/26/2024 10:39 AM CDT Incontinence of feces, unspecified fecal incontinence type INR/PROTIME Routine 11/22/2024 12:54 PM CDT Monitoring for long-term anticoagulant use FIT,OCCULT BLOOD, STOOL Routine 10/08/2024 8:00 AM IMAGERY ANALYST Diarrhea, unspecified type Screen for colon cancer LIPID PANEL & DIRECT LDL (IF NEEDED) Routine 08/30/2024 11:16 AM IMAGERY ANALYST Hyperlipidemia, unspecified hyperlipidemia type (HRC) DXA BONE DENSITY SPINE/HIP INC VERT FX ASSESS Routine 06/17/2022 9:58 AM CDT Post-menopausal HEPATITIS C ANTIBODY, WITH REFLEX (ANTI-HCV) Routine 09/05/2019 10:01 AM IMAGERY ANALYST Need for hepatitis C screening test from Last 3 Months or Most Recently Relevant to Health Maintenance Results * (ABNORMAL) Renal Function Panel (01/20/2025 12:53 PM CDT) Only the most recent of2 resultswithin the time period is included. Sodium 140 136 - 145 mmol/L 01/20/2025 7:46 PM [facility] Potassium 4.4 3.5 - 5.1 mmol/L 01/20/2025 7:46 PM [facility] Chloride 106 98 - 109 mmol/L 01/20/2025 7:46 PM [facility] CO2 18(L) 20 - 29 mmol/L 01/20/2025 7:46 PM [facility] Anion Gap 16 6 - 16 mmol/L 01/20/2025 7:46 PM [facility] Calcium 9.1 8.4 - 10.4 mg/dL 01/20/2025 7:46 PM [facility] BUN 37(H) 7 - 26 mg/dL 01/20/2025 7:46 PM [facility] Creatinine 2.33(H) 0.55 - 1.02 mg/dL 01/20/2025 7:46 PM [facility] Albumin 3.5 3.5 - 5.0 g/dL 01/20/2025 7:46 PM CDT [facility] Phosphorus 4.2 2.3 - 4.7 mg/dL 01/20/2025 7:46 PM T [facility] Glucose 89 70 - 100 mg/dL 01/20/2025 7:46 PM CDT [facility] Comment:The given reference range is for the fasting state. Non-fasting reference range for glucose is 70 - 180 mg/dL. GFR, Estimated 21(L) >60 mL/min/1.7 3m2 01/20/2025 7:46 PM T [facility] Hours Fasting 0.1 8 - 12 Hours 01/20/2025 7:46 PM T [facility] Blood Venipuncture / Unknown 01/20/2025 12:53 PM CDT 01/20/2025 12:53 PM CDT Shannon Gunter APRN, CNP LAB_1 Final Resu lt Performing Organization Address [facility]/ZIP Co de Phone Number [facility] [address] [place] [phone] * (ABNORMAL) Intact PTH (01/20/2025 12:53 PM CDT) Only the most recent of2 resultswithin the time period is included. Pathologist [facility] Intact PTH 140(H) 10 - 100 pg/mL 01/20/2025 8:09 PM CDT [facility] Blood Venipuncture / Unknown 01/20/2025 12:53 PM CDT 01/20/2025 12:53 PM CDT Shannon Gunter APRN, CNP LAB_1 Final Resu lt [facility] [address] * Complete Blood Count-W/Diff (01/20/2025 12:53 PM CDT) WBC 7.6 3.5 - 10.5 x10(9)/L 01/20/2025 1:02 PM CDT [facility] (PN) RBC 3.99 3.90 - 5.03 x10(12)/L 01/20/2025 1:02 PM CDT [facility] (PN) Hemoglobin 12.2 12.0 - 15.5 g/dL 01/20/2025 1:02 PM T [facility] (PN) HCT 36.4 34.9 - 44.5 % 01/20/2025 1:02 PM T [facility] (PN) MCV 91.2 80.0 - 100.0 fL 01/20/2025 1:02 PM CDT [facility] (PN) MCH 30.6 27.6 - 33.3 pg 01/20/2025 1:02 PM CDT [facility] (PN) MCHC 33.5 31.5 - 35.2 g/dL 01/20/2025 1:02 PM CDT [facility] (PN) RDW 13.9 11.9 - 15.5 % 01/20/2025 1:02 PM CDT [facility] (PN) Platelets 315 150 - 450 x10(9)/L 01/20/2025 1:02 PM T [facility] (PN) Neutrophil Absolute 5.1 1.7 - 7.0 10(9)/L 01/20/2025 1:02 PM T [facility] (PN) Lymphocyte Absolute 1.7 1.0 - 4.8 10(9)/L 01/20/2025 1:02 PM CDT [facility] (PN) Monocyte Absolute 0.5 0.2 - 0.9 10(9)/L 01/20/2025 1:02 PM T [facility] (PN) Eosinophil Absolute 0.3 0.0 - 0.5 10(9)/L 01/20/2025 1:02 PM T [facility] (PN) Basophil Absolute 0.0 0.0 - 0.3 10(9)/L 01/20/2025 1:02 PM T [facility] (PN) Immature Granulocyte % 0.1 0.0 - 0.5 % 01/20/2025 1:02 PM [facility] (PN) Blood Venipuncture / Unknown 01/20/2025 12:53 PM CDT 01/20/2025 12:53 PM CDT Shannon Gunter APRN, DEBRA LAB_1 Final Resu lt Performing Organization Address City/[facility]/ZIP Co de Phone Number [facility] (PN) [address] [facility] [place] [address], [facility] * TP/Crea Ratio, Urine (01/20/2025 12:53 PM CDT) TP/Creat Ratio, Urine Random 0.05 0.00 - 0.20 01/20/2025 8:23 PM CDT [facility] Total Protein, Urine, Random 18 0 - 14 mg/dL 01/20/2025 8:23 PM CDT [facility] Comment:The overall interpre tation for this test is normal (the ratio is within the reference interval). Individual test components may fall outside the reference interval but still give a normal overall test result. Creatinine, Urine, Random 397 >20 mg/dL mg/dL 01/20/2025 8:23 PM CDT [facility] Urine Non-blood Collection / Unknown 01/20/2025 12:53 PM CDT 01/20/2025 12:53 PM CDT Narrative [facility] - 01/20/2025 8:23 PM CDT Low urine creatinine values coupled with low urine protein values can artifactually increase the urine protein/creatinine results. Correlate results of ratio with creatinine results. Shannon Gunter APRN, CNP LAB_1 Final Resu [facility] [address] [place], [place] [address] * (ABNORMAL) INR/Protime (01/20/2025 12:53 PM CDT) Only the most recent of5 resultswithin the time period is included. Protime 32.3(H) 11.8 - 14.6 Seconds 01/20/2025 5:08 PM CDT [facility] INR 3.1(H) 0.9 - 1.1 01/20/2025 5:08 PM CDT [facility] Blood Venipuncture / Unknown 01/20/2025 12:53 PM CDT 01/20/2025 12:53 PM CDT Narrative [facility] - 01/20/2025 5:08 PM CDT If you take an anticoagulant medicine called warfarin, your doctor or clinician may establish a normal range for you that is different from the baseline range shown. us Tala Thomason MD LAB_1 Final Resul t Performing Organization Address [facility]/ZIP Co de Phone Number [facility] [address] [place], [place] [address] * Albumin/Creatinine Ratio,Random Urine (12/20/2024 12:48 PM CDT) Albumin/Creati nine Ratio, Urine, Random 10 <30 mg/g 12/20/2024 6:07 PM CDT [facility] Albumin, Urine, Random 2.7 mg/L 12/20/2024 6:07 PM CDT [facility] Creatinine, Urine, Random 28 >20 mg/dL mg/dL 12/20/2024 6:07 PM T [facility] Urine Non-blood Collection / Unknown 12/20/2024 12:48 PM CDT 12/20/2024 12:48 PM CDT us Hong Lopez MD LAB_1 Final Result Performing Organization Address [facility] de Phone Number [facility] [address] [place], [place] [address] * (ABNORMAL) Basic Metabolic Panel (12/13/2024 2:09 PM CDT) Sodium 137 136 - 145 mmol/L 12/13/2024 7:31 PM CDT [facility] Potassium 4.3 3.5 - 5.1 mmol/L 12/13/2024 7:31 PM CDT [facility] Chloride 106 98 - 109 mmol/L 12/13/2024 7:31 PM CDT [facility] CO2 20 20 - 29 mmol/L 12/13/2024 7:31 PM CDT [facility] Anion Gap 11 6 - 16 mmol/L 12/13/2024 7:31 PM CDT [facility] Calcium 9.2 8.4 - 10.4 mg/dL 12/13/2024 7:31 PM T [facility] BUN 71(H) 7 - 26 mg/dL 12/13/2024 7:31 PM CDT [facility] Creatinine 1.90(H) 0.55 - 1.02 mg/dL 12/13/2024 7:31 PM T [facility] Glucose 102(H) 70 - 100 mg/dL 12/13/2024 7:31 PM T [facility] Comment:The given reference range is for the fasting state. Non-fasting reference range for glucose is 70 - 180 mg/dL. GFR, Estimated 27(L) >60 mL/min/1.7 3m2 12/13/2024 7:31 PM T [facility] Hours Fasting 0.1 8 - 12 Hours 12/13/2024 7:31 PM CDT [facility] Blood Venipuncture / Unknown 12/13/2024 2:09 PM CDT 12/13/2024 2:09 PM CDT us Samanta Cervantes APRN, CNP LAB_1 Final Re sult Performing Organization Address City/[facility]/ZIP Co de Phone Number [facility] [address] [place] [address], [facility] * (ABNORMAL) Hemoglobin, Blood (12/13/2024 1:37 PM CDT) Hemoglobin 11.6(L) 12.0 - 15.5 g/dL 12/13/2024 1:44 PM CDT [facility] (PN) Blood Venipuncture / Unknown 12/13/2024 1:37 PM CDT 12/13/2024 1:37 PM CDT Hong Lopez MD LAB_1 Final Result Performing Organization Address [place] [facility]/ZIP Co de Phone Number [facility] ([facility]) [address] [place] [address], [facility] * XR Abd Flat/KUB 1 View (11/26/2024 [...] fluid levels. Stool present in the transversecolon. Daniela Davis LOCATE TECHNICIAN, ROD AND TUBE STRAIGHTENER RAD GD Gale gracia Result * FIT, OCCULT BLOOD, STOOL (10/08/2024 8:00 AM IMAGERY ANALYST) FIT Specimen 1 Negative Negative 10/09/2024 1:54 AM IMAGERY ANALYST [facility] Stool Non-blood Collection / Unknown 10/08/2024 8:00 AM IMAGERY ANALYST 10/08/2024 5:43 PM IMAGERY ANALYST Tala Thomason MD LAB_1 Final Resul t [facility] [address] * Lipid Panel & Direct LDL (if Needed) (08/30/2024 11:16 AM IMAGERY ANALYST) Cholesterol 130 0 - 199 mg/dL 08/30/2024 4:59 PM [facility] Triglyceride 131 <=149 mg/dL 08/30/2024 4:59 PM [facility] HDL Cholesterol 46 >=40 mg/dL 4:59 PM [facility] LDL, Calculated 58 <130 mg/dL 4:59 PM [facility] Non HDL Chol, Calculated 84 <=159 mg/dL 08/30/2024 4:59 PM [facility] Cholesterol/HDL Ratio 2.8 <=5.0 08/30/2024 4:59 PM [facility] Hours Fasting 2.0 8 - 12 Hours 08/30/2024 4:59 PM IMAGERY ANALYST [facility] ([facility]) Blood Venipuncture / Unknown 08/30/2024 11:16 AM IMAGERY ANALYST 08/30/2024 11:16 AM IMAGERY ANALYST us Tala Thomason MD LAB_1 Final Resul t [facility] [address] [place] [address], [facility] ([facility]) [address] [place] [address] * DXA Bone Density Spine/Hip Inc Vert FX Assess (06/17/2022 9:58 AM CDT) Anatomical Region Laterality Modality Spine, Hip Radiographic Moriah ging Narrative 06/23/2022 9:09 AM CDT CLINIC DXA REPORT Patient Name: Sylvia Doan Densitometer:HoloCooCoo W (S/N [id number]) ROBLEDO BONE OSTEOPOROSIS RISK FACTORS FROM PATIENT [...] trabecular bone, and is derived from the umwcn-uq-nmequ changes of bone density embedded in the [...] Virus Liliana with Reflex (09/05/2019 10:01 AM IMAGERY ANALYST) Hepatitis C Antibody Negative (Non Reactive) Negative (Non Reactive) 09/05/2019 1:08 PM IMAGERY ANALYST [facility] Comment:Antibodies to HCV no t detected. Does not exclude the possiblity of exposure to HCV. Blood Venipuncture Butterfly / Unknown 09/05/2019 10:01 AM IMAGERY ANALYST 09/05/2019 10:01 AM IMAGERY ANALYST Tala Thomason MD LAB_1 Final Resul t [facility] [address] from Last 3 Months or Most Recently Relevant to Health Maintenance Insurance [place] [id number] [place] [id number] MEDICARE [place] [id number] [place] [id number] [place] [id number] [place] [id number] MEDICARE Advance Directives Documents on File Type Date Recorded Patient Territory Business Manager Expl anation HEALTHCARE DIRECTIVE 08/09/2023 Maya [place] GELLAR 1 10/10/2022 Healthcare Agents on File Name Relationship Healthcare Agent Relationshi p Communication Maya HERNANDES Daughter Health Care Agent Care Teams Brokerage Purchase And Sale Clerk Relationship Specialty Start Date End Date Tala Thomason MD [address] [place] [address] PCP - General Family Practice 05/22/17
--- OUTSIDE RECORDS SUMMARY | 2025-01-24 16:34 | XMS_ITS | Encounter Summary ---
Author Organization Formerly [facility] Address [address] [place] [address] Care Team Providers Care Crm System Administrator Name Role Phone Tala Thomason MD Primary Care Provider [phone] Encounter Details Date Type Department Care Team (Late Contact Info) Description 10/09/2024 Results Follow-Up [facility] [address] [facility] [place], [place] [id number] Yelitza Alvarez, PA-C [address] [place] [address] Social History Tobacco Use Types Packs/Day [...] Info) Description 01/30/2025 1:30 PM CDT Appointment [facility] [address] [place] [address] Shannon Gunter, PEDRO, DRAPERY HEAD FORMER [address] [facility] [address] [place] [address] 02/03/2025 1:10 PM CDT Appointment [facility] [address] [facility] [place] [id number] 02/11/2025 1:00 PM CDT Appointment [facility] [address] [address] [address] [place] [phone] Jessica Zayas APRN, DRAPERY HEAD FORMER [address] [place] [phone] 04/01/2025 12:00 PM CDT Appointment [facility] [address] [place] [address] Tala Thomason MD [address] [id number] documented as of this encounter Visit Diagnoses Not on filedocumented in this encounter Care Teams Crm System Administrator Relationship Specialty Start Date End Date Tala Thomason MD [address] [id number] PCP - General Family Practice 05/22/17 documented as of this encounter
--- OUTSIDE RECORDS SUMMARY | 2025-01-24 16:34 | XMS_ITS | Encounter Summary ---
Author Organization [facility] Address [address] [place] [address] Care Team Providers Care Transmission Assembler Name Role Phone Tala Thomason MD Primary Care Provider [phone] Encounter Details Date Type Department Care Team (Late st Contact Info) Description 11/27/2024 Results Follow-Up [facility] [address] [id number] Daniela Davis, ALUMINUM SHINGLE ROOFER, MEDICAL RECORDS AUDITOR [address] [facility] [address] [place], [place] [id number] Social History Tobacco Use Types Packs/Day Years [...] Info) Description 01/30/2025 1:30 PM CDT Appointment [facility] [address] [place] [address] Shannon Gunter, ALUMINUM SHINGLE ROOFER, MEDICAL RECORDS AUDITOR [address] [facility] [address] [place] [address] 02/03/2025 1:10 PM CDT Appointment [facility] [address] [facility] [place] [id number] 02/11/2025 1:00 PM CDT Appointment [facility] [place] [address] [address] [address] [place] [phone] Jessica Zayas, ALUMINUM SHINGLE ROOFER, MEDICAL RECORDS AUDITOR [address] [place] [phone] 04/01/2025 12:00 PM CDT Appointment [facility] [address] [place] [address] Tala Thomason MD [address] [place] [id number] documented as of this encounter Visit Diagnoses Not on filedocumented in this encounter Care Teams Transmission Assembler Relationship Specialty Start Date End Date Tala Thomason MD [address] [place] [id number] PCP - General Family Practice 05/22/17 documented as of this encounter
--- OUTSIDE RECORDS SUMMARY | 2025-01-24 16:34 | XMS_ITS | Encounter Summary ---
Author Organization [facility] Address [address] [place] [address] Care Team Providers Care Actuarial Trainee Name Role Phone Enedelia Wilkins MD Primary Care Provid er Santo Crump MD Unavailable [phone] Linh Fontanez APRN CHILD DAY CARE TEACHER Unavailable [phone] Paddy COLLINS MD, Tala Lang Primary Care Provider Santo Crump MD Unavailable [phone] Santo Crump MD Unavailable [phone] Linh Fontanez APRN CHILD DAY CARE TEACHER Unavailable [phone] Encounter Details Date Type Department Care Team (Late st Contact Info) Description 05/14/2021 [facility] Medical Advice [facility] [address] [place] [address] [address] [place] [address] Santo Crump MD [address] [facility] [address] [place], [place] [address] Social History Tobacco Use Types Packs/Day Years Used Date Smoking Tobacco: Never Smokeless Tobacco: Never Alcohol Use Standard Drinks/Week Comments Yes 0 (1 standard drink = 0.6 oz pur e alcohol) beer occ Comments No Sex and Gender Information Value Date Recorded Sex Assigned at Not on file Legal Sex 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 BISCUIT PACKER Gender Identity Not on file Sexual [...] Description 03/03/2025 2:10 PM CDT Office Visit [facility] [address] [facility] [address] [place] [phone] Linh Fontanez E, ROLL WEIGHER CHILD DAY CARE TEACHER [address] [place] [address] documented as of this encounter Visit Diagnoses Not on filedocumented in this encounter Care Teams Actuarial Trainee Relationship Specialty Start Date End Date Enedelia Wilkins MD [address] [place] [address] PCP - General 10/23/02 10/21/21 Tala Thomason MD, [address] [place] [address] PCP - General Family Medicine 10/22/21 Santo Crump MD [address] [place] [place] [address] Assigned Heart and Vascular Provider 06/12/20 10/02/21 Linh Fontanez, ROLL WEIGHER CHILD DAY CARE TEACHER [address] [place] [address] Assigned Heart and Vascular Provider 10/03/21 04/28/23 Santo Crump MD [address] [place] [address] [place] [address] Cardiovascular Disease 10/24/22 Santo Crump MD [address] [place] [address] Assigned Heart and Vascular Provider 05/06/23 11/09/24 Linh Fontanez APRN CHILD DAY CARE TEACHER [address] [place] [address] Nurse Practitioner Cardiovascular Disease 01/07/25 documented as of this encounter
--- OUTSIDE RECORDS SUMMARY | 2025-01-24 16:34 | XMS_ITS | Encounter Summary ---
Author Organization [facility] Address [address] [place] [address]. [place] [address] Care Team Providers Care Claims Adjuster Crop Name Role Phone Enedelia Wilkins MD Primary Care Provid er Santo Crump MD Unavailable [phone] Linh Fontanez APRN SUPERVISOR CAPACITOR PROCESSING Unavailable [phone] Paddy COLLINS MD, Tala Lang Primary Care Provider Santo Crump MD Unavailable [phone] Santo Crump MD Unavailable [phone] Linh Fontanez APRN SUPERVISOR CAPACITOR PROCESSING Unavailable [phone] Encounter Details Date Type Department Care Team (Late st Contact Info) Description 03/31/[address] [place] [address] Enedelia Wilkins MD [address] [place], [place] [address] ER (Primary Dx) Social History Tobacco Use Types Packs/Day Years Used Date Smoking Tobacco: Never Smokeless Tobacco: Never Alcohol Use Standard Drinks/Week Comments Not Currently 0 (1 standard drink = 0.6 oz pur e alcohol) beer occ Comments No Sex and Gender Information Value Date Recorded Sex Assigned at Not on file Legal Sex 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 MARINE INSULATOR Gender Identity Not on file Sexual Orientation Not on file documented as of this encounter Progress Notes * 03/31/2003 11:59 PM CDTAddended by: ARMOND DELEON on: 04/07/2003,4:13 PM Modules accepted: Progress Notes 00 :00 Emergency Department Encounter-JOSÉ MIGUEL CLEMENTS) [Entered: 00:00 Transcrip tion ([facility])] : 47 CHIEF COMPLAINT: Hip pain. [...] t he patient's history through a sign rn first assist 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 ASSESSMENT: 1. Left hip pain, left sciatica and muscle spasms. PLAN: The patient will follow-up with Dr. Wilkins in 24-72 hours. Percocet 1-2 tabs q4-6h. Motrin over the counter as prescribed, Robaxin 1000 mg q8h for muscl e spasms. Return if severe pain, unable to walk or worsening symptoms. [id number] JOSÉ MIGUEL DICK MD [place]: Document: [id number] [place], [place] Name: DANUTAANTOINE EMERGENCY ROOM ENCOUNTER Page 2 of 2 LCN: BASILIO DSC: 03/31/2003 [place], [place] Name: MR#: : Admit Date: DON DOAN [id number] 03/31/2003 Doctor: JOSÉ MIGUEL DICK MD EMERGENCY ROOM ENCOUNTER Page 1 of 2 Electronically filed by Armond Deleon 04/07/2003 4:12 PM documented in this encounter Plan of Treatment Upcoming Encounters Date Type Department Care Team (Late st Contact Info) Description 03/03/2025 2:10 PM CDT Office Visit [facility] [address] [facility] [address] [place] [phone] Linh Fontanez E, PICC NURSE SUPERVISOR CAPACITOR PROCESSING [id number] [address] documented as of this encounter Visit Diagnoses Diagnosis ER- Primary documented in this encounter Care Teams Claims Adjuster Crop Relationship Specialty Start Date End Date Enedelia Wilkins MD [address] [place] [address] PCP - General 10/23/02 10/21/21 Tala Thomason MD, [address] [place] [id number] PCP - General Family Medicine 10/22/21 Santo Crump MD [address] [place] [address] Assigned Heart and Vascular Provider 06/12/20 10/02/21 Linh oFntanez, PICC NURSE SUPERVISOR CAPACITOR PROCESSING [address] [place] [address] Assigned Heart and Vascular Provider 10/03/21 04/28/23 Santo [place] MD [address] [place] [address] [address] Cardiovascular Disease 10/24/22 Santo Crump MD [address] [place] [place] [id number] Assigned Heart and Vascular Provider 05/06/23 11/09/24 Linh Fontanez APRN SUPERVISOR CAPACITOR PROCESSING [address] [place] [address] Nurse Practitioner Cardiovascular Disease 01/07/25 documented as of this encounter
--- OUTSIDE RECORDS SUMMARY | 2025-01-24 16:34 | XMS_ITS | Encounter Summary ---
Author Organization [facility] Address [address] [place] [address] Care Team Providers Care Amf Mechanic Name Role Phone Tala Thomason MD Primary Care Provider [phone] Reason for Visit * Reason Comments Refill Encounter Details Date Type Department Care Team (Late st Contact Info) Description 04/13/2016 Refill Nephrology at [facility] [place] [address] [place] [id number] Isabel Paulino MD [address] [place] [address] [address] [place], [place] [address] Refill Social History Tobacco Use Types Packs/Day [...] protocol. Patient needs appt. before further refills. ER FARMER * Carissa Dupree - 04/13/2016 3:39 PM CDT Last visit: 03/06/15 Future visit: None Last fill: 01/14/16 ER FARMER documented in this encounter Plan of Treatment Upcoming Encounters Date Type Department Care Team (Late st Contact Info) Description 01/30/2025 1:30 PM CDT Appointment [facility] [address] [place] [address] Shannon Gunter, CLAIM BENEFIT SPECIALIST, DIESEL PILE DRIVER OPERATOR [address] [facility] [address] [place] [address] 02/03/2025 1:10 PM CDT Appointment [facility] [address] [place] [id number] 02/11/2025 1:00 PM CDT Appointment Maria C Celeste [facility] [address] [address] [address] [place] [phone] Jessica Zayas, CLAIM BENEFIT SPECIALIST, DIESEL PILE DRIVER OPERATOR [address] [place] [phone] 04/01/2025 12:00 PM CDT Appointment [facility] [address] [place] [address] Tala Thomason MD [address] [place] [id number] documented as of this encounter Visit Diagnoses Not on filedocumented in this encounter Care Teams Amf Mechanic Relationship Specialty Start Date End Date Tala Thomason MD [address] [place] [address] PCP - General Family Practice 05/22/17 documented as of this encounter
--- OUTSIDE RECORDS SUMMARY | 2025-01-24 16:34 | XMS_ITS | Encounter Summary ---
Author Organization [facility] Address [address] [place] [address] Care Team Providers Care Upholstery Mechanic Name Role Phone aTla Thomason MD Primary Care Provider [phone] Reason for Visit * Reason Comments Anticoagulation: Warfarin Encounter Details Date Type Department Care Team (Latest Contact Info) Description 12/13/2024 Anticoagulation PN Anticoagulation Centralized Services [id number] Smart GPS Backpack [facility], [address] [place], [place] [address] Chronic atrial fibrillation (HRC) (Primary Dx); Monitoring [...] this encounter Progress Notes * Emmie Mixon RN - 12/13/2024 5:16 PM CDT Tala Thomason MD ANTICOAGULATION MANAGEMENT - Routing anticoagulation dosing plan to managing clinician for review Lab Results Component Value Date INR 2.2 (H) 12/13/2024 INR Goal: 2.0-3.0 Plan/recommendation: 1.5mg daily Suggested recheck date: 1 week from last INR on 12/20/24 Rationale: Lowest dose possible given tablet strength , Warfarin recently held while IP, pt starting to get back to baseline. Please review and select an option below: Agree with Anticoagulation Clinc RN recommendations above OTHER (specify) Please select option above, document and route to ANTICOAGULATION PN pool. Anticoagulation RN: Please call patient only if changes are made by the clinician to the plan. [facility] 12/16/2024 9:21 AM * Tala Thomason MD - 12/13/2024 5:16 PM CDT I agree with nurse's recommendation. * Tory Francis RN - 12/13/2024 5:16 PM CDT ACC noted. No changes to current warfarin dosing plan or INR checks. Tory Francis RN 12/16/2024, 1:28 PM documented in this encounter Plan of Treatment Upcoming Encounters Date Type Department Care Team (Late st Contact Info) Description 01/30/2025 1:30 PM CDT Appointment [facility] [address] [place], [place] [address] Shannon Gunter, SECURITY INVESTIGATOR, ELECTRICAL ACCESSORIES II ASSEMBLER [address] [facility] [address] [place] [address] 02/03/2025 1:10 PM CDT Appointment [facility] [address] [facility] [place], [place] [id number] 02/11/2025 1:00 PM CDT Appointment [facility] C [facility] [address] [address] [address] [place] [phone] Jessica Zayas, SECURITY INVESTIGATOR, ELECTRICAL ACCESSORIES II ASSEMBLER [address] [place] [phone] 04/01/2025 12:00 PM CDT Appointment [facility] [address] [place] [address] Tala Thomason MD [address] [place] [address] documented as of this encounter Visit Diagnoses Diagnosis Chronic atrial fibrillation (HRC)- Primary Atrial fibrillation Monitoring for long-term anticoagulant use Encounter for long-term (current) use of anticoagulants documented in this encounter Care Teams Upholstery Mechanic Relationship Specialty Start Date End Date Tala Thomason MD [address] [place] [address] [address] PCP - General Family Practice 05/22/17 documented as of this encounter
--- OUTSIDE RECORDS SUMMARY | 2025-01-24 16:34 | XMS_ITS | Clinical Summary ---
Author Organization [place] Address [address] [facility] [place] [address] Care Team Providers Care Commodity Lead Name Role Phone Paddy COLLINS MD, Tala Lang Primary Care Provider Santo Crump MD Unavailable [phone] Linh Fontanez APRN, CNP Unavailable [phone] Allergies Active Allergy Reactions Criticality Noted Date Comments Acetaminophen 04/07/2003 Percocet Morphine And Codeine 03/28/2003 Tyl #3 Naproxen Rash 03/28/2003 Medications FLUoxetine (PROZAC) 20 MG capsule Take 20 mg by mouth daily Active furosemide (LASIX) 20 MG tablet Take 20-40 mg by mouth daily Active levothyroxine (SYNTHROID/LEVOTHR OID) 100 MCG tablet Take 100 mcg by mouth daily Active losartan (COZAAR) 100 MG tablet Take 100 mg by mouth daily Active allopurinol (ZYLOPRIM) 100 MG tablet Take 100 mg by mouth daily Active ergocalciferol (ERGOCALCIFEROL) 1.25 MG (44475 UT) capsule Take 50,000 Units by mouth Active cetirizine (ZYRTEC) 10 MG tablet Take 10 mg by mouth daily Active metoprolol succinate ER (TOPROL-XL) 25 MG 24 hr tabletIndications: Essential hypertension, benign Take 1 tablet (25 mg) by mouth daily 90 tablet 3 2 Active amLODIPine (NORVASC) 5 MG tabletIndications: Essential hypertension, benign Take 1 tablet (5 mg) by mouth daily 90 tablet 3 2 Active warfarin ANTICOAGULANT (COUMADIN) 3 MG tablet TAKE 1/2 TO 2 TABLETS BY MOUTH DAILY 3 Active calcium carbonate (OS-JOVANY) 600 MG tablet Take 600 mg by mouth Active alendronate (FOSAMAX) 70 MG tablet TAKE 1 TABLET BY MOUTH ONCE WEEKLY. TAKE 30 MINUTES BEFORE FIRST CYPO-SRFWJ-M EDICATION. AVOID LYING DOWN FOR 30 MINUTES Active sodium bicarbonate 650 MG tablet Take 650 mg by mouth 3 Active atorvastatin (LIPITOR) 40 MG tabletIndications: Carotid artery calcification, left Take 1 tablet (40 mg) by mouth daily. 90 tablet 1 5 Active Active Problems Problem Noted Date Diagnosed [...] updated by automated process. Provider to review Encounters Date Type Department Care Team Description 12/18/2024 [facility] [address] [place] [address] Santo Crump MD Refill Request (atorvastatin) from Last 3 Months Immunizations Immunization Administration Dates Next Due Influenza (IIV3) PF [...] Getting School Help Needed Not on file 10/15 /2023 Comments No Sex and Gender Information Value Date Recorded Sex Assigned at Not on file Legal Sex 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 PEDIATRIC CNS Gender Identity Not on file Sexual Orientation [...] 05/01/2023 2:06 PM CDT Plan of Treatment Upcoming Encounters Date Type Department Care Team (Late st Contact Info) Description 03/03/2025 2:10 PM CDT Office Visit [facility] [address] [facility] [address] [place] [address] Linh Fontanez E, CANDLE MAKING SUPERVISOR ARTIST MANAGER [address] [place] [address] Health Maintenance Due Date Last Done Comments ADVANCE CARE PLANNING 1945 ALT 1945 ANNUAL REVIEW OF HM ORDERS 1946 HF ACTION PLAN 1946 MICROALBUMIN 1946 TSH W/FREE T4 REFLEX 1946 URIC ACID 1946 HEPATITIS C SCREENING 1964 ZOSTER VACCINE (1 of 2) 1996 CBC 01/04/2010 01/04/2009 FALL RISK ASSESSMENT 2011 BMP 09/18/2019 03/18/2019, 01/04/2009 RSV VACCINE (1 - 1-dose 75+ series) 2021 MEDICARE ANNUAL WELLNESS VISIT 02/18/2022 02/18/2021, 07/11/2019 DIABETES SCREENING 03/18/2022 03/18/2019, 0 01/04/2009, 03/17/2003 LIPID 04/27/2022 04/27/2021 COVID-19 VACCINE ( season) 2024 04/30/2021, 04/02/2021 PHQ-2 (once per calendar year) 2024 05/01/2023 INFLUENZA VACCINE (Season Ended) 2025 06/29/2021, 05/13/2019, 07/10/2018, Additional history exists DTAP/TDAP/TD VACCINE (3 - Td or Tdap) 06/29/2031 06/29/2021, 04/28/2010 DEXA 06/17/2037 06/17/2022 URINALYSIS Completed 01/04/2009 PNEUMOCOCCAL VACCINE 50+ YEARS Completed 01/08/2019, 11/27/2017 COLORECTAL CANCER SCREENING Discontinued FIT Discontinued 02/19/2021 MAMMO SCREENING Discontinued 02/19/2021, 09/2020, 01/21/2015, Additional history exists COLONOSCOPY Discontinued CT COLONOGRAPHY Discontinued FLEX SIG Discontinued HPV VACCINE Aged Out No longer eligi ble based on patient's age to complete this topic MENINGITIS VACCINE Aged Out No longer eligible based on patient's age to [...] CDT [facility] Comment: 0-19 years: Desirable: Less than [...] CDT Santo Crump MD LAB - BLOOD ORDERABLES Fin al Result LABORATORY [facility] [address] (1st floor, no room number) [place] [address], [facility] [phone] * (ABNORMAL) Basic metabolic panel (03/18/2019 1:40 PM CDT) Sodium 138 133 - 144 mmol/L 03/18/2019 2:41 PM CDT [facility] Potassium 4.6 3.4 - 5.3 mmol/L 03/18/2019 2:41 PM CDT [facility] Chloride 108 94 - 109 mmol/L 03/18/2019 2:41 PM T [facility] Carbon Dioxide 27 20 - 32 mmol/L 03/18/2019 2:47 PM [facility] Anion Gap 3 3 - 14 mmol/L 03/18/2019 2:47 PM [facility] Glucose 94 70 - 99 mg/dL 03/18/2019 2:47 PM [facility] Urea Nitrogen 39(H) 7 - 30 mg/dL 03/18/2019 2:47 PM [facility] Creatinine 1.57(H) 0.52 - 1.04 mg/dL 03/18/2019 2:47 PM [facility] GFR Estimate 32(L) >60 mL/min/{1 .73_m2} 03/18/2019 2:47 PM [facility] Comment: Non GFR Calc Starting 08/07/2018, serum creatinine based estimated GFR (eGFR) will be calculated using the Chronic Kidney Disease Epidemiology Collaboration (CKD-EPI) equation. GFR Estimate If Black 38(L) >60 mL/min/{1 .73_m2} 03/18/2019 2:47 PM [facility] Comment: GFR Calc Starting 08/07/2018, serum creatinine based estimated GFR (eGFR) will be calculated using the Chronic Kidney Disease Epidemiology Collaboration (CKD-EPI) equation. Calcium 9.0 8.5 - 10.1 mg/dL 03/18/2019 2:47 PM [facility] Blood specimen (specimen) 03/18/2019 1:40 PM CDT 03/18/2019 1:43 PM CDT us Megan Reynoso DO LAB - BLOOD ORDERAB LES Final Result Performing Organization Address [facility]/ZIP Co de Phone Number [facility] [address] [place] [address], [facility] [phone] [facility] [address] [place] [address], [facility] [phone] * (ABNORMAL) Routine UA with microscopic (01/04/2009 4:40 PM CDT) Source Midstream Urine MISYS Color Urine Light Yellow MISYS Appearance Urine Clear MISYS Glucose Urine Negative NEG mg/dL MIS[facility] Bilirubin Urine Negative NEG MISYS Ketones Urine Negative NEG mg/dL MIS[facility] Specific [place] Urine 1.009 1.003 - 1.035 MISYS Blood [...] 4:40 PM CDT 01/04/2009 3:06 PM CDT us Armando Christianson MD LAB - URINE ORDERABLES [...] Laterality Modality Other [facility] Final Result from Last 3 Months or Most Recently Relevant to Health Maintenance Insurance MEDICARE Care Teams Commodity Lead Relationship Specialty Start Date End Date Tala Thomason MD, MD [address] [place] [address] PCP - General Family Medicine 10/22/21 Santo Crump MD [address] [place] [address] Cardiovascular Disease 10/24/22 Linh Fontanez, CANDLE MAKING SUPERVISOR ARTIST MANAGER [address] [place] [address] Nurse Practitioner Cardiovascular Disease 01/07/25
[2025-01-24 16:35] VITALS: BP 144/68; PULSE 64; RESP 18; TEMP 36.8; O2SAT 97; BMI 33.1
--- OUTSIDE RECORDS SUMMARY | 2025-01-24 16:35 | XMS_ITS | Encounter Summary ---
Author Organization [facility] Address [address] [place] [address] Care Team Providers Care Phlebotomy Coordinator Name Role Phone Tala Thomason MD Primary Care Provider [phone] Reason for Visit * Reason Comments Anticoagulation: Warfarin Encounter Details Date Type Department Care Team (Latest Contact Info) Description 01/06/2025 Anticoagulation PN Anticoagulation Centralized Services [id number] [id number] [employer] [facility], [address] [place], [place] [address] Chronic atrial fibrillation (HRC) (Primary Dx); Monitoring [...] Info) Description 01/30/2025 1:30 PM CDT Appointment [facility] [address] [place] [address] Shannon Gunter APRN, TECHNICIANS AND TRADES WORKERS [address] [facility] [address] [place] [address] 02/03/2025 1:10 PM CDT Appointment [facility] [address] [facility] [place] [address] 02/11/2025 1:00 PM CDT Appointment [facility] [address] [facility] [address] [place] [phone] Jessica Zayas APRN, [employer]ANS [employer] WORKERS [address] [place] [phone] 04/01/2025 12:00 PM CDT Appointment [facility] [address] [place] [address] Tala Thomason MD [address] [place] [address] documented as of this encounter Visit Diagnoses Diagnosis Chronic atrial fibrillation (HRC)- Primary Atrial fibrillation Monitoring for long-term anticoagulant use Encounter for long-term (current) use of anticoagulants documented in this encounter Care Teams Phlebotomy Coordinator Relationship Specialty Start Date End Date Tala Thomason MD [address] [place] [id number] PCP - General Family Practice 05/22/17 documented as of this encounter
--- OUTSIDE RECORDS SUMMARY | 2025-01-24 16:35 | XMS_ITS | Encounter Summary ---
Author Organization [facility] Address [address] [place] [address] Care Team Providers Care Gunstock Spray Unit Adjuster Name Role Phone Tala Thomason MD Primary Care Provider [phone] Reason for Visit * Reason Comments Anticoagulation External hospital fo llow up Encounter Details Date Type Department Care Team (Late st Contact Info) Description 12/03/2024 Telephone PN Anticoagulation Centralized Services [id number] [id number] [employer] [facility] [address] [place] [address] Tala Thomason MD [address] [place] [address] Anticoagulation (External hospital follow up) Social History Tobacco Use Types Packs/Day Years [...] Notes * Anna Parker RN - 12/11/2024 10:02 AM CDT 12/03-12/10/24 ANW discharged home with HC. See AC Encounter dated 12/11/24. * Bella Poe RN - 12/10/2024 10:32 AM CDT Patient is inpatient at an external [facility]. Chart reviewed: Blue Sticky note & Registry Comments updated: Yes Patient's inpatient admission is current: Yes If discharged, complete chart update. What is the anticipated discharge plan: TBD Next follow-up due on 12/11/24. * Alis Roblero RN - 12/09/2024 10:58 AM CDT Patient is inpatient at an external [facility] Chart reviewed: Blue Sticky note & Registry Comments updated: Yes Patient's inpatient admission is current: Yes If discharged, complete chart update. What is the anticipated discharge plan: TBD Next follow-up due on 12/10/2024. * Bella Poe RN - 12/06/2024 7:59 AM CDT Patient is inpatient at an external [facility] Chart reviewed: Blue Sticky note & Registry Comments updated: Yes Patient's inpatient admission is current: Yes If discharged, complete chart update. What is the anticipated discharge plan: 12/07/24 Next follow-up due on 12/09/24. * Tonia Hernandez RN - 12/05/2024 9:59 AM CDT Patient is inpatient at an external hospital [facility] Chart reviewed: Blue Sticky note & Registry Comments updated: Yes Patient's inpatient admission is current: Yes If discharged, complete chart update. What is the anticipated discharge plan: 12/07/24 Next follow-up due on 12/06/24. Tonia Hernandez RN Anticoagulation Center 12/05/2024 10:01 AM * Tonia Hernandez RN - 12/04/2024 12:12 PM CDT Patient is inpatient at an external hospital [facility] Chart reviewed: Blue Sticky note & Registry Comments updated: Yes Patient's inpatient admission is current: Yes If discharged, complete chart update. What is the anticipated discharge plan: 1-2 days Next follow-up due on 12/05/24. Tonia Hernandez RN Anticoagulation Center 12/04/2024 12:12 PM * Emmie Mixon RN - 12/03/2024 9:04 AM CDT Patient is inpatient at an external hospital [facility] Chart reviewed: Blue Sticky note & Registry Comments updated: Yes Patient's inpatient admission is current: Yes If discharged, complete chart update. What is the anticipated discharge plan: 2-3 days Next follow-up due on 12/04/24. Emmie Mixon Anticoagulation Center 12/03/2024 9:06 AM * Oralia Gonzalez - 12/03/2024 9:00 AM CDT [facility], is calling to request dosing information. Oralia Gonzalez 12/03/2024, 9:01 AM documented in this encounter Plan of Treatment Upcoming Encounters Date Type Department Care Team (Late st Contact Info) Description 01/30/2025 1:30 PM CDT Appointment [facility] [address] [place] [address] Shannon Gunter APRN, STROKE PROGRAM COORDINATOR [address] [facility] [address] [place] [address] 02/03/2025 1:10 PM CDT Appointment [facility] [address] [facility] [place] [address] 02/11/2025 1:00 PM CDT Appointment Maria C Cel[facility] [address] [address] [address] [place] [phone] Jessica Zayas APRN, STROKE PROGRAM COORDINATOR [address] [place] [phone] 04/01/2025 12:00 PM CDT Appointment [facility] [address] [place] [address] Tala Thomason MD [address] [place] [address] documented as of this encounter Visit Diagnoses Diagnosis Chronic atrial fibrillation (HRC)- Primary Atrial fibrillation Monitoring for long-term anticoagulant use Encounter for long-term (current) use of anticoagulants documented in this encounter Care Teams Gunstock Spray Unit Adjuster Relationship Specialty Start Date End Date Tala Thomason MD [address] [place] [address] PCP - General Family Practice 05/22/17 documented as of this encounter
--- OUTSIDE RECORDS SUMMARY | 2025-01-24 16:35 | XMS_ITS | Encounter Summary ---
Author Organization [facility] Address [address] [place] [address] Care Team Providers Care Elevator Technician Name Role Phone Tala Thomason MD Primary Care Provider [phone] Reason for Visit * Reason Comments Refill losartan (COZAAR) 10 0 MG tablet [Pharmacy Med Name: LOSARTAN 100MG TABLETS] Encounter Details Date Type Department Care Team (Late st Contact Info) Description 12/17/2024 Refill [facility] [address] [facility] [place] [id number] Patricia Ambrose PA-C [address] [place] [address] [place] [id number] Refill (losartan (COZAAR) 100 MG tablet [Pharmacy [...] as of this encounter Nursing Notes * Ramona Living[place], RN - 12/20/2024 9:54 AM CDT Refill refused. See Reason for Refusal comment below requested Rx. Requested Prescriptions Refused Prescriptions Disp Refills losartan (COZAAR) 100 MG tablet [Pharmacy Med Name: LOSARTAN 100MG TABLETS] 90 Tablet 0 Sig: TAKE 1 TABLET(100 MG) BY MOUTH DAILY Refused By: RAMONA LIVINGSTON Reason for Refusal: Patient Has Requested Refill Too Soon * Lilliam Keith Xrwcomm - 12/17/2024 8:07 AM CDT losartan (COZAAR) 100 MG tablet [Pharmacy Med Name: LOSARTAN 100MG TABLETS] Medication started: 03/27/2019 Last ordered by PATRICIA AMBROSE N: 03/15/2024 (277 days ago) QTY: 90, Refills: 3, Sig: take 1 tablet(100 mg) by mouth daily. (changed but equivalent) -> Cr is abnormal (1.9 mg/dL lies outside 0.55 mg/dL - 1.02 mg/dL) -> Refill x 3 months (until due for an office visit) Last qualifying visit: 03/15/2024 (with PATRICIA AMBROSE) (A more recent visit (in Internal Medicine with HERMANN CERVANTES) was found) Next scheduled visit: None Cr: 1.9 mg/dL on 12/13/2024 K: 4.3 mEq/L on 12/13/2024 [facility] Embedded Refills, Reference: [id number], 12/17/2024 8:07:50 AM CDT, Pool: PN Refill Centralized Services - Primary Care [[id number]] ([id number]) * Lilliam Keith - 12/17/2024 8:07 AM CDT The following lab order(s) may be associated with the following Patient Result Comment (Entered by Hermann Cervantes APRN, DEBRA at 12/16/2024 8:41 AM): BASIC METABOLIC PANEL Hi, Sylvia!Your potassium level is normal. Kidney function is still abnormal, but this will be discussed further at your appointment with nephrology on 12/20. Please reach out with any questions or concerns!Thanks,Hermann Cervantes documented in this encounter Plan of Treatment Upcoming Encounters Date Type Department Care Team (Late st Contact Info) Description 01/30/2025 1:30 PM CDT Appointment [facility] [address] [place], [place] [phone] Shannon Gunter APRN, MATERIALS HANDLER [address] [facility] [address] [place], [place] [address] 02/03/2025 1:10 PM CDT Appointment [facility] [address] [facility] [place] [id number] 02/11/2025 1:00 PM CDT Appointment [facility] [address] [address] [address] [place] [phone] Jessica Zayas, DESIGN VERIFICATION ENGINEER, MATERIALS HANDLER [address] [place] [phone] 04/01/2025 12:00 PM CDT Appointment [facility] [address] [place] [address] Tala Thomason MD [address] [place] [id number] documented as of this encounter Visit Diagnoses Not on filedocumented in this encounter Care Teams Elevator Technician Relationship Specialty Start Date End Date Tala Thomason MD [address] [id number] PCP - General Family Practice 05/22/17 documented as of this encounter
--- OUTSIDE RECORDS SUMMARY | 2025-01-24 16:35 | XMS_ITS | Encounter Summary ---
Author Organization [facility] Address [address] [place] [address] Care Team Providers Care Parole Or Probation Officer Name Role Phone Tala Thomason MD Primary Care Provider [phone] Reason for Visit * Reason Comments Anticoagulation: Warfarin Encounter Details Date Type Department Care Team (Latest Contact Info) Description 12/20/2024 Anticoagulation PN Anticoagulation Centralized Services [id number] [address] [facility], [address] [place], [place] [address] Chronic atrial fibrillation (HRC) (Primary Dx); Monitoring [...] Info) Description 01/30/2025 1:30 PM CDT Appointment [facility] [address] [place] [address] Shannon Gunter APRN, STEELWORKER [address] [facility] [address] [place] [address] 02/03/2025 1:10 PM CDT Appointment [facility] [address] [facility] [place] [address] 02/11/2025 1:00 PM CDT Appointment Maria C Celeste [facility] [address] [address] [address] [place] [phone] Jessica Zayas APRN, STEELWORKER [address] [place] [phone] 04/01/2025 12:00 PM CDT Appointment [facility] [address] [place] [address] Tala Thomason MD [address] [place] [address] documented as of this encounter Visit Diagnoses Diagnosis Chronic atrial fibrillation (HRC)- Primary Atrial fibrillation Monitoring for long-term anticoagulant use Encounter for long-term (current) use of anticoagulants documented in this encounter Care Teams Parole Or Probation Officer Relationship Specialty Start Date End Date Tala Thomason MD [address] [place] [id number] PCP - General Family Practice 05/22/17 documented as of this encounter
--- OUTSIDE RECORDS SUMMARY | 2025-01-24 16:35 | XMS_ITS | Encounter Summary ---
Author Organization [place] Address [address] [facility] [place] [address] Care Team Providers Care Cell Preparer Name Role Phone Paddy COLLINS MD, Tala Lang Primary Care Provider Santo Crump MD Unavailable [phone] Reason for Visit * Reason Onset Date Comments Refill Request 12/18/2024 atorvastatin Encounter Details Date Type Department Care Team (Late st Contact Info) Description 12/18/2024 Refill [facility] [id number] [place] [address] [address] [place] [address] Santo Crump MD [address] [facility] [address] [place], [place] [address] Refill Request (atorvastatin) Social History Tobacco Use Types Packs/Day Years [...] file 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 Medication meets criteria for refill. documented in this encounter Plan of Treatment Upcoming Encounters Date Type Department Care Team (Late st Contact Info) Description 03/03/2025 2:10 PM CDT Office Visit [facility] [address] [facility] [address] [place] [phone] Linh Fontanez, SENIOR PROJECT ENGINEER MERCHANDISE BUYER [address] [place] [address] documented as of this encounter Visit Diagnoses Diagnosis Carotid artery calcification, left documented in this encounter Care Teams Cell Preparer Relationship Specialty Start Date End Date Tala Thmoason MD, MD [address] [place] [address] PCP - General Family Medicine 10/22/21 Santo Crump MD [address] [place] [id number] Cardiovascular Disease 10/24/22 documented as of this encounter
--- OUTSIDE RECORDS SUMMARY | 2025-01-24 16:35 | XMS_ITS | Encounter Summary ---
Author Organization [facility] Address [address] [place] [address] Care Team Providers Care Assistant Statistician Name Role Phone Tala Thomason MD Primary Care Provider [phone] Reason for Visit * Reason Comments Anticoagulation: Warfarin Encounter Details Date Type Department Care Team (Latest Contact Info) Description 01/20/2025 Anticoagulation PN Anticoagulation Centralized Services [id number] [id number] [employer] [facility], [address] [place], [place] [address] Chronic atrial fibrillation (HRC) (Primary Dx); Monitoring [...] Info) Description 01/30/2025 1:30 PM CDT Appointment [facility] [address] [place] [address] Shannon Gunter APRN, CHILD CARE PROVIDER [address] [facility] [address] [place] [address] 02/03/2025 1:10 PM CDT Appointment [facility] [address] [facility] [place] [address] 02/11/2025 1:00 PM CDT Appointment Maria C Celeste [facility] [address] [place] [phone] Jessica Zayas APRN, CHILD CARE PROVIDER [address] [place] [phone] 04/01/2025 12:00 PM CDT Appointment [facility] [address] [place] [address] Tala Thomason MD [address] [place] [address] documented as of this encounter Visit Diagnoses Diagnosis Chronic atrial fibrillation (HRC)- Primary Atrial fibrillation Monitoring for long-term anticoagulant use Encounter for long-term (current) use of anticoagulants documented in this encounter Care Teams Assistant Statistician Relationship Specialty Start Date End Date Tala Thomason MD [address] [place] [id number] PCP - General Family Practice 05/22/17 documented as of this encounter
--- OUTSIDE RECORDS SUMMARY | 2025-01-24 16:35 | XMS_ITS | Encounter Summary ---
Author Organization [facility] Address [address] [place] [address] Care Team Providers Care Construction Mgr Name Role Phone Tala Thomason MD Primary Care Provider [phone] Reason for Visit * Reason Comments Refill FLUoxetine (PROZAC) 20 MG capsule [Pharmacy Med Name: FLUOXETINE 20MG CAPSULES] Encounter Details Date Type Department Care Team (Late st Contact Info) Description 12/18/2024 Refill [facility] [address] [facility] [address] Gordon [id number] Patricia Ambrose PA-C [address] [place] [address] [place] [id number] Refill (FLUoxetine (PROZAC) 20 MG capsule [Pharmacy [...] as of this encounter Nursing Notes * Tala Thomason MD - 12/25/2024 10:03 AM CDT Medication approved. Sylvia needs to be seen before additional refills give. Please help Sylvia schedule an appointment--Medicare visit and f/u in 2-3 months (next available) * Senia Torres, RN - 12/22/2024 12:38 PM CDT Further Assistance Needed on Refill from Clinician RN reviewed. Signed order needed. Requested medication needs an order signed by an authorized prescriber. Patient seen 08/29/24 Review pended order for accuracy and sign if appropriate and Document if appointment is needed for further refills Requested Prescriptions Pending Prescriptions Disp Refills FLUoxetine (PROZAC) 20 MG capsule [Pharmacy Med Name: FLUOXETINE 20MG CAPSULES] 90 Capsule 0 Sig: TAKE 1 CAPSULE(20 MG) BY MOUTH DAILY * Lilliam Keith Xrwcomm - 12/18/2024 8:07 AM CDT FLUoxetine (PROZAC) 20 MG capsule [Pharmacy Med Name: FLUOXETINE 20MG CAPSULES] Medication started: 09/17/2019 Last ordered by PATRICIA AMBROSE N: 03/15/2024 (278 days ago) QTY: 90, Refills: 3, Sig: take 1 capsule (20 mg) by mouth daily. (changed but equivalent) -> Refill x 3 months (until due for an office visit) Last qualifying visit: 03/15/2024 (with PATRICIA AMBROSE) (A more recent visit (in Internal Medicine with HERMANN MENA) was found) Next scheduled visit: None Age: 79 [employer] Refills, Reference: [id number], 12/18/2024 8:07:51 AM CDT, Pool: JESSIE Refill Centralized Services - Primary Care [[id number]] ([id number]) documented in this encounter Plan of Treatment Upcoming Encounters Date Type Department Care Team (Late st Contact Info) Description 01/30/2025 1:30 PM CDT Appointment [facility] [address] [place], [place] [phone] Shannon Gunter APRN, EQUIPMENT SCHEDULER [address] [place], [place] [address] 02/03/2025 1:10 PM CDT Appointment [facility] [address] [place], [place] [phone] 02/11/2025 1:00 PM CDT Appointment [facility] [address] [facility] [address] [place] [address] Jessica Zayas APRN, EQUIPMENT SCHEDULER [address] [place] [phone] 04/01/2025 12:00 PM CDT Appointment [facility] [address] [place] [address] Tala Thomason MD [address] [id number] documented as of this encounter Visit Diagnoses Diagnosis 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
--- OUTSIDE RECORDS SUMMARY | 2025-01-24 16:35 | XMS_ITS | Encounter Summary ---
Author Organization [facility] Address [address] [place] [address] Care Team Providers Care Preschool Associate Teacher Name Role Phone Tala Thomason MD Primary Care Provider [phone] Encounter Details Date Type Department Care Team (Late st Contact Info) Description 12/03/2024 E-Visit [facility] [address] [place], [place] [phone] [place] [address] Social History Tobacco Use Types Packs/Day Years [...] Info) Description 01/30/2025 1:30 PM CDT Appointment [facility] [address] [place] [address] Shannon Gunter, PEDRO, SEAFOOD PACKER [address] [place] [address] [place] [address] 02/03/2025 1:10 PM CDT Appointment [facility] [address] [place] [address] [place] [id number] 02/11/2025 1:00 PM CDT Appointment [facility] [place] [facility] [address] [facility] [address] [place] [phone] Jessica Zayas, MRI MANAGER, SEAFOOD PACKER [address] [place] [phone] 04/01/2025 12:00 PM CDT Appointment [facility] [address] [place] [address] Tala Thomason MD [address] [place] [id number] documented as of this encounter Visit Diagnoses Not on filedocumented in this encounter Care Teams Preschool Associate Teacher Relationship Specialty Start Date End Date Tala Thomason MD [address] [id number] PCP - General Family Practice 05/22/17 documented as of this encounter
--- OUTSIDE RECORDS SUMMARY | 2025-01-24 16:35 | XMS_ITS | Encounter Summary ---
Author Organization [facility] Address [address] [place] [address] Care Team Providers Care Family Consumer Science Teacher Name Role Phone Tala Thomason MD Primary Care Provider [phone] Reason for Visit * Reason Comments Refill metoprolol succinate (TOPROL XL) 25 MG 24 hour release tablet [Pharmacy Med Name: METOPROLOL ER SUCCINATE 25MG TABS] Encounter Details Date Type Department Care Team (Late st Contact Info) Description 12/17/2024 Refill [facility] [address] [id number] Patricia Ambrose, PAAndrew [address] [place] [address] [place] [address] Refill (metoprolol succinate (TOPROL XL) 25 MG [...] of this encounter Nursing Notes * Ramona Livingston RN - 12/20/2024 9:52 AM CDT Refill refused. See Reason for Refusal comment below requested Rx. Requested Prescriptions Refused Prescriptions Disp Refills metoprolol succinate (TOPROL XL) 25 MG 24 hour release tablet [Pharmacy Med Name: METOPROLOL ER SUCCINATE 25MG TABS] 90 Tablet 0 Sig: TAKE 1 TABLET(25 MG) BY MOUTH DAILY Refused By: RAMONA LIVINGSTON Reason for Refusal: Patient Has Requested Refill Too Soon * Lilliam Keith Xrwcomm - 12/17/2024 8:07 AM CDT metoprolol succinate (TOPROL XL) 25 MG 24 hour release tablet [Pharmacy Med Name: METOPROLOL ER SUCCINATE 25MG TABS] Medication started: 09/27/2021 Last ordered by PATRICIA AMBROSE N: 03/15/2024 (277 days ago) QTY: 90, Refills: 3, Sig: take 1 tablet(25 mg) by mouth daily. (changed but equivalent) -> Refill x 3 months (until due for an office visit) Last qualifying visit: 03/15/2024 (with PATRICIA AMBROSE) (A more recent visit (in Internal Medicine with HERMANN MENA) was found) Next scheduled visit: None [employer] Ref[employer], Reference: [id number], 12/17/2024 8:07:50 AM CDT, Pool: PN Refill Centralized Services - Primary Care [[id number]] ([id number]) documented in this encounter Plan of Treatment Upcoming Encounters Date Type Department Care Team (Late st Contact Info) Description 01/30/2025 1:30 PM CDT Appointment [facility] [address] [place], [place] [phone] Shannon Gunter APRN, GIFT WRAPPER [address] [facility] [address] [place] [address] 02/03/2025 1:10 PM CDT Appointment [facility] [address] [id number] 02/11/2025 1:00 PM CDT Appointment [facility] [address] [facility] [address] [place] [phone] Jessica Zayas, PEDRO, GIFT WRAPPER [address] [place] [phone] 04/01/2025 12:00 PM CDT Appointment [facility] [address] [place], [place] [phone] Tala Thomason MD [address] [id number] documented as of this encounter Visit Diagnoses Diagnosis Essential hypertension (HRC) Unspecified essential hypertension documented in this encounter Care Teams Family Consumer Science Teacher Relationship Specialty Start Date End Date Tala Thomason MD [address] [place] [address] PCP - General Family Practice 05/22/17 documented as of this encounter
--- NOTE | 2025-01-24 17:10 | ED.GENADULT ---
HPI - General Adult General Chief complaint: Shortness of Breath/Dyspnea Stated complaint: Hard time breathing Time Seen by Provider: 01/24/25 17:04 History of Present Illness HPI narrative: Patient presents to the emergency department for shortness of breath. Patient states she has been having increased shortness of breath since about mothers day. Patient is having a hard time even walking up the steps. Has a hx of pneumonia and feels like she never really recovered from it. 79-year-old woman presenting to the emergency department with concern of shortness of breath. was admitted to this facility in mid November with pneumonia and sepsis and respiratory failure. Does have a chronic kidney disease with baseline creatinine of about 2.1. Underlying history of diastolic dysfunction as well. She does not feel like she really quite cleared since this hospitalization. Had some cough but continued shortness of breath over the last 3 weeks or so. Increased exertional dyspnea. Sitting is okay but short of breath when she goes to lie down or ambulate. Does have a history of diastolic heart failure. Related Data Home Medications ?Medication ?Instructions ?Recorded ?Confirmed amlodipine 5 mg tablet 5 mg PO DAILY 03/12/22 01/24/25 atorvastatin 40 mg tablet 40 mg PO DAILY 03/12/22 01/24/25 fluoxetine 20 mg capsule 20 mg PO DAILY 03/12/22 01/24/25 furosemide 20 mg tablet 20 mg PO DAILY 03/12/22 01/24/25 gabapentin 100 mg capsule 100 mg PO Q8H PRN pain 03/12/22 01/24/25 levothyroxine 100 mcg tablet 100 mcg PO DAILY 03/12/22 01/24/25 metoprolol succinate 25 mg 25 mg PO DAILY 03/12/22 01/24/25 tablet,extended release 24 hr warfarin 1 mg tablet 0.5 - 1 mg PO DAILY 03/12/22 01/24/25 allopurinol 100 mg tablet 200 mg PO DAILY 12/02/24 01/24/25 cetirizine 10 mg tablet 10 mg PO DAILY 12/02/24 01/24/25 mirabegron 50 mg tablet,extended 50 mg PO DAILY 12/02/24 01/24/25 release 24 hr (Myrbetriq) Allergies Allergy/AdvReac Type Severity Reaction Status Date / Time codeine Allergy Unknown Verified 01/24/25 16:41 Review of Systems Status of ROS: Reports: 6 or more systems reviewed and unremarkable except as noted in History and below [facility] Medical History Osteopenia ?M85.80 - Other specified disorders of bone density and structure, unspecified site (ICD-10) BCC (basal cell carcinoma), shoulder ?C44.611 - Basal cell carcinoma of skin of unspecified upper limb, including shoulder (ICD-10) Hypothyroidism ?E03.9 - Hypothyroidism, unspecified (ICD-10) Gout ?M10.9 - Gout, unspecified (ICD-10) Anxiety ?F41.9 - Anxiety disorder, unspecified (ICD-10) Anemia in chronic renal disease ?N18.9 - Chronic kidney disease, unspecified (ICD-10) ?D63.1 - Anemia in chronic kidney disease (ICD-10) Moderate episode of recurrent major depressive disorder ?F33.1 - Major depressive disorder, recurrent, moderate (ICD-10) Elevated LFTs ?R79.89 - Other specified abnormal findings of blood chemistry (ICD-10) Diastolic CHF ?I50.30 - Unspecified diastolic (congestive) heart failure (ICD-10) Hyperlipidemia ?E78.5 - Hyperlipidemia, unspecified (ICD-10) Alport syndrome ?Q87.81 - Alport syndrome (ICD-10) Deaf ?H91.90 - Unspecified hearing loss, unspecified ear (ICD-10) COVID-19 ?U07.1 - COVID-19 (ICD-10) Hypertension ?I10 - Essential (primary) hypertension (ICD-10) Chronic kidney disease ?N18.9 - Chronic kidney disease, unspecified (ICD-10) Atrial fibrillation, chronic ?I48.20 - Chronic atrial fibrillation, unspecified (ICD-10) Surgical History H/O dilation and curettage (04/03/06) ?Z98.890 - Other specified postprocedural states (ICD-10) Hx of tonsillectomy ?Z90.89 - Acquired absence of other organs (ICD-10) H/O laparoscopy ?Z98.890 - Other specified postprocedural states (ICD-10) H/O wisdom tooth extraction ?K08.409 - Partial loss of teeth, unspecified cause, unspecified class (ICD-10) History of tubal ligation ?Z98.51 - Tubal ligation status (ICD-10) Family History Father Diabetes Cardiovascular disease High blood pressure Sister Stroke Social History Narrative: Lives in [id number] suite of basement of daughter's house. No tobacco or alcohol use. What is your current living situation?: I presently have a place to live Problems where you live: no known problems Problems where you live details: NA In the past 12 months, utilities in danger of being shut off: no In past 12 months, lack of transportation kept you from medical appts, meetings, work, or getting things needed for daily living: no In the past 12 mos, have been you worried that your food would run out before you had money to buy more?: never true In the past 12 mos, the food you bought just didn't last and you didn't have money to buy more?: never true Highest level of school completed/degree received: high school graduate Smoking Status: Never smoker Second hand tobacco smoke exposure: No How often do you have a drink containing alcohol: never AUDIT-C Alcohol total score: 0 Non-prescribed substance use: denies use Caffeine: Yes How often does anyone, including family, friends and others, physically hurt you: never How often does anyone, including family, friends and others, insult or talk down to you: never How often does anyone, including family, friends and others, threaten you with harm: never How often does anyone, including family, friends and others, scream or curse at you: never service: No Exam Narrative: Exam Narrative: Of good energy. Assisted with rejector. A little congested in her throat it seems. Lower extremities appear without edema. Intermittent small congested cough. Good air movement. No wheeze. Breathing is not labored. Some trace right greater than left crepitus to the bases. Heart in irregularly irregular rhythm Const: Vital Signs, click to edit/add: Vital Signs - 24 hr 01/24/25 16:35 01/24/25 18:30 Temperature 98.2 F Pulse Rate 89 Pulse Rate [Right Pulse Oximeter] 64 Respiratory Rate 18 18 Blood Pressure 137/84 Blood Pressure [Ri ght Upper Arm] 144/68 H Pulse Oximetry 97 97 Oxygen Delivery Me thod Room Air Documenting provider has reviewed patient's vital signs: yes Course Vital Signs Vital signs: Initial Vital Signs Temperature 98.2 F 01/24/25 16:35 Temperature Source Temporal Artery Scan 01/24/25 16:35 Pulse Rate 64 01/24/25 16:35 Pulse Rhythm Regular 01/24/25 16:35 Pulse Strength 3+ Normal 01/24/25 16:35 Respiratory Rate 18 01/24/25 16:35 Blood Pressure 144/68 H 01/24/25 16:35 Blood Pressure Mean 93 01/24/25 16:35 Blood Pressure Position Sitting 01/24/25 16:35 Pulse Oximetry 97 01/24/25 16:35 Oxygen Delivery Method Room Air 01/24/25 16:35 Vital Signs Temperature 98.2 F 01/24/25 16:35 Pulse Rate 64 01/24/25 16:35 Respiratory Rate 18 01/24/25 16:35 Blood Pressure 144/68 H 01/24/25 16:35 Pulse Oximetry 97 01/24/25 16:35 Oxygen Delivery Method Room Air 01/24/25 16:35 Temperature 98.2 F 01/24/25 16:35 Pulse Rate 89 01/24/25 18:30 Respiratory Rate 18 01/24/25 18:30 Blood Pressure 137/84 01/24/25 18:30 Pulse Oximetry 97 01/24/25 18:30 Oxygen Delivery Method Room Air 01/24/25 16:35 Medical Decision Making MDM Narrative Medical decision making narrative: I suppose this could be some exacerbation of heart failure. Look for evidence of pneumonia otherwise. Not sure how much of this might be postnasal drip. Did have recent pneumonia. Could be some residual inflammatory changes. Anticoagulation with history of paroxysmal? atrial fibrillation Labs are generally reassuring. Creatinine is near baseline at 2.3. ProBNP is 5170 though this is lower than last illness. Remains in atrial fibrillation. INR in goal. Chest x-ray independently reviewed by me with small pleural effusion and cardiomegaly. Appears to have some persistent infiltrate. There has not been marked worsening in symptoms to suggest a new pneumonia. Perhaps has not cleared but I think it would be prudent to treat with an antibiotic in this case. Exacerbation of CHF as well. Radiology over-read below INDICATION: Shortness of breath TECHNIQUE: Chest radiograph 2 views COMPARISON: 12/02/2024 FINDINGS: The sensitivity and specificity of the exam are moderately limited by the patient`s body habitus. Mediastinum: The central pulmonary arteries are near the upper limits of normal in size. Moderate, stable cardiomegaly is noted. Lung: Mild bibasilar atelectasis and right basilar consolidation is noted with a moderate right subpulmonic effusion and small left pleural effusion seen. No pneumothorax is identified. Bone and Soft tissue: Unremarkable for age. IMPRESSIONS: 1. Mild bibasilar atelectasis and right basilar consolidation is noted with a moderate right subpulmonic effusion and small left pleural effusion seen. 2. Moderate, stable cardiomegaly is noted. Dictated by Mina Wayne MD @ 01/24/2025 5:40:53 PM Stable vitals during time in the emergency department. Oxygenating well. See patient discharge plan for further discussion Usual hydration. Prescribing Augmentin from [facility] for this consolidation that radiology noted in your right lower lung. This would be interpreted as a pneumonia. Most of what we are seeing in your lungs though is I think lung compression also called atelectasis in the setting of pleural effusion. These small effusions were not present the last time we did x-rays of your chest and so I wonder if you have been tipped into some worsening of your heart failure. Your proBNP is also rather elevated which is a test that we use to track heart failure. It is not nearly though as high as it was in November but you were a lot sicker then. With this in mind I would like you to double your Lasix to 40 mg in total daily. This can stress your kidneys a little bit. Your creatinine today was 2.3. Increased fluid in your lungs can certainly be contributing to your cough. I would like you to follow-up in 7-10 days if possible to recheck labs and check in with your doctor otherwise. Medical Records Medical records reviewed: Yes I reviewed the patient's medical records Lab Data Labs: Lab Results 01/24/25 01/24/25 01/24/25 Range/Units 17:50 18:38 19:10 WBC 6.89 (4.50-11.00) K/uL RBC 4.07 (4.00-5.20) m/uL Hgb 12.3 (12.0-16.0) gm/dL Hct 37.6 (33.0-51.0) % MCV 92 (80-100) fL MCH 30 (26-34) pg MCHC 33 (32-36) gm/dL RDW Coeff of Halle 13.8 (11.5-15.5) % Plt Count 361 (140-440) K/uL Neut % (Auto) 68.9 (42.0-72.0) % Lymph % (Auto) 21.8 (20-44) % Butts % (Auto) 6.0 (0.0-11.0) % Eos % (Auto) 2.9 (0.0-7.0) % Baso % (Auto) 0.3 (0.0-3.0) % Neut # (Auto) 4.75 (1.7-7.0) K/uL Lymph # (Auto) 1.50 (0.90-2.90) K/uL Butts # (Auto) 0.40 (0.00-0.90) K/UL Eos # (Auto) 0.20 (0.00-0.50) K/uL Baso # (Auto) 0.02 (0.00-0.30) K/uL Abs Immat Gran (auto) 0.01 (0.00-0.30) K/uL Imm/Tot Granulo (auto) 0.1 % INR 2.59 H (0.91-1.10) Sodium 140 (135-149) mmol/L Potassium 4.4 (3.6-5.1) mmol/L Chloride 106 (96-114) mmol/L Carbon Dioxide 21 (20-32) mmol/L Anion Gap 13 (7-15) mEq/L BUN 37 H (7-30) mg/dL Creatinine 2.3 H (0.5-1.5) mg/dL Estimated Creat Clear 15.21 Estimated GFR 21 ml/min Glucose 107 (60-115) mg/dL Calcium 9.3 (8.4-10.6) mg/dL Total Bilirubin 1.0 (0.1-1.5) mg/dL Direct Bilirubin 0.2 (0.0-0.5) mg/dL AST 30 (12-35) U/L ALT 16 (4-35) U/L Alkaline Phosphatase 52 (40-150) U/L NT-Pro-B Natriuret Pep 5170 H (See Note) pg/mL Total Protein 7.5 (6.0-8.3) g/dL Albumin 4.3 (3.3-5.0) g/dL Urine Color (Yellow) Urine Appearance (Clear) Urine pH (5.0-8.5) Ur Specific [place] (1.000-1.030) Urine Protein (Negative) Urine Glucose (UA) (Negative) Urine Ketones (Negative) Urine Blood (Negative) Urine Nitrite (Negative) Urine Bilirubin (Negative) Urine Urobilinogen (0.2-1.0) Ur Leukocyte Esterase (Negative) Urine RBC (0-2) Urine WBC (0-5) Ur Squamous Epith Cells (None-Few) Urine Bacteria (None) Urine Starch (None) SARS-CoV-2 (PCR) Negative SARS-CoV-2 (Negative) Influenza Type A (PCR) Negative PCR FLU A (Negative) Influenza Type B (PCR) Negative PCR FLU B (Negative) RSV (PCR) Negative PCR RSV (Negative) Lab Acknowledgement Test Added 01/24/25 Range/Units Unknown WBC (4.50-11.00) K/uL RBC (4.00-5.20) m/uL Hgb (12.0-16.0) gm/dL Hct (33.0-51.0) % MCV (80-100) fL MCH (26-34) pg MCHC (32-36) gm/dL RDW Coeff of Halle (11.5-15.5) % Plt Count (140-440) K/uL Neut % (Auto) (42.0-72.0) % Lymph % (Auto) (20-44) % Butts % (Auto) (0.0-11.0) % Eos % (Auto) (0.0-7.0) % Baso % (Auto) (0.0-3.0) % Neut # (Auto) (1.7-7.0) K/uL Lymph # (Auto) (0.90-2.90) K/uL Butts # (Auto) (0.00-0.90) K/UL Eos # (Auto) (0.00-0.50) K/uL Baso # (Auto) (0.00-0.30) K/uL Abs Immat Gran (auto) (0.00-0.30) K/uL Imm/Tot Granulo (auto) % INR (0.91-1.10) Sodium (135-149) mmol/L Potassium (3.6-5.1) mmol/L Chloride (96-114) mmol/L Carbon Dioxide (20-32) mmol/L Anion Gap (7-15) mEq/L BUN (7-30) mg/dL Creatinine (0.5-1.5) mg/dL Estimated Creat Clear Estimated GFR ml/min Glucose (60-115) mg/dL Calcium (8.4-10.6) mg/dL Total Bilirubin (0.1-1.5) mg/dL Direct Bilirubin (0.0-0.5) mg/dL AST (12-35) U/L ALT (4-35) U/L Alkaline Phosphatase (40-150) U/L NT-Pro-B Natriuret Pep (See Note) pg/mL Total Protein (6.0-8.3) g/dL Albumin (3.3-5.0) g/dL Urine Color Yellow (Yellow) Urine Appearance Clear (Clear) Urine pH 5.5 (5.0-8.5) Ur Specific [place] 1.025 (1.000-1.030) Urine Protein 1+ A (Negative) Urine Glucose (UA) Negative (Negative) Urine Ketones Negative (Negative) Urine Blood Negative (Negative) Urine Nitrite Negative (Negative) Urine Bilirubin 1+ A (Negative) Urine Urobilinogen 0.2 (0.2-1.0) Ur Leukocyte Esterase Trace A (Negative) Urine RBC 0-2 (0-2) Urine WBC 2-5 (0-5) Ur Squamous Epith Cells Many A (None-Few) Urine Bacteria Moderate A (None) Urine Starch Few A (None) SARS-CoV-2 (PCR) (Negative) Influenza Type A (PCR) (Negative) Influenza Type B (PCR) (Negative) RSV (PCR) (Negative) Lab Acknowledgement ECG Data Attestation: I personally reviewed and interpreted this ECG as follows: (Atrial fibrillation. Low voltage. Rate of 62) Discharge Plan Discharge Clinical Impression: CHF exacerbation, Atrial fibrillation, Pleural effusion, Pneumonia Patient Disposition: Home w/ Parent or Adult Condition: Stable Additional Instructions: Usual hydration. Prescribing Augmentin from [facility] for this consolidation that radiology noted in your right lower lung. This would be interpreted as a pneumonia. Most of what we are seeing in your lungs though is I think lung compression also called atelectasis in the setting of pleural effusion. These small effusions were not present the last time we did x-rays of your chest and so I wonder if you have been tipped into some worsening of your heart failure. Your proBNP is also rather elevated which is a test that we use to track heart failure. It is not nearly though as high as it was in November but you were a lot sicker then. With this in mind I would like you to double your Lasix to 40 mg in total daily. This can stress your kidneys a little bit. Your creatinine today was 2.3. Increased fluid in your lungs can certainly be contributing to your cough. I would like you to follow-up in 7-10 days if possible to recheck labs and check in with your doctor otherwise. Prescriptions: No Action cetirizine 10 mg tablet 10 mg PO DAILY allopurinol 100 mg tablet 200 mg PO DAILY mirabegron [Myrbetriq] 50 mg tablet extended release 24 hr 50 mg PO DAILY atorvastatin 40 mg tablet 40 mg PO DAILY amlodipine 5 mg tablet 5 mg PO DAILY levothyroxine 100 mcg tablet 100 mcg PO DAILY Patient Comments: TAKE 1 TABLET BY MOUTH 6 TIMES A WEEK AND NO MED ONCE WEEKLY furosemide 20 mg tablet 20 mg PO DAILY Patient Comments: TAKE 1 TABLET BY MOUTH DAILY gabapentin 100 mg capsule 100 mg PO Q8H PRN (Reason: pain) Patient Comments: TAKE 1 TO 2 CAPSULES BY MOUTH THREE TIMES DAILY NEEDED metoprolol succinate 25 mg tablet extended release 24 hr 25 mg PO DAILY fluoxetine 20 mg capsule 20 mg PO DAILY Patient Comments: TAKE 1 CAPSULE BY MOUTH DAILY warfarin 1 mg tablet 0.5 - 1 mg PO DAILY Rx Instructions: 1 MG MONDAY AND MONDAY, 0.5 MG ALL OTHER DAYS Follow Up/Referrals: Provider,Not a Local [Primary Care Provider, Family Practice] Stand Alone Forms: [employer] Info Instructions
--- NOTE | 2025-01-24 17:16 | CRLHL7_ITS ---
For Patients: As a result of the Cures Act, medical imaging exams and procedure reports are released immediately into your electronic medical record. You may view this report before your referring provider. If you have questions, please contact your health care provider. INDICATION: Shortness of breath TECHNIQUE: Chest radiograph 2 views COMPARISON: 12/02/2024 FINDINGS: The sensitivity and specificity of the exam are moderately limited by the patient`s body habitus. Mediastinum: The central pulmonary arteries are near the upper limits of normal in size. Moderate, stable cardiomegaly is noted. Lung: Mild bibasilar atelectasis and right basilar consolidation is noted with a moderate right subpulmonic effusion and small left pleural effusion seen. No pneumothorax is identified. Bone and Soft tissue: Unremarkable for age. IMPRESSIONS: 1. Mild bibasilar atelectasis and right basilar consolidation is noted with a moderate right subpulmonic effusion and small left pleural effusion seen. 2. Moderate, stable cardiomegaly is noted. Dictated by Mina Wayne MD @ 01/24/2025 5:40:53 PM Dictated by: Mina Wayne MD @ 01/24/2025 17:40:55 (Electronically Signed)
[2025-01-24 17:39] LABS: Appearance Urine Clear (Clear); Bilirubin Urine 1+ (Negative); Blood Urine Negative (Negative); Color Urine Yellow (Yellow); Glucose Urine Negative (Negative); Ketones Urine Negative (Negative); Leukocyte Esterase Urine Trace (Negative); Nitrite Urine Negative (Negative); Protein Urine 1+ (Negative); Specific Gravity Urine 1.025 (1.000-1.030); Urobilinogen Urine 0.2 (0.2-1.0); pH Urine 5.5 (5.0-8.5)
[2025-01-24 17:57] LABS: Basophils Absolute Auto 0.02 K/uL (0.00-0.30); Basophils Percent Auto 0.3 % (0.0-3.0); Eosinophils Percent Auto 2.9 % (0.0-7.0); Hematocrit 37.6 % (33.0-51.0); Hemoglobin* 12.3 gm/dL (12.0-16.0); Immature Granulocytes Abs Auto 0.01 K/uL (0.00-0.30); Immature Granulocytes Pct Auto 0.1 %; Lymphocytes Percent Auto 21.8 % (20-44); Mean Corpuscular HGB Conc 33 gm/dL (32-36); Mean Corpuscular Hemoglobin 30 pg (26-34); Mean Corpuscular Volume 92 fL (80-100); Neutrophils Absolute Auto 4.75 K/uL (1.7-7.0); Neutrophils Percent Auto 68.9 % (42.0-72.0); Platelet Count* 361 K/uL (140-440); RDW Coefficient of Variation % 13.8 % (11.5-15.5); Red Blood Count 4.07 m/uL (4.00-5.20); White Blood Count* 6.89 K/uL (4.50-11.00)
[2025-01-24 18:00] LABS: Slide Review Reflex No
[2025-01-24 18:09] LABS: RBC Urine 0-2 (0-2)
[2025-01-24 18:10] LABS: Bacteria Urine Moderate; Squamous Epithelial Cell Urine Many (None-Few); Starch Urine Few
[2025-01-24 18:11] LABS: Albumin* 4.3 g/dL (3.3-5.0); Chloride* 106 mmol/L (96-114); Potassium* 4.4 mmol/L (3.6-5.1); Sodium* 140 mmol/L (135-149)
[2025-01-24 18:14] LABS: Alanine Aminotransferase* 16 U/L (4-35); Alkaline Phosphatase* 52 U/L (40-150); Anion Gap 13 mEq/L (7-15); Aspartate Amino Transferase* 30 U/L (12-35); Bilirubin Direct* 0.2 mg/dL (0.0-0.5); Blood Urea Nitrogen* 37 mg/dL (7-30); Carbon Dioxide* 21 mmol/L (20-32); Creatinine* 2.3 mg/dL (0.5-1.5); Est. Creatinine Clearance* 15.21; Estimated Glomerular Filt Rate 21 ml/min; Total Protein* 7.5 g/dL (6.0-8.3)
[2025-01-24 18:15] LABS: Calcium* 9.3 mg/dL (8.4-10.6); Glucose* 107 mg/dL (60-115)
[2025-01-24 18:30] VITALS: BP 137/84; PULSE 89; RESP 18; O2SAT 97
[2025-01-24 18:46] LABS: NT Pro B Type NatriureticPept* 5170 pg/mL (See Note)
[2025-01-24 18:52] LABS: INR 2.59 (0.91-1.10)
[2025-01-24 19:52] LABS: PCR FLU A Negative PCR FLU A (Negative); PCR FLU B Negative PCR FLU B (Negative); PCR RSV Negative PCR RSV (Negative); SARS PCR* Negative SARS-CoV-2 (Negative)
--- NOTE | 2025-01-24 20:40 | ED.NURSE ---
IV removed from RAC. Cath intact. site wrapped with Coban.
== END 2025-01-24 20:35 | disposition home or self-care (01) ==
PROVIDERS: Emergency Provider Family Medicine
DX: I50.30 Unspecified diastolic (congestive) heart failure (principal); I48.91 Unspecified atrial fibrillation; J90 Pleural effusion, not elsewhere classified; J18.9 Pneumonia, unspecified organism; Z79.01 Long term (current) use of anticoagulants
CPT/HCPCS: 36415; 71046; 80048; 80076; 81001; 83880; 85025; 85610; 87086; 87631; 93005; 99284; 99285